=== PATIENT | male | born 1975 | race Hispanic/Latino ===

== ENCOUNTER 2017-08-18 12:41 | Emergency (ER) | payer SELFPAY ==
[2017-08-18] MEDS ORDERED: ACETAMINOPHEN 500 MG TAB ONE (13:47)
[2017-08-18 13:54] LABS: Absolute Lymphocytes (CBC) 0.7 K/uL (0.7-4.9); Absolute Monocytes 0.6 K/uL (0.1-1.3); Basophils % 0.1 % (0-1.3); Eosinophils % 0.3 % (0-4.4); Hematocrit 42.8 % (39.6-49.0); Lymphocytes % 5.6 % (15.3-44.8); MCH 29.2 pg (27.0-35.0); MCV 88.1 fL (80-100); MPV 8.9 fL (7.6-11.3); Monocytes % 4.7 % (3.3-12.3); RBC Red Blood Cell Count 4.86 M/uL (4.33-5.43)
[2017-08-18 14:01] LABS: Protime INR 1.07
[2017-08-18 14:02] LABS: Bicarbonate 26 mEq/L (21-31); Glucose Level 111 mg/dL (65-120); Potassium 3.7 mEq/L (3.6-5.0); Sodium Level 136 mEq/L (135-145)
[2017-08-18 14:08] LABS: ALT/SGPT 22 IU/L (10-60); AST/SGOT 29 IU/L (10-42); Albumin 4.2 g/dL (3.2-5.5); Alkaline Phosphatase 109 IU/L (42-121); BUN Blood Urea Nitrogen 17 mg/dL (6-20); Bilirubin Direct 0.1 mg/dL (0-0.2); Bilirubin Total 0.3 mg/dL (0.3-1.2); Creatine Phosphokinase 129 IU/L (22-269); Magnesium 2.3 mg/dL (1.8-2.5); Protein, Total 7.6 g/dL (6.0-8.3)
[2017-08-18 14:10] LABS: CKMB Creatine Kinase MB 1.3 ng/ml (0.3-4.0)
--- NOTE | 2017-08-18 14:10 | RAD REPORT ---
EXAM DESCRIPTION: RAD - Chest Single View - 08/18/2017 1:55 pm CLINICAL HISTORY: Chest pain. COMPARISON: 12/22/2016 FINDINGS: Portable technique limits examination quality. The lungs are grossly clear. The heart is normal in size. No displaced fractures. IMPRESSION: No acute intrathoracic process suspected.
--- NOTE | 2017-08-18 14:57 | EKG ---
Test Date: 2017-08-18 Test Time: 12:44:47 Steam Service Inspector: PRASHANTH MEASUREMENT RESULTS: Intervals: Rate: 97 VA: 150 QRSD: 102 QT: 360 QTc: 457 [place]: P: 58 VA: 150 QRS: 103 T: 40 INTERPRETIVE STATEMENTS: Normal sinus rhythm Rightward axis Borderline ECG Compared to ECG 02/14/2017 16:05:15 Right-axis deviation now present Intraventricular conduction delay no longer present Electronically Signed On 08-18-17 14:56:31 CDT by Collin Marshall
[2017-08-18 15:03] LABS: Blood Morphology Comment NOT SEEN (NOT SEEN); Platelet Estimate ADEQ; Urine White Blood Cell Casts OK
--- NOTE | 2017-08-18 18:17 | ER ---
Nurse's Notes [facility] Name: Mikhail Reilly Age: 41 yrs Sex: Male : 1975 Arrival Date: 08/18/2017 Time: 12:51 Bed 15 Private MD: Diagnosis: Chest pain, unspecified Presentation: 08/18 12:51 Presenting complaint: EMS states: chest pain and anxiety after getting into an argument ss with another individual approx 45 minutes ago. Transition of care: patient was not received from another setting of care. Onset of symptoms was August 18, 2017. Care prior to arrival: Medication(s) given: Nitroglycerin, 0.4 mg SL x 2, ASA 81 mg x4 IV initiated. 18 GA, in the left antecubital area, Glucose check: 143. 12:51 Method Of Arrival: EMS: [facility] ss 12:51 Acuity: LIANG 3 ss Historical: - Allergies: 12:55 Iodine; rb1 12:55 contrast; rb1 - Home Meds: 12:55 Protonix Oral [Active]; sotalol Oral [Active]; aspirin 81 mg Oral chew [Active]; Plavix rb1 75 mg Oral tab [Active]; - PMHx: 12:55 Atrial Fib; Back pain; Hypertension; Kidney stones; muscle spasms numerous times rb1 requiring Er visits with fluid resusitation; - PSHx: 12:55 None; rb1 - Immunization history:: Adult Immunizations up to date. - Social history:: Smoking status: Patient/guardian denies using tobacco. Screenin:55 Abuse screen: Denies threats or abuse. Nutritional screening: No deficits noted. rb1 Tuberculosis screening: No symptoms or risk factors identified. Fall Risk None identified. Assessment: 12:55 General: Appears uncomfortable, Behavior is calm, cooperative. Pain: Complains of pain rb1 in Center chest and right lower quadrant Pain does not radiate. Pain currently is 7 out of 10 on a pain scale. Pain began 1 hour ago. Neuro: Level of Consciousness is awake, alert, obeys commands, Oriented to person, place, time, situation, Reports headache in entire. Cardiovascular: Capillary refill < 3 seconds is brisk in bilateral fingers Rhythm is regular. Respiratory: Airway is patent Respiratory effort is even, unlabored, Respiratory pattern is regular, symmetrical. GI: Reports nausea. : No signs and/or symptoms were reported regarding the genitourinary system. Derm: Skin is dry, Skin is normal, Skin temperature is warm. Musculoskeletal: Range of motion: intact in all extremities. 13:50 Reassessment: Patient appears in no apparent distress at this time. Patient and/or rb1 family updated on plan of care and expected duration. Pain level reassessed. Patient is alert, oriented x 3, equal unlabored respirations, skin warm/dry/pink. Patient states symptoms have improved. 14:37 Reassessment: Patient appears in no apparent distress at this time. No changes from rb1 previously documented assessment. Family at bedside. 15:30 Reassessment: Patient appears in no apparent distress at this time. Patient and/or rb1 family updated on plan of care and expected duration. Pain level reassessed. Patient is alert, oriented x 3, equal unlabored respirations, skin warm/dry/pink. 16:28 Reassessment: Patient appears in no apparent distress at this time. Pt. resting with rb1 eyes closed, respirations even, unlabored. Family updated on POC. Call light within reach. 17:30 Reassessment: Patient appears in no apparent distress at this time. Patient and/or rb1 family updated on plan of care and expected duration. Pain level reassessed. Patient is alert, oriented x 3, equal unlabored respirations, skin warm/dry/pink. Family at bedside. 18:20 Reassessment: Patient appears in no apparent distress at this time. No changes from rb1 previously documented assessment. Vital Signs: 12:51 BP 111 / 89; Pulse 100; Resp 16; Temp 98.2; Pulse Ox 100% on R/A; Weight 96.62 kg; ss Height 5 ft. 11 in. (180.34 cm); Pain 6/10; 13:50 BP 111 / 89; Pulse 90; Resp 14; Pulse Ox 100% on R/A; rb1 14:40 BP 119 / 86; Pulse 88; Resp 16; Pulse Ox 100% on R/A; rb1 15:30 BP 120 / 65; Pulse 68; Resp 12; Pulse Ox 99% on R/A; Pain 0/10; rb1 16:30 BP 113 / 85; Pulse 70; Resp 13; Pulse Ox 99% on R/A; rb1 17:15 BP 112 / 74; Pulse 67; Resp 12; Pulse Ox 100% on R/A; Pain 0/10; rb1 18:14 BP 125 / 88; Pulse 70; Resp 18; Pulse Ox 96% on R/A; Pain 0/10; rb1 19:31 BP 125 / 90; Pulse 73; Resp 15; Pulse Ox 97% on R/A; rb1 12:51 Body Mass Index 29.71 (96.62 kg, 180.34 cm) ED Course: 12:51 Patient arrived in ED. 12:51 Arm band placed on right wrist. 12:53 Triage completed. ss 12:55 Patient has correct armband on for positive identification. Bed in low position. Call rb1 light in reach. Side rails up X 1. night monitor on. Pulse ox on. NIBP on. 12:55 Maintain EMS IV. Dressing intact. Good blood return noted. Site clean \T\ dry. Gauge \T\ rb 1 site: 20 g Left AC. Patient maintains SpO2 saturation greater than 95% on room air. 13:07 Breana Laureano, DANNIELLE is Primary Nurse. rb1 13:08 Cortez Chandler NP is PHCP. pm1 13:08 Robert Garcia MD is Attending Physician. pm1 13:53 X-ray completed. Portable x-ray completed in exam room. Patient tolerated procedure kp1 well. 13:55 XRAY Chest (1 view) In Process Unspecified. EDMS 19:25 No provider procedures requiring assistance completed. IV discontinued, intact, rb1 bleeding controlled, No redness/swelling at site. Pressure dressing applied. Administered Medications: 13:28 Drug: Tylenol 1000 mg Route: PO; rb1 14:05 Follow up: Response: No adverse reaction; Temperature is decreased rb1 Outcome: 18:17 Discharge ordered by . pm1 19:25 Discharged to home ambulatory, with family. rb1 19:25 Condition: stable 19:25 Discharge instructions given to patient, Instructed on discharge instructions, follow up and referral plans. Demonstrated understanding of instructions, follow-up care, Prescriptions given X none 19:25 Patient left the ED. rb1 Signatures: Dispatcher [employer] EDMS Nikki Win RN RN Breana Laureano, DANNIELLE RN rb1 Cortez Chandler NP [employer] pm1 Etelvina Harris kp1 Corrections: (The following items were deleted from the chart) 18:29 15:30 BP 120 / 65; Pulse 68bpm; Resp 12bpm; Pulse Ox 99% RA; rb1 rb1 19:35 19:34 Patient left the ED. rb1 rb1
--- NOTE | 2017-08-18 18:18 | EDPHYS ---
Physician Documentation [facility] Name: Mikhail Reilly Age: 41 yrs Sex: Male : 1975 Arrival Date: 08/18/2017 Time: 12:51 Bed 15 Private MD: ED Physician Robert Garcia HPI: 08/18 14:00 This 41 yrs old Male presents to ER via EMS with complaints of Chest Pain, pm1 Anxiety. 14:00 The patient or guardian reports chest pain that is located primarily in the substernal pm1 area. Onset: 30 minutes prior to arrival. The pain does not radiate. Associated signs and symptoms: Pertinent positives: palpitations, Headache after given nitro by EMS, Pertinent negatives: abdominal pain, dizziness, nausea, shortness of breath, vomiting. The chest pain is described as sharp. Duration: The patient or guardian reports a single episode, that is still ongoing. Modifying factors: The symptoms are alleviated by NTG, the symptoms are aggravated by emotionally stressful situations, Altercation with contractor paying him. Severity of pain: in the emergency department the pain is a 5 / 10. Patient with onset of chest pain 30 minutes prior to arrival with palpitations. 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 He was trying to avoid paying for the work that was done and it obviously upset him. Historical: - Allergies: 12:55 Iodine; rb1 12:55 contrast; rb1 - Home Meds: 12:55 Protonix Oral [Active]; sotalol Oral [Active]; aspirin 81 mg Oral chew [Active]; Plavix rb1 75 mg Oral tab [Active]; - PMHx: 12:55 Atrial Fib; Back pain; Hypertension; Kidney stones; muscle spasms numerous times rb1 requiring Er visits with fluid resusitation; - PSHx: 12:55 None; rb1 - Immunization history:: Adult Immunizations up to date. - Social history:: Smoking status: Patient/guardian denies using tobacco. ROS: 14:00 Constitutional: Negative for fever, chills, and weight loss, Eyes: Negative for injury, pm1 pain, redness, and discharge, ENT: Negative for injury, pain, and discharge, Neck: Negative for injury, pain, and swelling, Respiratory: Negative for shortness of breath, cough, wheezing, and pleuritic chest pain, Abdomen/GI: Negative for abdominal pain, nausea, vomiting, diarrhea, and constipation. 14:00 Back: Negative for injury and pain, : Negative for injury, bleeding, discharge, and swelling, MS/Extremity: Negative for injury and deformity, Skin: Negative for injury, rash, and discoloration. 14:00 Cardiovascular: Positive for chest pain, palpitations, Negative for edema, orthopnea, paroxysmal nocturnal dyspnea. 14:00 Neuro: Positive for headache, with nitro administration, Negative for dizziness, numbness, tingling, weakness. Exam: 14:00 Constitutional: This is a well developed, well nourished patient who is awake, alert, pm1 and in no acute distress. Head/Face: Normocephalic, atraumatic. Eyes: Pupils equal round and reactive to light, extra-ocular motions intact. Lids and lashes normal. Conjunctiva and sclera are non-icteric and not injected. Cornea within normal limits. Periorbital areas with no swelling, redness, or edema. ENT: Nares patent. No nasal discharge, no septal abnormalities noted. Tympanic membranes are normal and external auditory canals are clear. Oropharynx with no redness, swelling, or masses, exudates, or evidence of obstruction, uvula midline. Mucous membranes moist. Neck: Trachea midline, no thyromegaly or masses palpated, and no cervical lymphadenopathy. Supple, full range of motion without nuchal rigidity, or vertebral point tenderness. No Meningismus. 14:00 Cardiovascular: Regular rate and rhythm with a normal S1 and S2. No gallops, murmurs, or rubs. Normal PMI, no JVD. No pulse deficits. Respiratory: Lungs have equal breath sounds bilaterally, clear to auscultation and percussion. No rales, rhonchi or wheezes noted. No increased work of breathing, no retractions or nasal flaring. Abdomen/GI: Soft, non-tender, with normal bowel sounds. No distension or tympany. No guarding or rebound. No evidence of tenderness throughout. Back: No spinal tenderness. No costovertebral tenderness. Full range of motion. Skin: Warm, dry with normal turgor. Normal color with no rashes, no lesions, and no evidence of cellulitis. MS/ Extremity: Pulses equal, no cyanosis. Neurovascular intact. Full, normal range of motion. 14:00 Chest/axilla: Inspection: normal, Palpation: tenderness, that is mild, of the mid-sternal area, that totally reproduces the patient's complaints. 14:00 Neuro: Orientation: is normal, Motor: is normal, moves all fours, Sensation: is normal, no obvious gross deficits. 14:00 Psych: Behavior/mood is cooperative, anxious, Affect is animated, Patient has no thoughts/intents to harm self or others. Vital Signs: 12:51 BP 111 / 89; Pulse 100; Resp 16; Temp 98.2; Pulse Ox 100% on R/A; Weight 96.62 kg; ss Height 5 ft. 11 in. (180.34 cm); Pain 6/10; 13:50 BP 111 / 89; Pulse 90; Resp 14; Pulse Ox 100% on R/A; rb1 14:40 BP 119 / 86; Pulse 88; Resp 16; Pulse Ox 100% on R/A; rb1 15:30 BP 120 / 65; Pulse 68; Resp 12; Pulse Ox 99% on R/A; Pain 0/10; rb1 16:30 BP 113 / 85; Pulse 70; Resp 13; Pulse Ox 99% on R/A; rb1 17:15 BP 112 / 74; Pulse 67; Resp 12; Pulse Ox 100% on R/A; Pain 0/10; rb1 18:14 BP 125 / 88; Pulse 70; Resp 18; Pulse Ox 96% on R/A; Pain 0/10; rb1 19:31 BP 125 / 90; Pulse 73; Resp 15; Pulse Ox 97% on R/A; rb1 12:51 Body Mass Index 29.71 (96.62 kg, 180.34 cm) ss MDM: 13:08 Patient medically screened. pm1 18:16 Data reviewed: vital signs. Data interpreted: Pulse oximetry: on room air is 100 %. pm1 Interpretation: normal. Counseling: I had a detailed discussion with the patient and/or guardian regarding: the historical points, exam findings, and any diagnostic results supporting the discharge/admit diagnosis, lab results, radiology results, the need for outpatient follow up, to return to the emergency department if symptoms worsen or persist or if there are any questions or concerns that arise at home. 08/18 13:15 Order name: Basic Metabolic Panel; Complete Time: 14:17 pm1 08/18 13:15 Order name: BNP; Complete Time: 14:17 pm1 08/18 13:15 Order name: CBC with Diff; Complete Time: 15:59 pm1 08/18 13:15 Order name: Ckmb; Complete Time: 14:17 pm1 08/18 13:15 Order name: CPK; Complete Time: 14:17 pm1 08/18 13:15 Order name: LFT's; Complete Time: 14:17 pm1 08/18 13:15 Order name: Magnesium; Complete Time: 14:17 pm1 08/18 13:15 Order name: PT-INR; Complete Time: 14:17 pm1 08/18 13:15 Order name: Ptt, Activated; Complete Time: 14:17 pm1 08/18 13:15 Order name: Troponin (emerg Dept Use Only); Complete Time: 14:17 pm1 08/18 13:15 Order name: XRAY Chest (1 view); Complete Time: 14:17 pm1 08/18 15:03 Order name: CBC Smear Scan; Complete Time: 15:59 EDMS 08/18 17:31 Order name: Troponin (emerg Dept Use Only); Complete Time: 18:16 pm1 08/18 13:00 Order name: EKG; Complete Time: 13:00 ss 08/18 13:00 Order name: EKG - Nurse/Tech; Complete Time: 13:00 ss 08/18 13:15 Order name: Cardiac monitoring; Complete Time: 13:23 pm1 08/18 13:15 Order name: IV Saline Lock; Complete Time: 13:23 pm1 08/18 13:15 Order name: Labs collected and sent; Complete Time: 13:40 pm1 08/18 13:15 Order name: O2 Per Protocol; Complete Time: 13:23 pm1 08/18 13:15 Order name: O2 Sat Monitoring; Complete Time: 13:24 pm1 Administered Medications: 13:28 Drug: Tylenol 1000 mg Route: PO; rb1 14:05 Follow up: Response: No adverse reaction; Temperature is decreased rb1 Disposition: 08/19 07:05 Co-signature as Attending Physician, Robert Garcia MD. rn Disposition: 08/18/17 18:17 Discharged to Home. Impression: Chest pain, unspecified. - Condition is Stable. - Discharge Instructions: Nonspecific Chest Pain. - Medication Reconciliation Form, Thank You Letter form. - Follow up: Emergency Department; When: As needed; Reason: Worsening of condition. Follow up: Private Physician; When: 2 - 3 days; Reason: Recheck today's complaints, Continuance of care, Re-evaluation by your physician. - Problem is new. - Symptoms have improved. Signatures: Dispatcher [employer] EDMS Robert Garcia MD MD rn Smirch, Shelby, RN RN ss Breana Laureano RN RN rb1 Cortez Chandler NP MARKETING PRODUCTION SPECIALIST pm1 Corrections: (The following items were deleted from the chart) 08/18 18:24 13:15 Urine Dipstick-Ancillary ordered. pm1 rb1
[2017-08-18 19:41] VITALS: TEMP 98.2
[2017-08-18 19:50] VITALS: BP 125/90; O2SAT 97
== END 2017-08-18 19:34 | disposition home or self-care (01) ==
LOC: ER 12:41
DX: R07.9 Chest pain, unspecified (principal); I10 Essential (primary) hypertension; I48.91 Unspecified atrial fibrillation; Z79.01 Long term (current) use of anticoagulants; Z79.82 Long term (current) use of aspirin
CPT/HCPCS: 36415; 71045; 80048; 80076; 82550; 82553; 83735; 83880; 84484; 85025; 85610; 85730; 93005; 99285

== ENCOUNTER 2018-01-01 07:18 | Emergency (ER) | payer SELFPAY ==
[2018-01-01] MEDS ORDERED: NA CHLORIDE 0.9% 1,000 ML ONE ×2 (07:32→10:19)
[2018-01-01] MEDS ORDERED: FAMOTIDINE 20 MG/2 ML VIAL IV ONE (07:32)
[2018-01-01] MEDS ORDERED: ONDANSETRON 4 MG/2 ML VIAL ONE (07:32)
[2018-01-01 07:47] LABS: Absolute Lymphocytes (CBC) 0.5 K/uL (0.7-4.9); Absolute Monocytes 0.5 K/uL (0.1-1.3); Absolute Neutrophil 12.6 K/uL (1.8-8.0); Basophils % 0.6 % (0-1.3); Eosinophils % 0.4 % (0-4.4); Hematocrit 40.1 % (39.6-49.0); Lymphocytes % 3.7 % (15.3-44.8); MCH 30.2 pg (27.0-35.0); MCV 89.9 fL (80-100); MPV 8.9 fL (7.6-11.3); Monocytes % 3.7 % (3.3-12.3); RBC Red Blood Cell Count 4.46 M/uL (4.33-5.43)
[2018-01-01 08:08] LABS: ALT/SGPT 22 U/L (12-78); AST/SGOT 21 U/L (15-37); Albumin 3.8 g/dL (3.4-5.0); Alkaline Phosphatase 127 U/L (45-117); Amylase Level 155 U/L (25-115); BUN Blood Urea Nitrogen 16 mg/dL (7-18); Bicarbonate 27 mmol/L (21-32); Bilirubin Direct < 0.1 mg/dL (0-0.2); Bilirubin Total 0.3 mg/dL (0.2-1.0); Glucose Level 112 mg/dL (74-106); Lipase 329 U/L (73-393); Magnesium 1.9 mg/dL (1.8-2.4); Potassium 3.5 mmol/L (3.5-5.1); Protein, Total 7.9 g/dL (6.4-8.2); Sodium Level 139 mmol/L (136-145)
[2018-01-01] MEDS ORDERED: ACETAMINOPHEN 500 MG TAB ONE (08:16)
--- NOTE | 2018-01-01 08:55 | RAD REPORT ---
EXAM DESCRIPTION: RAD - Chest Single View - 01/01/2018 7:58 am CLINICAL HISTORY: N/V Chest pain. COMPARISON: Chest Single View dated 08/18/2017; Chest Single View dated 12/22/2016; Chest Single View d ated 12/19/2016; CHEST PA AND LAT 2 VIEW dated 05/27/2015 FINDINGS: Portable technique limits examination quality. The lungs are grossly clear. The heart is normal in size. No displaced fractures. IMPRESSION: No acute intrathoracic process suspected.
[2018-01-01 09:01] LABS: Urine Blood TRACE (NEG); Urine Glucose NEGATIVE (NEG); Urine Protein NEGATIVE (NEG)
[2018-01-01 09:08] LABS: Barbiturates NEGATIVE (NEGATIVE); Benzodiazepines POSITIVE (NEGATIVE); Cocaine NEGATIVE (NEGATIVE); METHAMPHETAM NEGATIVE (NEGATIVE); Methadone NEGATIVE (NEGATIVE); Opiates NEGATIVE (NEGATIVE); Phencyclidine NEGATIVE (NEGATIVE); THC Cannibis POSITIVE (NEGATIVE)
[2018-01-01 09:11] LABS: Urine Bacteria NONE SEEN /HPF (NONE SEEN); Urine Culture Reflex Order NOT NEEDED; Urine RBC <5 /HPF (NONE SEEN)
[2018-01-01 09:42] LABS: Blood Morphology Comment NOT SEEN (NOT SEEN); Platelet Estimate ADEQ; Urine White Blood Cell Casts OK
--- NOTE | 2018-01-01 10:41 | RAD REPORT ---
EXAM DESCRIPTION: CT - Abdomen Pelvis Wo Contrast - 01/01/2018 10:27 am CLINICAL HISTORY: Abdominal pain. NAUSEA / VOMITING COMPARISON: CTSTONE PROTOCOL dated 04/23/2015CTSTONE PROTOCOL dated 04/23/2015 TECHNIQUE: CT imaging of the abdomen and pelvis was performed without contrast. Solid organ, bowel a nd vascular assessment is limited due to lack of IV and oral contrast. All CT scans are performed using dose optimization technique as appropriate and may include automated exposure control or mA/KV adjustment according to patient size. FINDINGS: Mild interstitial opacities are seen in both posterior lung bases. The liver, spleen, pancreas, adrenal glands are within normal limits for a limited non-contrast exami nation.A tiny calculus is seen in the superior calyx left kidney. No right-sided calculus. No hydrone phrosis. No bowel obstruction, free air, free fluid or abscess. The appendix is normal. Moderate lumbar degenerative changes seen. IMPRESSION: Tiny punctate calculus superior calyx left kidney without hydronephrosis. Vague interstitial lung opacities in both posterior lung bases could be infectious. Moderate lower lumbar spondylosis. A limited non-contrast examination was performed as detailed.
--- NOTE | 2018-01-01 10:55 | EDPHYS ---
Physician Documentation [facility] Name: Mikhail Reilly Age: 42 yrs Sex: Male : 1975 Arrival Date: 01/01/2018 Time: 07:19 Bed 15 Private MD: ED Physician Isrrael Perera HPI: 01/01 07:30 This 42 yrs old Male presents to ER via EMS with complaints of Neck Pain, cp >24Hrs Old, Pain All Over, Nausea/Vomiting/Diarrhea. 07:30 The patient or guardian complains of pain, that is acute. cp 07:30 The symptoms are located diffusely. Onset: The symptoms/episode began/occurred this cp morning. Context: The neck injury/problem resulted from from unknown cause. Associated signs and symptoms: Pertinent positives: fever, vomiting, weakness, diffusely, cough, diarrhea, Pertinent negatives: constipation. Severity of symptoms: in the emergency department the symptoms are unchanged, despite home interventions. Historical: - Allergies: 07:49 contrast; cc3 07:49 Iodine; cc3 - Home Meds: 07:15 atenolol 25 mg Oral tab 1 tab once daily [Active]; Plavix 75 mg Oral tab 1 tab once cc3 daily [Active]; diltiazem HCl 30 mg oral tab 1 tab twice a day [Active]; Amy Aspirin 325 mg oral tab 1 tab once daily [Active]; - PMHx: 07:49 Atrial Fib; Back pain; Hypertension; Kidney stones; muscle spasms numerous times cc3 requiring Er visits with fluid resusitation; - Immunization history:: Adult Immunizations unknown. - Social history:: Smoking status: Patient/guardian denies using tobacco, never smoked. - Ebola Screening: : No symptoms or risks identified at this time. ROS: 07:35 Constitutional: Positive for body aches, chills, fever, poor PO intake. cp 07:35 Eyes: Negative for injury, pain, redness, and discharge. cp 07:35 ENT: Negative for drainage from ear(s), ear pain, difficulty swallowing, difficulty handling secretions. 07:35 Neck: Positive for pain with movement, pain at rest. 07:35 Cardiovascular: Negative for chest pain, edema, palpitations. 07:35 Respiratory: Positive for dyspnea on exertion, Negative for shortness of breath, wheezing. 07:35 Abdomen/GI: Positive for abdominal pain, nausea, vomiting, and diarrhea, Negative for constipation, black/tarry stool, rectal bleeding. 07:35 Back: Positive for pain at rest, pain with movement. 07:35 : Negative for urinary symptoms, testicular pain 07:35 Skin: Negative for cellulitis, rash. 07:35 Neuro: Positive for headache, general weakness, Negative for altered mental status, dizziness. 07:35 All other systems are negative. Exam: 07:40 Constitutional: The patient appears in no acute distress, alert, awake, non-toxic, well cp developed, well nourished, uncomfortable. 07:40 Head/Face: Normocephalic, atraumatic. Eyes: Pupils equal round and reactive to light, cp extra-ocular motions intact. Lids and lashes normal. Conjunctiva and sclera are non-icteric and not injected. Cornea within normal limits. Periorbital areas with no swelling, redness, or edema. ENT: Nares patent. No nasal discharge, no septal abnormalities noted. Tympanic membranes are normal and external auditory canals are clear. Oropharynx with no redness, swelling, or masses, exudates, or evidence of obstruction, uvula midline. Mucous membranes moist. Neck: Trachea midline, no thyromegaly or masses palpated, and no cervical lymphadenopathy. Supple, full range of motion without nuchal rigidity, or vertebral point tenderness. No Meningismus. Chest/axilla: Normal chest wall appearance and motion. Nontender with no deformity. No lesions are appreciated. 07:40 Cardiovascular: Rate: tachycardic, Rhythm: regular, Edema: is not appreciated, JVD: is not appreciated. 07:40 Respiratory: the patient does not display signs of respiratory distress, Respirations: normal, no use of accessory muscles, no retractions, no splinting, no tachypnea, labored breathing, is not present, Breath sounds: are clear throughout, no decreased breath sounds, no stridor, no wheezing. 07:40 Abdomen/GI: Inspection: abdomen appears normal, Bowel sounds: active, all quadrants, Palpation: soft, in all quadrants, moderate abdominal tenderness, in the right upper quadrant and left upper quadrant, rebound tenderness, is not appreciated, voluntary guarding, is elicited in the right upper quadrant and left upper quadrant, involuntary guarding, is not appreciated. 07:40 Back: pain, that is moderate, ROM is normal, Straight leg raises: of both lower extremities does not illicit pain. 07:40 Skin: cellulitis, is not appreciated, no rash present. 07:40 Neuro: Orientation: to person, place \T\ time. Mentation: lucid, able to follow commands, Cerebellar function: is grossly normal, Motor: moves all fours, strength is normal, Sensation: is normal. Vital Signs: 07:21 BP 126 / 79; Pulse 124; Resp 18; Temp 101.9; Pulse Ox 96% on R/A; Weight 89.36 kg; cc3 Height 5 ft. 10 in. (177.80 cm); Pain 10/10; 08:28 BP 124 / 85; Pulse 115; Resp 24; Temp 99.7(O); Pulse Ox 96% on R/A; Pain 8/10; cc3 08:30 Temp 99.7(O); cc3 09:55 BP 105 / 59; Pulse 96; Resp 18; Pulse Ox 98% on R/A; hj 11:23 BP 110 / 65; Pulse 95; Resp 18; Pulse Ox 100% on R/A; hj 07:21 Body Mass Index 28.27 (89.36 kg, 177.80 cm) cc3 MDM: 07:23 Patient medically screened. cp 08:00 Differential diagnosis: bacterial meningitis, viral meningitis, gastroenteritis, cp pneumonia, sepsis, urinary tract infection. 10:53 Data reviewed: vital signs, nurses notes, lab test result(s), EKG, radiologic studies, cp CT scan, plain films. 10:53 Test interpretation: by ED physician or midlevel provider: ECG, plain radiologic cp studies. Counseling: I had a detailed discussion with the patient and/or guardian regarding: the historical points, exam findings, and any diagnostic results supporting the discharge/admit diagnosis, lab results, radiology results, to return to the emergency department if symptoms worsen or persist or if there are any questions or concerns that arise at home. Response to treatment: the patient's symptoms have markedly improved after treatment, VSS. Fever resolved and pain improved, and as a result, I will discharge patient. 01/01 07:23 Order name: Amylase, Serum; Complete Time: 08:20 cp 01/01 09:51 Interpretation: Abnormal: FARZANA 155. cp 01/01 07:23 Order name: Basic Metabolic Panel; Complete Time: 08:20 cp 01/01 08:20 Interpretation: Normal except: GLUC 112; GFR 73. cp 01/01 07:23 Order name: CBC with Diff; Complete Time: 09:50 cp 01/01 07:58 Interpretation: Normal except: WBC 13.8; HGB 13.5; TIMOTEO% 91.6; LYM% 3.7; NEUT A 12.6; cp LYMA 0.5. 01/01 07:23 Order name: Creatinine for Radiology; Complete Time: 08:20 cp 01/01 07:23 Order name: Hepatic Function; Complete Time: 08:20 cp 01/01 09:24 Interpretation: Normal except: ALK 127; GLOB 4.1; A/G 0.9. cp 01/01 07:23 Order name: Lipase; Complete Time: 08:20 cp 01/01 07:23 Order name: Urine Microscopic Only; Complete Time: 09:14 cp 01/01 07:23 Order name: Magnesium; Complete Time: 08:20 cp 01/01 07:23 Order name: Troponin I; Complete Time: 08:20 cp 01/01 07:23 Order name: UDS; Complete Time: 09:14 cp 01/01 09:14 Interpretation: Normal except: BZO POSITIVE; THC POSITIVE. cp 01/01 07:50 Order name: CBC Smear Scan; Complete Time: 09:50 EDMS 01/01 09:50 Interpretation: Reviewed. cp 01/01 08:07 Order name: Blood Culture Adult (2) cp 01/01 08:07 Order name: CPK; Complete Time: 09:14 cp 01/01 08:07 Order name: Lactate; Complete Time: 09:14 cp 01/01 07:23 Order name: IV Saline Lock; Complete Time: 07:25 cp 01/01 07:23 Order name: Labs collected and sent; Complete Time: 07:29 cp 01/01 07:23 Order name: Urine Dipstick-Ancillary (obtain specimen); Complete Time: 08:54 cp 01/01 07:23 Order name: EKG; Complete Time: 07:24 cp 01/01 07:23 Order name: EKG - Nurse/Tech; Complete Time: 07:28 cp 01/01 07:23 Order name: XRAY Chest (1 view); Complete Time: 09:14 cp 01/01 08:07 Order name: Procalcitonin; Complete Time: 09:23 cp 01/01 09:23 Interpretation: Reviewed. cp 01/01 08:20 Order name: CT Abd/Pelvis - Without Cont: with oral contrast; Complete Time: 10:45 cp 01/01 08:49 Order name: Urine Dipstick--Ancillary (enter results); Complete Time: 09:14 bd 01/01 09:15 Interpretation: Normal except: UBLD TRACE. cp 01/01 10:52 Order name: PO challenge; Complete Time: 10:53 cp Administered Medications: 07:25 Drug: NS 0.9% 1000 ml Route: IV; Rate: 1 bolus; Site: left antecubital; cc3 08:30 Follow up: IV Status: Completed infusion; IV Intake: 1000ml cc3 07:30 Drug: Pepcid 20 mg Route: IVP; Site: left antecubital; cc3 08:10 Follow up: Response: No adverse reaction cc3 07:35 Drug: Zofran 4 mg Route: IVP; Site: left antecubital; cc3 08:10 Follow up: Response: No adverse reaction cc3 08:10 Drug: Tylenol 1000 mg Route: PO; cc3 08:30 Follow up: Temp 99.7 Oral; Response: No adverse reaction; Temperature is decreased cc3 11:55 Follow up: Response: No adverse reaction; Pain is decreased hj 10:09 Drug: NS 0.9% 1000 ml Route: IV; Rate: 1 bolus; Site: right wrist; hj 11:55 Follow up: IV Status: Completed infusion; IV Intake: 1000ml Point of Care Testing: Blood Glucose: 08:37 Blood Glucose: 93 mg/dL; cc3 Ranges: Critical Glucose Levels:Adult <50 mg/dl or >400 mg/dl <40 mg/dl or >180 mg/dl Disposition: 01/02 02:40 Co-signature as Attending Physician, Isrrael Perera MD I agree with the assessment and tw4 plan of care. Attestation: The patient's history, exam findings, diagnostics, and a summary of any interventions or procedures was reviewed in detail with Luke MORELAND. Disposition: 01/01/18 10:54 Discharged to Home. Impression: Nausea and vomiting, Diarrhea, unspecified. - Condition is Stable. - Discharge Instructions: Food Choices to Help Relieve Diarrhea, Adult, Dehydration, Adult, Diarrhea, Adult, Nausea and Vomiting, Adult. - Prescriptions for Cipro 500 mg Oral Tablet - take 1 tablet by ORAL route every 12 hours for 7 days; 14 tablet. promethazine 25 mg Oral Tablet - take 1 tablet by ORAL route every 6 hours As needed; 20 tablet. Pepcid 20 mg Oral Tablet - take 1 tablet by ORAL route every 12 hours for 10 days; 20 tablet. - Medication Reconciliation Form, Thank You Letter, Antibiotic Education, Prescription Opioid Use form. - Follow up: Private Physician; When: 1 - 2 days; Reason: Recheck today's complaints. - Problem is new. - Symptoms have improved. Signatures: Dispatcher [employer] EDDC Mlyes Bai RN RN hj Luke Marsh PA PA Isrrael Atkins MD MD tw4 Nyasia Gonzalez cc3 Corrections: (The following items were deleted from the chart) 01/01 07:58 07:58 Normal except: WBC 13.8; HGB 13.5; TIMOTEO% 91.6; LYM% 3.7; NEUT A 12.6. cp cp 08:26 08:08 Abdomen Pelvis W Con+CT.RAD.BRZ ordered. [facility] EDDC 12:33 10:54 01/01/2018 10:54 Discharged to Home. Impression: Nausea and vomiting; Diarrhea, cc3 unspecified. Condition is Stable. Forms are Medication Reconciliation Form, Thank You Letter, Antibiotic Education, Prescription Opioid Use. Follow up: Private Physician; When: 1 - 2 days; Reason: Recheck today's complaints. Problem is new. Symptoms have improved. cp
--- NOTE | 2018-01-01 10:55 | ER ---
Nurse's Notes [facility] Name: Mikhail Reilly Age: 42 yrs Sex: Male : 1975 Arrival Date: 01/01/2018 Time: 07:19 Bed 15 Private MD: Diagnosis: Nausea and vomiting;Diarrhea, unspecified Presentation: 01/01 07:39 Presenting complaint: EMS states: Nontraumatic Neck and back pain since 4 days. cc3 Transition of care: patient was not received from another setting of care. Onset of symptoms was January 01, 2018. Risk Assessment: Do you want to hurt yourself or someone else? Patient reports no desire to harm self or others. Initial Sepsis Screen: Does the patient meet any 2 criteria? RR > 20 per min. Temp <36.0*C (96.8*F)) or > 38.3*C (100.4*F). HR > 90 bpm. Yes. Care prior to arrival: EMS have given Zofran 4 mg IV and Phenergan 12.5 mg IV as endorsed. 07:39 Method Of Arrival: EMS: [facility] cc3 07:39 Acuity: LIANG 3 cc3 08:08 Initial Sepsis Screen: Does the patient have a suspected source of infection? No. cc3 Patient's initial sepsis screen is negative. Triage Assessment: 07:15 General: Appears uncomfortable, Behavior is calm, cooperative. Pain: Complains of pain cc3 in neck and back pain Pain currently is 8 out of 10 on a pain scale. Quality of pain is described as aching, Pain began intermittent since 4 days. EENT: Reports pain in neck. Neuro: Level of Consciousness is awake, alert, obeys commands, Oriented to person, place, time, situation, Appropriate for age. Cardiovascular: Denies chest pain, Capillary refill < 3 seconds is brisk Rhythm is atrial fibrillation. Respiratory: Airway is patent Respiratory effort is even, unlabored, Respiratory pattern is regular, symmetrical. GI: Abdomen is flat, round non-distended. : No signs and/or symptoms were reported regarding the genitourinary system. Derm: No signs and/or symptoms reported regarding the dermatologic system. Musculoskeletal: Reports pain in neck and back. Historical: - Allergies: 07:49 contrast; cc3 07:49 Iodine; cc3 - Home Meds: 07:15 atenolol 25 mg Oral tab 1 tab once daily [Active]; Plavix 75 mg Oral tab 1 tab once cc3 daily [Active]; diltiazem HCl 30 mg oral tab 1 tab twice a day [Active]; Amy Aspirin 325 mg oral tab 1 tab once daily [Active]; - PMHx: 07:49 Atrial Fib; Back pain; Hypertension; Kidney stones; muscle spasms numerous times cc3 requiring Er visits with fluid resusitation; - Immunization history:: Adult Immunizations unknown. - Social history:: Smoking status: Patient/guardian denies using tobacco, never smoked. - Ebola Screening: : No symptoms or risks identified at this time. Screenin:15 Abuse screen: Denies threats or abuse. Denies injuries from another. Nutritional cc3 screening: No deficits noted. Tuberculosis screening: No symptoms or risk factors identified. Fall Risk None identified. Assessment: 07:15 Reassessment: see triage for assessment. [facility] 07:15 Neuro: Level of Consciousness is awake, alert, obeys commands, Oriented to person, 3 place, time, situation, Appropriate for age. 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 09:54 Reassessment: Patient and/or family updated on plan of care and expected duration. Pain hj level reassessed. Patient is alert, oriented x 3, equal unlabored respirations, skin warm/dry/pink. awaiting CT abd test;. 10:25 Reassessment: wheeled to CT;. hj 10:55 Reassessment: able to tolerate PO challenge;. hj 11:23 Reassessment: Patient and/or family updated on plan of care and expected duration. Pain hj level reassessed. Patient is alert, oriented x 3, equal unlabored respirations, skin warm/dry/pink. for D/C; to finish IV fluids;. 12:08 Reassessment: awaiting ride from a family member;. cc3 Vital Signs: 07:21 BP 126 / 79; Pulse 124; Resp 18; Temp 101.9; Pulse Ox 96% on R/A; Weight 89.36 kg; 3 Height 5 ft. 10 in. (177.80 cm); Pain 10/10; 08:28 BP 124 / 85; Pulse 115; Resp 24; Temp 99.7(O); Pulse Ox 96% on R/A; Pain 8/10; cc3 08:30 Temp 99.7(O); cc3 09:55 BP 105 / 59; Pulse 96; Resp 18; Pulse Ox 98% on R/A; hj 11:23 BP 110 / 65; Pulse 95; Resp 18; Pulse Ox 100% on R/A; hj 07:21 Body Mass Index 28.27 (89.36 kg, 177.80 cm) cc3 ED Course: 07:15 Maintain EMS IV. Dressing intact. Good blood return noted. Site clean \T\ dry. Gauge \T\ cc 3 site: 20 Left AC. 07:15 Arm band placed on right wrist. cc3 07:15 Patient has correct armband on for positive identification. Placed in gown. Bed in low cc3 position. Call light in reach. Side rails up X2. Adult w/ patient. 07:19 Patient arrived in ED. hj 07:21 Myles Bai, DANNIELLE is Primary Nurse. hj 07:21 Luke Marsh PA is PHCP. cp 07:21 Isrrael Perera MD is Attending Physician. cp 07:36 Troponin I Sent. ag 07:36 Magnesium Sent. ag 07:36 Amylase, Serum Sent. ag 07:36 Basic Metabolic Panel Sent. ag 07:36 CBC with Diff Sent. ag 07:36 Creatinine for Radiology Sent. ag 07:37 Hepatic Function Sent. ag 07:37 Lipase Sent. ag 07:46 Triage completed. cc3 07:57 X-ray completed. Portable x-ray completed in exam room. Patient tolerated procedure jb2 well. 07:59 XRAY Chest (1 view) In Process Unspecified. EDMS 08:48 Blood Culture Adult (2) Sent. cc3 08:48 CPK Sent. cc3 08:48 Lactate Sent. cc3 08:49 Procalcitonin Sent. cc3 08:54 CBC Smear Scan Sent. cc3 08:54 Urine Microscopic Only Sent. cc3 10:26 CT completed. Patient tolerated procedure well. Patient moved to CT via stretcher. sj Patient moved back from CT. 10:26 CT Abd/Pelvis - Without Cont: with oral contrast In Process Unspecified. EDMS 11:54 No provider procedures requiring assistance completed. IV discontinued, intact, hj bleeding controlled, No redness/swelling at site. Pressure dressing applied. Administered Medications: 07:25 Drug: NS 0.9% 1000 ml Route: IV; Rate: 1 bolus; Site: left antecubital; cc3 08:30 Follow up: IV Status: Completed infusion; IV Intake: 1000ml cc3 07:30 Drug: Pepcid 20 mg Route: IVP; Site: left antecubital; cc3 08:10 Follow up: Response: No adverse reaction cc3 07:35 Drug: Zofran 4 mg Route: IVP; Site: left antecubital; cc3 08:10 Follow up: Response: No adverse reaction cc3 08:10 Drug: Tylenol 1000 mg Route: PO; cc3 08:30 Follow up: Temp 99.7 Oral; Response: No adverse reaction; Temperature is decreased cc3 11:55 Follow up: Response: No adverse reaction; Pain is decreased hj 10:09 Drug: NS 0.9% 1000 ml Route: IV; Rate: 1 bolus; Site: right wrist; hj 11:55 Follow up: IV Status: Completed infusion; IV Intake: 1000ml hj Point of Care Testing: Blood Glucose: 08:37 Blood Glucose: 93 mg/dL; cc3 Ranges: Intake: 08:30 IV: 1000ml; Total: 1000ml. cc3 11:55 IV: 1000ml; Total: 2000ml. hj Outcome: 10:54 Discharge ordered by MD. cp 11:55 Discharged to home ambulatory, with family. hj 11:55 Condition: stable 11:55 Discharge instructions given to patient, family, Instructed on discharge instructions, follow up and referral plans. medication usage, Demonstrated understanding of instructions, follow-up care, medications, Prescriptions given X 3. 12:33 Patient left the ED. cc3 Signatures: Dispatcher [employer] EDWI Abe Gentile Susan sj Gallardo, Myles Kebede RN RN Luke Marquez PA PA cp Cordel, Charlene cc3 Corrections: (The following items were deleted from the chart) 07:28 07:21 BP 126 / 79; Pulse 124bpm; Resp 18bpm; Pulse Ox 96% RA; 89.36 kg; Height 5 ft. 10 cc3 in.; BMI: 28.2; Pain 02/20; hj
[2018-01-01 12:40] VITALS: TEMP 99.7
[2018-01-01 12:42] VITALS: BP 110/65; O2SAT 100
--- NOTE | 2018-01-01 12:46 | EKG ---
Test Date: 2018-01-01 Test Time: 07:31:05 [employer] Consultant: JEVON MEASUREMENT RESULTS: Intervals: Rate: 130 IN: 144 QRSD: 94 QT: 306 QTc: 450 [place]: P: 55 IN: 144 QRS: 113 T: 21 INTERPRETIVE STATEMENTS: Sinus tachycardia Left posterior fascicular block Abnormal ECG Compared to ECG 08/18/2017 12:44:47 Left posterior fascicular block now present Sinus rhythm no longer present Right-axis deviation no longer present Electronically Signed On 01-01-18 12:44:16 CDT by Yash Berrios
== END 2018-01-01 12:33 | disposition home or self-care (01) ==
LOC: ER 07:18
DX: R19.7 Diarrhea, unspecified (principal); I10 Essential (primary) hypertension; I48.91 Unspecified atrial fibrillation; Z79.01 Long term (current) use of anticoagulants; Z79.82 Long term (current) use of aspirin; Z91.041 Radiographic dye allergy status; Z91.048 Other nonmedicinal substance allergy status
CPT/HCPCS: 36415; 71045; 74176; 80048; 80076; 80307; 81003; 81015; 82150; 82550; 82962; 83605; 83690; 83735; 84145; 84484; 85025; 87040; 93005; 96361; 96374; 96375; 99285; J2405; J7030

== ENCOUNTER 2018-04-14 17:47 | Observation (INO) | payer SELFPAY ==
[2018-04-14] MEDS ORDERED: NA CHLORIDE 0.9% 1,000 ML ONE ×2 (18:15→23:44)
--- NOTE | 2018-04-14 18:29 | RAD REPORT ---
EXAM DESCRIPTION: RAD - Chest Single View - 04/14/2018 6:22 pm CLINICAL HISTORY: Chest pain COMPARISON: January 01 TECHNIQUE: AP portable chest image was obtained 1803 hours . FINDINGS: Lungs are clear. Heart and vasculature are normal. No measurable pleural effusion and no p neumothorax. No acute bony abnormality seen. No acute aortic findings suspected. IMPRESSION: No acute cardiopulmonary process. No significant interval change.
[2018-04-14 18:35] LABS: Absolute Lymphocytes (CBC) 2.1 K/uL (0.7-4.9); Absolute Monocytes 0.8 K/uL (0.1-1.3); Absolute Neutrophil 6.4 K/uL (1.8-8.0); Basophils % 0.4 % (0-1.3); Eosinophils % 0.3 % (0-4.4); Hematocrit 46.8 % (39.6-49.0); MCH 30.6 pg (27.0-35.0); MCV 88.9 fL (80-100); MPV 9.7 fL (7.6-11.3); Monocytes % 8.3 % (3.3-12.3); RBC Red Blood Cell Count 5.27 M/uL (4.33-5.43)
[2018-04-14 18:46] LABS: Protime INR 1.17
[2018-04-14 18:52] LABS: ALT/SGPT 15 U/L (12-78); AST/SGOT 14 U/L (15-37); Albumin 4.2 g/dL (3.4-5.0); Alkaline Phosphatase 142 U/L (45-117); BUN Blood Urea Nitrogen 25 mg/dL (7-18); Bicarbonate 21 mmol/L (21-32); Bilirubin Direct 0.1 mg/dL (0-0.2); Bilirubin Total 0.5 mg/dL (0.2-1.0); Glucose Level 95 mg/dL (74-106); Magnesium 2.6 mg/dL (1.8-2.4); NT PRO-BNP 26 pg/mL (<125); Potassium 3.3 mmol/L (3.5-5.1); Protein, Total 8.6 g/dL (6.4-8.2); Sodium Level 139 mmol/L (136-145); Troponin (Emerg Dept Use Only) < 0.02 ng/mL (0.0-0.045)
--- NOTE | 2018-04-14 19:57 | ER ---
Nurse's Notes [facility] Name: Mikhail Reilly Age: 42 yrs Sex: Male : 1975 Arrival Date: 04/14/2018 Time: 17:41 Bed 8 Private MD: Diagnosis: Chest pain, unspecified Presentation: 04/14 17:41 Presenting complaint: EMS states: Chest pain x 2-3 days worse today, hx of A-fib, ph reports feeling dehydrated recently, rates pain 8/10, 324 ASA administered, pt reports that pain decreased to 4/10 MANAGER MEDICARE, 12 lead showed sinus tach at 100-110 bpm, possible old infarct noted, 18 G LAC. Transition of care: patient was not received from another setting of care. Onset of symptoms was April 14, 2018. Risk Assessment: Do you want to hurt yourself or someone else? Patient reports no desire to harm self or others. Initial Sepsis Screen: Does the patient meet any 2 criteria? No. Patient's initial sepsis screen is negative. Does the patient have a suspected source of infection? No. Patient's initial sepsis screen is negative. Care prior to arrival: Medication(s) given: ASA, 81 mg, x 4, IV initiated. 18 GA, in the left antecubital area, Glucose check: 101. 17:41 Method Of Arrival: EMS: [facility] ph 17:41 Acuity: LIANG 3 ph Historical: - Allergies: 17:53 contrast; ph 17:53 Iodine; ph - Home Meds: 17:53 atenolol 25 mg Oral tab 1 tab once daily [Active]; Amy Aspirin 325 mg Oral tab 1 tab ph once daily [Active]; Eliquis oral oral [Active]; Lipitor Oral [Active]; - PMHx: 17:53 Atrial Fib; Back pain; Hypertension; Kidney stones; muscle spasms numerous times ph requiring Er visits with fluid resusitation; - Immunization history:: Adult Immunizations unknown. - Social history:: Smoking status: Patient/guardian denies using tobacco. - Ebola Screening: : No symptoms or risks identified at this time. Screenin:54 Abuse screen: Denies threats or abuse. Denies injuries from another. Nutritional ph screening: No deficits noted. Tuberculosis screening: No symptoms or risk factors identified. Fall Risk None identified. Assessment: 17:54 General: Appears in no apparent distress. comfortable, slender, Behavior is calm, ph cooperative, appropriate for age, Reports N/V/D and feeling ill "earlier this week". Pain: Complains of pain in anterior aspect of left upper chest and left breast Pain does not radiate. Pain currently is 4 out of 10 on a pain scale. at worst was 8 out of 10 on a pain scale. Pain began 2-3 days ago. Neuro: Level of Consciousness is awake, alert, obeys commands, Oriented to person, place, time, situation. Cardiovascular: Reports chest pain, diaphoresis, fatigue, lightheadedness, nausea, shortness of breath, Denies palpitations, syncope, Capillary refill < 3 seconds in bilateral fingers Patient's skin is warm and dry. Respiratory: Airway is patent Respiratory effort is even, unlabored, Respiratory pattern is regular, symmetrical. GI: Patient currently denies nausea. Derm: Skin is intact, Skin is pink, warm \\T\\ dry. Musculoskeletal: Circulation, motion, and sensation intact. Range of motion: intact in all extremities. 18:50 Reassessment: Patient appears in no apparent distress at this time. Patient and/or ph family updated on plan of care and expected duration. Pain level reassessed. Patient is alert, oriented x 3, equal unlabored respirations, skin warm/dry/pink. 20:05 Reassessment: Patient appears in no apparent distress at this time. Patient and/or aa1 family updated on plan of care and expected duration. Pain level reassessed. Patient is alert, oriented x 3, equal unlabored respirations, skin warm/dry/pink. Pt requesting medication for mild discomfort in his chest; provider notified. Awaiting bed assignment. 21:00 Reassessment: Patient appears in no apparent distress at this time. Patient and/or aa1 family updated on plan of care and expected duration. Pain level reassessed. Patient is alert, oriented x 3, equal unlabored respirations, skin warm/dry/pink. Pt resting comfortably; awaiting bed assignment. 22:00 Reassessment: Patient appears in no apparent distress at this time. Patient and/or aa1 family updated on plan of care and expected duration. Pain level reassessed. Patient is alert, oriented x 3, equal unlabored respirations, skin warm/dry/pink. Pt resting comfortably; awaiting bed assignment. 23:00 Reassessment: Patient appears in no apparent distress at this time. Patient and/or aa1 family updated on plan of care and expected duration. Pain level reassessed. Patient is alert, oriented x 3, equal unlabored respirations, skin warm/dry/pink. Pt resting comfortably; awaiting bed assignment. 23:59 Reassessment: Patient appears in no apparent distress at this time. Patient and/or aa1 family updated on plan of care and expected duration. Pain level reassessed. Patient is alert, oriented x 3, equal unlabored respirations, skin warm/dry/pink. Report given to DANNIELLE Casiano. Vital Signs: 17:49 BP 146 / 101; Pulse 104; Resp 18; Temp 97.7; Pulse Ox 98% on R/A; Weight 90.72 kg; ph Height 5 ft. 10 in. (177.80 cm); Pain 4/10; 19:13 BP 130 / 99; Pulse 85; Resp 16; Pulse Ox 98% on R/A; mt 19:47 BP 148 / 105; Pulse 92; Resp 16; Pulse Ox 98% on R/A; mt 20:26 BP 130 / 97; Pulse 94; Resp 16; Pulse Ox 98% on R/A; aa1 21:00 BP 127 / 93; Pulse 94; Resp 16; Pulse Ox 97% on R/A; aa1 22:15 BP 131 / 99; Pulse 94; Resp 18; Pulse Ox 96% on R/A; Pain 0/10; aa1 23:40 BP 131 / 81; Pulse 92; Resp 16; Temp 97.9; Pulse Ox 98% on R/A; Pain 0/10; aa1 12/03 00:06 BP 134 / 85; Pulse 64; Resp 16; Pulse Ox 97% on R/A; Pain 0/10; aa1 04/14 17:49 Body Mass Index 28.70 (90.72 kg, 177.80 cm) ph ED Course: 04/14 17:41 Patient arrived in ED. ph 17:47 Eliud Arce PA is PHCP. jmm 17:47 Luke Saleh MD is Attending Physician. jmm 17:49 Triage completed. ph 17:53 EKG done, by ED staff, reviewed by Eliud MORELAND. jb1 17:53 Arm band placed on. ph 17:57 Patient has correct armband on for positive identification. Placed in gown. Bed in low ph position. Call light in reach. Side rails up X 1. electronic device monitor on. Pulse ox on. NIBP on. Warm blanket given. 17:58 Patient maintains SpO2 saturation greater than 95% on room air. ph 18:05 Genesis Pollard, RN is Primary Nurse. ph 18:10 Initial lab(s) drawn, by me, sent to lab. jb 18:32 RAD In Process Unspecified. EDMS 19:56 Ezra Akres MD is Hospitalizing Provider. [facility] [place] 23:43 No provider procedures requiring assistance completed. Patient admitted, IV remains in aa1 place. 04/15 00:10 Repeat lab(s) drawn. by me, sent to lab. aa1 Administered Medications: 04/14 18:19 Drug: NS 0.9% 1000 ml Route: IV; Rate: 1 bolus; Site: left antecubital; ph 19:28 Follow up: Response: No adverse reaction; IV Status: Completed infusion ph 20:15 Drug: morphine 2 mg Route: IVP; Site: left antecubital; aa1 23:33 Follow up: Response: No adverse reaction; Pain is decreased aa1 20:24 Not Given (pt received MANAGER MEDICARE by EMS): Aspirin Chewable Tablet 324 mg PO once; 81 mg aa1 tablets x 4 23:38 Drug: NS 0.9% 1000 ml Route: IV; Rate: 1 bolus; Site: left antecubital; aa1 23:38 Follow up: IV Status: Infusion continued upon admission aa1 Outcome: 19:56 Decision to Hospitalize by Provider. [facility] [place] 04/15 00:14 Admitted to Tele accompanied by nurse, via wheelchair, room 416, with chart, Report aa1 called to [place] Condition: stable Instructed on the need for admit, Demonstrated understanding of instructions. 00:16 Patient left the ED. aa1 Signatures: Dispatcher [employer] EDMS Mike Elizabeth1 Marilu Coyne, RN RN aa1 Eliud Arce PA PA Genesis Rdz, DANNIELLE RN [facility]
--- NOTE | 2018-04-14 19:58 | EDPHYS ---
Physician Documentation [facility] Name: Mikhail Reilly Age: 42 yrs Sex: Male : 1975 Arrival Date: 04/14/2018 Time: 17:41 Bed 8 Private MD: ED Physician Luke Saleh HPI: 04/14 17:48 This 42 yrs old Male presents to ER via EMS with complaints of Chest Pain. [facility] 17:48 The patient or guardian reports chest pain that is located primarily in the substernal [facility] area. Onset: gradually. The pain does not radiate. Associated signs and symptoms: Pertinent positives:. The chest pain is described as a pressure. Duration: The patient or guardian reports a single episode, that is still ongoing, but improving. This is a 42 year old male with a history of atrial fibrillation, htn that presents to the ED with left sided chest pain beginning 2 hours prior to arrival. Patient admits to history of previous RI. Patient states he has not taken eliquis in the past 2 weeks. Pain is described as pressure. . Historical: - Allergies: 17:53 contrast; ph 17:53 Iodine; ph - Home Meds: 17:53 atenolol 25 mg Oral tab 1 tab once daily [Active]; Amy Aspirin 325 mg Oral tab 1 tab ph once daily [Active]; Eliquis oral oral [Active]; Lipitor Oral [Active]; - PMHx: 17:53 Atrial Fib; Back pain; Hypertension; Kidney stones; muscle spasms numerous times ph requiring Er visits with fluid resusitation; - Immunization history:: Adult Immunizations unknown. - Social history:: Smoking status: Patient/guardian denies using tobacco. - Ebola Screening: : No symptoms or risks identified at this time. ROS: 17:48 Constitutional: Negative for fever, chills, and weight loss, Eyes: Negative for injury, jmm pain, redness, and discharge, ENT: Negative for injury, pain, and discharge, Neck: Negative for injury, pain, and swelling. 17:48 Cardiovascular: Positive for chest pain. 17:48 Respiratory: Positive for shortness of breath. 17:48 All other systems are negative. Exam: 17:48 Constitutional: This is a well developed, well nourished patient who is awake, alert, jmm and in no acute distress. Head/Face: atraumatic. Eyes: EOMI, no conjunctival erythema appreciated ENT: Moist Mucus Membranes Neck: Trachea midline, Supple Chest/axilla: Normal chest wall appearance and motion. Cardiovascular: Regular rate and rhythm. No edema appreciated Respiratory: Normal respirations, no respiratory distress appreciated Abdomen/GI: Non distended, soft Skin: General appearance color normal MS/ Extremity: Moves all extremities, no obvious deformities appreciated, no edema noted to the lower extremities Neuro: Awake and alert, normal gait Psych: Behavior is normal, Mood is normal, Patient is cooperative and pleasant Vital Signs: 17:49 BP 146 / 101; Pulse 104; Resp 18; Temp 97.7; Pulse Ox 98% on R/A; Weight 90.72 kg; ph Height 5 ft. 10 in. (177.80 cm); Pain 4/10; 19:13 BP 130 / 99; Pulse 85; Resp 16; Pulse Ox 98% on R/A; mt 19:47 BP 148 / 105; Pulse 92; Resp 16; Pulse Ox 98% on R/A; mt 20:26 BP 130 / 97; Pulse 94; Resp 16; Pulse Ox 98% on R/A; aa1 21:00 BP 127 / 93; Pulse 94; Resp 16; Pulse Ox 97% on R/A; aa1 22:15 BP 131 / 99; Pulse 94; Resp 18; Pulse Ox 96% on R/A; Pain 0/10; aa1 23:40 BP 131 / 81; Pulse 92; Resp 16; Temp 97.9; Pulse Ox 98% on R/A; Pain 0/10; aa1 04/15 00:06 BP 134 / 85; Pulse 64; Resp 16; Pulse Ox 97% on R/A; Pain 0/10; aa1 04/14 17:49 Body Mass Index 28.70 (90.72 kg, 177.80 cm) ph MDM: 04/14 17:48 Patient medically screened. jamie 19:55 The patient was given aspirin in the Emergency Department. Data reviewed: vital signs, [facility] lab test result(s), EKG, radiologic studies, plain films. Counseling: I had a detailed discussion with the patient and/or guardian regarding: the historical points, exam findings, and any diagnostic results supporting the discharge/admit diagnosis, lab results, radiology results, the need for further work-up and treatment in the hospital. Response to treatment: the patient's symptoms have markedly improved after treatment. ED course: I discussed the patient with Dr. Akers whom accepted admission. . 12 17:54 Order name: Basic Metabolic Panel [facility] 04/14 17:54 Order name: CBC with Diff [facility] 04/14 17:54 Order name: LFT's; Complete Time: 19:[address] [facility] 04/14 17:54 Order name: Magnesium; Complete Time: 19:[address] [facility] 04/14 17:54 Order name: NT PRO-BNP; Complete Time: 19:[address] [facility] 04/14 17:54 Order name: PT-INR; Complete Time: 19:[address] [facility] 04/14 17:54 Order name: Troponin (emerg Dept Use Only); Complete Time: 19:[address] [facility] 04/14 17:54 Order name: XRAY Chest (1 view) [facility] 04/14 17:54 Order name: Basic Metabolic Panel; Complete Time: 19:00 [facility] 04/14 17:55 Order name: CBC with Automated Diff; Complete Time: 18:44 [facility] 04/14 18:30 Order name: RAD [facility] 04/14 17:54 Order name: EKG; Complete Time: 17:[address] [facility] 04/14 17:54 Order name: Cardiac monitoring; Complete Time: 17:[address] [facility] 04/14 17:54 Order name: EKG - Nurse/Tech; Complete Time: 17:[address] [facility] 04/14 17:54 Order name: IV Saline Lock; Complete Time: 17:[address] [facility] 04/14 17:54 Order name: Labs collected and sent; Complete Time: 18:[address] [facility] 04/14 17:54 Order name: O2 Per Protocol; Complete Time: 17:[address] [facility] 04/14 17:54 Order name: O2 Sat Monitoring; Complete Time: 17:[address] [facility] Administered Medications: 18:19 Drug: NS 0.9% 1000 ml Route: IV; Rate: 1 bolus; Site: left antecubital; ph 19:28 Follow up: Response: No adverse reaction; IV Status: Completed infusion ph 20:15 Drug: morphine 2 mg Route: IVP; Site: left antecubital; aa1 23:33 Follow up: Response: No adverse reaction; Pain is decreased aa1 20:24 Not Given (pt received PROCESS IMPROVEMENT CONSULTANT by EMS): Aspirin Chewable Tablet 324 mg PO once; 81 mg aa1 tablets x 4 23:38 Drug: NS 0.9% 1000 ml Route: IV; Rate: 1 bolus; Site: left antecubital; aa1 23:38 Follow up: IV Status: Infusion continued upon admission aa1 Disposition: 04/15 07:38 Co-signature as Attending Physician, Luke Saleh MD I agree with the assessment and jamie plan of care. Disposition: 04/14/18 19:56 Hospitalization ordered by Ezra Akers for Observation. Preliminary diagnosis is Chest pain, unspecified. - Bed requested for Telemetry/MedSurg (observation). - Status is Observation. aa1 - Condition is Stable. - Problem is an acute exacerbation. - Symptoms have improved. UTI on Admission? No Signatures: Dispatcher [employer] EDMS Amber Jason RN RN kl Kern, Alissa, RN RN aa Luke Saleh MD MD cha Mickail, Joel, PA PA Genesis Rdz RN RN ph Corrections: (The following items were deleted from the chart) 04/14 23:02 19:56 Hospitalization Ordered by Ezra Akers MD for Observation. Preliminary diagnosis is Chest pain, unspecified. Bed requested for Telemetry/MedSurg (observation). Status is Observation. Condition is Stable. Problem is an acute exacerbation. Symptoms have improved. UTI on Admission? No. rachelm 04/15 00:16 12 23:02 04/14/2018 19:56 Hospitalization Ordered by Ezra Akers MD for aa1 Observation. Preliminary diagnosis is Chest pain, unspecified. Bed requested for Telemetry/MedSurg (observation). Status is Observation. Condition is Stable. Problem is an acute exacerbation. Symptoms have improved. UTI on Admission? No. nabil
[2018-04-14] MEDS ORDERED: MORPHINE 2 MG/ML SYR ONE ×2 (20:18→20:21)
[2018-04-14] MEDS ORDERED: MORPHINE 4 MG/ML SYR IV PRN (22:01)
[2018-04-14] MEDS ORDERED: ACETAMINOPHEN 500 MG TAB PO PRN (22:01)
[2018-04-15 01:27] VITALS: BMI 28.6
[2018-04-15] MEDS: ALPRAZOLAM 0.25 MG TABLET PO PRN ×2 (02:26→16:44)
[2018-04-15] MEDS: HYDROMORPHONE HCL 0.5 MG/0.5 ML INJ IV PRN ×3 (02:27→13:28)
--- NOTE | 2018-04-15 02:28 | P.HP ---
Certification for Inpatient Patient admitted to: Observation With expected LOS: <2 Midnights Patient will require the following post-hospital care: None Practitioner: I am a practitioner with admitting privileges, knowledge of patient current condition, hospital course, and medical plan of care. Services: Services provided to patient in accordance with Admission requirements found in Title 42 Section 412.3 of the Code of Federal Regulations Patient History Date of Service: 04/14/18 Reason for admission: Unstable angina History of Present Illness: Pt is a 42yo who was admitted to the hospital with chest pain. Patient states he has similar pain a year ago although the pain a year ago was much more severe. At that time he was diagnose with an acute myocardial infarction. He has been on cardiac meds and states he has been following up per his appointments. Over the last month he has had increased amount of stress as his father . He has had a hard time accepting & dealing with this. The chest pain started when he had gotten out of the bath. He told his that he in feel well and they checked his blood pressure and his heart rate. His heart rate was elevated as was his blood pressure. He told her that he felt like something was wrong. He states that his heart rate is never elevated white this. During this time while he was talking to his he passed out. EMS was called and he was brought into the hospital for evaluation. In the ER his troponins and EKG have been negative. Will go ahead and admit him to the hospital for observation. Allergies iodine Allergy (Verified 04/15/18 00:54) Unknown contrast Allergy (Uncoded 08/18/17 19:39) Unknown Home Medications: Aspirin [Aspirin EC 81 MG] 81 mg PO DAILY #90 12/21/16 Pantoprazole [Protonix Tab] 40 mg PO [id number] #30 tab 12/21/16 Sotalol HCl [Betapace] 40 mg PO BID #60 tab 12/21/16 - Past Medical/Surgical History Has patient received pneumonia vaccine in the past: No Diabetic: No -: SLEEP APNEA- no longer an issue now -: degenerative disc disease -back pain, muscle spasms -: bronchitis -: pneumonia -: Atrial fibrillation Past Surgical History: Patient denies surgical history - Family History Mother Medical History: Hypertension, Lung disease, Diabetes, Liver disease, Kidney disease Father Medical History: Hypertension, Lung disease, Diabetes - Social History Smoking Status: Former smoker Alcohol use: No CD- Drugs: No Caffeine use: No Place of Residence: Home Review of Systems 10-point ROS is otherwise unremarkable Physical Examination - Vital Signs Temperature: 98 F Blood Pressure: 154/88 Pulse: 65 Respirations: 18 Pulse Ox (%): 98 - Physical Exam General: Alert, In no apparent distress, Oriented x3 HEENT: Atraumatic, PERRLA, Mucous membr. moist/pink, EOMI, Sclerae nonicteric Neck: Supple, 2+ carotid pulse no bruit, No LAD, Without JVD or thyroid abnormality Respiratory: Clear to auscultation bilaterally, Normal air movement Cardiovascular: Regular rate/rhythm, Normal S1 S2, No murmurs Gastrointestinal: Normal bowel sounds, Soft and benign, Non-distended, No tenderness Musculoskeletal: No clubbing, No swelling, No tenderness Integumentary: No rashes Neurological: Normal gait, Normal speech, Normal strength at 5/5 x4 extr, Normal tone, Sensation intact, Cranial nerves 3-12 intact, Normal affect Lymphatics: No axilla or inguinal lymphadenopathy - Studies Laboratory Data (last 24 hrs) 04/14/18 18:00: PT 13.8 H, INR 1.17 04/14/18 18:00: WBC 9.3, Hgb 16.1, Hct 46.8, Plt Count 384 04/14/18 18:00: Sodium 139, Potassium 3.3 L, BUN 25 H, Creatinine 1.10, Glucose 95, Magnesium 2.6 H D, Total Bilirubin 0.5, AST 14 L, ALT 15, Alkaline Phosphatase 142 H Assessment & Plan - Problems (Diagnosis) (1) Chest pain, rule out acute myocardial infarction Current Visit: Yes Status: Acute (2) Depression (emotion) Current Visit: Yes Status: Acute Qualifiers: Depression Type: reactive depression Qualified Code(s): F32.9 - Major depressive disorder, single episode, unspecified (3) Anxiety disorder Current Visit: Yes Status: Acute (4) Acute renal failure Onset Date: 09/28/14 Current Visit: No Status: Acute (5) Dyspnea Onset Date: 12/20/16 Current Visit: No Status: Acute (6) Atrial fibrillation Current Visit: No Status: Chronic Qualifiers: - Plan 1. Serial troponins and EKG 2. Cardiology consultation 3. Echocardiogram and stress test if cardiology is agreeable 4. Anti-platelet therapy, anti coagulation, beta-ally, statin, and O2 as needed 5. IV hydromorphone for pain 6. Nitro p.r.n. Discharge Plan: Home Plan to discharge in: 48 Hours - Advance Directives Does patient have a Living Will: No Does patient have a Durable POA for Healthcare: No - Code Status/Comfort Care Code Status Assessed: Yes Code Status: Full Code Critical Care: No Time Spent Managing PTS Care (In Minutes): 50
[2018-04-15 05:00] LABS: Absolute Lymphocytes (CBC) 2.2 K/uL (0.7-4.9); Absolute Monocytes 0.8 K/uL (0.1-1.3); Absolute Neutrophil 5.8 K/uL (1.8-8.0); Basophils % 0.6 % (0-1.3); Hematocrit 43.2 % (39.6-49.0); Lymphocytes % 24.6 % (15.3-44.8); MCH 30.2 pg (27.0-35.0); MCV 90.4 fL (80-100); MPV 9.9 fL (7.6-11.3); Monocytes % 8.5 % (3.3-12.3); RBC Red Blood Cell Count 4.78 M/uL (4.33-5.43)
[2018-04-15 05:09] LABS: Potassium 3.9 mmol/L (3.5-5.1)
--- NOTE | 2018-04-15 07:40 | EKG ---
Test Date: 2018-04-14 Test Time: 17:48:22 Marine Pipefitter: [place] MEASUREMENT RESULTS: Intervals: Rate: 105 DE: 146 QRSD: 96 QT: 362 QTc: 478 Fanshawe: P: 62 DE: 146 QRS: 111 T: 33 INTERPRETIVE STATEMENTS: Sinus tachycardia Left posterior fascicular block Abnormal ECG Compared to ECG 01/01/2018 07:31:05 No significant changes Electronically Signed On 04-15-18 07:38:40 CLINICAL NUTRITION MANAGER by Collin Marshall
[2018-04-15] MEDS: COLCHICINE 0.6 MG TAB PO ONE ×2 (08:55→13:29)
[2018-04-15] MEDS: ASPIRIN EC 81 MG TAB PO SCH ×2 (08:55→09:00)
[2018-04-15] MEDS: METOPROLOL TAR 50 MG TAB PO SCH ×2 (08:55→09:00)
[2018-04-15] MEDS ORDERED: ENOXAPARIN 40 MG/0.4 ML SQ SCH (09:00)
[2018-04-15] MEDS ORDERED: INFLUENZA VACCINE (for 3y+) 0.5 ML DOSE IMVAC ONE (10:00)
--- NOTE | 2018-04-15 11:22 | ECHO ---
HEIGHT: 5 ft 11 in WEIGHT: 205 lb 8 oz DATE OF STUDY: 04/15/[address]: Ezra Akers MD 2-DIMENSIONAL: YES M.MODE: YES DOPPLER: YES COLOR FLOW: YES TDS: NO PORTABLE: NO DEFINITY: NO BUBBLE STUDY: NO DIAGNOSIS: CHEST PAIN, RULE OUT ACS CARDIAC HISTORY: CATHERIZATION: NO SURGERY: NO PROSTHETIC VALVE: NO PACEMAKER: NO MEASUREMENTS (cm) DIASTOLIC (NORMALS) SYSTOLIC (NORMALS) IVSd 1.1 (0.6-1.2) LA Diam 3.5 (1.9-4.0) LVEF 67% LVIDd 4.7 (3.5-5.7) LVIDs 3.5 (2.0-3.5) %FS 37% LVPWd 1.1 (0.6-1.2) Ao Diam 2.8 (2.0-3.7) 2 DIMENSIONAL ASSESSMENT: RIGHT ATRIUM: NORMAL LEFT ATRIUM: NORMAL RIGHT VENTRICLE: NORMAL LEFT VENTRICLE: NORMAL TRICUSPID VALVE: NORMAL MITRAL VALVE: NORMAL PULMONIC VALVE: NORMAL AORTIC VALVE: NORMAL PERICARDIAL EFFUSION: NONE AORTIC ROOT: NORMAL LEFT VENTRICULAR WALL MOTION: NORMAL DOPPLER/COLOR FLOW: NORMAL COMMENTS: NORMAL 2D ECHOCARDIOGRAM WITH DOPPLER. TECHNOLOGIST: Suman ALBERTO
[2018-04-15 11:43] LABS: Urine Appearance CLEAR; Urine Bilirubin NEGATIVE (NEG); Urine Blood NEGATIVE (NEG); Urine Color YELLOW; Urine Glucose NEGATIVE (NEG); Urine Protein TRACE (NEG); Urine Specific Gravity 1.025 (1.005-1.030); Urine Urobilinogen 0.2 mg/dL (0.2-1.0)
[2018-04-15 11:55] LABS: Urine Microscopic Reflex ORDER UMIC
[2018-04-15 11:56] LABS: Urine Bacteria <20 /HPF (NONE SEEN); Urine Culture Reflex Order NOT NEEDED; Urine Mucus 2+ /HPF (NONE SEEN); Urine RBC NONE SEEN /HPF (NONE SEEN)
[2018-04-15 13:15] VITALS: BP 154/89; TEMP 98
--- NOTE | 2018-04-15 14:07 | CON ---
Attending Physician: Dr. Brower. Chief Complaint: Chest pain. History Of Present Illness: Mr. Reilly has a history of atrial fibrillation. 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 He does not know the doctor's name. He takes atenolol and aspi rin. Apparently, he had a workup for CAD and was told that he did not have anything worse than 50%. He has never had myocardial infarction or stroke. His illness began more than a week ago. He has b een bed ridden with nearly constant nausea, vomiting, poor oral intake, and diarrhea. He got over th at then he started having pain. It is on the left side of his chest. It is worse when he takes a br eath. He has not had a test for pulmonary embolus. The patient does not have diabetes or hypertensi on or dyslipidemia. He uses no tobacco. Rare alcohol. No illegal drugs. His EKG shows rightward a xis and sinus tachycardia; otherwise, it is normal. I think the patient should have a CT angio of th e chest, echocardiogram, and a routine stress test, we should be fairly sure of his condition by then , but I think he has a post- viral episode of pericarditis. There is a slight chance it could be a P E and we can do a routine stress test as well. DOREEN Voice ID: [id number] Report ID: [id number]
--- NOTE | 2018-04-15 14:14 | RAD REPORT ---
EXAM DESCRIPTION: NM - Vent Perfusion VQ Scan - 04/15/2018 2:05 pm CLINICAL HISTORY: rule out PE Shortness of breath, chest pain COMPARISON: Chest Single View dated 04/14/2018 TECHNIQUE: 12.6mCi Xe-133 gas inhaled and 7.5mCi Tc-MAA IV. Planar ventilation scan was performed in posterior projection after Xe-133 gas inhalation (wash-in, e quilibrium, and wash-out phases) followed by perfusion scan with Tc-MAA IV in multiple projections. Examination is correlated with recent chest radiograph. FINDINGS: Normal ventilation with moderate air-trapping. No mismatched segmental perfusion defect. IMPRESSION: Very low probability of acute pulmonary embolism. Moderate air trapping compatible with obstructive physiology.
--- NOTE | 2018-04-15 17:06 | P.SSS ---
Patient History Date of Service: 04/15/18 Reason for admission: Unstable angina History of Present Illness: See HPI Allergies iodine Allergy (Verified 04/15/18 00:54) Unknown contrast Allergy (Uncoded 08/18/17 19:39) Unknown Home Medications: Apixaban [Eliquis *] 5 mg PO BID 04/15/18 Aspirin Chewable [Aspirin Chewable*] 81 mg PO DAILY 04/15/18 Atenolol [Tenormin*] 25 mg PO DAILY 04/15/18 Atorvastatin Calcium [Lipitor*] 10 mg PO BEDTIME 04/15/18 Diltiazem Tab [Cardizem Tab*] 30 mg PO BID 04/15/18 - Past Medical/Surgical History Has patient received pneumonia vaccine in the past: No Diabetic: No -: SLEEP APNEA- no longer an issue now -: degenerative disc disease -back pain, muscle spasms -: bronchitis -: pneumonia -: Atrial fibrillation - Family History Mother -: Hypertension, Lung disease, Diabetes, Liver disease, Kidney disease Father -: Hypertension, Lung disease, Diabetes - Social History Smoking Status: Former smoker Alcohol use: No CD- Drugs: No Caffeine use: No Place of Residence: Home Review of Systems 10-point ROS is otherwise unremarkable Physical Examination - Vital Signs Temperature: 98.0 F Blood Pressure: 154/89 Pulse: 75 Respirations: 16 Pulse Ox (%): 98 - Physical Exam General: Alert, In no apparent distress HEENT: Atraumatic, PERRLA, Mucous membr. moist/pink, EOMI, Sclerae nonicteric Neck: Supple, 2+ carotid pulse no bruit, No LAD, Without JVD or thyroid abnormality Respiratory: Clear to auscultation bilaterally, Normal air movement Cardiovascular: Regular rate/rhythm, Normal S1 S2 Gastrointestinal: Normal bowel sounds, No tenderness Musculoskeletal: No tenderness Integumentary: No rashes Neurological: Normal gait, Normal speech, Normal strength at 5/5 x4 extr, Normal tone, Normal affect Lymphatics: No axilla or inguinal lymphadenopathy - Studies Laboratory Data (last 24 hrs) 04/14/18 18:00: PT 13.8 H, INR 1.17 04/14/18 18:00: WBC 9.3, Hgb 16.1, Hct 46.8, Plt Count 384 04/14/18 18:00: Sodium 139, Potassium 3.3 L, BUN 25 H, Creatinine 1.10, Glucose 95, Magnesium 2.6 H D, Total Bilirubin 0.5, AST 14 L, ALT 15, Alkaline Phosphatase 142 H - Diagnosis (Problem(s)) (1) Chest pain, rule out acute myocardial infarction Current Visit: Yes Status: Acute (2) Depression (emotion) Current Visit: Yes Status: Chronic Qualifiers: Depression Type: reactive depression Qualified Code(s): F32.9 - Major depressive disorder, single episode, unspecified (3) Atrial fibrillation Current Visit: No Status: Chronic Qualifiers: Atrial fibrillation type: chronic (4) GERD (gastroesophageal reflux disease) Current Visit: No Status: Chronic Qualifiers: Esophagitis presence: esophagitis presence not specified Qualified Code(s) : K21.9 - Gastro-esophageal reflux disease without esophagitis Treatment Summary: Overall during the hospital stay patient remained stable Patient was initially admitted to the hospital for chest pain ACS rule out. Troponins 2 was negative while here in the hospital. Cardiology was consulted who recommended the patient get a stress test and echocardiogram done here in the hospital. Stress test and echocardiogram was done which was both within with normal limits. No acute ischemia or no acute cardiac event was noted. Patient then was discharged home under stable condition. Patient was asked to follow up with primary care provider in about 1-2 days post discharge. Patient then was discharged home under stable condition - Disposition Disposition: ROUTINE DISCHARGE Condition: GOOD Patient Discharge Instructions: Please f.u with PCP and Cardiology in 1 to 2 week post discharge. No New medication. Your ECHO and stress test are normal. Diet: Regular Activity: Ad thor
--- NOTE | 2018-04-15 17:14 | TREADMILL ---
70% H.R.: 123 85% H.R.: 150 90% H.R.: 158 100% H.R.: 176 DX: CHEST PAIN Date of Study: 04/15/2018 Ht: 5 11 Wt: 205 lb 8 oz Consulting Physician: DR. PEREZ MEDICATIONS: TYLENOL, XANAX, ASPIRIN, DILAUDID, LOPRESSOR, LOVENOX HISTORY: 42 YEAR OLD MALE WITH COMPLAINTS OF CHEST PAIN. MEDICAL HISTORY OF STOMACH BUG FOR 7 DAYS, SHORTNESS OF BREATH, HYPERTENSION, HIGH CHOLESTORAL. PHYSICIAL EXAMINATION: RESTING B.P.: 143/107 RESTING H.R.: 80 RESTING EKG: NORMAL PROTOCOL: OPAL ROUTINE EXERCISE TIME: 09:31 MAXIMUM HEART RATE: 160 90 % OF PREDICTED B.P. AT PEAK STRESS: 151/11 H.R. AT 1 MINUTE POST EXERCISE: 151 IMPRESSION: ROUTINE STRESS STOPPED, DUE TO TARGET HEART RATE REACHED AND FATIGUE. NO SUPRAVENTRICULAR TACHYCARDIA, NO VENTRICULAR TACHYCARDIA, NO PREMATURE ATRIAL COMPLEXES, NO PREMATURE VENTRICULAR COMPLEXES. PRIOR TO TEST PATIENT REPORTED NO CHEST PAIN, POST STRESS TEST PATIENT REPORTED CHEST PAIN 7/10. NO ST DEPRESSION. NORMAL STRESS TEST.
[2018-04-15 17:42] VITALS: O2SAT 99
== END 2018-04-15 19:45 | disposition home or self-care (01) ==
LOC: ER 17:47 → ERHOLD 19:58 → 4TH 23:59
PROVIDERS: ADMIT Family Medicine; ATTEND Hospitalist
DX: R07.9 Chest pain, unspecified (principal); I48.2 Chronic atrial fibrillation; F41.8 Other specified anxiety disorders; Z87.891 Personal history of nicotine dependence; K21.9 Gastro-esophageal reflux disease without esophagitis
CPT/HCPCS: 36415; 71045; 78582; 80048; 80076; 81003; 81015; 83735; 83880; 84484; 85025; 85610; 93005; 93017; 93306; 96361; 96374; 99285; A9540; A9558; G0378; J1170; J1650; J2270; J7030

== ENCOUNTER 2018-08-14 10:49 | Emergency (ER) | payer SELFPAY ==
[2018-08-14] MEDS ORDERED: ASPIRIN 81 MG CHEWABLE TABLET ONE (11:17)
[2018-08-14 11:21] LABS: Absolute Lymphocytes (CBC) 1.1 K/uL (0.7-4.9); Absolute Monocytes 0.6 K/uL (0.1-1.3); Absolute Neutrophil 10.3 K/uL (1.8-8.0); Basophils % 0.3 % (0-1.3); Eosinophils % 0.3 % (0-4.4); Hematocrit 40.9 % (39.6-49.0); Lymphocytes % 8.8 % (15.3-44.8); MPV 9.1 fL (7.6-11.3); Monocytes % 5.4 % (3.3-12.3); RBC Red Blood Cell Count 4.58 M/uL (4.33-5.43)
[2018-08-14 11:26] LABS: Protime INR 0.99
--- NOTE | 2018-08-14 11:27 | RAD REPORT ---
EXAM DESCRIPTION: RAD - Chest Single View - 08/14/2018 11:19 am CLINICAL HISTORY: CHEST PAIN Chest pain. COMPARISON: Chest Single View dated 04/14/2018; Chest Single View dated 01/01/2018; Chest Single View dated 08/18/2017; Chest Single View dated 12/22/2016 FINDINGS: Portable technique limits examination quality. The lungs are grossly clear. The heart is normal in size. No displaced fractures. IMPRESSION: No acute intrathoracic process suspected.
[2018-08-14 11:42] LABS: ALT/SGPT 19 U/L (12-78); AST/SGOT 19 U/L (15-37); Albumin 4.3 g/dL (3.4-5.0); Alkaline Phosphatase 130 U/L (45-117); BUN Blood Urea Nitrogen 18 mg/dL (7-18); Bicarbonate 25 mmol/L (21-32); Bilirubin Direct < 0.1 mg/dL (0-0.2); Bilirubin Total 0.3 mg/dL (0.2-1.0); Glucose Level 112 mg/dL (74-106); Lipase 140 U/L (73-393); Magnesium 2.4 mg/dL (1.8-2.4); NT PRO-BNP 53 pg/mL (<125); Potassium 3.8 mmol/L (3.5-5.1); Protein, Total 8.2 g/dL (6.4-8.2); Sodium Level 142 mmol/L (136-145); Troponin (Emerg Dept Use Only) < 0.02 ng/mL (0.0-0.045)
[2018-08-14 12:11] LABS: Platelet Estimate ADEQ; Urine White Blood Cell Casts OK
[2018-08-14 12:12] LABS: Blood Morphology Comment NOT SEEN (NOT SEEN)
--- NOTE | 2018-08-14 15:35 | ER ---
Nurse's Notes [facility] Name: Mikhail Reilly Age: 42 yrs Sex: Male : 1975 Arrival Date: 08/14/2018 Time: 10:52 Bed 19 Private MD: Diagnosis: Chest pain, unspecified;Malaise and fatigue;Essential (primary) hypertension Presentation: 08/14 10:53 Presenting complaint: Patient states: mid-sternal chest pain that began about 40 aa5 minutes ago. Pt states "my blood pressure was 157/118". Pt states "I just started feeling the left side of my face numb". Onset of symptoms was August 14, 2018. 10:53 Method Of Arrival: Wheelchair aa5 10:53 Acuity: LIANG 2 aa5 11:00 Transition of care: patient was not received from another setting of care. Risk jl7 Assessment: Do you want to hurt yourself or someone else? Patient reports no desire to harm self or others. Initial Sepsis Screen: Does the patient meet any 2 criteria? No. Patient's initial sepsis screen is negative. Does the patient have a suspected source of infection? No. Patient's initial sepsis screen is negative. Care prior to arrival: None. Historical: - Allergies: 11:46 contrast; jl7 11:46 Iodine; jl7 - Home Meds: 11:46 atenolol 25 mg Oral tab 1 tab once daily [Active]; Amy Aspirin 325 mg Oral tab 1 tab jl7 once daily [Active]; diltiazem HCl 30 mg Oral tab 1 tab twice a day [Active]; Lipitor Oral [Active]; - PMHx: 11:46 Atrial Fib; Back pain; Hypertension; Kidney stones; muscle spasms numerous times jl7 requiring Er visits with fluid resusitation; - Immunization history:: Adult Immunizations unknown. - Social history:: Smoking status: Patient/guardian denies using tobacco. - Ebola Screening: : No symptoms or risks identified at this time. Screenin:46 Abuse screen: Denies threats or abuse. Denies injuries from another. Nutritional jl7 screening: No deficits noted. Tuberculosis screening: No symptoms or risk factors identified. Fall Risk IV access (20 points). Total Carbone Fall Scale indicates No Risk (0-24 pts). Assessment: 11:00 General: Appears in no apparent distress. uncomfortable, Behavior is cooperative, jl7 anxious. Pain: Complains of pain in anterior aspect of left upper chest Pain radiates to left cheek and left jaw Pain currently is 10 out of 10 on a pain scale. Quality of pain is described as pressure, Pain began gradually, Is continuous. Neuro: Level of Consciousness is awake, alert, obeys commands, Oriented to person, place, time, situation. Cardiovascular: Heart tones S1 S2 present Patient's skin is warm and dry. Respiratory: Airway is patent Respiratory effort is even, unlabored, Respiratory pattern is regular, symmetrical. GI: Reports nausea, Patient currently denies diarrhea, vomiting. : No signs and/or symptoms were reported regarding the genitourinary system. EENT: No signs and/or symptoms were reported regarding the EENT system. Derm: Skin is pink, warm \\T\\ dry. 12:00 Reassessment: Patient appears in no apparent distress at this time. Patient and/or jl7 family updated on plan of care and expected duration. Pain level reassessed. Patient is alert, oriented x 3, equal unlabored respirations, skin warm/dry/pink. 12:51 Reassessment: Pt laying in bed with eyes closed, respirations even and unlabored, no jl7 signs of distress noted at this time. 13:44 Reassessment: Patient appears in no apparent distress at this time. Patient and/or jl7 family updated on plan of care and expected duration. Pain level reassessed. Patient is alert, oriented x 3, equal unlabored respirations, skin warm/dry/pink. Patient states feeling better. Patient states symptoms have improved. 13:55 Reassessment: Pt c/o of GOEL, ERP notified, see MAR for orders. jl7 15:00 Reassessment: Patient appears in no apparent distress at this time. Patient and/or jl7 family updated on plan of care and expected duration. Pain level reassessed. Patient is alert, oriented x 3, equal unlabored respirations, skin warm/dry/pink. Patient states feeling better. Vital Signs: 11:08 BP 138 / 101; Pulse 80; Resp 19; Pulse Ox 99% on R/A; Weight 95.25 kg; Height 5 ft. 10 pc1 in. (177.80 cm); Pain 10/; 11:15 Temp 98.9(O); jl7 11:46 BP 143 / 94; Pulse 76; Resp 16 S; Pulse Ox 96% on R/A; jl7 12:50 BP 109 / 83; Pulse 71; Resp 16 S; Pulse Ox 99% on R/A; jl7 13:43 BP 126 / 88; Pulse 78; Resp 16 S; Pulse Ox 100% on R/A; Pain 0/10; jl7 15:59 BP 130 / 89; Pulse 75; Resp 16 S; Pulse Ox 100% on R/A; jl7 11:08 Body Mass Index 30.13 (95.25 kg, 177.80 cm) pc1 ED Course: 10:52 Patient arrived in ED. jl7 10:53 Arm band placed on Patient placed in an exam room, on a stretcher. aa5 10:54 Preeti Duggan FNP-C is PHCP. snw 10:54 Robert Garcia MD is Attending Physician. snw 10:54 Triage completed. aa5 11:05 EKG done, by orthopedic technician. reviewed by Robert Garcia MD. at1 11:07 Kirby Gottlieb, DANNIELLE is Primary Nurse. jl7 11:18 X-ray completed. Portable x-ray completed in exam room. Patient tolerated procedure mh1 well. 11:19 XRAY Chest (1 view) In Process Unspecified. EDMS 11:46 Patient has correct armband on for positive identification. Placed in gown. Bed in low jl7 position. Call light in reach. Side rails up X 1. desk monitor on. Pulse ox on. NIBP on. Warm blanket given. 11:46 Inserted saline lock: 20 gauge in left forearm, using aseptic technique. Blood jl7 collected. Patient maintains SpO2 saturation greater than 95% on room air. 14:20 EKG done, by orthopedic technician. reviewed by Preeti KRAMER. sm3 15:59 No provider procedures requiring assistance completed. IV discontinued, intact, jl7 bleeding controlled, No redness/swelling at site. Pressure dressing applied. Administered Medications: 11:07 Drug: Aspirin Chewable Tablet 324 mg Route: PO; jl7 11:40 Follow up: Response: No adverse reaction jl7 14:00 Drug: Tylenol 1000 mg Route: PO; jl7 15:00 Follow up: Response: No adverse reaction; Pain is decreased jl7 Outcome: 15:34 Discharge ordered by MD. heath 15:59 Discharged to home ambulatory. jl7 15:59 Condition: stable 15:59 Discharge instructions given to patient, Instructed on discharge instructions, follow up and referral plans. Demonstrated understanding of instructions, follow-up care. 16:00 Patient left the ED. jl7 Signatures: Dispatcher [employer] EDMS Preeti Duggan, ELECTRIC MELT OPERATOR-C ELECTRIC MELT OPERATOR-Csnw Lisa Kaufman 1 Regi Bennett, RN RN aa5 Stacie Griggs, brand strategy manager EKG Tat1 Kirby Gottlieb RN RN jl7 Janet Blackwood sm3 Cortez Lopez pc1 Corrections: (The following items were deleted from the chart) 11:12 11:08 BP 138 / 101; Pulse 80bpm; Resp 19bpm; Pulse Ox 99% RA; Pain 10/10; pc1 pc1
--- NOTE | 2018-08-14 15:35 | EDPHYS ---
Physician Documentation [facility] Name: Mikhail Reilly Age: 42 yrs Sex: Male : 1975 Arrival Date: 08/14/2018 Time: 10:52 Bed 19 Private MD: ED Physician Robert Garcia HPI: 08/14 11:00 This 42 yrs old Male presents to ER via Wheelchair with complaints of Chest snw Pain. 11:00 The patient or guardian reports chest pain that is located primarily in the substernal snw area. Onset: suddenly, this morning. The pain does not radiate. Associated signs and symptoms: Pertinent positives: fatigue, drained. The chest pain is described as squeezing. Duration: The patient or guardian reports multiple episodes. Modifying factors: The symptoms are alleviated by nothing. the symptoms are aggravated by pt obsessed with blood pressure readings. Severity of pain: At its worst the pain was moderate in the emergency department the pain is unchanged. The patient has experienced a previous episode. The patient has been recently seen by a physician: the patient's primary care provider, Dr. Segura. just started Doxazosin . Historical: - Allergies: 11:46 contrast; jl7 11:46 Iodine; jl7 - Home Meds: 11:46 atenolol 25 mg Oral tab 1 tab once daily [Active]; Amy Aspirin 325 mg Oral tab 1 tab jl7 once daily [Active]; diltiazem HCl 30 mg Oral tab 1 tab twice a day [Active]; Lipitor Oral [Active]; - PMHx: 11:46 Atrial Fib; Back pain; Hypertension; Kidney stones; muscle spasms numerous times jl7 requiring Er visits with fluid resusitation; - Immunization history:: Adult Immunizations unknown. - Social history:: Smoking status: Patient/guardian denies using tobacco. - Ebola Screening: : No symptoms or risks identified at this time. ROS: 11:03 Eyes: Negative for injury, pain, redness, and discharge, ENT: Negative for injury, snw pain, and discharge, Neck: Negative for injury, pain, and swelling. 11:03 Respiratory: Negative for shortness of breath, cough, wheezing, and pleuritic chest pain, Abdomen/GI: Negative for abdominal pain, nausea, vomiting, diarrhea, and constipation, Back: Negative for injury and pain, : Negative for injury, bleeding, discharge, and swelling, MS/Extremity: Negative for injury and deformity, Skin: Negative for injury, rash, and discoloration, Neuro: Negative for headache, weakness, numbness, tingling, and seizure. 11:03 Constitutional: Positive for body aches, malaise, poor PO intake. 11:03 Cardiovascular: Positive for chest pain. Exam: 11:03 Head/Face: Normocephalic, atraumatic. Eyes: Pupils equal round and reactive to light, snw extra-ocular motions intact. Lids and lashes normal. Conjunctiva and sclera are non-icteric and not injected. Cornea within normal limits. Periorbital areas with no swelling, redness, or edema. ENT: Nares patent. No nasal discharge, no septal abnormalities noted. Tympanic membranes are normal and external auditory canals are clear. Oropharynx with no redness, swelling, or masses, exudates, or evidence of obstruction, uvula midline. Mucous membranes moist. Neck: Trachea midline, no thyromegaly or masses palpated, and no cervical lymphadenopathy. Supple, full range of motion without nuchal rigidity, or vertebral point tenderness. No Meningismus. Chest/axilla: Normal chest wall appearance and motion. Nontender with no deformity. No lesions are appreciated. Cardiovascular: Regular rate and rhythm with a normal S1 and S2. No gallops, murmurs, or rubs. Normal PMI, no JVD. No pulse deficits. Respiratory: Lungs have equal breath sounds bilaterally, clear to auscultation and percussion. No rales, rhonchi or wheezes noted. No increased work of breathing, no retractions or nasal flaring. Abdomen/GI: Soft, non-tender, with normal bowel sounds. No distension or tympany. No guarding or rebound. No evidence of tenderness throughout. Back: No spinal tenderness. No costovertebral tenderness. Full range of motion. Skin: Warm, dry with normal turgor. Normal color with no rashes, no lesions, and no evidence of cellulitis. MS/ Extremity: Pulses equal, no cyanosis. Neurovascular intact. Full, normal range of motion. Neuro: Awake and alert, GCS 15, oriented to person, place, time, and situation. Cranial nerves II-XII grossly intact. Motor strength 5/5 in all extremities. Sensory grossly intact. Cerebellar exam normal. Normal gait. Psych: Awake, alert, with orientation to person, place and time. Behavior, mood, and affect are anxious 11:03 Constitutional: The patient appears alert, anxious, uncomfortable. 11:06 ECG was reviewed by the Attending Physician. snw Vital Signs: 11:08 BP 138 / 101; Pulse 80; Resp 19; Pulse Ox 99% on R/A; Weight 95.25 kg; Height 5 ft. 10 pc1 in. (177.80 cm); Pain 10/10; 11:15 Temp 98.9(O); jl7 11:46 BP 143 / 94; Pulse 76; Resp 16 S; Pulse Ox 96% on R/A; jl7 12:50 BP 109 / 83; Pulse 71; Resp 16 S; Pulse Ox 99% on R/A; jl7 13:43 BP 126 / 88; Pulse 78; Resp 16 S; Pulse Ox 100% on R/A; Pain 0/10; jl7 15:59 BP 130 / 89; Pulse 75; Resp 16 S; Pulse Ox 100% on R/A; jl7 11:08 Body Mass Index 30.13 (95.25 kg, 177.80 cm) pc1 MDM: 10:54 Patient medically screened. snw 11:04 ECG:. The patient was given aspirin in the Emergency Department. Data reviewed: vital snw signs, nurses notes. Data interpreted: Pulse oximetry: on room air is 99 %. Interpretation: normal. Counseling: I had a detailed discussion with the patient and/or guardian regarding: the historical points, exam findings, and any diagnostic results supporting the discharge/admit diagnosis, the presence of at least one elevated blood pressure reading (>120/80) during this emergency department visit, lab results, radiology results. 08/14 10:55 Order name: Basic Metabolic Panel; Complete Time: 11:46 snw 08/14 10:55 Order name: CBC with Diff; Complete Time: 12:24 snw 08/14 10:55 Order name: LFT's; Complete Time: 11:46 snw 08/14 10:55 Order name: Magnesium; Complete Time: 11:46 snw 08/14 10:55 Order name: NT PRO-BNP; Complete Time: 11:46 snw 08/14 10:55 Order name: PT-INR; Complete Time: 11:34 snw 08/14 10:55 Order name: Troponin (emerg Dept Use Only); Complete Time: 11:46 snw 08/14 10:55 Order name: XRAY Chest (1 view); Complete Time: 11:34 snw 08/14 10:55 Order name: EKG; Complete Time: 10:55 snw 08/14 10:55 Order name: Lipase; Complete Time: 11:46 snw 08/14 11:23 Order name: CBC Smear Scan; Complete Time: 12:24 EDMS 08/14 14:02 Order name: Troponin (emerg Dept Use Only); Complete Time: 15:34 snw 08/14 10:55 Order name: Cardiac monitoring; Complete Time: 11:40 snw 08/14 10:55 Order name: EKG - Nurse/Tech; Complete Time: 11:40 snw 08/14 10:55 Order name: IV Saline Lock; Complete Time: 11:39 snw 08/14 10:55 Order name: Labs collected and sent; Complete Time: 11:39 snw 08/14 10:55 Order name: O2 Per Protocol; Complete Time: 11:39 snw 08/14 10:55 Order name: O2 Sat Monitoring; Complete Time: 11:39 snw 08/14 14:02 Order name: EKG; Complete Time: 14:03 snw EC:04 Rate is 82 beats/min. Rhythm is regular. QRS [place] is Normal. IN interval is normal. QRS snw interval is normal. QT interval is normal. Clinical impression: Normal ECG. Interpreted by me. 11:35 Rate is 82 beats/min. Rhythm is regular. QRS [place] is Normal. IN interval is normal. QRS rn interval is normal. QT interval is normal. No Q waves. T waves are Normal. No ST changes noted. Clinical impression: Normal ECG. Interpreted by me. Administered Medications: 11:07 Drug: Aspirin Chewable Tablet 324 mg Route: PO; 7 11:40 Follow up: Response: No adverse reaction jl7 14:00 Drug: Tylenol 1000 mg Route: PO; jl7 15:00 Follow up: Response: No adverse reaction; Pain is decreased jl7 Disposition: 17:19 Co-signature as Attending Physician, Robert Garcia MD. rn Disposition: 08/14/18 15:34 Discharged to Home. Impression: Chest pain, unspecified, Malaise and fatigue, Essential (primary) hypertension. - Condition is Stable. - Discharge Instructions: Nonspecific Chest Pain, Hypertension, Heart Disease Prevention, Fatigue, Aspirin and Your Heart, DASH Eating Plan, Managing Your Hypertension. - Work release form, Medication Reconciliation Form, Thank You Letter, Antibiotic Education, Prescription Opioid Use form. - Follow up: Private Physician; When: 2 - 3 days; Reason: Recheck today's complaints, Continuance of care, Re-evaluation by your physician. Follow up: Emergency Department; When: As needed; Reason: Worsening of condition. Signatures: Dispatcher [employer] EDMS Preeti Duggan, CLOTH BURLER-C CLOTH BURLER-Csnw Robert Garcia MD MD rn Leal, Jahala, RN RN jl7 Corrections: (The following items were deleted from the chart) 16:00 15:34 08/14/2018 15:34 Discharged to Home. Impression: Chest pain, unspecified; Malaise jl7 and fatigue; Essential (primary) hypertension. Condition is Stable. Discharge Instructions: Nonspecific Chest Pain, Hypertension, Heart Disease Prevention, Fatigue, Aspirin and Your Heart, DASH Eating Plan, Managing Your Hypertension. Forms are Medication Reconciliation Form, Thank You Letter, Antibiotic Education, Prescription Opioid Use. Follow up: Private Physician; When: 2 - 3 days; Reason: Recheck today's complaints, Continuance of care, Re-evaluation by your physician. Follow up: Emergency Department; When: As needed; Reason: Worsening of condition. snw
[2018-08-14 16:31] VITALS: TEMP 98.9
[2018-08-14 16:35] VITALS: O2SAT 100
[2018-08-14 16:36] VITALS: BP 130/89
== END 2018-08-14 16:00 | disposition home or self-care (01) ==
LOC: ER 10:49
DX: R07.9 Chest pain, unspecified (principal); R53.83 Other fatigue; I10 Essential (primary) hypertension; I48.91 Unspecified atrial fibrillation; Z79.82 Long term (current) use of aspirin; Z91.041 Radiographic dye allergy status
CPT/HCPCS: 36415; 71045; 80048; 80076; 83690; 83735; 83880; 84484; 85025; 85610; 93005; 99285

== ENCOUNTER 2018-08-16 08:01 | Emergency (ER) | payer SELFPAY ==
[2018-08-16 08:33] LABS: Absolute Lymphocytes (CBC) 2.2 K/uL (0.7-4.9); Absolute Monocytes 0.5 K/uL (0.1-1.3); Absolute Neutrophil 5.8 K/uL (1.8-8.0); Basophils % 0.3 % (0-1.3); Eosinophils % 1.1 % (0-4.4); Hematocrit 41.4 % (39.6-49.0); Lymphocytes % 25.9 % (15.3-44.8); MPV 8.7 fL (7.6-11.3); Monocytes % 5.5 % (3.3-12.3); RBC Red Blood Cell Count 4.58 M/uL (4.33-5.43)
[2018-08-16 08:34] LABS: Protime INR 0.96
[2018-08-16 08:50] LABS: ALT/SGPT 18 U/L (12-78); AST/SGOT 18 U/L (15-37); Albumin 4.1 g/dL (3.4-5.0); Alkaline Phosphatase 138 U/L (45-117); BUN Blood Urea Nitrogen 19 mg/dL (7-18); Bicarbonate 29 mmol/L (21-32); Bilirubin Direct < 0.1 mg/dL (0-0.2); Bilirubin Total 0.3 mg/dL (0.2-1.0); Glucose Level 118 mg/dL (74-106); Magnesium 2.5 mg/dL (1.8-2.4); NT PRO-BNP 52 pg/mL (<125); Potassium 3.4 mmol/L (3.5-5.1); Protein, Total 7.8 g/dL (6.4-8.2); Sodium Level 143 mmol/L (136-145); Troponin (Emerg Dept Use Only) < 0.02 ng/mL (0.0-0.045)
[2018-08-16] MEDS ORDERED: ATENOLOL 50 MG TAB ONE (08:58)
--- NOTE | 2018-08-16 09:05 | RAD REPORT ---
EXAM DESCRIPTION: CT - Head Brain Wo Cont - 08/16/2018 8:19 am CLINICAL HISTORY: aphasia COMPARISON: None. TECHNIQUE: Computed axial tomography of the head was obtained. IV contrast was not requested. All CT scans are performed using dose optimization technique as appropriate and may include automated exposure control or mA/KV adjustment according to patient size. FINDINGS: An intracranial bleed is not seen . The ventricles are normal in caliber. No extra-axial fluid collection is noted. Fluid within the sinuses/ mastoids is not seen. IMPRESSION: No acute intracranial abnormality is seen. If patient's symptoms persist MRI of the bra in would be recommended.
--- NOTE | 2018-08-16 09:19 | RAD REPORT ---
EXAM DESCRIPTION: Rafa Single View08/16/2018 8:28 am CLINICAL HISTORY: Chest pain COMPARISON: August 20, 2018 FINDINGS: The lungs appear clear of acute infiltrate. The heart is normal size IMPRESSION: No acute abnormalities displayed
[2018-08-16] MEDS ORDERED: POTASSIUM CL SA 10 MEQ TAB PO ONE (09:45)
--- NOTE | 2018-08-16 09:56 | EDPHYS ---
Physician Documentation [facility] Name: Mikhail Reilly Age: 42 yrs Sex: Male : 1975 Arrival Date: 08/16/2018 Time: 08:02 Bed 4 Private MD: ED Physician Scar Iqbal HPI: 08/16 08:17 This 42 yrs old Male presents to ER via EMS with complaints of Chest pain with jr8 whole body numbness. 08:17 Patient stated that he was having a dream that someone was squeezing his chest. Stated jr8 that he woke up suddenly with chest tightness and whole body weakness and numbness feeling. Patient upon arrival A\\T\\O x 4 and without acute focal neurologic deficits. Stated that he is feeling better but still feels generally week. Had similar symptoms a few days ago and was evaluated in ED at that time and d/c'd home with no acute findings . Severity of symptoms: At their worst the symptoms were moderate in the emergency department the symptoms have improved mildly. The patient has not experienced similar symptoms in the past. The patient has been recently seen by a physician:. Historical: - Allergies: 08:08 contrast; hj 08:08 Iodine; hj - Home Meds: 08:08 atenolol 25 mg Oral tab 1 tab once daily [Active]; Amy Aspirin 325 mg Oral tab 1 tab hj once daily [Active]; diltiazem HCl 30 mg Oral tab 1 tab twice a day [Active]; Eliquis Oral [Active]; Lipitor Oral [Active]; Plavix 75 mg Oral tab 1 tab once daily [Active]; - PMHx: 08:08 Atrial Fib; Back pain; Hypertension; Kidney stones; muscle spasms numerous times hj requiring Er visits with fluid resusitation; - PSHx: 08:08 Unable to obtain; hj - Immunization history:: Adult Immunizations unknown. - Social history:: Smoking status: Patient/guardian denies using tobacco, Patient/guardian denies using alcohol. - Ebola Screening: : Patient negative for fever greater than or equal to 101.5 degrees Fahrenheit, and additional compatible Ebola Virus Disease symptoms Patient denies exposure to infectious person Patient denies travel to an Ebola-affected area in the 21 days before illness onset. ROS: 08:17 Eyes: Negative for injury, pain, redness, and discharge, ENT: Negative for injury, jr8 pain, and discharge, Neck: Negative for injury, pain, and swelling, Respiratory: Negative for shortness of breath, cough, wheezing, and pleuritic chest pain, Abdomen/GI: Negative for abdominal pain, nausea, vomiting, diarrhea, and constipation, Back: Negative for injury and pain, MS/Extremity: Negative for injury and deformity, Skin: Negative for injury, rash, and discoloration. 08:17 Cardiovascular: Positive for chest pain, Negative for edema, orthopnea, palpitations, paroxysmal nocturnal dyspnea. 08:17 Neuro: Positive for altered mental status, numbness, weakness. Exam: 08:17 Eyes: Pupils equal round and reactive to light, extra-ocular motions intact. Lids and jr8 lashes normal. Conjunctiva and sclera are non-icteric and not injected. Cornea within normal limits. Periorbital areas with no swelling, redness, or edema. ENT: Nares patent. No nasal discharge, no septal abnormalities noted. Tympanic membranes are normal and external auditory canals are clear. Oropharynx with no redness, swelling, or masses, exudates, or evidence of obstruction, uvula midline. Mucous membranes moist. Neck: Trachea midline, no thyromegaly or masses palpated, and no cervical lymphadenopathy. Supple, full range of motion without nuchal rigidity, or vertebral point tenderness. No Meningismus. Cardiovascular: Regular rate and rhythm with a normal S1 and S2. No gallops, murmurs, or rubs. Normal PMI, no JVD. No pulse deficits. Respiratory: Lungs have equal breath sounds bilaterally, clear to auscultation and percussion. No rales, rhonchi or wheezes noted. No increased work of breathing, no retractions or nasal flaring. Abdomen/GI: Soft, non-tender, with normal bowel sounds. No distension or tympany. No guarding or rebound. No evidence of tenderness throughout. Back: No spinal tenderness. No costovertebral tenderness. Full range of motion. Skin: Warm, dry with normal turgor. Normal color with no rashes, no lesions, and no evidence of cellulitis. MS/ Extremity: Pulses equal, no cyanosis. Neurovascular intact. Full, normal range of motion. Neuro: Awake and alert, GCS 15, oriented to person, place, time, and situation. Cranial nerves II-XII grossly intact. Motor strength 4/5 in all extremities. Sensory grossly intact. Cerebellar exam normal. 09:56 ECG was reviewed by the Attending Physician. jr8 Vital Signs: 08:10 BP 141 / 100; Pulse 86; Resp 18; Temp 98.1(TE); Pulse Ox 97% on R/A; Weight 92.99 kg; hj Height 5 ft. 10 in. (177.80 cm); 08:35 BP 145 / 106; Pulse 81; Resp 18; Pulse Ox 99% on R/A; hj 09:26 BP 133 / 90; Pulse 90; Resp 18; Pulse Ox 100% on R/A; hj 08:10 Body Mass Index 29.41 (92.99 kg, 177.80 cm) hj NIH Stroke Scale Scores: 08:10 NIHSS Score: 0 hj MDM: 08:05 Patient medically screened. jr8 09:53 Data reviewed: vital signs, nurses notes, lab test result(s), EKG, radiologic studies, jr8 CT scan, plain films. Data interpreted: physical medicine physician: rate is 92 beats/min, rhythm is normal sinus rhythm, with no ectopy, Interpretation: normal rhythm, Pulse oximetry: on room air is 100 %. Interpretation: normal. Counseling: I had a detailed discussion with the patient and/or guardian regarding: the historical points, exam findings, and any diagnostic results supporting the discharge/admit diagnosis, lab results, radiology results, the need for outpatient follow up, a neurologist, to return to the emergency department if symptoms worsen or persist or if there are any questions or concerns that arise at home. Response to treatment: the patient's symptoms have resolved after treatment. ED course: Patient now feeling better. No chest pain and no weakness. Stated that this is now the third day in a row that he woke up like this. Feels as if he is having to tell his body to wake up. Labs from today and a few days ago compared and without substantial difference. CT negative. Recommended neurology f/u at this point. Patient agrees and will f/u . 08/16 08:06 Order name: Basic Metabolic Panel; Complete Time: 08:51 08/16 08:06 Order name: CBC with Diff; Complete Time: 08:38 8 08/16 08:07 Order name: LFT's; Complete Time: 08:51 08/16 08:07 Order name: Magnesium; Complete Time: 08:51 08/16 08:07 Order name: NT PRO-BNP; Complete Time: 08:51 08/16 08:07 Order name: PT-INR; Complete Time: 08:38 08/16 08:07 Order name: Troponin (emerg Dept Use Only); Complete Time: 08:51 08/16 08:07 Order name: XRAY Chest (1 view); Complete Time: 09:22 08/16 08:07 Order name: EKG; Complete Time: 08:08 08/16 08:07 Order name: Cardiac monitoring; Complete Time: 08:14 08/16 08:07 Order name: CT Head Brain wo Cont; Complete Time: 09:22 08/16 08:07 Order name: Glucose, Ancillary Testing; Complete Time: 08:13 EDMS 08/16 08:07 Order name: EKG - Nurse/Tech; Complete Time: 08:14 08/16 08:07 Order name: IV Saline Lock; Complete Time: 08:14 08/16 08:07 Order name: Labs collected and sent; Complete Time: 08:48 08/16 08:07 Order name: O2 Per Protocol; Complete Time: 08:49 08/16 08:07 Order name: O2 Sat Monitoring; Complete Time: 08:49 EC:56 Rate is 92 beats/min. Rhythm is regular, Normal Sinus Rhythm. QRS [place] is Normal. SD jr8 interval is normal at 184 msec. QRS interval is normal at 104 msec. QT interval is prolonged at 455 msec. No Q waves. T waves are Normal. No ST changes noted. Clinical impression: Normal ECG. Interpreted by me. Reviewed by me. Administered Medications: 08:53 Not Given (Patient Refused; pt states "i took the meds already before they took me to hj the ambulance"): Atenolol 25 mg PO once 09:32 Drug: Potassium Chloride 40 mEq Route: PO; 09:35 Follow up: Response: No adverse reaction Point of Care Testing: Blood Glucose: 08:10 Blood Glucose: 119 mg/dL; Ranges: Critical Glucose Levels:Adult <50 mg/dl or >400 mg/dl <40 mg/dl or >180 mg/dl Disposition: 13:36 Co-signature as Attending Physician, Scar Iqbal MD I agree with the assessment and kdr plan of care. Disposition: 08/16/18 09:55 Discharged to Home. Impression: Chest pain, unspecified, Muscle weakness (generalized). - Condition is Stable. - Discharge Instructions: Nonspecific Chest Pain, Sleep Studies. - Medication Reconciliation Form, Thank You Letter, Antibiotic Education, Prescription Opioid Use form. - Follow up: Jorge Curran MD; When: 2 - 3 days; Reason: Recheck today's complaints, Continuance of care, Re-evaluation by your physician. - Problem is new. - Symptoms have improved. NIH Stroke Scale - NIH Stroke Score Date: 08/16/2018 Time: 08:10 Total Score = 0 1a. Level of Consciousness (LOC) - 0(Alert) 1b. Level of Consciousness (LOC) (Year \\T\\ Age) - 0(Both) 1c. LOC Commands (Open \\T\\ Closes Eyes/Control Room Supervisor) - 0(Both) 2. Best Gaze (Lateral Gaze Paresis) - 0(Normal) 3. Visual Field Loss - 0(No visual loss) 4. Facial Palsy - 0(Normal) 5a. Left Arm: Motor (10-second hold) - 0(No drift) 5b. Right Arm: Motor (10-second hold) - 0(No drift) 6a. Left Leg: Motor (5-second hold - always test supine) - 0(No drift) 6b. Right Leg: Motor (5-second hold - always test supine) - 0(No drift) 7. Limb Ataxia (finger/nose \\T\\ heel/moser - test with eyes open) - 0(Absent) 8. Sensory Loss (pinprick arms/legs/face) - 0(Normal) 9. Best Language: Aphasia (description/naming/reading) - 0(No aphasia) 10. Dysarthria (speech clarity - read or repeat words) - 0(Normal) 11. Extinction and Inattention (visual/tactile/auditory/spatial/personal) - 0(No abnormality) Initials: frida Signatures: Dispatcher [employer] Lillie Camejo RN RN aj1 Scar Iqbal MD MD kdr Roszak, Josh, PA PA jr8 Richardson, Myles, RN RN hj Corrections: (The following items were deleted from the chart) 10:18 09:55 08/16/2018 09:55 Discharged to Home. Impression: Chest pain, unspecified; aj1 Muscle weakness (generalized). Condition is Stable. Forms are Medication Reconciliation Form, Thank You Letter, Antibiotic Education, Prescription Opioid Use. Follow up: Jorge Curran; When: 2 - 3 days; Reason: Recheck today's complaints, Continuance of care, Re-evaluation by your physician. Problem is new. Symptoms have improved. jr8
--- NOTE | 2018-08-16 09:56 | ER ---
Nurse's Notes [facility] Name: Mikhail Reilly Age: 42 yrs Sex: Male : 1975 Arrival Date: 08/16/2018 Time: 08:02 Bed 4 Private MD: Diagnosis: Chest pain, unspecified;Muscle weakness (generalized) Presentation: 08/16 08:03 Presenting complaint: states: per : pt complained of chest pain upon waking up hj this 7 am, wanted her to check his BP- 137/86; wanted to take his BP meds; but did not take it, because he was complaining of numbness on R side and feeling weak, called EMS and they gave him aspirin 81 mg x 4 tabs; EMS states: last seen normal today atr 7 am, complaints of severe weakness on all extremities, chest pain, numbness and tingling, confusion, was awaken with nightmares,eye sensitive to lights; BGL- 138; HR- 103; O2 sat- 95%;. Transition of care: patient was not received from another setting of care. An acute neurological deficit is present. The patients blood glucose was checked prior to arriving to the hospital and was found to be hyperglycemic. The charge nurse has been notified. Onset of symptoms was August 16, 2018 at 07:00. Risk Assessment: Do you want to hurt yourself or someone else? Patient reports no desire to harm self or others. Initial Sepsis Screen: Does the patient meet any 2 criteria? No. Patient's initial sepsis screen is negative. Does the patient have a suspected source of infection? No. Patient's initial sepsis screen is negative. Note per CN, not to call code stroke. Care prior to arrival: None. 08:03 Method Of Arrival: EMS: [facility] 08:03 Acuity: LIANG 2 hj Triage Assessment: 08:09 The onset of the patients symptoms was August 16, 2018 at 07:00. General: Appears in no hj apparent distress. uncomfortable, Behavior is cooperative, appropriate for age, drowsy. Pain: Complains of pain in chest. Neuro: Reports weakness in right arm, left arm, right leg and left leg. Stroke Activation: Physician: Stroke Attending; Name: ; Notified At: ; Arrived At: Physician: Chief Stroke Resident; Name: ; Notified At: ; Arrived At: Physician: Stroke Resident; Name: ; Notified At: ; Arrived At: Physician: ED Attending; Name: ; Notified At: ; Arrived At: Physician: ED Resident; Name: ; Notified At: ; Arrived At: 08:03 8:03 am- provider and CN decided not to call code stroke hj Historical: - Allergies: 08:08 contrast; hj 08:08 Iodine; hj - Home Meds: 08:08 atenolol 25 mg Oral tab 1 tab once daily [Active]; Amy Aspirin 325 mg Oral tab 1 tab hj once daily [Active]; diltiazem HCl 30 mg Oral tab 1 tab twice a day [Active]; Eliquis Oral [Active]; Lipitor Oral [Active]; Plavix 75 mg Oral tab 1 tab once daily [Active]; - PMHx: 08:08 Atrial Fib; Back pain; Hypertension; Kidney stones; muscle spasms numerous times hj requiring Er visits with fluid resusitation; - PSHx: 08:08 Unable to obtain; hj - Immunization history:: Adult Immunizations unknown. - Social history:: Smoking status: Patient/guardian denies using tobacco, Patient/guardian denies using alcohol. - Ebola Screening: : Patient negative for fever greater than or equal to 101.5 degrees Fahrenheit, and additional compatible Ebola Virus Disease symptoms Patient denies exposure to infectious person Patient denies travel to an Ebola-affected area in the 21 days before illness onset. Screenin:10 Abuse screen: Denies threats or abuse. Denies injuries from another. Nutritional hj screening: No deficits noted. Tuberculosis screening: No symptoms or risk factors identified. Fall Risk Secondary diagnosis (15 points) TIA. Assessment: 08:10 VAN Scoring: Visual Disturbance: No visual disturbance noted. Aphasia: No aphasia hj noted. Neglect: No neglect noted. The patient has not been NPO before screening. The patient is alert, and able to follow commands. The patient does not exhibit slurred or garbled speech. The patient is not exhibiting difficulty speaking. The patient is exhibiting difficulty understanding words. The patient is able to swallow own secretions with no drooling or need for suction. 08:10 Patient tolerated one teaspoon of water. No drooling, immediate coughing, gurgling, or hj clearing of the throat was noted. The patient passed the bedside swallow screening. Oral medications may be given as ordered. Contact Physician for further diet orders. Provider notified of bedside swallow screening results: Myles Bai RN. 08:10 The patient tolerated 90mL of water. No drooling, immediate coughing, gurgling, or hj clearing of the throat was noted. 08:10 Reassessment: wheeled to CT;. hj 09:26 T-PA (Activase) Screening: Contraindications:. hj 09:30 Reassessment: provider in room for POC:. hj Vital Signs: 08:10 BP 141 / 100; Pulse 86; Resp 18; Temp 98.1(TE); Pulse Ox 97% on R/A; Weight 92.99 kg; hj Height 5 ft. 10 in. (177.80 cm); 08:35 BP 145 / 106; Pulse 81; Resp 18; Pulse Ox 99% on R/A; hj 09:26 BP 133 / 90; Pulse 90; Resp 18; Pulse Ox 100% on R/A; hj 08:10 Body Mass Index 29.41 (92.99 kg, 177.80 cm) hj NIH Stroke Scale Scores: 08:10 NIHSS Score: 0 hj ED Course: 08:02 Patient arrived in ED. hj 08:05 Roque Mcdaniels PA is PHCP. jr8 08:05 Scar Iqbal MD is Attending Physician. jr8 08:06 Triage completed. hj 08:07 EKG done, by horticultural technical officer. reviewed by Roque MORELAND. at1 08:10 Arm band placed on right wrist. hj 08:10 Patient has correct armband on for positive identification. Placed in gown. Bed in low hj position. Call light in reach. Side rails up X2. 08:12 Myles Bai, RN is Primary Nurse. hj 08:17 CT completed. Patient tolerated procedure well. Patient moved to CT via stretcher. Patient moved back from CT. 08:19 CT Head Brain wo Cont In Process Unspecified. EDMS 08:26 XRAY Chest (1 view) In Process Unspecified. EDMS 09:55 Jorge Curran MD is Referral Physician. jr8 10:16 No provider procedures requiring assistance completed. IV discontinued, intact, aj1 bleeding controlled, No redness/swelling at site. Pressure dressing applied. Administered Medications: 08:53 Not Given (Patient Refused; pt states "i took the meds already before they took me to hj the ambulance"): Atenolol 25 mg PO once 09:32 Drug: Potassium Chloride 40 mEq Route: PO; 09:35 Follow up: Response: No adverse reaction Point of Care Testing: Blood Glucose: 08:10 Blood Glucose: 119 mg/dL; frida Ranges: Outcome: 09:55 Discharge ordered by MD. agee 10:16 Discharged to home ambulatory. aj1 10:16 Condition: good 10:16 Discharge instructions given to patient, Instructed on discharge instructions, follow up and referral plans. Demonstrated understanding of instructions, follow-up care. 10:18 Patient left the ED. aj1 NIH Stroke Scale - NIH Stroke Score Date: 08/16/2018 Time: 08:10 Total Score = 0 1a. Level of Consciousness (LOC) - 0(Alert) 1b. Level of Consciousness (LOC) (Year \\T\\ Age) - 0(Both) 1c. LOC Commands (Open \\T\\ Closes Eyes/Box Office Attendant) - 0(Both) 2. Best Gaze (Lateral Gaze Paresis) - 0(Normal) 3. Visual Field Loss - 0(No visual loss) 4. Facial Palsy - 0(Normal) 5a. Left Arm: Motor (10-second hold) - 0(No drift) 5b. Right Arm: Motor (10-second hold) - 0(No drift) 6a. Left Leg: Motor (5-second hold - always test supine) - 0(No drift) 6b. Right Leg: Motor (5-second hold - always test supine) - 0(No drift) 7. Limb Ataxia (finger/nose \\T\\ heel/moser - test with eyes open) - 0(Absent) 8. Sensory Loss (pinprick arms/legs/face) - 0(Normal) 9. Best Language: Aphasia (description/naming/reading) - 0(No aphasia) 10. Dysarthria (speech clarity - read or repeat words) - 0(Normal) 11. Extinction and Inattention (visual/tactile/auditory/spatial/personal) - 0(No abnormality) Initials: Signatures: Dispatcher [employer] EDMS Lillie Francis RN RN aj1 Odalis Bravo Josh, PA PA jr8 Stacie Griggs, food service steward EKG Tat1 Richardson, Myles, RN RN hj Corrections: (The following items were deleted from the chart) 08:30 08:03 Presenting complaint: EMS states: last seen normal today atr 7 am, frida complaints of severe weakness on all extremities, chest pain, numbness and tingling, confusion, was awaken with nightmares,eye sensitive to lights; BGL- 138; HR- 103; O2 sat- 95%; frida
[2018-08-16 10:22] VITALS: TEMP 98.1
[2018-08-16 10:24] VITALS: BP 133/90; O2SAT 100
--- NOTE | 2018-08-20 11:22 | EKG ---
Test Date: 2018-08-16 Test Time: 08:03:08 Commodity Specialist: JEVON MEASUREMENT RESULTS: Intervals: Rate: 92 MD: 184 QRSD: 104 QT: 368 QTc: 455 [place]: P: 59 MD: 184 QRS: 78 T: 36 INTERPRETIVE STATEMENTS: Normal sinus rhythm Normal ECG Compared to ECG 08/14/2018 14:15:31 No significant changes Electronically Signed On 08-16-18 09:50:17 CDT by Collin Marshall
== END 2018-08-16 10:18 | disposition home or self-care (01) ==
LOC: ER 08:01
DX: R07.89 Other chest pain (principal); R53.1 Weakness; I48.91 Unspecified atrial fibrillation; I10 Essential (primary) hypertension; Z91.041 Radiographic dye allergy status
CPT/HCPCS: 36415; 70450; 71045; 80048; 80076; 82962; 83735; 83880; 84484; 85025; 85610; 93005; 99284

== ENCOUNTER 2018-09-30 09:41 | Emergency (ER) | payer SELFPAY ==
--- NOTE | 2018-09-30 10:43 | ER ---
Nurse's Notes [facility] Name: Mikhail Reilly Age: 43 yrs Sex: Male : 1975 Arrival Date: 09/30/2018 Time: 09:43 Bed 24 Private MD: Diagnosis: Bee allergy status Presentation: 09/30 10:12 Presenting complaint: Patient states: "I was bitten by a yellow jacket to my left ear aa5 and today the left side of my face feels swollen and I can barely hear from my left ear". 10:12 Transition of care: patient was not received from another setting of care. Care prior aa5 to arrival: None. 10:12 Method Of Arrival: Ambulatory aa5 10:12 Acuity: LIANG 4 aa5 11:20 Onset: The symptoms/episode began/occurred acutely. Anaphylaxis evaluation, no signs or aj1 symptoms of anaphylaxis were noted. Onset of symptoms was September 2018. Risk Assessment: Do you want to hurt yourself or someone else? Patient reports no desire to harm self or others. Initial Sepsis Screen: Does the patient meet any 2 criteria? No. Patient's initial sepsis screen is negative. Does the patient have a suspected source of infection? No. Patient's initial sepsis screen is negative. Historical: - Allergies: 10:14 contrast; aa5 10:14 Iodine; aa5 - Home Meds: 10:14 atenolol 25 mg Oral tab 1 tab once daily [Active]; Eliquis Oral [Active]; diltiazem HCl aa5 30 mg Oral tab 1 tab twice a day [Active]; - PMHx: 10:14 Atrial Fib; Back pain; Hypertension; Kidney stones; muscle spasms numerous times aa5 requiring Er visits with fluid resusitation; - Immunization history:: Flu vaccine is not up to date. - Social history:: Smoking status: Patient/guardian denies using tobacco, Patient/guardian denies using alcohol, street drugs, The patient lives with family. - Ebola Screening: : No symptoms or risks identified at this time. - Family history:: not pertinent. Screenin:54 Abuse screen: Denies threats or abuse. Denies injuries from another. Nutritional aj1 screening: No deficits noted. Tuberculosis screening: No symptoms or risk factors identified. 11:20 Fall Risk None identified. aj1 Assessment: 10:54 General: Appears in no apparent distress. uncomfortable, Behavior is calm, cooperative, aj1 appropriate for age. Pain: Complains of pain in left preauricular area. Neuro: Level of Consciousness is awake, alert, obeys commands, Oriented to person, place, time, situation. Cardiovascular: Patient's skin is warm and dry. Respiratory: Airway is patent Respiratory effort is even, unlabored, Respiratory pattern is regular, symmetrical, Breath sounds are clear bilaterally. GI: No signs and/or symptoms were reported involving the gastrointestinal system. : No signs and/or symptoms were reported regarding the genitourinary system. EENT: Reports trouble hearing out of the left ear. Derm: No signs and/or symptoms reported regarding the dermatologic system. Skin is pink, warm \\T\\ dry. normal. Musculoskeletal: Swelling present in left preauricular area. 11:19 Reassessment: Patient appears in no apparent distress at this time. No changes from aj1 previously documented assessment. Patient and/or family updated on plan of care and expected duration. Pain level reassessed. Patient is alert, oriented x 3, equal unlabored respirations, skin warm/dry/pink. Vital Signs: 10:16 BP 130 / 104; Pulse 102; Resp 18 S; Temp 98.2(O); Pulse Ox 98% on R/A; Weight 95.25 kg aa5 (R); Height 5 ft. 10 in. (177.80 cm) (R); Pain 8/10; 11:18 BP 157 / 101; Pulse 89; Resp 17; Pulse Ox 98% on R/A; aj1 10:16 Body Mass Index 30.13 (95.25 kg, 177.80 cm) aa5 11:18 Patient states that he has a history of high blood pressure and will take his regular aj1 blood pressure medication when he gets home ED Course: 09:43 Patient arrived in ED. as 10:13 Arm band placed on. aa5 10:14 Triage completed. aa5 10:18 Ezra Rincon MD is Attending Physician. ma2 10:24 Lillie Francis RN is Primary Nurse. aj1 10:54 Patient has correct armband on for positive identification. Bed in low position. Call aj1 light in reach. 10:54 No provider procedures requiring assistance completed. Patient did not have IV access aj1 during this emergency room visit. Administered Medications: 10:53 Drug: Benadryl 50 mg Route: IM; Site: right gluteus; aj1 11:18 Follow up: Response: No adverse reaction aj1 10:53 Drug: MethylPREDNISolone Acetate 80 mg Route: IM; Site: left gluteus; aj1 11:18 Follow up: Response: No adverse reaction aj1 10:53 Drug: Motrin 800 mg Route: PO; aj1 11:18 Follow up: Response: No adverse reaction aj1 Outcome: 10:42 Discharge ordered by . ma2 11:19 Discharged to home ambulatory, with family. aj1 11:19 Condition: good 11:19 Discharge instructions given to patient, family, Instructed on discharge instructions, follow up and referral plans. no drinking with medication, no driving heavy equipment, medication usage, Demonstrated understanding of instructions, follow-up care, medications, Prescriptions given X 2. 11:20 Patient left the ED. aj1 Signatures: Lillie Francis RN RN aj1 Margareth Duggan Audri, RN RN aa5 Ezra Rincon MD MD ma2 Corrections: (The following items were deleted from the chart) 10:18 10:16 Pulse 102bpm; Resp 18bpm; Spontaneous; Pulse Ox 98% RA; Temp 98.2F Oral; 95.25 kg aa5 Reported; Height 5 ft. 10 in. Reported; BMI: 30.1; Pain 8/10; aa5
--- NOTE | 2018-09-30 10:43 | EDPHYS ---
Physician Documentation [facility] Name: Mikhail Reilly Age: 43 yrs Sex: Male : 1975 Arrival Date: 09/30/2018 Time: 09:43 Bed 24 Private MD: ED Physician Ezra Rincon HPI: 09/30 10:39 This 43 yrs old Male presents to ER via Ambulatory with complaints of Bee ma2 Sting, Facial Swelling, Ear Pain. 10:39 The patient presents with swelling, tenderness. Onset: The symptoms/episode ma2 began/occurred gradually, 1 day(s) ago. Associated signs and symptoms: Pertinent negatives: fever, rhinorrhea, sore throat, vertigo. Severity of symptoms: At their worst the symptoms were mild in the emergency department the symptoms are unchanged. The patient has not experienced similar symptoms in the past. Historical: - Allergies: 10:14 contrast; aa5 10:14 Iodine; aa5 - Home Meds: 10:14 atenolol 25 mg Oral tab 1 tab once daily [Active]; Eliquis Oral [Active]; diltiazem HCl aa5 30 mg Oral tab 1 tab twice a day [Active]; - PMHx: 10:14 Atrial Fib; Back pain; Hypertension; Kidney stones; muscle spasms numerous times aa5 requiring Er visits with fluid resusitation; - Immunization history:: Flu vaccine is not up to date. - Social history:: Smoking status: Patient/guardian denies using tobacco, Patient/guardian denies using alcohol, street drugs, The patient lives with family. - Ebola Screening: : No symptoms or risks identified at this time. - Family history:: not pertinent. ROS: 10:39 Constitutional: Negative for fever, chills, and weight loss, Neck: Negative for injury, ma2 pain, and swelling, Cardiovascular: Negative for chest pain, palpitations, and edema, Respiratory: Negative for shortness of breath, cough, wheezing, and pleuritic chest pain, Abdomen/GI: Negative for abdominal pain, nausea, diarrhea, and constipation. 10:39 Skin: Positive for swelling, Negative for burn, discoloration, erythema, pallor. 10:39 All other systems are negative. Exam: 10:39 Constitutional: This is a well developed, well nourished patient who is awake, alert, ma2 and in no acute distress. 10:39 Head/Face: Normocephalic, atraumatic. Eyes: Pupils equal round and reactive to light, extra-ocular motions intact. Lids and lashes normal. Conjunctiva and sclera are non-icteric and not injected. Cornea within normal limits. Periorbital areas with no swelling, redness, or edema. Chest/axilla: Normal chest wall appearance and motion. Nontender with no deformity. No lesions are appreciated. Cardiovascular: Regular rate and rhythm with a normal S1 and S2. No gallops, murmurs, or rubs. Normal PMI, no JVD. No pulse deficits. Respiratory: Lungs have equal breath sounds bilaterally, clear to auscultation and percussion. No rales, rhonchi or wheezes noted. No increased work of breathing, no retractions or nasal flaring. Abdomen/GI: Soft, non-tender, with normal bowel sounds. No distension or tympany. No guarding or rebound. No evidence of tenderness throughout. 10:39 ENT: External ear(s): swelling, that is minimal, of the left preauricular area. Vital Signs: 10:16 BP 130 / 104; Pulse 102; Resp 18 S; Temp 98.2(O); Pulse Ox 98% on R/A; Weight 95.25 kg aa5 (R); Height 5 ft. 10 in. (177.80 cm) (R); Pain 8/10; 11:18 BP 157 / 101; Pulse 89; Resp 17; Pulse Ox 98% on R/A; aj1 10:16 Body Mass Index 30.13 (95.25 kg, 177.80 cm) aa5 11:18 Patient states that he has a history of high blood pressure and will take his regular aj1 blood pressure medication when he gets home MDM: 10:18 Patient medically screened. ma2 10:39 Differential diagnosis: bee sting, allergic reaction unlikely cellululitis. ma2 Differential diagnosis: Differential diagnosis:. Data reviewed: vital signs, nurses notes. Counseling: I had a detailed discussion with the patient and/or guardian regarding: the historical points, exam findings, and any diagnostic results supporting the discharge/admit diagnosis, the presence of at least one elevated blood pressure reading (>120/80) during this emergency department visit. Response to treatment: the patient's symptoms have mildly improved after treatment. Administered Medications: 10:53 Drug: Benadryl 50 mg Route: IM; Site: right gluteus; aj1 11:18 Follow up: Response: No adverse reaction aj1 10:53 Drug: MethylPREDNISolone Acetate 80 mg Route: IM; Site: left gluteus; aj1 11:18 Follow up: Response: No adverse reaction aj1 10:53 Drug: Motrin 800 mg Route: PO; aj1 11:18 Follow up: Response: No adverse reaction aj1 Disposition: 09/30/18 10:42 Discharged to Home. Impression: Bee allergy status. - Condition is Stable. - Discharge Instructions: Bee, Wasp, or Hornet Sting, Adult. - Prescriptions for Tylenol- Codeine #3 300-30 mg Oral Tablet - take 2 tablet by ORAL route every 6 hours As needed; 6 tablet. Medrol (Dany) 4 mg Oral Tablets, Dose Pack - take 1 tablet by ORAL route as directed - follow package instructions; 1 packet. - Medication Reconciliation Form, Thank You Letter, Antibiotic Education, Prescription Opioid Use form. - Follow up: Private Physician; When: Tomorrow; Reason: Continuance of care. Signatures: Lillie Francis RN RN aj1 Regi Bennett RN RN aa5 Ezra Rincon MD MD ma2 Corrections: (The following items were deleted from the chart) 11:20 10:42 09/30/2018 10:42 Discharged to Home. Impression: Bee allergy status. Condition is aj1 Stable. Forms are Medication Reconciliation Form, Thank You Letter, Antibiotic Education, Prescription Opioid Use. Follow up: Private Physician; When: Tomorrow; Reason: Continuance of care. ma2
[2018-09-30] MEDS ORDERED: IBUPROFEN 400 MG TAB ONE (10:59)
[2018-09-30] MEDS ORDERED: METHYLPREDNISOLONE 40 MG INJ ONE (10:59)
[2018-09-30] MEDS ORDERED: DIPHENHYDRAMINE 50 MG/ML VIAL ONE (10:59)
[2018-09-30 11:25] VITALS: TEMP 98.2; O2SAT 98
[2018-09-30 11:26] VITALS: BP 157/101
== END 2018-09-30 11:20 | disposition home or self-care (01) ==
LOC: ER 09:41
DX: T63.441A Toxic effect of venom of bees, accidental (unintentional), initial encounter (principal); Z91.030 Bee allergy status
CPT/HCPCS: 96372; 99283; J2920

== ENCOUNTER 2018-10-19 19:19 | Emergency (ER) | payer SELFPAY ==
[2018-10-19 19:56] LABS: Absolute Lymphocytes (CBC) 1.6 K/uL (0.7-4.9); Absolute Monocytes 0.6 K/uL (0.1-1.3); Absolute Neutrophil 6.2 K/uL (1.8-8.0); Basophils % 0.3 % (0-1.3); Eosinophils % 0.2 % (0-4.4); Lymphocytes % 19.2 % (15.3-44.8); MPV 9.3 fL (7.6-11.3); RBC Red Blood Cell Count 5.25 M/uL (4.33-5.43)
[2018-10-19 20:07] LABS: Protime INR 1.15
[2018-10-19 20:18] LABS: ALT/SGPT 18 U/L (12-78); AST/SGOT 18 U/L (15-37); Albumin 4.4 g/dL (3.4-5.0); Alkaline Phosphatase 118 U/L (45-117); BUN Blood Urea Nitrogen 20 mg/dL (7-18); Bicarbonate 23 mmol/L (21-32); Bilirubin Total 0.8 mg/dL (0.2-1.0); Glucose Level 93 mg/dL (74-106); Magnesium 2.3 mg/dL (1.8-2.4); NT PRO-BNP 21 pg/mL (<125); Potassium 3.4 mmol/L (3.5-5.1); Sodium Level 138 mmol/L (136-145); Troponin (Emerg Dept Use Only) < 0.02 ng/mL (0.0-0.045)
--- NOTE | 2018-10-19 20:39 | RAD REPORT ---
EXAM DESCRIPTION: Rafa Single View10/19/2018 8:25 pm CLINICAL HISTORY: Chest pain COMPARISON: August 2018 FINDINGS: The lungs appear clear of acute infiltrate. The heart is normal size IMPRESSION: No acute abnormalities displayed
--- NOTE | 2018-10-20 00:01 | ER ---
Nurse's Notes [facility] Name: Mikhail Reilly Age: 43 yrs Sex: Male : 1975 Arrival Date: 10/19/2018 Time: 19:21 Bed 5 Private MD: Diagnosis: palpitations Presentation: 10/19 19:27 Presenting complaint: Patient states: "I feel like my heart is fluttering and it wont tl2 stop" Reports symptoms for about 10 minutes. Denies pain. Pt has history of A fib. Transition of care: patient was not received from another setting of care. Onset of symptoms was October 19, 2018 at 19:15. Risk Assessment: Do you want to hurt yourself or someone else? Patient reports no desire to harm self or others. Initial Sepsis Screen: Does the patient meet any 2 criteria? No. Patient's initial sepsis screen is negative. Does the patient have a suspected source of infection? No. Patient's initial sepsis screen is negative. Care prior to arrival: None. 19:27 Method Of Arrival: Wheelchair tl2 19:27 Acuity: LIANG 3 tl2 Triage Assessment: 19:29 General: Appears distressed, uncomfortable, Behavior is cooperative, appropriate for tl2 age, anxious. Pain: Denies pain. Cardiovascular: Reports palpitations, Denies chest pain. Historical: - Allergies: 19:29 contrast; tl2 19:29 Iodine; tl2 - Home Meds: 19:29 atenolol 25 mg Oral tab 1 tab once daily [Active]; Amy Aspirin 325 mg Oral tab 1 tab tl2 once daily [Active]; diltiazem HCl 30 mg Oral tab 1 tab twice a day [Active]; Eliquis Oral [Active]; Lipitor Oral [Active]; Plavix 75 mg Oral tab 1 tab once daily [Active]; - PMHx: 19:29 Atrial Fib; Back pain; Hypertension; Kidney stones; muscle spasms numerous times tl2 requiring Er visits with fluid resusitation; - Immunization history:: Adult Immunizations up to date. - Social history:: Smoking status: Patient/guardian denies using tobacco. - Ebola Screening: : No symptoms or risks identified at this time. Screenin:29 Abuse screen: Denies threats or abuse. Nutritional screening: No deficits noted. tl2 Tuberculosis screening: No symptoms or risk factors identified. Fall Risk None identified. Assessment: 19:30 General: Appears in no apparent distress. comfortable, Behavior is calm, cooperative, aa1 appropriate for age. Pain: Denies pain. Neuro: Level of Consciousness is awake, alert, obeys commands, Oriented to person, place, time, situation, Moves all extremities. Full function Speech is normal. Cardiovascular: Reports episode of heart fluttering that lasted approx 7 mins and has since resolved Denies chest pain, diaphoresis, nausea, shortness of breath, Heart tones S1 S2 present Capillary refill < 3 seconds Patient's skin is warm and dry. Rhythm is regular. Respiratory: Airway is patent Respiratory effort is even, unlabored, Respiratory pattern is regular, symmetrical. GI: No signs and/or symptoms were reported involving the gastrointestinal system. : No signs and/or symptoms were reported regarding the genitourinary system. EENT: No signs and/or symptoms were reported regarding the EENT system. Derm: Skin is intact, is healthy with good turgor, Skin is pink, warm \\T\\ dry. Musculoskeletal: Circulation, motion, and sensation intact. Capillary refill < 3 seconds. 19:30 Pain: Pain does not radiate. Pain began suddenly. rv 20:30 Reassessment: Patient appears in no apparent distress at this time. Patient and/or aa1 family updated on plan of care and expected duration. Pain level reassessed. Patient is alert, oriented x 3, equal unlabored respirations, skin warm/dry/pink. Awaiting provider reassessment Patient denies pain at this time. Patient states feeling better. 21:31 Reassessment: Patient appears in no apparent distress at this time. Patient and/or aa1 family updated on plan of care and expected duration. Pain level reassessed. Patient is alert, oriented x 3, equal unlabored respirations, skin warm/dry/pink. Per MD, repeat troponin to be drawn at 2200. 22:18 Reassessment: SENT REPEAT TROPONIN. rv 23:38 Reassessment: Patient appears in no apparent distress at this time. Patient and/or aa1 family updated on plan of care and expected duration. Pain level reassessed. Patient is alert, oriented x 3, equal unlabored respirations, skin warm/dry/pink. Pt awaiting repeat troponin results. Vital Signs: 19:29 BP 120 / 99; Pulse 71; Resp 20; Temp 98(TE); Pulse Ox 99% on R/A; Weight 95.25 kg; tl2 Height 5 ft. 10 in. (177.80 cm); Pain 0/10; 20:30 BP 115 / 80 LA Sitting; Pulse 69; Resp 12; Pulse Ox 96% on R/A; rv 21:30 BP 115 / 84; Pulse 69; Resp 18; Pulse Ox 96% on R/A; Pain 0/10; aa1 22:00 BP 127 / 83; Pulse 62; Resp 16; Pulse Ox 97% ; rv 23:38 BP 116 / 65; Pulse 72; Resp 18; Pulse Ox 98% on R/A; Pain 0/10; aa1 10/20 00:06 BP 117 / 70; Pulse 71; Resp 16; Temp 98; Pulse Ox 99% ; rv 10/19 19:29 Body Mass Index 30.13 (95.25 kg, 177.80 cm) tl2 ED Course: 10/19 19:20 Inserted saline lock: 20 gauge in right antecubital area, using aseptic technique. rv Blood collected. 19:21 Patient arrived in ED. rg4 19:26 John Giron MD is Attending Physician. ps1 19:28 Triage completed. tl2 19:29 Arm band placed on right wrist. tl2 19:29 Patient has correct armband on for positive identification. Placed in gown. Bed in low tl2 position. Call light in reach. Side rails up X2. shelter monitor on. Pulse ox on. NIBP on. 19:30 EKG done, by ED staff, reviewed by John Giron MD. Patient maintains SpO2 saturation aa1 greater than 95% on room air. 19:33 Marilu Polo, DANNIELLE is Primary Nurse. aa1 20:26 XRAY Chest (1 view) In Process Unspecified. EDMS 10/20 00:07 No provider procedures requiring assistance completed. IV discontinued, intact, rv bleeding controlled, No redness/swelling at site. Pressure dressing applied. Administered Medications: No medications were administered Outcome: 10/19 23:59 Discharge ordered by . ps1 10/20 00:07 Discharged to home ambulatory. rv Condition: good Discharge instructions given to patient, Instructed on discharge instructions, follow up and referral plans. Demonstrated understanding of instructions, follow-up care. 00:08 Patient left the ED. rv Signatures: Dispatcher [employer] EDMarilu Lala RN RN aa1 Lilly Cody RN RN tl2 Padma Alford 4 John Giron MD MD ps1 Vicente, Ronaldo, RN RN rv
--- NOTE | 2018-10-20 00:02 | EDPHYS ---
Physician Documentation [facility] Name: Mikhail Reilly Age: 43 yrs Sex: Male : 1975 Arrival Date: 10/19/2018 Time: 19:21 Bed 5 Private MD: ED Physician John Giron HPI: 10/19 20:24 This 43 yrs old Male presents to ER via Wheelchair with complaints of ps1 palpitations. 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 Patient did not take his atenolol ps1 until later in the day. Pt took atenolol 5 min prior to getting palpitations. He has a history of pAF and sees Dr. Harris in [place]. Pt is currently asymptomatic and in NSR. . Historical: - Allergies: 19:29 contrast; tl2 19:29 Iodine; tl2 - Home Meds: 19:29 atenolol 25 mg Oral tab 1 tab once daily [Active]; Amy Aspirin 325 mg Oral tab 1 tab tl2 once daily [Active]; diltiazem HCl 30 mg Oral tab 1 tab twice a day [Active]; Eliquis Oral [Active]; Lipitor Oral [Active]; Plavix 75 mg Oral tab 1 tab once daily [Active]; - PMHx: 19:29 Atrial Fib; Back pain; Hypertension; Kidney stones; muscle spasms numerous times tl2 requiring Er visits with fluid resusitation; - Immunization history:: Adult Immunizations up to date. - Social history:: Smoking status: Patient/guardian denies using tobacco. - Ebola Screening: : No symptoms or risks identified at this time. ROS: 20:24 Constitutional: Negative for fever, chills, and weight loss, Eyes: Negative for injury, ps1 pain, redness, and discharge, ENT: Negative for injury, pain, and discharge, Respiratory: Negative for shortness of breath, cough, wheezing, and pleuritic chest pain, Abdomen/GI: Negative for abdominal pain, nausea, vomiting, diarrhea, and constipation, MS/Extremity: Negative for injury and deformity, Skin: Negative for injury, rash, and discoloration, Neuro: Negative for headache, weakness, numbness, tingling, and seizure. 20:24 Cardiovascular: Positive for palpitations. 20:24 Psych: Positive for anxiety. Exam: 20:24 Constitutional: This is a well developed, well nourished patient who is awake, alert, ps1 and in no acute distress. Head/Face: Normocephalic, atraumatic. Eyes: Pupils equal round and reactive to light, extra-ocular motions intact. Lids and lashes normal. Conjunctiva and sclera are non-icteric and not injected. ENT: Nares patent. No nasal discharge, no septal abnormalities noted. Tympanic membranes are normal and external auditory canals are clear. Oropharynx with no redness, swelling, or masses, exudates, or evidence of obstruction, uvula midline. Mucous membranes moist. Chest/axilla: Normal chest wall appearance and motion. Nontender with no deformity. No lesions are appreciated. Cardiovascular: Regular rate and rhythm. No gallops, murmurs, or rubs. Normal PMI, no JVD. No pulse deficits. Respiratory: Lungs have equal breath sounds bilaterally, clear to auscultation and percussion. No rales, rhonchi or wheezes noted. No increased work of breathing, no retractions or nasal flaring. Abdomen/GI: Soft, non-tender, with normal bowel sounds. No distension or tympany. No guarding or rebound. No evidence of tenderness throughout. Skin: Warm, dry with normal turgor. Normal color with no rashes, no lesions, and no evidence of cellulitis. MS/ Extremity: Pulses equal, no cyanosis. Neurovascular intact. Full, normal range of motion. Neuro: Awake and alert, GCS 15, oriented to person, place, time, and situation. Cranial nerves II-XII grossly intact. Sensory grossly intact. Psych: Awake, alert, with orientation to person, place and time. Behavior, mood, and affect are within normal limits. Vital Signs: 19:29 BP 120 / 99; Pulse 71; Resp 20; Temp 98(TE); Pulse Ox 99% on R/A; Weight 95.25 kg; tl2 Height 5 ft. 10 in. (177.80 cm); Pain 0/10; 20:30 BP 115 / 80 LA Sitting; Pulse 69; Resp 12; Pulse Ox 96% on R/A; rv 21:30 BP 115 / 84; Pulse 69; Resp 18; Pulse Ox 96% on R/A; Pain 0/10; aa1 22:00 BP 127 / 83; Pulse 62; Resp 16; Pulse Ox 97% ; rv 23:38 BP 116 / 65; Pulse 72; Resp 18; Pulse Ox 98% on R/A; Pain 0/10; aa1 10/20 00:06 BP 117 / 70; Pulse 71; Resp 16; Temp 98; Pulse Ox 99% ; rv 08 19:29 Body Mass Index 30.13 (95.25 kg, 177.80 cm) tl2 MDM: 10/19 19:32 Patient medically screened. ps1 10/19 19:26 Order name: CBC with Diff; Complete Time: 20:17 ps1 10/19 19:26 Order name: Magnesium; Complete Time: 20:42 ps1 10/19 19:26 Order name: NT PRO-BNP; Complete Time: 20:42 ps1 10/19 19:26 Order name: PT-INR; Complete Time: 20:17 ps1 10/19 19:26 Order name: Troponin (emerg Dept Use Only); Complete Time: 20:42 ps1 10/19 19:26 Order name: CMP; Complete Time: 20:42 ps1 10/19 19:26 Order name: XRAY Chest (1 view); Complete Time: 20:42 ps1 10/19 19:26 Order name: EKG; Complete Time: 19:29 ps1 10/19 19:26 Order name: Cardiac monitoring; Complete Time: 19:33 ps1 10/19 19:26 Order name: EKG - Nurse/Tech; Complete Time: 19:33 ps1 10/19 19:26 Order name: IV Saline Lock; Complete Time: 19:33 ps1 10/19 19:26 Order name: Labs collected and sent; Complete Time: 19:33 ps1 10/19 19:26 Order name: O2 Per Protocol; Complete Time: 19:33 ps1 10/19 21:31 Order name: Troponin (emerg Dept Use Only); Complete Time: 23:58 aa1 10/19 19:26 Order name: O2 Sat Monitoring; Complete Time: 19:33 ps1 EC:31 Rate is 67 beats/min. Rhythm is regular. QRS [place] is Normal. MT interval is normal. QRS ps1 interval is normal. QT interval is normal. No Q waves. T waves are Normal. Clinical impression: Normal ECG. Interpreted by me. Administered Medications: No medications were administered Disposition: 10/19/18 23:59 Discharged to Home. Impression: palpitations. - Condition is Stable. - Discharge Instructions: Palpitations, [id number]. - Medication Reconciliation Form, Thank You Letter, Antibiotic Education, Prescription Opioid Use form. - Follow up: Private Physician; When: As needed; Reason: Recheck today's complaints, Continuance of care, Re-evaluation by your physician. Follow up: Emergency Department; When: As needed; Reason: Fever > 102 F, Trouble breathing, Worsening of condition. - Problem is an acute exacerbation. - Symptoms are resolved. Signatures: Dispatcher [employer] EDPR Lilly Cody RN RN tl2 John Giron MD MD ps1 Salas Rush RN RN rv Corrections: (The following items were deleted from the chart) 20:33 20:24 This 43 yrs old Male presents to ER via Wheelchair with complaints of ps1 Chest Pain. ps1 10/20 00:08 10/19 23:59 10/19/2018 23:59 Discharged to Home. Impression: palpitations. Condition is rv Stable. Forms are Medication Reconciliation Form, Thank You Letter, Antibiotic Education, Prescription Opioid Use. Follow up: Private Physician; When: As needed; Reason: Recheck today's complaints, Continuance of care, Re-evaluation by your physician. Follow up: Emergency Department; When: As needed; Reason: Fever > 102 F, Trouble breathing, Worsening of condition. Problem is an acute exacerbation. Symptoms are resolved. ps1
[2018-10-20 01:45] VITALS: TEMP 98
[2018-10-20 01:57] VITALS: BP 117/70; O2SAT 99
--- NOTE | 2018-10-20 07:54 | EKG ---
Test Date: 2018-10-19 Test Time: 19:31:22 Electrolysist: RASHMI MEASUREMENT RESULTS: Intervals: Rate: 67 [place]: 136 QRSD: 110 QT: 404 QTc: 426 [place]: P: 31 [place]: 136 QRS: 86 T: 26 INTERPRETIVE STATEMENTS: Normal sinus rhythm Normal ECG Compared to ECG 08/16/2018 08:03:08 No significant changes Electronically Signed On 10-20-18 07:52:50 CDT by Yash Berrios
== END 2018-10-20 00:08 | disposition home or self-care (01) ==
LOC: ER 19:19
DX: R00.2 Palpitations (principal); I10 Essential (primary) hypertension; I48.91 Unspecified atrial fibrillation; Z79.01 Long term (current) use of anticoagulants; Z79.82 Long term (current) use of aspirin; Z91.041 Radiographic dye allergy status; Z91.048 Other nonmedicinal substance allergy status
CPT/HCPCS: 36415; 71045; 80053; 83735; 83880; 84484; 85025; 85610; 93005; 99285

== ENCOUNTER 2018-10-31 15:35 | Emergency (ER) | payer SELFPAY ==
[2018-10-31] MEDS ORDERED: ONDANSETRON 4 MG (ODT) TAB ONE (16:17)
[2018-10-31] MEDS ORDERED: MORPHINE 4 MG/ML SYR ONE (16:17)
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
[2018-10-31] MEDS ORDERED: FENTANYL CITR 100 MCG/2 ML ONE (16:59)
[2018-10-31] MEDS ORDERED: HYDROCODONE/APAP 10/325 TAB ONE (17:20)
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
[2018-10-31 20:38] VITALS: TEMP 98
[2018-10-31 20:40] VITALS: BP 123/75; O2SAT 98
== END 2018-10-31 17:16 | disposition home or self-care (01) ==
LOC: ER 15:35
DX: S16.1XXA Strain of muscle, fascia and tendon at neck level, initial encounter (principal); V49.49XA Driver injured in collision with other motor vehicles in traffic accident, initial encounter; I10 Essential (primary) hypertension; I48.91 Unspecified atrial fibrillation; F17.210 Nicotine dependence, cigarettes, uncomplicated; Z79.01 Long term (current) use of anticoagulants; Z91.041 Radiographic dye allergy status; Z91.048 Other nonmedicinal substance allergy status
CPT/HCPCS: 72125; 96372; 99283; J3010

== ENCOUNTER 2019-06-12 08:35 | Emergency (ER) | payer SELFPAY ==
--- OUTSIDE RECORDS SUMMARY | 2019-06-12 08:38 | XMS REPORT | Summary of Care ---
:1975 Author Organization [facility] Address [address] [place] [address] Care Team Providers Name Role Phone Lacey Segura MD Primary Care Provider Reason for Visit Reason Comments Assessment traige call Encounter Details Date Type Department Care Team Description 12/16/2018 Telephone [facility] Pediatric Lacey Segura Assessment (trachaparro and Adult Primary A, call) Care- [place] [address] [address] [place] [address] [place], [place] [phone] [address] [phone] Allergies Active Allergy Reactions Severity Noted Date Comments Iodine And Iodide Containing Products Hives 07/06/2017 Sotalol Swelling 11/29/2017 documented as of this encounter (statuses as of 12/16/2018) Medications Medication Sig Dispensed Refills Start Date End Date Status aspirin 81 mg chewable Take 1 tablet 30 tablet 11 07/07/2017 Active tablet by mouth daily. albuterol 90 Inhale 2 Puffs 8.5 g 11 05/02/2018 Active mcg/actuation inhaler every 6 (six) hours as needed for Wheezing or Shortness of Breath. sucralfate 1 gram Take 1 tablet 120 tablet 3 07/31/2018 Active tabletIndications: by mouth before Dyspepsia meals and at bedtime. atorvastatin 10 mg Take 1 tablet 90 tablet 3 07/31/2018 Active tabletIndications: by mouth at Hypertriglyceridemia bedtime. doxazosin 1 mg Take 1 tablet 30 tablet 3 07/31/2018 Active tabletIndications: Benign by mouth daily. prostatic hyperplasia (BPH) with straining on urination gabapentin 300 mg Take 1 capsule 90 capsule 3 07/31/2018 Active capsuleIndications: by mouth 3 Chronic neck pain (three) times daily. pregabalin 75 mg Take 1 capsule 90 capsule 3 08/08/2018 Active capsuleIndications: by mouth 3 Chronic neck pain (three) times daily. apixaban (ELIQUIS) 5 mg Take 1 tablet 180 tablet 3 08/09/2018 Active tabletIndications: by mouth 2 Paroxysmal atrial (two) times fibrillation daily. methocarbamol (ROBAXIN) Take 1 tablet 15 tablet 0 08/13/2018 Active 500 mg tabletIndications: by mouth 3 Hypertension, unspecified (three) times type, Chest pain, daily as needed unspecified type, for Pain (scale Bilateral low back pain 4-6). with left-sided sciatica, unspecified chronicity methylPREDNISolone 4 mg Take by mouth 21 Each 0 08/13/2018 Active tabletsIndications: SEE-INSTRUCTION Hypertension, unspecified S. follow type, Chest pain, package unspecified type, directions Bilateral low back pain with left-sided sciatica, unspecified chronicity atenolol 25 mg Take 1 tablet 180 tablet 1 08/20/2018 Active tabletIndications: by mouth 2 Essential hypertension (two) times daily. DILTIAZEM 30 mg TAKE 1 TABLET 60 tablet 0 09/30/2018 Active tabletIndications: Other BY MOUTH TWICE cardiac arrhythmia DAILY documented as of this encounter (statuses as of 12/16/2018) Active Problems Problem Noted Date Lung infiltrate on CT 10/28/2016 Overview: Added automatically from request for surgery [id number] Obesity (BMI 30-39.9) 10/26/2016 Hematemesis 09/06/2016 Essential hypertension 06/10/2016 Atrial fibrillation 06/09/2016 documented as of this encounter (statuses as of 12/16/2018) Resolved Problems Problem Noted Date Resolved Date Sepsis 10/26/2016 09/01/2017 documented as of this encounter (statuses as of 12/16/2018) Immunizations Name Administration Dates Next Due Influenza Virus Vaccine 04/17/2017 Tetanus/Diptheria 06/02/2017 documented as of this encounter Social History Tobacco Use Types Packs/Day Years Used Date Former Smoker Cigarettes 1 10 Smokeless Tobacco: Never Used Comments: 10/26/16 - quite 10 years ago Alcohol Use Drinks/Week oz/Week Comments No Sex Assigned at Date Recorded Not on file Job Start Date Occupation Industry Not on file Not on file Not on file Travel History Travel Start Travel End No recent travel history available. documented as of this encounter Last Filed Vital Signs Not on filedocumented in this encounter Plan of Treatment Date Type Specialty Care Team Description 12/17/2018 Office Visit Internal Medicine Lacey Segura MD [address] [place] [address] Dr Hickman [address] [place] [address] [phone] Health Maintenance Due Date Last Done Comments INFLUENZA VACCINE 01/12/2019 04/27/2017, 04/17/2017 DTaP,Tdap,and Td Vaccines (1 04/24/2019 Postponed from 1992 - Tdap) (Alternative Guidelines) PNEUMOCOCCAL 0-64 YEARS Aged Out No longer eligible based COMBINED SERIES on patient's age to complete this topic documented as of this encounter Results Not on filedocumented in this encounter Visit Diagnoses Diagnosis Does not have health insurance - Primary Other specified housing or economic circumstances documented in this encounter
--- OUTSIDE RECORDS SUMMARY | 2019-06-12 08:38 | XMS REPORT | Summary of Care ---
:1975 Author Organization [facility] - [facility] Address [address] [place] [address] Care Team Providers Name Role Phone Lacey Segura MD Primary Care Provider Reason for Visit Reason Comments Refill Request Encounter Details Date Type Department Care Team Description 01/23/2019 Refill [facility] Pediatric and Lacey Segura, Refill Request Adult Primary Care- MD [place] [address] [place] [address] [address] [facility] [place] [address] [place] [phone] Allergies Active Allergy Reactions Severity Noted Date Comments Iodine And Iodide Containing Products Hives 07/06/2017 Sotalol Swelling 11/29/2017 documented as of this encounter (statuses as of 01/29/2019) Medications Medication Sig Dispensed Refills Start End Status Date Date aspirin 81 mg chewable Take 1 tablet 30 tablet 11 07/07/19 Active tablet by mouth 18 daily. albuterol 90 Inhale 2 Puffs 8.5 g 11 05/02/20 Active mcg/actuation inhaler every 6 (six) 18 hours as needed for Wheezing or Shortness of Breath. sucralfate 1 gram Take 1 tablet 120 tablet 3 08/01/19 Active tabletIndications: by mouth 19 Dyspepsia before meals and at bedtime. atorvastatin 10 mg Take 1 tablet 90 tablet 3 08/01/19 Active tabletIndications: by mouth at 19 Hypertriglyceridemia bedtime. gabapentin 300 mg Take 1 capsule 90 capsule 3 08/01/19 Active capsuleIndications: by mouth 3 19 Chronic neck pain (three) times daily. pregabalin 75 mg Take 1 capsule 90 capsule 3 08/09/19 Active capsuleIndications: by mouth 3 19 Chronic neck pain (three) times daily. apixaban (ELIQUIS) 5 mg Take 1 tablet 180 tablet 3 08/10/19 Active tabletIndications: by mouth 2 19 Paroxysmal atrial (two) times fibrillation daily. methocarbamol (ROBAXIN) Take 1 tablet 15 tablet 0 08/14/19 Active 500 mg by mouth 3 19 tabletIndications: (three) times Hypertension, daily as unspecified type, Chest needed for pain, unspecified type, Pain (scale Bilateral low back pain 4-6). with left-sided sciatica, unspecified chronicity methylPREDNISolone 4 mg Take by mouth 21 Each 0 08/14/19 Active tabletsIndications: SEE-INSTRUCTIO 19 Hypertension, NS. follow unspecified type, Chest package pain, unspecified type, directions Bilateral low back pain with left-sided sciatica, unspecified chronicity atenolol 25 mg Take 1 tablet 180 tablet 1 08/21/19 Active tabletIndications: by mouth 2 19 Essential hypertension (two) times daily. DILTIAZEM 30 mg TAKE 1 TABLET 60 tablet 0 10/01/19 Active tabletIndications: Other BY MOUTH TWICE 19 cardiac arrhythmia DAILY DOXAZOSIN 1 mg TAKE 1 TABLET 90 tablet 1 01/30/20 Active tabletIndications: BY MOUTH ONCE 19 Benign prostatic DAILY hyperplasia (BPH) with straining on urination doxazosin 1 mg Take 1 tablet 30 tablet 3 08/01/19 Discontinued tabletIndications: by mouth 19 019 Benign prostatic daily. hyperplasia (BPH) with straining on urination documented as of this encounter (statuses as of 01/29/2019) Active Problems Problem Noted Date Lung infiltrate on CT 10/28/2016 Overview: Added automatically from request for surgery [id number] Obesity (BMI 30-39.9) 10/26/2016 Hematemesis 09/06/2016 Essential hypertension 06/10/2016 Atrial fibrillation 06/09/2016 documented as of this encounter (statuses as of 01/29/2019) Resolved Problems Problem Noted Date Resolved Date Sepsis 10/26/2016 09/01/2017 documented as of this encounter (statuses as of 01/29/2019) Immunizations Name Administration Dates Next Due Influenza [...] filedocumented in this encounter Plan of Treatment Health Maintenance Due Date Last Done Comments INFLUENZA VACCINE (#1) 2019 04/27/2017, 04/17/2017 DTaP,Tdap,and Td Vaccines (1 04/24/2019 Postponed from 1992 - Tdap) (Alternative Guidelines) PNEUMOCOCCAL 0-64 YEARS Aged Out No longer eligible based COMBINED SERIES on patient's age to complete this topic documented as of this encounter Results Not on filedocumented in this encounter Visit Diagnoses Diagnosis Benign prostatic hyperplasia (BPH) with straining on urination documented in this encounter
--- OUTSIDE RECORDS SUMMARY | 2019-06-12 08:38 | XMS REPORT | Summary of Care ---
:1975 Author Organization [facility] - [facility] Address [address] [place] [address] Care Team Providers Name Role Phone Lacey Segura MD Primary Care Provider Reason for Visit Reason Comments Rx Concern/Question has questions Encounter Details Date Type Department Care Team Description 12/16/2018 Telephone [facility] Pediatric Lacey Segura Rx Concern/ Question and Adult Primary MD [place] (has questions) Care- [address] [facility] [address] [place] [id number] [place], [place] [phone] [address] [phone] Allergies Active Allergy Reactions Severity Noted Date Comments Iodine And Iodide Containing Products Hives 07/06/2017 Sotalol Swelling 11/29/2017 documented as of this encounter (statuses as of 12/17/2018) Medications Medication Sig Dispensed Refills Start Date [...] as of this encounter (statuses as of 12/17/2018) Active Problems Problem Noted Date Lung infiltrate on CT 10/28/2016 Overview: Added automatically from request for surgery [id number] Obesity (BMI 30-39.9) 10/26/2016 Hematemesis 09/06/2016 Essential hypertension 06/10/2016 Atrial fibrillation 06/09/2016 documented as of this encounter (statuses as of 12/17/2018) Resolved Problems Problem Noted Date Resolved Date Sepsis 10/26/2016 09/01/2017 documented as of this encounter (statuses as of 12/17/2018) Immunizations Name Administration Dates Next Due Influenza [...]
--- OUTSIDE RECORDS SUMMARY | 2019-06-12 08:38 | XMS REPORT | Summary of Care ---
:1975 Author Organization [facility] - [facility] Address [address] [place] [address] Care Team Providers Name Role Phone Lacey Segura MD Primary Care Provider Reason for Visit Reason Comments Social Work indigent care application Encounter Details Date Type Department Care Team Description 12/20/2018 Patient Outreach [facility] Family Breana Dennison, Social Work Medicine - [facility] (indigent care [address] [place] [address] application) [place] [address] [place], [place] [phone] Allergies Active Allergy Reactions Severity Noted Date Comments Iodine And Iodide Containing Products Hives 07/06/2017 Sotalol Swelling 11/29/2017 documented as of this encounter (statuses as of 12/20/2018) Medications Medication Sig Dispensed Refills Start Date [...] as of this encounter (statuses as of 12/20/2018) Active Problems Problem Noted Date Lung infiltrate on CT 10/28/2016 Overview: Added automatically from request for surgery [id number] Obesity (BMI 30-39.9) 10/26/2016 Hematemesis 09/06/2016 Essential hypertension 06/10/2016 Atrial fibrillation 06/09/2016 documented as of this encounter (statuses as of 12/20/2018) Resolved Problems Problem Noted Date Resolved Date Sepsis 10/26/2016 09/01/2017 documented as of this encounter (statuses as of 12/20/2018) Immunizations Name Administration Dates Next Due Influenza [...] Signs Not on filedocumented in this encounter Progress Notes Breana Dennison LCSW - 12/20/2018 1:46 PM CDTSocial Work Note SW consulted by provider to assess patient's eligibility for various health insurance programs. Pt reports he was previously on [facility], but their office closed; he paid for a catastrophic plan in the past that he was unhappy with and he does not wish to discuss ANNITA plans at this time. SW emailed contact information for [facility] to [email or web address]. Follow-up prn. Breana Dennison LCSW, ACM-SW Perpetual Inventory Clerk Office documented in this encounter Plan of Treatment Health [...]
--- OUTSIDE RECORDS SUMMARY | 2019-06-12 08:38 | XMS REPORT | Summary of Care ---
:1975 Author Organization [facility] Address [address] [place] [address] Care Team Providers Name Role Phone Lacey Segura MD Primary Care Provider Reason for Visit Reason Comments Assessment traige call Encounter Details Date Type Department Care Team Description 12/16/2018 Telephone [facility] Pediatric Lacey Segura Assessment (trachaparro and Adult Primary A, call) Care- [place] [address] [place] [id number] [place], [place] [phone] [address] [phone] Allergies Active Allergy Reactions Severity Noted Date [...] Overview: Added automatically from request for surgery [id number] Obesity (BMI 30-39.9) 10/26/2016 Hematemesis 09/06/2016 Essential [...]
[2019-06-12] MEDS ORDERED: NA CHLORIDE 0.9% 1,000 ML ONE (10:25)
[2019-06-12 11:06] LABS: Urine Blood 1+ (NEG); Urine Glucose NEGATIVE (NEG); Urine Protein 3+ (NEG); Urine Specific Gravity >1.030 (1.005-1.030); Urine pH 5.5 (5.0-7.0)
[2019-06-12 11:15] LABS: Absolute Lymphocytes (CBC) 1.2 K/uL (0.7-4.9); Basophils % 0.3 % (0-1.3); Hematocrit 45.4 % (39.6-49.0); Lymphocytes % 15.5 % (15.3-44.8); MPV 8.6 fL (7.6-11.3); RBC Red Blood Cell Count 4.97 M/uL (4.33-5.43)
[2019-06-12 11:29] LABS: Albumin 3.8 g/dL (3.4-5.0); Bilirubin Direct 0.1 mg/dL (0-0.2); Bilirubin Total 0.6 mg/dL (0.2-1.0)
--- NOTE | 2019-06-12 12:00 | RAD REPORT ---
EXAM DESCRIPTION: CT - Stone Protocol - 06/12/2019 11:31 am CLINICAL HISTORY: ABD PAIN COMPARISON: Abdomen Pelvis Wo Contrast dated 01/01/2018 TECHNIQUE: Axial 5 mm thick images were obtained without oral or IV contrast. The [id number] span s the entirety of the system partially obscuring uppermost abdomen and lung bases. All CT scans are performed using dose optimization technique as appropriate and may include automated exposure control or mA/KV adjustment according to patient size. FINDINGS: No hydronephrosis is present and no obstructing ureteral calculi. Patient has punctate 1 m m sized calyx calculi. No suspicious renal masses. Isodense masses and pyelonephritis are not exclude d on a stone protocol CT scan. No urinary bladder suspicious finding. No significant adrenal finding. Imaged portions of the liver, spleen and pancreas show no suspicious findings on non-contrast imaging . No gallbladder or biliary tree abnormality identified. No suspicious bowel findings. Appendix is normal. No mass or bulky lymphadenopathy. Small fat only right inguinal hernia is present. No free air, free fluid or inflammatory stranding. No acute bone finding. Degenerative gas is present in the L1-2, L2-3 and L5-S1 disc levels. IMPRESSION: Punctate bilateral 1 millimeter sized calyx calculi. No hydronephrosis or obstructing ca lculus identifiable. Isodense masses and pyelonephritis are not excluded on stone protocol technique. No acute GI finding. There is minimal diverticulosis on the left side. Prominent for age degenerative disc disease at multiple levels of the lumbar spine.
[2019-06-12] MEDS ORDERED: DICYCLOMINE HCL 10 MG CAP ONE (12:18)
--- NOTE | 2019-06-12 12:19 | ER ---
Nurse's Notes [facility] Name: Mikhail Reilly Age: 43 yrs Sex: Male : 1975 Arrival Date: 06/12/2019 Time: 08:39 Bed 24 Private MD: Diagnosis: Volume depletion;Nausea and vomiting Presentation: 06/12 08:51 Presenting complaint: Patient states: N/V and sweating x 5 days. Pt states, "The glands ss in my throat were swollen, but they've gone down now. It's starting to hurt.". Transition of care: patient was not received from another setting of care. Onset of symptoms was June 07, 2019. Risk Assessment: Do you want to hurt yourself or someone else? Patient reports no desire to harm self or others. Initial Sepsis Screen: Does the patient meet any 2 criteria? HR > 90 bpm. No. Patient's initial sepsis screen is negative. Does the patient have a suspected source of infection? No. Patient's initial sepsis screen is negative. Care prior to arrival: None. 08:51 Method Of Arrival: Ambulatory 08:51 Acuity: LIANG 3 ss Historical: - Allergies: 08:53 Iodinated Contrast Media - IV Dye; ss - PMHx: 08:53 Atrial Fib; Back pain; Hypertension; Kidney stones; ss - PSHx: 08:53 None; ss - Immunization history:: Adult Immunizations unknown. - Coronavirus screen:: The patient has NOT traveled to [place], [place], or [place] in the past 14 days. Proceed with normal triage process as indicated. - Social history:: Smoking status: Patient denies any tobacco usage or history of. Patient uses street drugs, marijuana. - Ebola Screening: : Patient denies exposure to infectious person Patient denies travel to an Ebola-affected area in the 21 days before illness onset. Screenin:02 Abuse screen: Denies threats or abuse. Denies injuries from another. Nutritional ca1 screening: No deficits noted. Tuberculosis screening: No symptoms or risk factors identified. Fall Risk None identified. Assessment: 10:02 General: Appears in no apparent distress. uncomfortable, Behavior is calm, cooperative, ca1 appropriate for age. Pain: Complains of pain in right upper quadrant and left upper quadrant Pain radiates to back Pain currently is 7 out of 10 on a pain scale. Quality of pain is described as crampy, Pain began 2-3 days ago. Is intermittent. Neuro: Level of Consciousness is awake, alert, obeys commands, Oriented to person, place, time, situation, Appropriate for age. Cardiovascular: Heart tones S1 S2 present Capillary refill < 3 seconds Patient's skin is warm and dry. Rhythm is sinus rhythm. Respiratory: Airway is patent Respiratory effort is even, unlabored, Respiratory pattern is regular, symmetrical, Breath sounds are clear bilaterally. GI: Abdomen is flat, non-distended, Bowel sounds present X 4 quads. Abd is soft X 4 quads Abdomen is tender to palpation in left upper quadrant and left lower quadrant Reports nausea, vomiting. : Reports burning with urination, cramping, urgency, urinary frequency. EENT: No deficits noted. No signs and/or symptoms were reported regarding the EENT system. Derm: Skin is intact, is healthy with good turgor, Skin is pink, warm \\T\\ dry. Musculoskeletal: Circulation, motion, and sensation intact. Capillary refill < 3 seconds. 12:15 Reassessment: Patient and/or family updated on plan of care and expected duration. Pain vc level reassessed. Patient is alert, oriented x 3, equal unlabored respirations, skin warm/dry/pink. Neuro: Level of Consciousness is awake, alert, obeys commands, Oriented to person, place, time. Vital Signs: 08:53 BP 129 / 97; Pulse 95; Resp 18; Temp 98.0(O); Pulse Ox 97% on R/A; Weight 99.79 kg; Height 5 ft. 10 in. (177.80 cm); Pain 6/10; 10:02 BP 145 / 88; Pulse 93; Resp 20 S; Pulse Ox 100% on R/A; ca1 12:15 BP 119 / 86; Pulse 83; Resp 11; Pulse Ox 98% on R/A; vc 08:53 Body Mass Index 31.57 (99.79 kg, 177.80 cm) ED Course: 08:39 Patient arrived in ED. ag5 08:52 Triage completed. ss 08:53 Arm band placed on right wrist. ss 09:46 Lisa Decker, DANNIELLE is Primary Nurse. ca1 10:01 Jo Talamantes FNP-C is PHCP. kb 10:01 Robert Garcia MD is Attending Physician. kb 10:02 Patient has correct armband on for positive identification. Placed in gown. Bed in low ca1 position. Call light in reach. Side rails up X 1. Pulse ox on. NIBP on. epoxy specialist on. Warm blanket given. 10:02 No provider procedures requiring assistance completed. Initial lab(s) drawn, by me, ca1 held in ED. Inserted saline lock: 20 gauge in left antecubital area, using aseptic technique. Blood collected. 10:31 Initial lab(s) drawn, by me, sent to lab. Inserted saline lock: 20 gauge in right ca1 antecubital area, using aseptic technique. 11:32 CT Stone Protocol In Process Unspecified. EDMS 12:35 IV discontinued, intact, bleeding controlled, No redness/swelling at site. Pressure vc dressing applied. 12:37 Primary Nurse role handed off by Lisa Decker RN vc 12:37 Nini Mckinney RN is Primary Nurse. vc Administered Medications: 10:31 Drug: NS 0.9% 1000 ml Route: IV; Rate: 1000 ml; Site: right antecubital; ca1 12:15 Drug: Bentyl 20 mg Route: PO; vc 12:38 Follow up: Response: No adverse reaction; Marked relief of symptoms vc Outcome: 12:20 Discharge ordered by . kb 12:35 Discharged to home ambulatory, with significant other. vc 12:35 Condition: improved 12:35 Discharge instructions given to patient, significant other, Instructed on discharge instructions, follow up and referral plans. medication usage, Demonstrated understanding of instructions, follow-up care, medications, Prescriptions given X 2. 12:37 Patient left the ED. vc Signatures: Dispatcher [employer] EDMS Jo Talamantes, RELAY TELEGRAPHER-C MANJEET-Nikki Yang RN RN ss Lisa Decker RN RN ca1 Osei, Radha ag5 Nini Mckinney RN RN vc
--- NOTE | 2019-06-12 12:19 | EDPHYS ---
Physician Documentation [facility] Name: Mikhail Reilly Age: 43 yrs Sex: Male : 1975 Arrival Date: 06/12/2019 Time: 08:39 Bed 24 Private MD: ED Physician Robert Garcia HPI: 06/12 10:33 This 43 yrs old Male presents to ER via Ambulatory with complaints of kb Vomiting, General Weakness. 10:33 The patient presents to the emergency department with nausea, vomiting. Onset: The kb symptoms/episode began/occurred 5 day(s) ago. Possible causes: unknown. The symptoms are aggravated by nothing. The symptoms are alleviated by nothing. Associated signs and symptoms: Pertinent positives: abdominal pain, fever, nausea, vomiting. Severity of symptoms: At their worst the symptoms were mild moderate in the emergency department the symptoms are unchanged. The patient has not experienced similar symptoms in the past. The patient has not recently seen a physician. Pt reports chills, fever, sore throat, swollen glands, n/v, abd pain, difficulty urinating, body aches/cramps for 5 days. Historical: - Allergies: 08:53 Iodinated Contrast Media - IV Dye; ss - PMHx: 08:53 Atrial Fib; Back pain; Hypertension; Kidney stones; ss - PSHx: 08:53 None; ss - Immunization history:: Adult Immunizations unknown. - Coronavirus screen:: The patient has NOT traveled to [place], [place], or [place] in the past 14 days. Proceed with normal triage process as indicated. - Social history:: Smoking status: Patient denies any tobacco usage or history of. Patient uses street drugs, marijuana. - Ebola Screening: : Patient denies exposure to infectious person Patient denies travel to an Ebola-affected area in the 21 days before illness onset. ROS: 10:29 Neck: Negative for injury, pain, and swelling, Cardiovascular: Negative for chest pain, kb palpitations, and edema, Back: Negative for injury and pain, MS/Extremity: Negative for injury and deformity, Skin: Negative for injury, rash, and discoloration, Neuro: Negative for headache, weakness, numbness, tingling, and seizure. 10:29 Constitutional: Positive for body aches, chills, fatigue, fever, malaise. 10:29 ENT: Positive for sore throat. 10:29 Respiratory: Positive for cough, Negative for dyspnea on exertion, hemoptysis, orthopnea, pleurisy, shortness of breath, wheezing. 10:29 Abdomen/GI: Positive for abdominal pain, nausea and vomiting. Exam: 10:30 Constitutional: This is a well developed, well nourished patient who is awake, alert, kb and in no acute distress. Head/Face: Normocephalic, atraumatic. ENT: Nares patent. No nasal discharge, no septal abnormalities noted. Tympanic membranes are normal and external auditory canals are clear. Oropharynx with no redness, swelling, or masses, exudates, or evidence of obstruction, uvula midline. Mucous membranes moist. Neck: Trachea midline, no thyromegaly or masses palpated, and no cervical lymphadenopathy. Supple, full range of motion without nuchal rigidity, or vertebral point tenderness. No Meningismus. Chest/axilla: Normal chest wall appearance and motion. Nontender with no deformity. No lesions are appreciated. Cardiovascular: Regular rate and rhythm with a normal S1 and S2. No gallops, murmurs, or rubs. Normal PMI, no JVD. No pulse deficits. Respiratory: Lungs have equal breath sounds bilaterally, clear to auscultation and percussion. No rales, rhonchi or wheezes noted. No increased work of breathing, no retractions or nasal flaring. Back: No spinal tenderness. No costovertebral tenderness. Full range of motion. Skin: Warm, dry with normal turgor. Normal color with no rashes, no lesions, and no evidence of cellulitis. MS/ Extremity: Pulses equal, no cyanosis. Neurovascular intact. Full, normal range of motion. Neuro: Awake and alert, GCS 15, oriented to person, place, time, and situation. Cranial nerves II-XII grossly intact. Motor strength 5/5 in all extremities. Sensory grossly intact. Cerebellar exam normal. Normal gait. 10:30 Abdomen/GI: Inspection: abdomen appears normal, Bowel sounds: normal, in all quadrants, Palpation: soft, in all quadrants, mild abdominal tenderness, in the left upper quadrant and left lower quadrant. Vital Signs: 08:53 BP 129 / 97; Pulse 95; Resp 18; Temp 98.0(O); Pulse Ox 97% on R/A; Weight 99.79 kg; ss Height 5 ft. 10 in. (177.80 cm); Pain 6/10; 10:02 BP 145 / 88; Pulse 93; Resp 20 S; Pulse Ox 100% on R/A; ca1 12:15 BP 119 / 86; Pulse 83; Resp 11; Pulse Ox 98% on R/A; vc 08:53 Body Mass Index 31.57 (99.79 kg, 177.80 cm) ss MDM: 10:01 Patient medically screened. kb 10:30 Data reviewed: vital signs, nurses notes. Data interpreted: Pulse oximetry: on room air kb is 100 %. Interpretation: normal. 12:19 Counseling: I had a detailed discussion with the patient and/or guardian regarding: the kb historical points, exam findings, and any diagnostic results supporting the discharge/admit diagnosis, lab results, radiology results, the need for outpatient follow up, a family practitioner, to return to the emergency department if symptoms worsen or persist or if there are any questions or concerns that arise at home. 06/12 08:55 Order name: Flu; Complete Time: 10:37 snw 06/12 08:55 Order name: Strep; Complete Time: 10:37 snw 06/12 10:09 Order name: Basic Metabolic Panel; Complete Time: 11:31 kb 06/12 10:09 Order name: CBC with Diff; Complete Time: 11:18 kb 06/12 10:09 Order name: Hepatic Function; Complete Time: 11:31 kb 06/12 10:09 Order name: Lipase; Complete Time: 11:31 kb 06/12 10:09 Order name: IV Saline Lock; Complete Time: 10: kb 06/12 10:09 Order name: Labs collected and sent; Complete Time: 10:21 kb 06/12 10:37 Order name: Throat Culture EDCT 06/12 10:45 Order name: Urine Dipstick--Ancillary (enter results); Complete Time: 11:07 em1 06/12 11:19 Order name: CT Stone Protocol; Complete Time: 12:08 kb 06/12 10:09 Order name: Urine Dipstick-Ancillary (obtain specimen); Complete Time: 10:44 kb 06/12 10:47 Order name: Labs - recollect needed; Complete Time: 11:06 em1 Administered Medications: 10:31 Drug: NS 0.9% 1000 ml Route: IV; Rate: 1000 ml; Site: right antecubital; ca1 12:15 Drug: Bentyl 20 mg Route: PO; vc 12:38 Follow up: Response: No adverse reaction; Marked relief of symptoms vc Disposition: 15:52 Co-signature as Attending Physician, Robert Garcia MD. rn Disposition: 06/12/19 12:20 Discharged to Home. Impression: Volume depletion, Nausea and vomiting. - Condition is Stable. - Discharge Instructions: Nausea and Vomiting, Adult, Hodw-df-[id number], Dehydration, Adult, Yvjn-pl-Ngec. - Prescriptions for Bentyl 20 mg Oral Tablet - take 1 tablet by ORAL route every 6 hours As needed; 20 tablet. Zofran 4 mg Oral Tablet - take 1 tablet by ORAL route every 6 hours As needed; 20 tablet. - Medication Reconciliation Form, Thank You Letter, Antibiotic Education, Prescription Opioid Use form. - Follow up: Emergency Department; When: As needed; Reason: Worsening of condition. Follow up: Private Physician; When: 2 - 3 days; Reason: Recheck today's complaints, Continuance of care, Re-evaluation by your physician. Signatures: Dispatcher [employer] [facility] Jo Talamantes, CIRCUS RIDER-C CIRCUS RIDER-Ckb Robert Garcia MD MD rn Martinez, Rajan em1 Nikki Win RN RN ss Lisa Decker RN RN ca1 Nini Mckinney RN RN vc Corrections: (The following items were deleted from the chart) 11:24 11:19 Abdomen Pelvis W Con+CT.RAD.BRZ ordered. [facility] 12:37 12:20 06/12/2019 12:20 Discharged to Home. Impression: Volume depletion; Nausea and vc vomiting. Condition is Stable. Forms are Medication Reconciliation Form, Thank You Letter, Antibiotic Education, Prescription Opioid Use. Follow up: Emergency Department; When: As needed; Reason: Worsening of condition. Follow up: Private Physician; When: 2 - 3 days; Reason: Recheck today's complaints, Continuance of care, Re-evaluation by your physician. kb
[2019-06-12 16:28] VITALS: TEMP 98
[2019-06-12 16:30] VITALS: BP 145/88; O2SAT 100
== END 2019-06-12 12:37 | disposition home or self-care (01) ==
LOC: ER 08:35
DX: R11.2 Nausea with vomiting, unspecified (principal); E86.9 Volume depletion, unspecified; Z91.09 Other allergy status, other than to drugs and biological substances
CPT/HCPCS: 36415; 74176; 76377; 80048; 80076; 81003; 83690; 85025; 87070; 87081; 87804; 99284; J7030

== ENCOUNTER 2019-08-11 11:43 | Inpatient (IN) | payer SELFPAY ==
--- OUTSIDE RECORDS SUMMARY | 2019-08-11 11:47 | XMS REPORT ---
:1975 Author [facility] Address [address] [place] [address] Dr. [place]unsford [address] [place] [address] Care Team Providers Name Role Phone Unavailable Unavailable Unavailable Problems This patient has no known problems. Allergies, Adverse Reactions, Alerts This patient has no known allergies or adverse reactions. Medications This patient has no known medications.
--- OUTSIDE RECORDS SUMMARY | 2019-08-11 11:48 | XMS REPORT | Summary of Care ---
:1975 Author Organization [facility] Address [address] [place] [address] Care Team Providers Name Role Phone Lacey Segura MD Primary Care Provider Reason for Visit Reason Comments Refill Request Encounter Details Date Type Department Care Team Description 07/18/2019 Refill [facility] Pediatric and Levar Harris MD Refill Request Adult Primary Care- [place] [address] [place] [address] [place] [address] Allergies Active Allergy Reactions Severity Noted Date Comments Iodine And Iodide Containing Products Hives 07/06/2017 Sotalol Swelling 11/29/2017 documented as of this encounter (statuses as of 07/21/2019) Medications Medication Sig Dispensed Refills Start End Status Date Date aspirin 81 mg chewable Take 1 tablet 30 tablet 11 07/07/19 Active tablet by mouth daily. 18 albuterol 90 Inhale 2 Puffs 8.5 g 11 05/02/20 Active mcg/actuation inhaler every 6 (six) 18 hours as needed for Wheezing or Shortness of Breath. sucralfate 1 gram Take 1 tablet 120 tablet 3 08/01/19 Active tabletIndications: by mouth before 19 Dyspepsia meals and at bedtime. atorvastatin 10 [...] 19 Chronic neck pain (three) times daily. methocarbamol (ROBAXIN) Take 1 tablet 15 tablet 0 08/14/19 Active 500 mg by mouth 3 19 tabletIndications: (three) times Hypertension, daily as needed unspecified type, Chest for Pain (scale pain, unspecified type, 4-6). Bilateral low back pain with left-sided sciatica, unspecified chronicity DILTIAZEM 30 mg TAKE 1 TABLET 60 tablet 0 10/01/19 Active tabletIndications: BY MOUTH TWICE 19 Other cardiac DAILY arrhythmia DOXAZOSIN 1 mg TAKE 1 TABLET 90 tablet 1 01/30/20 Active tabletIndications: BY MOUTH ONCE 19 Benign prostatic DAILY hyperplasia (BPH) with straining on urination apixaban (ELIQUIS) 5 mg Take 1 tablet 180 tablet 3 07/18/19 Active tabletIndications: by mouth 2 20 020 atrial fibrillation (two) times daily for 30 days. Indications: atrial fibrillation ATENOLOL 25 mg Take 1 tablet 60 tablet 0 07/21/19 Active tabletIndications: by mouth twice 20 Essential hypertension daily atenolol 25 mg Take 1 tablet 180 tablet 1 08/21/19 Discontinued tabletIndications: by mouth 2 19 020 Essential hypertension (two) times daily. documented as of this encounter (statuses as of 07/21/2019) Active Problems Problem Noted Date Atypical chest pain 07/17/2019 Flank pain 07/17/[address] 10/28/2016 Overview: Added automatically from request for surgery [id number] Obesity (BMI 30-39.9) 10/26/2016 Hematemesis 09/06/2016 Essential hypertension 06/10/2016 PAF (paroxysmal atrial fibrillation) 06/09/2016 documented as of this encounter (statuses as of 07/21/2019) Resolved Problems Problem Noted Date Resolved Date Sepsis 10/26/2016 09/01/2017 documented as of this encounter (statuses as of 07/21/2019) Immunizations Name Administration Dates Next Due Influenza Virus Vaccine 04/17/2017 Influenza Virus Vaccine Quad .5 mL IM 6+ MO 07/18/2019 Tetanus/Diptheria 06/02/2017 documented as of this encounter Social History Tobacco Use Types Packs/Day Years Used Date Former Smoker Cigarettes 1 10 Smokeless Tobacco: Never Used Comments: 10/26/16 - quite 10 years ago Alcohol Use Drinks/Week oz/Week Comments No Financial Resource Strain Answer Date Recorded How hard is it for you to pay for the very basics like food, Hard 07/17/2019 housing, medical care, and heating? Food Insecurity Answer Date Recorded Within the past 12 months, you worried that your food would Often true 2019 run out before you got money to buy more. Within the past 12 months, the food you bought just didn't Often true 2019 last and you didn't have money to get more. Transportation Needs Answer Date Recorded In the past 12 months, has lack of transportation kept you from No 07/17/2019 medical appointments or from getting medications? In the past 12 months, has lack of transportation kept you from No 07/17/2019 meetings, work, or getting things needed for daily living? Sex Assigned at Date Recorded Not on file Job Start Date Occupation Industry Not on file Not on file Not on file Travel History Travel Start Travel End No recent travel history available. documented as of this encounter Last Filed Vital Signs Not on filedocumented in this encounter Plan of Treatment Date Type Specialty Care Team Description 07/31/2019 Office Visit Internal Medicine Lacey Segura MD [address] [place] [address] Dr Hickman [address] [place] [address] [phone] Health Maintenance Due Date Last Done Comments DTaP,Tdap,and Td Vaccines (1 1984 - Tdap) INFLUENZA VACCINE Completed 07/18/2019, 04/27/2017, 04/17/2017 PNEUMOCOCCAL 0-64 YEARS Aged Out No longer eligible based COMBINED SERIES on patient's age to complete this topic documented as of this encounter Results Not on filedocumented in this encounter Visit Diagnoses Diagnosis Essential hypertension Unspecified essential hypertension documented in this encounter
--- OUTSIDE RECORDS SUMMARY | 2019-08-11 11:48 | XMS REPORT | Summary of Care ---
:1975 Author Organization [facility] Address [address] [place] [id number] Care Team Providers Name Role Phone Lacey Coker MD Primary Care Provider Reason for Referral (Routine) Status Reason Specialty Diagnoses / Referred By Referred To Procedures Contact Contact New Request Diagnoses Chest pain, unspecified type Jeanne Toribio, Procedures Discharge Follow-up: PCP LACEY COKER; 1 Week AMNJEET Monte MD [address] [facility] [facility] [address] [facility] [address] [place], [place] [address] [address] [place] [address] Phone: MRI/CAT Scan (JOURDAN) Status Reason Specialty Diagnoses / Referred By Referred To Procedures Contact Contact New Request Diagnostic Diagnoses Flank pain Rangel Acosta, Radiology Procedures CT ABDOMEN PELVIS WO CONTRAST [address] [place] [address] [address] [place] [address] Radiology Services (STAT) Status Reason Specialty Diagnoses / Referred By Referred To Procedures Contact Contact New Request Diagnostic Diagnoses Chest pain, unspecified type Scar Brush, Radiology Procedures Chest 2 Views DIGITAL ADVISOR [address] [place] [phone] Reason for Visit Reason Comments Chest Pain Auth/Cert Status Reason Specialty Diagnoses / Referred By Referred To Procedures Contact Contact Emergency Medicine [facility] Emergency Dept [address] [place] [address] [place] [address] Encounter Details Date Type Department Care Team Description 07/17/2019 - Emergency ADC Medicine Surgery Scar Brush, DIGITAL ADVISOR [address] [place] [address]. [place] [phone] Atypical chest pain 07/18/2019 Unit Rangel Acosta MD [address] [place] [address]. [address] [place] [address] [place] [address] Dr Ellis, JORGE [id number] Allergies Active Allergy Reactions Severity Noted Date Comments Iodine And Iodide Containing Products Hives 07/06/2017 Sotalol Swelling 11/29/2017 documented as of this encounter (statuses as of 07/18/2019) Medications Medication Sig Dispensed Refills Start End [...] 3 08/01/19 Active capsuleIndications: by mouth 3 Chronic neck pain (three) times daily. pregabalin 75 mg Take 1 capsule 90 capsule 3 08/09/19 Active capsuleIndications: by mouth 3 19 Chronic neck pain (three) times daily. methocarbamol (ROBAXIN) Take 1 tablet 15 tablet 0 08/14/19 Active 500 mg by mouth 3 tabletIndications: (three) times Hypertension, daily as needed unspecified type, Chest for Pain (scale pain, unspecified type, 4-6). Bilateral low back pain with left-sided sciatica, unspecified chronicity atenolol 25 mg Take 1 tablet 180 tablet 1 08/21/19 Active tabletIndications: by mouth 2 Essential hypertension [...] mg Take 1 tablet 180 tablet 3 07/18/1908/16/ Active tabletIndications: by mouth 07 03 2019 atrial fibrillation (two) times daily for 30 days. Indications: atrial fibrillation apixaban (ELIQUIS) 5 mg Take 1 tablet 180 tablet 3 08/10/1907/17/ Discontinued tabletIndications: by mouth 07 02 2019 (Reorder) Paroxysmal atrial (two) times fibrillation daily. naproxen sodium Take 1 tablet 30 tablet 0 04/02/2007/17/ Discontinued (ANAPROX DS) 550 mg by mouth 07 02 2019 tabletIndications: (two) times Influenza-like illness daily with meals. methylPREDNISolone Take by mouth 21 Each 0 04/02/2007/17/ Discontinued (MEDROL, PARTHA,) 4 mg SEE-INSTRUCTION 2019 tabletsIndications: S. follow Influenza-like illness package directions documented as of this encounter (statuses as of 07/18/2019) Active Problems Problem Noted Date Atypical chest pain 07/17/2019 Flank pain 07/17/[address] 10/28/2016 Overview: Added automatically from request for surgery [id number] Obesity (BMI 30-39.9) 10/26/2016 Hematemesis 09/06/2016 Essential hypertension 06/10/2016 PAF (paroxysmal atrial fibrillation) 06/09/2016 documented as of this encounter (statuses as of 07/18/2019) Resolved Problems Problem Noted Date Resolved Date Sepsis 10/26/2016 09/01/2017 documented as of this encounter (statuses as of 07/18/2019) Immunizations Name Administration Dates Next Due Influenza Virus Vaccine 04/17/2017 Influenza Virus Vaccine Quad .5 mL IM 6+ MO 07/18/2019 Tetanus/Diptheria 06/02/2017 documented as of this encounter Social History Tobacco Use Types Packs/Day Years Used Date Former Smoker Cigarettes 1 10 Smokeless Tobacco: Never Used Tobacco Cessation: Counseling Given: No Comments: 10/26/16 - quite 10 years ago [...] of this encounter Last Filed Vital Signs Vital Sign Reading Time Taken Comments Blood Pressure 116/71 07/18/2019 11:01 AM MINE ENGINEERING SUPERVISOR Pulse 70 07/18/2019 11:01 AM MINE ENGINEERING SUPERVISOR Temperature 36.6 C (97.8 F) 07/18/2019 11:01 AM MINE ENGINEERING SUPERVISOR Respiratory Rate 18 07/18/2019 11:01 AM MINE ENGINEERING SUPERVISOR Oxygen Saturation 92% 07/18/2019 11:01 AM MINE ENGINEERING SUPERVISOR Inhaled Oxygen Concentration - - Weight 103.5 kg (228 lb 1.6 oz) 07/17/2019 7:34 PM MINE ENGINEERING SUPERVISOR Height 180.3 cm (5' 11") 07/17/2019 7:34 PM MINE ENGINEERING SUPERVISOR Body Mass Index 31.81 07/17/2019 7:34 PM MINE ENGINEERING SUPERVISOR documented in this encounter Discharge Instructions AttachmentsThe following attachments cannot be sent through Care Everywhere.Chest Pain, Uncertain Cause (Maldivian)Apixaban oral tablets (Maldivian) documented in this encounter Plan of Treatment Date Type Specialty Care Team Description 07/31/2019 Office Visit Internal Medicine Lacey Coker MD [address] [place] [address] Dr [place] [address] [place] [address] [phone] Name Type Priority Associated Diagnoses Date/Time URINE CULTURE LAB STAT 07/18/2019 11:08 AM MINE ENGINEERING SUPERVISOR Name Type Priority Associated Diagnoses Order Schedule URINE CULTURE LAB STAT STAT for 1 Occurrences starting 07/17/2019 until 07/17/2019 Troponin I LAB Routine EVERY 4 HOURS (START TIME ADJUSTABLE) for 1 Days starting 07/17/2019 until 07/18/2019, 4 completed EKG-12 LEAD ROUTINE HEART STATION JOURDAN ONCE for 1 Occurrences starting 07/17/2019 until 07/17/2019 Health Maintenance Due Date Last Done Comments DTaP,Tdap,and Td Vaccines (1 1984 - Tdap) INFLUENZA VACCINE (#1) 2019 04/27/2017, 04/17/2017 PNEUMOCOCCAL 0-64 YEARS Aged Out No longer eligible based COMBINED SERIES on patient's age to complete this topic documented as of this encounter Procedures Procedure Name Priority Date/Time Associated Comments Diagnosis URINALYSIS STAT 07/18/2019 11:07 Results for this AM MINE ENGINEERING SUPERVISOR procedure are in the results section. TROPONIN I Routine 07/18/2019 9:05 Results for this AM MINE ENGINEERING SUPERVISOR procedure are in the results section. CBC WITH Routine 07/18/2019 4:26 Results for this DIFFERENTIAL AM MINE ENGINEERING SUPERVISOR procedure are in the results section. GLYCOSYLATED Add-on 07/18/2019 4:26 Results for this HEMOGLOBIN (A1C) AM MINE ENGINEERING SUPERVISOR procedure are in the results section. CBC WITH Routine 07/18/2019 4:26 Results for this DIFFERENTIAL AM MINE ENGINEERING SUPERVISOR procedure are in the results section. LIPID PANEL Add-on 07/18/2019 4:26 Results for this (20644)(TOTAL AM MINE ENGINEERING SUPERVISOR procedure are in CHOLESTEROL, the results TRIGLYCERIDES, HDL) section. BASIC METABOLIC Routine 07/18/2019 4:26 Results for this PANEL (NA, K, CL, AM MINE ENGINEERING SUPERVISOR procedure are in CO2, GLUCOSE, BUN, the results CREATININE, CA) section. TROPONIN I Routine 07/18/2019 4:26 Results for this AM MINE ENGINEERING SUPERVISOR procedure are in the results section. TROPONIN I Routine 07/18/2019 1:12 Results for this AM MINE ENGINEERING SUPERVISOR procedure are in the results section. TROPONIN I Routine 07/17/2019 10:10 Results for this PM MINE ENGINEERING SUPERVISOR procedure are in the results section. EKG-12 LEAD Routine 07/17/2019 9:[address] [address] ABDOMEN PELVIS WO JOURDAN 07/17/2019 9:44 Flank pain Results for this CONTRAST PM MINE ENGINEERING SUPERVISOR procedure are in the results section. XR CHEST 2 VW STAT 07/17/2019 4:35 Chest pain, Results for this PM MINE ENGINEERING SUPERVISOR unspecified type procedure are in the results section. URINALYSIS STAT 07/17/2019 4:24 Chest pain, Results for this PM MINE ENGINEERING SUPERVISOR unspecified type procedure are in the results section. CBC WITH STAT 07/17/2019 4:14 Chest pain, Results for this DIFFERENTIAL PM MINE ENGINEERING SUPERVISOR unspecified type procedure are in the results section. CBC WITH Routine 07/17/2019 4:14 Chest pain, Results for this DIFFERENTIAL PM MINE ENGINEERING SUPERVISOR unspecified type procedure are in the results section. BASIC METABOLIC STAT 07/17/2019 4:14 Chest pain, Results for this PANEL (NA, K, CL, PM MINE ENGINEERING SUPERVISOR unspecified type procedure are in CO2, GLUCOSE, BUN, the results CREATININE, CA) section. HEPATIC FUNCTION STAT 07/17/2019 4:14 Chest pain, Results for this PANEL (36670) PM MINE ENGINEERING SUPERVISOR unspecified type procedure are in (ALB,T.PRO,BILI the results T,BU/BC,ALT,AST,ALK section. PHOS) TROPONIN I STAT 07/17/2019 4:14 Chest pain, Results for this PM MINE ENGINEERING SUPERVISOR unspecified type procedure are in the results section. MAGNESIUM Add-on 07/17/2019 4:14 Results for this PM MINE ENGINEERING SUPERVISOR procedure are in the results section. LIPASE STAT 07/17/2019 4:14 Chest pain, Results for this PM MINE ENGINEERING SUPERVISOR unspecified type procedure are in the results section. URIC ACID JOURDAN Add-On 07/17/2019 4:14 Results for this PM MINE ENGINEERING SUPERVISOR procedure are in the results section. EKG-12 LEAD STAT 07/17/2019 4:06 PM MINE ENGINEERING SUPERVISOR EKG-12 LEAD Routine 07/17/2019 3:45 PM MINE ENGINEERING SUPERVISOR NOTICE OF PRIVACY Routine 07/17/2019 3:43 PRACTICES PM MINE ENGINEERING SUPERVISOR CONSENT/REFUSAL FOR Routine 07/17/2019 3:32 DIAGNOSIS AND PM MINE ENGINEERING SUPERVISOR TREATMENT documented in this encounter Results URINALYSIS (07/18/2019 11:07 AM MINE ENGINEERING SUPERVISOR) APPEARANCE Clear Clear [facility] COLOR Yellow Yellow [facility] PH 5.0 4.8 - 8.0 [facility] SP GRAVITY 1.027 1.003 - 1.030 [facility] GLU U QUAL Normal Normal [facility] BLOOD 2+ (A) Negative [facility] KETONES Negative Negative [facility] PROTEIN Negative Negative [facility] UROBILIN Normal Normal [facility] BILIRUBIN Negative Negative [facility] NITRITE Negative Negative [facility] LEUK VANDANA Negative Negative [facility] RBC/HPF 3 0 - 3 HPF [facility] WBC/HPF 2 0 - 5 HPF [facility] BACTERIA Negative Negative [facility] MUCOUS Moderate (A) Negative LPF [facility] SQ EPITH <1 HPF [facility] HYAL CAST 1 <=2 LPF [facility] Specimen Urine - URINE, CLEAN CATCH Performing Organization Address [facility] Phone Number [facility] CLIA: [id number], [address] [place] [address] Troponin I (07/18/2019 9:05 AM MINE ENGINEERING SUPERVISOR) TROPONIN I 0.011 <=0.034 ng/mL [facility] Specimen Blood - ARM, LEFT Narrative Performed At Equal or Less than 0.034 ng/ml---Normal [facility] Note: Cardiac troponin begins to rise 3-4 hours after the onset of ischemia. Repeat in 4-6 hours if the sample was drawn within 3-4 hours of the onset of the symptom and found normal. Between 0.035 and 0.120 ng/mL--- Borderline. Questionable myocardial injury or necrosis Note: Serial measurement may be necessary to confirm or exclude the diagnosis of myocardial injury or necrosis; Clinical correlation (symptoms, EKGs, imaging studies, and others) required; Repeat in 4-6 hours if clinically indicated. Equal or Higher than 0.121 ng/mL---Abnormal. Myocardial Injury or Necrosis Likely Biotin has been reported to cause a negative bias, interpret results relative to patient's use of biotin. Performing Organization Address [facility] Phone Number [facility] CLIA: [id number], [address] [place] [address] GLYCOSYLATED HEMOGLOBIN (A1C) (07/18/2019 4:26 AM MINE ENGINEERING SUPERVISOR) HGB A1C 6.2 (H) 4.0 - 6.0 % NGSP [facility] Specimen Blood - ARM, LEFT Narrative Performed At %A1C (NGSP) Interpretation (ADA) [facility] 4.8-5.6 Normal or (Non-Diabetic Range) 5.7-6.4 Increased Risk (Pre-Diabetic) >6.5 Diabetes Indicated Performing Organization Address City/State/Zipcode Phone Number [facility] CLIA: [id number], [address] [place] [address] [phone] LIPID PANEL (68036)(TOTAL CHOLESTEROL, TRIGLYCERIDES, HDL) (07/18/2019 4:26 AM MINE ENGINEERING SUPERVISOR) CHOL 218 (H) 120 - 200 mg/dL [facility] HDL 28 (L) >40 mg/dL [facility] HDLC RATIO 7.8 (H) <=5.0 [facility] TRIG 142 30 - 170 mg/dL [facility] LDL CHOL 162 (H) <=160 mg/dL [facility] VLDL 28 5 - 60 mg/dL [facility] Specimen Blood - ARM, LEFT Performing Organization Address City/State/Zipcode Phone Number [facility] CLIA: [id number], [address] [place] [address] CBC WITH DIFFERENTIAL (07/18/2019 4:26 AM MINE ENGINEERING SUPERVISOR) WBC 8.16 4.20 - 10.70 [facility] 10*3/L HOSPITAL [facility] RBC 4.68 4.26 - 5.52 [facility] 10*6/L [facility] HGB 14.1 12.2 - 16.4 g/dL [facility] HCT 41.2 38.4 - 49.3 % [facility] MCV 88.0 81.7 - 95.6 fL [facility] MCH 30.1 26.1 - 32.7 pg [facility] MCHC 34.2 31.2 - 35.0 g/dL [facility] RDW-SD 43.1 38.5 - 51.6 fL [facility] RDW-CV 13.2 12.1 - 15.4 % [facility] PLT 293 150 - 328 [facility] 10*3/L HOSPITAL [facility] MPV 10.4 9.8 - 13.0 fL [facility] NRBC/100 WBC 0.0 0.0 - 10.0 /100 [facility] WBCs [facility] NRBC x10^3 <0.01 10*3/L [facility] GRAN MAT (NEUT) % 60.5 % [facility] IMM GRAN % 0.20 % [facility] LYMPH % 28.4 % [facility] MONO % 9.4 % [facility] EOS % 1.3 % [facility] BASO % 0.2 % [facility] GRAN MAT x10^3(ANC) 4.92 1.99 - 6.95 [facility] 10*3/uL [facility] IMM GRAN x10^3 <0.03 0.00 - 0.06 [facility] 10*3/uL HOSPITAL [facility] LYMPH x10^3 2.32 1.09 - 3.23 [facility] 10*3/uL HOSPITAL [facility] MONO x10^3 0.77 0.36 - 1.02 [facility] 10*3/uL HOSPITAL [facility] EOS x10^3 0.11 0.06 - 0.53 [facility] 10*3/uL HOSPITAL [facility] BASO x10^3 <0.03 0.01 - 0.09 [facility] 10*3/uL HOSPITAL [facility] Specimen Blood - ARM, LEFT Performing Organization Address City/State/Zipcode Phone Number [facility] CLIA: [id number], [address] [place] [address] Troponin I (07/18/2019 4:26 AM MINE ENGINEERING SUPERVISOR) TROPONIN I 0.005 <=0.034 ng/mL [facility] Specimen Blood - ARM, LEFT Narrative Performed At Equal or Less than 0.034 ng/ml---Normal [facility] Note: Cardiac troponin begins to rise 3-4 hours after the onset of ischemia. Repeat in 4-6 hours if the sample was drawn within 3-4 hours of the onset of the symptom and found normal. Between 0.035 and 0.120 ng/mL--- Borderline. Questionable myocardial injury or necrosis Note: Serial measurement may be necessary to confirm or exclude the diagnosis of myocardial injury or necrosis; Clinical correlation (symptoms, EKGs, imaging studies, and others) required; Repeat in 4-6 hours if clinically indicated. Equal or Higher than 0.121 ng/mL---Abnormal. Myocardial Injury or Necrosis Likely Biotin has been reported to cause a negative bias, interpret results relative to patient's use of biotin. Performing Organization Address City/State/Zipcode Phone Number [facility] CLIA: [id number], [address] [place] [address] [phone] Basic Metabolic Panel (NA, K, CL, CO2, GLUCOSE, BUN, CREATININE, CA) (2019 4:26 AM MINE ENGINEERING SUPERVISOR) NA 137 135 - 145 [facility] mmol/L [facility] K 3.8 3.5 - 5.0 [facility] mmol/L [facility] CL 103 98 - 108 mmol/L [facility] CO2 TOTAL 23 23 - 31 mmol/L [facility] AGAP 11 2 - 16 [facility] BUN 26 (H) 7 - 23 mg/dL [facility] GLUCOSE 108 70 - 110 mg/dL [facility] CREATININE 1.20 0.60 - 1.25 [facility] mg/dL [facility] CALCIUM 9.1 8.6 - 10.6 [facility] mg/dL [facility] eGFR Calculation 65.5 mL/min/1.73m2 [facility] (Non-) [facility] eGFR Calculation 79.4 mL/min/1.73m2 [facility] () [facility] Specimen Blood - ARM, LEFT Narrative Performed At Association of Glomerular Filtration Rate (GFR) [facility] and Staging of Kidney Disease* + + +- + | GFR (mL/min/1.73 m2) | With Kidney Damage | Without Kidney Damage + + +- + | >90 | Stage one | Normal + + +- + | 60-89 | Stage two | Decreased GFR + + +- + | 30-59 | Stage three | Stage three + + +- + | 15-29 | Stage four | Stage four + + +- + | <15 (or dialysis) | Stage five | Stage five + + +- + *Each stage assumes the associated GFR level has been in effect for at least three months. Stages 1 to 5, with or without kidney disease, indicate chronic kidney disease. Notes: Determination of stages one and two (with eGFR >59mL/min/1.73 m2) requires estimation of kidney damage for at least three months as defined by structural or functional abnormalities of the kidney, manifested by either: Pathological abnormalities or Markers of kidney damage (including abnormalities in the composition of the blood or urine or abnormalities in imaging tests). Performing Organization Address [facility] Phone Number [facility] CLIA: [id number], [address] [place] [address] [phone] Troponin I (07/18/2019 1:12 AM MINE ENGINEERING SUPERVISOR) TROPONIN I 0.016 <=0.034 ng/mL [facility] Specimen Blood - ARM, LEFT Narrative Performed At Equal or Less than 0.034 ng/ml---Normal [facility] Note: Cardiac troponin begins to rise 3-4 hours after the onset of ischemia. Repeat in 4-6 hours if the sample was drawn within 3-4 hours of the onset of the symptom and found normal. Between 0.035 and 0.120 ng/mL--- Borderline. Questionable myocardial injury or necrosis Note: Serial measurement may be necessary to confirm or exclude the diagnosis of myocardial injury or necrosis; Clinical correlation (symptoms, EKGs, imaging studies, and others) required; Repeat in 4-6 hours if clinically indicated. Equal or Higher than 0.121 ng/mL---Abnormal. Myocardial Injury or Necrosis Likely Biotin has been reported to cause a negative bias, interpret results relative to patient's use of biotin. Performing Organization Address [facility] Phone Number [facility] CLIA: [id number], [address] [place] [address] Troponin I (07/17/2019 10:10 PM MINE ENGINEERING SUPERVISOR) TROPONIN I 0.005 <=0.034 ng/mL [facility] Specimen Blood - HAND, RIGHT Narrative Performed At Equal or Less than 0.034 ng/ml---Normal [facility] Note: Cardiac troponin begins to rise 3-4 hours after the onset of ischemia. Repeat in 4-6 hours if the sample was drawn within 3-4 hours of the onset of the symptom and found normal. Between 0.035 and 0.120 ng/mL--- Borderline. Questionable myocardial injury or necrosis Note: Serial measurement may be necessary to confirm or exclude the diagnosis of myocardial injury or necrosis; Clinical correlation (symptoms, EKGs, imaging studies, and others) required; Repeat in 4-6 hours if clinically indicated. Equal or Higher than 0.121 ng/mL---Abnormal. Myocardial Injury or Necrosis Likely Biotin has been reported to cause a negative bias, interpret results relative to patient's use of biotin. Performing Organization Address City/State/Zipcode Phone Number [facility] CLIA: [id number], [address] [place], [place] [id number] [phone] [facility] [address] ABDOMEN PELVIS WO CONTRAST (07/17/2019 9:44 PM MINE ENGINEERING SUPERVISOR) Specimen Impressions Performed At PACS/VR/DOSE Bilateral calyceal ill-defined mineralization, possibly punctate stones but are not well formed, similar to prior imaging. Questionable left mid ureter mineralization, possibly passing from the renal calyces. No obstructive hydrocephalus or hydroureter. Preliminary Report Dictated by Resident: Mac Miller I, Yomi Mccauley MD., have reviewed this study and agree with the above report. Narrative Performed At EXAM: CT ABDOMEN AND PELVIS WITHOUT CONTRAST PACS/VR/DOSE HISTORY: Urinary tract stone, known, symptomatic, complications or risk factors COMPARISON: CT dated 04/02/2019 TECHNIQUE AND FINDINGS: Contiguous axial imaging from the level of the lung bases through the pubic symphysis was performed without the intravenous administration of contrast. Coronal and sagittal reconstructions were obtained. FINDINGS: LOWER THORAX: The lungs bases are clear. No cardiomegaly. LIVER: No focal hepatic lesions. No biliary ductal dilation. GALLBLADDER AND BILIARY TREE: No biliary ductal dilation. No gallbladder wall thickening. SPLEEN: No splenomegaly. PANCREAS: No ductal dilation or masses. ADRENAL GLANDS: No adrenal nodules. KIDNEYS: Ill-defined mineralization in the renal calyces is noted bilaterally. No hydronephrosis or masses. Questionable mineralization in the left mid ureter is also noted (2:106). PERITONEUM AND RETROPERITONEUM: No free air or fluid. LYMPH NODES: No lymphadenopathy. GI TRACT: No dilation or wall thickening. The appendix is normal. PELVIS/BLADDER: The bladder is not distended. No bladder stones. Diverticulosis without diverticulitis. VESSELS: Unremarkable. BONES AND SOFT TISSUES: There is slight reversal of the normal lumbar lordosis. No suspicious lytic or sclerotic bony lesions. Procedure Note [facility], Radiant Results Inft User - 07/17/2019 11:36 PM MINE ENGINEERING SUPERVISOR EXAM: CT ABDOMEN AND PELVIS WITHOUT CONTRAST HISTORY: Urinary tract stone, known, symptomatic, complications or risk factors COMPARISON: CT dated 04/02/2019 TECHNIQUE AND FINDINGS: Contiguous axial imaging from the level of the lung bases through the pubic symphysis was performed without the intravenous administration of contrast. Coronal and sagittal reconstructions were obtained. FINDINGS: LOWER THORAX: The lungs bases are clear. No cardiomegaly. LIVER: No focal hepatic lesions. No biliary ductal dilation. GALLBLADDER AND BILIARY TREE: No biliary ductal dilation. No gallbladder wall thickening. SPLEEN: No splenomegaly. PANCREAS: No ductal dilation or masses. ADRENAL GLANDS: No adrenal nodules. KIDNEYS: Ill-defined mineralization in the renal calyces is noted bilaterally. No hydronephrosis or masses. Questionable mineralization in the left mid ureter is also noted (2:106). PERITONEUM AND RETROPERITONEUM: No free air or fluid. LYMPH NODES: No lymphadenopathy. GI TRACT: No dilation or wall thickening. The appendix is normal. PELVIS/BLADDER: The bladder is not distended. No bladder stones. Diverticulosis without diverticulitis. VESSELS: Unremarkable. BONES AND SOFT TISSUES: There is slight reversal of the normal lumbar lordosis. No suspicious lytic or sclerotic bony lesions. IMPRESSION Bilateral calyceal ill-defined mineralization, possibly punctate stones but are not well formed, similar to prior imaging. Questionable left mid ureter mineralization, possibly passing from the renal calyces. No obstructive hydrocephalus or hydroureter. Preliminary Report Dictated by Resident: Mac Miller I, Yomi Mccauley MD., have reviewed this study and agree with the above report. Performing Organization Address City/State/Zipcode Phone Number PACS/VR/DOSE Chest 2 Views (07/17/2019 4:35 PM MINE ENGINEERING SUPERVISOR) Specimen Impressions Performed At PACS/VR/DOSE No acute cardiopulmonary abnormality Preliminary Report Dictated by Resident: Chavo Watson I, Caden Cardona MD., have reviewed this study and agree with the above report. Narrative Performed At XR CHEST 2 VW PACS/VR/DOSE HISTORY: 43 years-old; Male; chest pain COMPARISON: 04/02/2019 TECHNIQUE: PA and lateral views of chest are obtained. FINDINGS: The lungs are well-expanded and clear with no focal consolidation. There is no pleural effusion or pneumothorax. The cardiac silhouette is within normal limits. There is no acute osseous abnormality. Procedure Note [facility], Radiant Results Inft User - 07/17/2019 4:42 PM MINE ENGINEERING SUPERVISOR XR CHEST 2 VW HISTORY: 43 years-old; Male; chest pain COMPARISON: 04/02/2019 TECHNIQUE: PA and lateral views of chest are obtained. FINDINGS: The lungs are well-expanded and clear with no focal consolidation. There is no pleural effusion or pneumothorax. The cardiac silhouette is within normal limits. There is no acute osseous abnormality. IMPRESSION No acute cardiopulmonary abnormality Preliminary Report Dictated by Resident: Chavo Watson I, Caden Cardona MD., have reviewed this study and agree with the above report. Performing Organization Address [facility] Phone Number PACS/VR/DOSE Urinalysis (07/17/2019 4:24 PM MINE ENGINEERING SUPERVISOR) APPEARANCE Hazy (A) Clear [facility] COLOR Lisa (A) Yellow [facility] PH 5.0 4.8 - 8.0 [facility] SP GRAVITY 1.026 1.003 - 1.030 [facility] GLU U QUAL Normal Normal [facility] BLOOD 1+ (A) Negative [facility] KETONES Negative Negative [facility] PROTEIN 30 mg/dL (A) Negative [facility] UROBILIN Normal Normal [facility] BILIRUBIN Negative Negative [facility] NITRITE Negative Negative [facility] LEUK VANDANA Negative Negative [facility] RBC/HPF 9 (H) 0 - 3 HPF [facility] WBC/HPF 2 0 - 5 HPF [facility] BACTERIA Negative Negative [facility] MUCOUS Marked (A) Negative LPF [facility] SQ EPITH <1 HPF [facility] Specimen Urine - URINE, CLEAN CATCH Performing Organization Address [facility] Phone Number [facility] CLIA: [id number], [address] [place] [address] [phone] URIC ACID (07/17/2019 4:14 PM MINE ENGINEERING SUPERVISOR) URIC ACID 8.7 (H) 3.6 - 8.0 mg/dL [facility] Specimen Blood - VENOUS Performing Organization Address [facility] Phone Number [facility] CLIA: [id number], [address], [place] [phone] [address] Magnesium Serum (07/17/2019 4:14 PM MINE ENGINEERING SUPERVISOR) MAGNESIUM 2.7 (H) 1.7 - 2.4 mg/dL [facility] Specimen Blood - VENOUS Performing Organization Address City/[facility] Phone Number [facility] CLIA: [id number], [address] [place] [address] CBC WITH DIFFERENTIAL (07/17/2019 4:14 PM MINE ENGINEERING SUPERVISOR) WBC 9.53 4.20 - 10.70 [facility] 10*3/L [facility] RBC 5.31 4.26 - 5.52 [facility] 10*6/L [facility] HGB 15.8 12.2 - 16.4 [facility] g/dL [facility] HCT 47.3 38.4 - 49.3 % [facility] MCV 89.1 81.7 - 95.6 fL [facility] MCH 29.8 26.1 - 32.7 pg [facility] MCHC 33.4 31.2 - 35.0 [facility] g/dL [facility] RDW-SD 43.4 38.5 - 51.6 fL [facility] RDW-CV 13.3 12.1 - 15.4 % [facility] PLT 358 (H) 150 - 328 [facility] 10*3/L [facility] MPV 10.9 9.8 - 13.0 fL [facility] NRBC/100 WBC 0.0 0.0 - 10.0 /100 [facility] WBCs [facility] NRBC x10^3 <0.01 10*3/L [facility] GRAN MAT (NEUT) % 74.1 % [facility] IMM GRAN % 0.40 % [facility] LYMPH % 17.4 % [facility] MONO % 7.5 % [facility] EOS % 0.3 % [facility] BASO % 0.3 % [facility] GRAN MAT x10^3(ANC) 7.06 (H) 1.99 - 6.95 [facility] 10*3/uL [facility] IMM GRAN x10^3 0.04 0.00 - 0.06 [facility] 10*3/uL [facility] LYMPH x10^3 1.66 1.09 - 3.23 [facility] 10*3/uL [facility] MONO x10^3 0.71 0.36 - 1.02 [facility] 10*3/uL [facility] EOS x10^3 0.03 (L) 0.06 - 0.53 [facility] 10*3/uL [facility] BASO x10^3 0.03 0.01 - 0.[address]uL [facility] Specimen Blood - VENOUS Performing Organization Address City/State/Zipcode Phone Number [facility] CLIA: [id number], [address] [place] [address] [phone] Troponin I (07/17/2019 4:14 PM MINE ENGINEERING SUPERVISOR) TROPONIN I 0.003 <=0.034 ng/mL [facility] Specimen Blood - VENOUS Narrative Performed At Equal or Less than 0.034 ng/ml---Normal [facility] Note: Cardiac troponin begins to rise 3-4 hours after the onset of ischemia. Repeat in 4-6 hours if the sample was drawn within 3-4 hours of the onset of the symptom and found normal. Between 0.035 and 0.120 ng/mL--- Borderline. Questionable myocardial injury or necrosis Note: Serial measurement may be necessary to confirm or exclude the diagnosis of myocardial injury or necrosis; Clinical correlation (symptoms, EKGs, imaging studies, and others) required; Repeat in 4-6 hours if clinically indicated. Equal or Higher than 0.121 ng/mL---Abnormal. Myocardial Injury or Necrosis Likely Biotin has been reported to cause a negative bias, interpret results relative to patient's use of biotin. Performing Organization Address City/[facility] Phone Number [facility] CLIA: [id number], [address] [place] [address] Lipase Serum (07/17/2019 4:14 PM MINE ENGINEERING SUPERVISOR) LIPASE 118 0 - 220 U/L [facility] Specimen Blood - VENOUS Performing Organization Address [facility] Phone Number [facility] CLIA: [id number], [address], [place] [id number] [address] Hepatic Function Panel (ALB, T.PRO, BILI T, BU/BC, ALT, AST, ALK PHOS) (2019 4:14 PM MINE ENGINEERING SUPERVISOR) TOTAL BILI 0.8 0.1 - 1.1 mg/dL [facility] BILI UNCON 0.9 0.1 - 1.1 mg/dL [facility] BILI CONJ 0.0 0.0 - 0.3 mg/dL [facility] T PROTEIN 9.4 (H) 6.3 - 8.2 g/dL [facility] ALBUMIN 5.3 (H) 3.5 - 5.0 g/dL [facility] ALK PHOS 105 34 - 122 U/L [facility] ALTv 54 (H) 5 - 50 U/L [facility] AST(SGOT) 58 (H) 13 - 40 U/L [facility] Specimen Blood - VENOUS Performing Organization Address [facility] Phone Number [facility] CLIA: [id number], [address], [place] [id number] [phone] Basic Metabolic Panel (NA, K, CL, CO2, GLUCOSE, BUN, CREATININE, CA) (2019 4:14 PM MINE ENGINEERING SUPERVISOR) NA 139 135 - 145 [facility] mmol/L [facility] K 3.9 3.5 - 5.0 [facility] mmol/L HOSPITAL LAB[facility]ATORY CL 102 98 - 108 mmol/L [facility] CO2 TOTAL 24 23 - 31 mmol/L [facility] AGAP 13 2 - 16 [facility] BUN 23 7 - 23 mg/dL [facility] GLUCOSE 148 (H) 70 - 110 mg/dL [facility] CREATININE 1.14 0.60 - 1.25 [facility] mg/dL [facility] CALCIUM 9.7 8.6 - 10.6 [facility] mg/dL HOSPITAL LAB[facility]ORY eGFR Calculation 69.5 mL/min/1.73m2 [facility] ([facility] LABORATORY [place]) eGFR Calculation 84.2 mL/min/1.73m2 [facility] () [facility] Specimen Blood - VENOUS Narrative Performed At Association of Glomerular Filtration Rate (GFR) [facility] and Staging of Kidney Disease* + + +- + | GFR (mL/min/1.73 m2) | With Kidney Damage | Without Kidney Damage + + +- + | >90 | Stage one | Normal + + +- + | 60-89 | Stage two | Decreased GFR + + +- + | 30-59 | Stage three | Stage three + + +- + | 15-29 | Stage four | Stage four + + +- + | <15 (or dialysis) | Stage five | Stage five + + +- + *Each stage assumes the associated GFR level has been in effect for at least three months. Stages 1 to 5, with or without kidney disease, indicate chronic kidney disease. Notes: Determination of stages one and two (with eGFR >59mL/min/1.73 m2) requires estimation of kidney damage for at least three months as defined by structural or functional abnormalities of the kidney, manifested by either: Pathological abnormalities or Markers of kidney damage (including abnormalities in the composition of the blood or urine or abnormalities in imaging tests). Performing Organization Address City/State/Zipcode Phone Number [facility] CLIA: [id number], [address], [place] [phone] documented in this encounter Visit Diagnoses Diagnosis Chest pain, unspecified type - Primary Flank pain Abdominal pain, unspecified site Paroxysmal atrial fibrillation Atrial fibrillation Atypical chest pain Other chest pain PAF (paroxysmal atrial fibrillation) Atrial fibrillation Essential hypertension Unspecified essential hypertension documented in this encounter Administered Medications Medication Order MAR Action Action Date Dose Rate Site acetaminophen (TYLENOL) tablet Given 07/18/2019 12:46 PM MINE ENGINEERING SUPERVISOR 650 mg 650 mg 650 mg, Oral, Q6HPRN, Starting [facility] 07/17/19 at 1828, Until Discontinued, Routine, Pain (scale 1-3) apixaban (ELIQUIS) tablet 5 mg Given 07/18/2019 8:58 AM MINE ENGINEERING SUPERVISOR 5 mg 5 mg, Oral, BID, First dose on Sun07/17/19 at 2000, Until Discontinued, Routine Given 07/17/2019 8:35 PM MINE ENGINEERING SUPERVISOR 5 mg aspirin chewable tablet 81 mg Given 07/18/2019 8:58 AM MINE ENGINEERING SUPERVISOR 81 mg 81 mg, Oral, DAILY, First dose on Sun07/18/19 at 0900, Until Discontinued, Routine atenoloL (TENORMIN) tablet 25 mg Given 07/17/2019 8:34 PM MINE ENGINEERING SUPERVISOR 25 mg 25 mg, Oral, BID, First dose on Sun07/17/19 at 2000, Until Discontinued, Routine atorvastatin (LIPITOR) tablet 10 mg Given 07/17/2019 8:34 PM MINE ENGINEERING SUPERVISOR 10 mg 10 mg, Oral, QHS, First dose on Sun07/17/19 at 2100, Until Discontinued, Routine morpHINE injection 2 mg Given 07/18/2019 8:58 AM MINE ENGINEERING SUPERVISOR 2 mg 2 mg, Slow IV Push, Q4HPRN, Starting Sun07/17/19 at 2126, Until Discontinued, Routine, Pain (scale 7-10), Chest pain Given 07/18/2019 4:45 AM MINE ENGINEERING SUPERVISOR 2 mg Given 07/17/2019 10:40 PM MINE ENGINEERING SUPERVISOR 2 mg nitroglycerin (NITROSTAT) sublingual tablet Given 07/17/2019 10:19 PM MINE ENGINEERING SUPERVISOR 0.4 mg 0.4 mg 0.4 mg, Sublingual, Q5MIN PRN, Starting Sun07/17/19 at 2127, Until Discontinued, Routine, Chest pain Given 07/17/2019 10:04 PM MINE ENGINEERING SUPERVISOR 0.4 mg Medication Order MAR Action Action Date Dose Rate Site aspirin tablet 325 mg Given 07/17/2019 4:24 PM MINE ENGINEERING SUPERVISOR 325 mg 325 mg, Oral, ONCE, 1 dose, Sun07/17/19 at 1730, STAT flu vaccine 6 months and up Given 07/18/2019 3:22 PM MINE ENGINEERING SUPERVISOR 0.5 mL Left Deltoid-IM (FLUZONE QUAD (PF)) syringe 0.5 mL 0.5 mL, Intramuscular, ONCE, 1 dose, Sun07/18/19 at 1545, Routine morpHINE injection 4 mg Given 07/17/2019 4:25 PM MINE ENGINEERING SUPERVISOR 4 mg 4 mg, Slow IV Push, ONCE, 1 dose, Doris 07/17/19 at 1730, STAT ondansetron (ZOFRAN (PF)) injection 4 mg Given 07/17/2019 4:24 PM MINE ENGINEERING SUPERVISOR 4 mg 4 mg, Slow IV Push, ONCE, 1 dose, Doris 07/17/19 at 1730, JOURDAN documented in this encounter
--- OUTSIDE RECORDS SUMMARY | 2019-08-11 11:49 | XMS REPORT | Summary of Care ---
:1975 Author Organization [facility] Address [address] [place] [id number] Care Team Providers Name Role Phone Lacey Segura MD Primary Care Provider Reason for Visit Reason Comments Refill Request Encounter Details Date Type Department Care Team Description 07/25/2019 Refill [facility] Pediatric and Levar Harris MD Refill Request Adult Primary Care- [place] [address] [place] [address] [place] [address] Allergies Active Allergy Reactions Severity Noted Date Comments Iodine And Iodide Containing Products Hives 07/06/2017 Sotalol Swelling 11/29/2017 documented as of this encounter (statuses as of 07/26/2019) Medications Medication Sig Dispensed Refills Start End [...] mg Take 1 tablet 60 tablet 0 07/26/19 Active tabletIndications: by mouth twice 20 Essential hypertension daily ATENOLOL 25 mg Take 1 tablet 60 tablet 0 07/21/19 Discontinued tabletIndications: by mouth twice 20 020 Essential hypertension daily documented as of this encounter (statuses as of 07/26/2019) Active Problems Problem Noted Date Atypical chest pain 07/17/2019 Flank pain 07/17/[address] 10/28/2016 Overview: Added automatically from request for surgery [id number] Obesity (BMI 30-39.9) 10/26/2016 Hematemesis 09/06/2016 Essential hypertension 06/10/2016 PAF (paroxysmal atrial fibrillation) 06/09/2016 documented as of this encounter (statuses as of 07/26/2019) Resolved Problems Problem Noted Date Resolved Date Sepsis 10/26/2016 09/01/2017 documented as of this encounter (statuses as of 07/26/2019) Immunizations Name Administration Dates Next Due Influenza [...] Office Visit Internal Medicine Lacey Segura MD [address] [place] [address] Dr Hickman [address] [place] [phone] Health Maintenance Due Date Last Done Comments [...]
[2019-08-11 12:27] LABS: Absolute Lymphocytes (CBC) 1.5 K/uL (0.7-4.9); Basophils % 0.3 % (0-1.3); Hematocrit 45.4 % (39.6-49.0); Lymphocytes % 22.1 % (15.3-44.8); MPV 9.7 fL (7.6-11.3); RBC Red Blood Cell Count 5.09 M/uL (4.33-5.43)
[2019-08-11 12:34] LABS: Protime INR 1.13
--- NOTE | 2019-08-11 12:42 | RAD REPORT ---
EXAM DESCRIPTION: RAD - Chest Single View - 08/11/2019 12:36 pm CLINICAL HISTORY: chest pain Chest pain. COMPARISON: Chest Single View dated 10/19/2018; Chest Single View dated 08/16/2018; Chest Single View da erick 08/14/2018; Chest Single View dated 04/14/2018 FINDINGS: Portable technique limits examination quality. The lungs are grossly clear. The heart is normal in size. No displaced fractures. IMPRESSION: No acute intrathoracic process suspected.
[2019-08-11 12:51] LABS: ALT/SGPT 31 U/L (12-78); AST/SGOT 24 U/L (15-37); Albumin 3.9 g/dL (3.4-5.0); Alkaline Phosphatase 123 U/L (45-117); BUN Blood Urea Nitrogen 14 mg/dL (7-18); Bicarbonate 25 mmol/L (21-32); Bilirubin Direct < 0.1 mg/dL (0-0.2); Bilirubin Total 0.2 mg/dL (0.2-1.0); Glucose Level 110 mg/dL (74-106); Magnesium 2.2 mg/dL (1.8-2.4); NT PRO-BNP 50 pg/mL (<125); Potassium 3.9 mmol/L (3.5-5.1); Protein, Total 8.1 g/dL (6.4-8.2); Sodium Level 140 mmol/L (136-145); Troponin (Emerg Dept Use Only) < 0.02 ng/mL (0.0-0.045)
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
--- NOTE | 2019-08-11 13:58 | EDPHYS ---
Physician Documentation [facility] Name: Mikhail Reilly Age: 43 yrs Sex: Male : 1975 Arrival Date: 08/11/2019 Time: 11:48 Bed 5 Private MD: ED Physician Ezra Rincon HPI: 08/10 13:22 This 43 yrs old Male presents to ER via Ambulatory with complaints of Chest ma2 Pain > 30 y/o. 13:22 The patient or guardian reports chest pain that is located primarily in the substernal ma2 area. Onset: suddenly, 1 day(s) ago. Associated signs and symptoms: Pertinent negatives: abdominal pain, cough. The chest pain is described as crushing. Severity of pain: At its worst the pain was moderate in the emergency department the pain is unchanged. The patient has not experienced similar symptoms in the past. Historical: - Allergies: 11:54 contrast; jl7 11:54 Iodinated Contrast Media - IV Dye; jl7 11:54 Iodine; jl7 - Home Meds: 11:54 atenolol 25 mg Oral tab 1 tab once daily [Active]; Eliquis Oral [Active]; jl7 - PMHx: 11:54 Atrial Fib; Back pain; Hypertension; Kidney stones; muscle spasms numerous times jl7 requiring Er visits with fluid resusitation; - PSHx: 11:54 None; jl7 - Immunization history:: Adult Immunizations unknown. - Social history:: Smoking status: Patient denies any tobacco usage or history of. - Family history:: not pertinent. ROS: 13:22 Constitutional: Negative for fever, chills, and weight loss. ma2 13:22 All other systems are negative. Exam: 13:22 Constitutional: This is a well developed, well nourished patient who is awake, alert, ma2 and in no acute distress. Head/Face: Normocephalic, atraumatic. Eyes: Pupils equal round and reactive to light, extra-ocular motions intact. Lids and lashes normal. Conjunctiva and sclera are non-icteric and not injected. Cornea within normal limits. Periorbital areas with no swelling, redness, or edema. ENT: Nares patent. No nasal discharge, no septal abnormalities noted. Tympanic membranes are normal and external auditory canals are clear. Oropharynx with no redness, swelling, or masses, exudates, or evidence of obstruction, uvula midline. Mucous membranes moist. Neck: Trachea midline, no thyromegaly or masses palpated, and no cervical lymphadenopathy. Supple, full range of motion without nuchal rigidity, or vertebral point tenderness. No Meningismus. Chest/axilla: Normal chest wall appearance and motion. Nontender with no deformity. No lesions are appreciated. Cardiovascular: Regular rate and rhythm with a normal S1 and S2. No gallops, murmurs, or rubs. Normal PMI, no JVD. No pulse deficits. Respiratory: Lungs have equal breath sounds bilaterally, clear to auscultation and percussion. No rales, rhonchi or wheezes noted. No increased work of breathing, no retractions or nasal flaring. Abdomen/GI: Soft, non-tender, with normal bowel sounds. No distension or tympany. No guarding or rebound. No evidence of tenderness throughout. MS/ Extremity: Pulses equal, no cyanosis. Neurovascular intact. Full, normal range of motion. Neuro: Awake and alert, GCS 15, oriented to person, place, time, and situation. Cranial nerves II-XII grossly intact. Motor strength 5/5 in all extremities. Sensory grossly intact. Cerebellar exam normal. Normal gait. Vital Signs: 11:48 BP 121 / 87; Pulse 72; Resp 19; Temp 97.6; Pulse Ox 98% ; Weight 95.25 kg; Height 5 ft. jl7 10 in. (177.80 cm); Pain 5/10; 12:30 BP 139 / 97; Pulse 70; Resp 15; Pulse Ox 96% ; sv 13:30 BP 133 / 95; Pulse 63; Resp 15 S; Pulse Ox 95% on R/A; ca1 14:32 BP 146 / 98; Pulse 69; Resp 16; Pulse Ox 99% on R/A; ca1 15:23 BP 134 / 97; Pulse 76; Resp 18 S; Pulse Ox 97% on R/A; ca1 11:48 Body Mass Index 30.13 (95.25 kg, 177.80 cm) jl7 MDM: 11:57 Patient medically screened. ma2 13:55 Differential diagnosis: abnormal EKG, gastroesophageal reflux disease (GERD), stable ma2 angina, unstable angina. HEART Score: History: Slightly Suspicious (0), ECG: Normal (0), Troponin: < or = 1 x Normal Limit (0). The patient was given aspirin in the Emergency Department. Data reviewed: vital signs, nurses notes. Counseling: I had a detailed discussion with the patient and/or guardian regarding: the historical points, exam findings, and any diagnostic results supporting the discharge/admit diagnosis, the presence of at least one elevated blood pressure reading (>120/80) during this emergency department visit, the need for further work-up and treatment in the hospital. 08/10 12:35 Order name: Protime (+INR); Complete Time: 13:20 EDMS 08/10 12:51 Order name: Basic Metabolic Panel; Complete Time: 13:20 EDMS 08/10 12:51 Order name: Liver (Hepatic) Function; Complete Time: 13:20 EDMS 08/10 12:51 Order name: Troponin (Emerg Dept Use Only); Complete Time: 13:20 EDMS 08/10 12:51 Order name: NT PRO-BNP; Complete Time: 13:20 EDMS 08/10 12:51 Order name: Magnesium; Complete Time: 13:20 EDMS 08/10 14:51 Order name: Basic Metabolic Panel EDRI 08/10 14:51 Order name: Basic Metabolic Panel EDRI 08/10 14:51 Order name: CBC with Automated Diff RI 08/10 14:51 Order name: CBC with Automated Diff RI 08/10 14:51 Order name: CKMB Creatine Kinase MB RI 08/10 14:51 Order name: CKMB Creatine Kinase MB EDRI 08/10 14:51 Order name: CKMB Creatine Kinase MB EDRI 08/10 14:51 Order name: Creatine Phosphokinase EDRI 08/10 14:51 Order name: Creatine Phosphokinase EDRI 08/10 14:51 Order name: Creatine Phosphokinase EDRI 08/10 14:51 Order name: Lipid Profile EDRI 08/10 14:52 Order name: Lipid Profile EDRI 08/10 14:52 Order name: Magnesium EDRI 08/10 14:52 Order name: Magnesium EDRI 08/10 14:52 Order name: Troponin I EDRI 08/10 14:52 Order name: Troponin I EDRI 08/10 14:52 Order name: Troponin I EDRI 08/10 11:51 Order name: XRAY Chest (1 view) ma2 08/10 11:51 Order name: EKG; Complete Time: 12:34 ga2 08/10 11:51 Order name: Cardiac monitoring; Complete Time: 12:05 [facility] 08/10 11:51 Order name: EKG - Nurse/Tech; Complete Time: 12:05 [facility] 08/10 11:51 Order name: IV Saline Lock; Complete Time: 12:05 [facility] 08/10 11:51 Order name: Labs collected and sent; Complete Time: 12:05 [facility] 08/10 11:51 Order name: O2 Per Protocol; Complete Time: 12:05 [facility] 08/10 11:51 Order name: O2 Sat Monitoring; Complete Time: 12:05 [facility] 08/10 12:42 Order name: Chest Single View; Complete Time: 13:20 EDRI 08/10 14:51 Order name: Heart Healthy EDMS Administered Medications: 14:26 Drug: Aspirin Chewable Tablet 324 mg Route: PO; ca1 14:32 Follow up: Response: No adverse reaction ca1 Disposition: 08/11/19 13:57 Hospitalization ordered by Rohan Arevalo for Observation. Preliminary diagnosis is Chest pain, unspecified. - Bed requested for Telemetry/MedSurg (observation). - Status is Observation. ca1 - Condition is Stable. - Problem is new. - Symptoms are unchanged. Signatures: Dispatcher [employer] EDSabine Hernandez, RN RN dw Kirby Gottlieb RN RN jl7 Ezra Rincon MD MD ma2 Lisa Decker RN RN ca1 Corrections: (The following items were deleted from the chart) 12:51 12:34 BASIC METABOLIC PANEL+C.LAB.BRZ ordered. EDMS EDMS 12:51 12:34 HEPATIC FUNCTION+C.LAB.BRZ ordered. EDMS EDMS 12:51 12:34 MAGNESIUM+C.LAB.BRZ ordered. EDMS EDMS 12:51 12:34 PROBNP+C.LAB.BRZ ordered. EDMS EDMS 12:51 12:34 TROPONIN (EMERG DEPT USE ONLY)+C.LAB.BRZ ordered. EDMS EDMS 12:52 12:34 CBC+H.LAB.BRZ ordered. EDMS EDMS 12:52 12:34 PROTIME (+INR)+COAG.LAB.BRZ ordered. EDMS EDMS 15:29 13:57 Hospitalization Ordered by Rohan Arevalo DO for Observation. Preliminary dw diagnosis is Chest pain, unspecified. Bed requested for Telemetry/MedSurg (observation). Status is Observation. Condition is Stable. Problem is new. Symptoms are unchanged. ma2 15:55 15:29 08/11/2019 13:57 Hospitalization Ordered by Rohan Arevalo DO for Observation. ca1 Preliminary diagnosis is Chest pain, unspecified. Bed requested for Telemetry/MedSurg (observation). Status is Observation. Condition is Stable. Problem is new. Symptoms are unchanged. dw
[2019-08-11] MEDS ORDERED: ASPIRIN 81 MG CHEWABLE TABLET ONE (14:32)
[2019-08-11] MEDS ORDERED: ACETAMINOPHEN 500 MG TAB PO PRN (14:38)
[2019-08-11] MEDS ORDERED: ONDANSETRON 4 MG/2 ML VIAL IV PRN (14:38)
--- NOTE | 2019-08-11 15:02 | P.HP ---
Certification for Inpatient Patient admitted to: Observation With expected LOS: <2 Midnights Patient will require the following post-hospital care: None Practitioner: I am a practitioner with admitting privileges, knowledge of patient current condition, hospital course, and medical plan of care. Services: Services provided to patient in accordance with Admission requirements found in Title 42 Section 412.3 of the Code of Federal Regulations Patient History Date of Service: 08/11/19 Primary Care Provider: Dr. Segura; Cardiology- Dr. Chawla Reason for admission: Chest pain History of Present Illness: This is a 43 year old male with history of Atrial fibrillation and hypertension who presents to the emergency department with a three day history of sharp pain in the right anterior chest wall. Patient reports that the pain is exacerbated with movements such as sitting up in addition to palpation on a pinpoint area of the anterior chest wall. After evaluation by the Emergency department physician patient was found to have normal cardiac enzymes and no acute changes in his ECG but given the patients medical history the ED physician requested admission for cardiac rule out. When I saw the patient in the ED he appeared comfortable, appropriate. Patient Reports a sharp pain to the right anterior chest was that is reproducible with palpation. Patient states that he had an episode like this in the past and was diagnosed with pleurisy. Patient also reports that 2-3 weeks ago he was admitted at [facility] for chest pain and had blood work, a chest xray, and an echo that were all reported to him to be normal. Patient also had a stress test about one year ago that he was also informed was normal. Patient is taking eliquis for his Atrial fibrillation and atenolol for his blood pressure but states that some days he does not take his atenolol at all in the morning if his blood pressure is not high. I will admit the patient to observation for chest pain, control his pain, and obtain serial cardiac enzymes to rule out acute coronary syndrome. Allergies iodine Allergy (Verified 04/15/18 00:54) Unknown contrast Allergy (Uncoded 08/18/17 19:39) Unknown Home medications list reviewed: Yes Home Medications: Apixaban [Eliquis *] 5 mg PO BID 04/15/18 Aspirin Chewable [Aspirin Chewable*] 81 mg PO DAILY 04/15/18 Atorvastatin Calcium [Lipitor*] 10 mg PO BEDTIME 04/15/18 Diltiazem Tab [Cardizem Tab*] 30 mg PO BID 04/15/18 atenoloL [Tenormin*] 25 mg PO DAILY 04/15/18 - Past Medical/Surgical History Diabetic: No -: Atrial fibrillation -: Hypertension Past Surgical History: Patient denies surgical history Psychosocial/ Personal History: - Family History Mother -: Hypertension, Lung disease, Diabetes, Liver disease, Kidney disease Father -: Hypertension, Lung disease, Diabetes - Social History Smoking Status: Never smoker Alcohol use: Yes CD- Drugs: No Caffeine use: Yes Place of Residence: Home Review of Systems General: Unremarkable Eyes: Unremarkable ENT: Unremarkable Respiratory: Unremarkable Cardiovascular: As per HPI Gastrointestinal: Unremarkable Genitourinary: Unremarkable Musculoskeletal: As per HPI Integumentary: Unremarkable Neurological: Unremarkable Lymphatics: Unremarkable Physical Examination - Physical Exam General: Alert, In no apparent distress, Oriented x3, Cooperative HEENT: Atraumatic, Normocephalic Neck: Supple Respiratory: Clear to auscultation bilaterally, Normal air movement Cardiovascular: No edema, Normal S1 S2 Capillary refill: <2 Seconds Gastrointestinal: Normal bowel sounds, Soft and benign Musculoskeletal: No clubbing, No swelling, No contractures Integumentary: No breakdown Neurological: Normal gait, Normal speech, Normal strength at 5/5 x4 extr Lymphatics: No axilla or inguinal lymphadenopathy - Studies Laboratory Data (last 24 hrs) 08/11/19 12:06: PT 13.3 H, INR 1.13 08/11/19 12:06: WBC 6.9, Hgb 14.9, Hct 45.4, Plt Count 295 08/11/19 12:06: Sodium 140, Potassium 3.9, BUN 14, Creatinine 1.10, Glucose 110 H, Magnesium 2.2, Total Bilirubin 0.2, AST 24, ALT 31, Alkaline Phosphatase 123 H 08/11/19 11:51: PT Cancelled, INR Cancelled 08/11/19 11:51: WBC Cancelled, Hgb Cancelled, Hct Cancelled, Plt Count Cancelled 08/11/19 11:51: Sodium Cancelled, Potassium Cancelled, BUN Cancelled, Creatinine Cancelled, Glucose Cancelled, Magnesium Cancelled, Total Bilirubin Cancelled, AST Cancelled, ALT Cancelled, Alkaline Phosphatase Cancelled Assessment and Plan - Plan Impression: Chest pain Atrial Fibrillation Hypertension Plan: Chest pain: Patient will be admitted for chest pain rule out, will obtain serial cardiac enzymes. Will monitor on telemetry. Will recheck labs in the morning including lipid panel. Patient had a recent cardiac workup with echocardiogram which was normal, had a normal stress test about one year ago. Anticipate no abnormal findings in which case patient will need to follow up outpatient with his PCP and cardiology. If cardiac enzymes are abnormal or there are any acute changes during his hospital stay cardiology will be consulted. Will restart his home medications for his hypertension and a fib including atenolol and eliquis. Atrial Fibrillation: Patient will be monitored on telemetry, will continue eliquis dose. Hypertension: Patient reports that he does not take his atenolol every morning, sometimes skipping a dose if his blood pressure is within normal range, will continue the atenolol during his stay. Discussed need to take his medications on a more regular basis. Discharge Plan: Home Plan to discharge in: 24 Hours - Advance Directives Does patient have a Living Will: No Does patient have a Durable POA for Healthcare: No - Code Status/Comfort Care Code Status Assessed: Yes (Pt is full code) Time Spent Managing Pts Care (In Minutes): 55
[2019-08-11] MEDS: TRAMADOL HCL 50 MG TAB PO PRN (16:10)
[2019-08-11 17:07] VITALS: BMI 32.3
[2019-08-11] MEDS ORDERED: HYDROCODONE/APAP 7.5/325 MG TAB PO PRN (18:23)
[2019-08-11 19:35] LABS: CKMB Creatine Kinase MB < 1.0 ng/mL (0.3-3.6); Creatine Phosphokinase 110 U/L (39-308); Troponin I < 0.02 ng/mL (0.0-0.045)
[2019-08-11] MEDS: APIXABAN 5 MG TABLET PO SCH (20:51)
[2019-08-11] MEDS: FAMOTIDINE 20 MG TAB PO SCH (20:51)
[2019-08-12 03:48] LABS: Absolute Lymphocytes (CBC) 2.2 K/uL (0.7-4.9); Basophils % 0.4 % (0-1.3); Hematocrit 43.8 % (39.6-49.0); MPV 9.7 fL (7.6-11.3); RBC Red Blood Cell Count 4.89 M/uL (4.33-5.43)
[2019-08-12 03:58] LABS: CKMB Creatine Kinase MB < 1.0 ng/mL (0.3-3.6); Creatine Phosphokinase 115 U/L (39-308); Troponin I < 0.02 ng/mL (0.0-0.045)
[2019-08-12 04:08] LABS: Magnesium 2.4 mg/dL (1.8-2.4)
[2019-08-12] MEDS: TRAMADOL HCL 50 MG TAB PO PRN (05:12)
--- NOTE | 2019-08-12 05:25 | EKG ---
Test Date: 2019-08-11 Test Time: 12:07:24 Associate Professor Of Biostatistics: JEVON MEASUREMENT RESULTS: Intervals: Rate: 62 IL: 162 QRSD: 112 QT: 410 QTc: 416 [place]: P: 51 IL: 162 QRS: 96 T: 26 INTERPRETIVE STATEMENTS: Normal sinus rhythm Rightward axis Borderline ECG Compared to ECG 10/19/2018 19:31:22 Right-axis deviation now present Electronically Signed On 08-12-19 05:24:05 CDT by Yash Berrios
[2019-08-12] MEDS ORDERED: atenoloL 25 MG TAB PO SCH (06:00)
--- NOTE | 2019-08-12 08:14 | P.DS ---
Admission Date: 08/11/19 Discharge Date: 08/12/19 Primary Care Provider: Dr. Segura; Cardiology- Dr. Chawla Disposition: ROUTINE DISCHARGE Discharge Condition: GOOD Reason for Admission: Chest pain Consultations: none Procedures: CXR: COMPARISON: Chest Single View dated 10/19/2018; Chest Single View dated 08/16/2018 ; Chest Single View dated 08/14/2018; Chest Single View dated 04/14/2018 FINDINGS: Portable technique limits examination quality. The lungs are grossly clear. The heart is normal in size. No displaced fractures. IMPRESSION: No acute intrathoracic process suspected. Medical Problem List: Chest pain, atypical likely musculoskeletal Atrial Fibrillation Hypertension GERD BPH Hyperlipidemia Brief History of Present Illness: This is a 43 year old male with history of Atrial fibrillation and hypertension who presents to the emergency department with a three day history of sharp pain in the right anterior chest wall. Patient reports that the pain is exacerbated with movements such as sitting up in addition to palpation on a pinpoint area of the anterior chest wall. After evaluation by the Emergency department physician patient was found to have normal cardiac enzymes and no acute changes in his ECG but given the patients medical history the ED physician requested admission for cardiac rule out. When I saw the patient in the ED he appeared comfortable, appropriate. Patient Reports a sharp pain to the right anterior chest was that is reproducible with palpation. Patient states that he had an episode like this in the past and was diagnosed with pleurisy. Patient also reports that 2-3 weeks ago he was admitted at [facility] for chest pain and had blood work, a chest xray, and an echo that were all reported to him to be normal. Patient also had a stress test about one year ago that he was also informed was normal. Patient is taking eliquis for his Atrial fibrillation and atenolol for his blood pressure but states that some days he does not take his atenolol at all in the morning if his blood pressure is not high. I will admit the patient to observation for chest pain, control his pain, and obtain serial cardiac enzymes to rule out acute coronary syndrome. Hospital Course: Patient presented with chest pain. This was reproducible with palpation. Patient was evaluated closely. Cardiac enzymes unremarkable. No significant changes on telemetry. Lipid panel within normal range. Patient had recent echocardiogram at [facility] which was unremarkable. Patient also reports normal cardiac stress test 1 year ago. No further intervention required at this time. Chest pain is atypical likely musculoskeletal. Patient may continue with Tylenol as needed for pain. Will provide Zanaflex 2 mg twice daily as needed for muscle spasm. A limited supply will be provided. Recommend follow up with his disabilities services officer and PCP in 1-2 weeks to follow up this hospitalization. Patient with atrial fibrillation and hypertension. Compliance with atenolol address in detail. At discharge patient will continue with atenolol 25 mg daily and Eliquis 5 mg 1 pill twice daily. Patient with GERD. At discharge patient may continue with his Prilosec once daily. Patient may benefit with GI evaluation as an outpatient if reflux persists. Patient with BPH. At discharge he will continue with Doxasozin 1 mg daily. Patient with hyperlipidemia. Lipid panel stable at this time. Patient will continue with Lipitor 10 mg daily. Vital Signs/Physical Exam: Temp Pulse Resp BP Pulse Ox 97.4 F 63 16 125/84 97 08/12/19 04:00 08/12/19 05:12 08/12/19 06:12 08/12/19 05:12 08/12/19 04:00 General: Alert, In no apparent distress, Oriented x3, Cooperative HEENT: Atraumatic Neck: Supple Respiratory: Clear to auscultation bilaterally, Normal air movement Cardiovascular: Normal pulses, Regular rate/rhythm Integumentary: No erythema, No warmth, No cyanosis Neurological: Normal speech, Normal strength at 5/5 x4 extr, Normal tone, Abnormal affect (Mild anxiety) Laboratory Data at Discharge: WBC 7.6 K/uL (4.3-10.9) 08/12/19 03:00 Hgb 14.5 g/dL (13.6-17.9) 08/12/19 03:00 Hct 43.8 % (39.6-49.0) 08/12/19 03:00 Plt Count 274 K/uL (152-406) 08/12/19 03:00 PT 13.3 SECONDS (9.5-12.5) H 08/11/19 12:06 INR 1.13 08/11/19 12:06 Sodium 140 mmol/L (136-145) 08/12/19 03:00 Potassium 4.0 mmol/L (3.5-5.1) 08/12/19 03:00 BUN 18 mg/dL (7-18) 08/12/19 03:00 Creatinine 1.03 mg/dL (0.55-1.3) 08/12/19 03:00 Glucose 96 mg/dL (74-106) 08/12/19 03:00 Magnesium 2.4 mg/dL (1.8-2.4) 08/12/19 03:00 Total Bilirubin 0.2 mg/dL (0.2-1.0) 08/11/19 12:06 AST 24 U/L (15-37) 08/11/19 12:06 ALT 31 U/L (12-78) 08/11/19 12:06 Alkaline Phosphatase 123 U/L (45-117) H 08/11/19 12:06 Troponin I < 0.02 ng/mL (0.0-0.045) 08/12/19 03:00 Triglycerides 154 mg/dL (<150) H 08/12/19 03:00 Cholesterol 146 mg/dL (<200) 08/12/19 03:00 HDL Cholesterol 40 mg/dL (40-60) 08/12/19 03:00 Cholesterol/HDL Ratio 3.65 08/12/19 03:00 Home Medications: Apixaban [Eliquis] 5 mg PO BID 08/11/19 Atenolol [Tenormin] 25 mg PO DAILY 08/11/19 Atorvastatin Calcium 10 mg PO BEDTIME 08/11/19 Doxazosin [Cardura*] 1 mg PO [id number] 08/11/19 Tizanidine HCl [Zanaflex] 2 mg PO BID PRN #5 capsule 08/12/19 New Medications: Tizanidine HCl [Zanaflex] 2 mg PO BID PRN #5 capsule PRN Reason: Muscle Spasms Patient Discharge Instructions: 1. Recommend follow up with PCP and Cardiology within 1-2 weeks to follow up this hospitalization. 2. Patient presented with chest pain. This was reproducible with palpation. Patient was evaluated closely. Cardiac enzymes unremarkable. No significant changes on telemetry. Lipid panel within normal range. Patient had recent echocardiogram at [facility] which was unremarkable. Patient also reports normal cardiac stress test 1 year ago. No further intervention required at this time. Chest pain is atypical likely musculoskeletal. Patient may continue with Tylenol as needed for pain. Will provide Zanaflex 2 mg twice daily as needed for muscle spasm. A limited supply will be provided. Recommend follow up with his disabilities services officer and PCP in 1-2 weeks to follow up this hospitalization. 3. Patient with atrial fibrillation and hypertension. Compliance with atenolol address in detail. At discharge patient will continue with atenolol 25 mg daily and Eliquis 5 mg 1 pill twice daily. 4. Patient with GERD. At discharge patient may continue with his Prilosec once daily. Patient may benefit with GI evaluation as an outpatient if reflux persists. 5. Patient with BPH. At discharge he will continue with Doxasozin 1 mg daily. 6. Patient with hyperlipidemia. Lipid panel stable at this time. Patient will continue with Lipitor 10 mg daily. Diet: AHA Activity: Ad thor Time spent managing pt's care (in minutes): 55
[2019-08-12 08:28] VITALS: BP 132/80; TEMP 98.3
[2019-08-12] MEDS: APIXABAN 5 MG TABLET PO SCH (08:59)
[2019-08-12] MEDS: FAMOTIDINE 20 MG TAB PO SCH (08:59)
[2019-08-12 09:35] VITALS: O2SAT 96
== END 2019-08-12 09:30 | disposition home or self-care (01) | DRG 313 ==
LOC: ER 11:43 → ERHOLD 14:28 → INTOOBSV 14:29 → OBSVTOIN 14:29 → 2ND 15:41
PROVIDERS: ADMIT Family Medicine; ATTEND Family Medicine
DX: R07.89 Other chest pain (principal); I48.91 Unspecified atrial fibrillation; I10 Essential (primary) hypertension; K21.9 Gastro-esophageal reflux disease without esophagitis; N40.0 Benign prostatic hyperplasia without lower urinary tract symptoms; E78.5 Hyperlipidemia, unspecified; Z79.01 Long term (current) use of anticoagulants; Z79.899 Other long term (current) drug therapy; Z91.041 Radiographic dye allergy status; Z91.048 Other nonmedicinal substance allergy status
CPT/HCPCS: 36415; 71045; 80048; 80061; 80076; 82550; 82553; 83735; 83880; 84484; 85025; 85610; 93005; 99285; G0378

== ENCOUNTER 2020-01-03 15:57 | Emergency (ER) | payer SELFPAY ==
--- OUTSIDE RECORDS SUMMARY | 2020-01-03 15:59 | XMS REPORT | Clinical Summary ---
:1975 Author Organization [facility] Address [address] [place] [address] Care Team Providers Name Role Phone Asked, No Pcp Primary Care Provider Unavailable Allergies Active Allergy Reactions Severity Noted Date Comments Iodine 04/16/2018 Medications Not on file Active Problems Not on file Social History Tobacco Use Types Packs/Day Years Used Date Never Smoker Smokeless Tobacco: Never Used Alcohol Use Drinks/Week oz/Week Comments No Alcohol Habits Answer Date Recorded How often do you have a drink containing alcohol? Never 04/16/2018 How many drinks containing alcohol do you have on a typical Not asked day when you are drinking? How often do you have six or more drinks on one occasion? No t asked Sex Assigned at Date Recorded Not on file Job Start Date Occupation Industry Not on file Not on file Not on file Travel History Travel Start Travel End No recent travel history available. Last Filed Vital Signs Not on file Plan of Treatment Health Maintenance Due Date Last Done Comments INFLUENZA VACCINE 02/12/2020 04/17/2017 Results Not on fileafter 01/02/2019 Advance Directives For more information, please contact: [phone] Type Date Recorded Patient Groutman Explanati on Advance Directives, Living Will and Medical Power of Public Defender
--- OUTSIDE RECORDS SUMMARY | 2020-01-03 15:59 | XMS REPORT | Summary of Care ---
:1975 Author Organization [facility] Address [address] [place] [address] Care Team Providers Name Role Phone Lacey Segura MD Primary Care Provider [phone] Reason for Visit Reason Comments Rx Concern/Question Encounter Details Date Type Department Care Team Description 10/07/2019 Telephone [facility] Pediatric Kendra Segura Rx Concern/Question and Adult Primary Care- MD [address] [address] [address] [place] [address] [place] [address] [phone] Allergies Active Allergy Reactions Severity Noted Date Comments Iodine And Iodide Containing Products Hives Sotalol Swelling 11/29/2017 documented as of this encounter (statuses as of 10/08/2019) Medications Medication Sig Dispensed Refills Start End Date Status Date albuterol 90 Inhale 2 Puffs 8.5 g 11 Ac tive mcg/actuation every 6 (six) 0 inhalerIndications: SOB hours as needed (shortness of breath) for Wheezing or Shortness of Breath. albuterol 0.63 mg/3 mL Inhale 3 mL every 102 Vial 11 Active nebulizer 6 (six) hours as 0 solutionIndications: SOB needed for (shortness of breath) Wheezing. omeprazole 40 mg Take 1 capsule by 90 capsule 3 Active capsuleIndications: mouth daily. 0 Gastroesophageal reflux disease, esophagitis presence not specified atorvastatin 10 mg Take 1 tablet by 90 tablet 3 Active tabletIndications: mouth at bedtime. 0 Hypertriglyceridemia doxazosin 1 mg Take 1 tablet by 90 tablet 3 Active tabletIndications: Benign mouth daily. 0 prostatic hyperplasia (BPH) with straining on urination apixaban (ELIQUIS) 5 mg Take 1 tablet by 180 tablet 3 08/19/19 2 Active tabletIndications: atrial mouth 2 (two) 0 fibrillation times daily. Indications: atrial fibrillation atenoloL 25 mg Take 1 tablet by 180 tablet 3 Active tabletIndications: mouth 2 (two) 0 Essential hypertension times daily. acetaminophen-codeine Take 1 tablet by 90 tablet 0 Active (TYLENOL-CODEINE #4) mouth 3 (three) 0 300-60 mg times daily as tabletIndications: Acute needed (severe midline low back pain back pain from with left-sided sciatica disc injury at L1 and recent fall.). documented as of this encounter (statuses as of 10/08/2019) Active Problems Problem Noted Date Atypical chest pain 07/17/2019 Flank pain 07/17/[address] 10/28/2016 Overview: Added automatically from request for wing goyal [id number] Obesity (BMI 30-39.9) 10/26/2016 Hematemesis 09/06/2016 Essential hypertension 06/10/2016 PAF (paroxysmal atrial fibrillation) 06/09/2016 documented as of this encounter (statuses as of 10/08/2019) Resolved Problems Problem Noted Date Resolved Date Sepsis 10/26/2016 09/01/2017 documented as of this encounter (statuses as of 10/08/2019) Immunizations Name Administration Dates Next Due Influenza [...] worried that your food would Often true 07/17/2019 run out before you got money to buy more. Within the past 12 months, the food you bought just didn't O ften true 07/17/2019 last and you didn't have money to get more. Transportation Needs Answer Date Recorded In the past 12 months, has lack of transportation kept you f rom No 07/17/2019 medical appointments or from getting medications? In the past 12 months, has lack of transportation kept you f rom No 07/17/2019 meetings, work, or getting things [...] 04/17/2017 PNEUMOCOCCAL 0-64 YEARS Aged Out No longe r eligible based COMBINED SERIES on patient's age to complete this to pic documented as of this encounter Results Not on filedocumented in this encounter
--- OUTSIDE RECORDS SUMMARY | 2020-01-03 15:59 | XMS REPORT | Summary of Care ---
:1975 Author Organization [facility] Address [address] [place] [address] Care Team Providers Name Role Phone Lacey Segura MD Primary Care Provider [phone] Reason for Visit Reason Comments Assessment Pain Medication Encounter Details Date Type Department Care Team Description 10/17/2019 Telephone [facility] Pediatric Kendra Segura Assessment (Pain and Adult Primary A, Medication ) Care- [address], [address] [phone] [address] [phone] Allergies Active Allergy Reactions Severity Noted Date Comments Iodine And Iodide Containing Products Hives Sotalol Swelling 11/29/2017 documented as of this encounter (statuses as of 10/20/2019) Medications Medication Sig Dispensed Refills Start End Status Date Date albuterol 90 Inhale 2 Puffs 8.5 g 11 08/19/19 Ac tive mcg/actuation every 6 (six) 20 inhalerIndications: SOB hours as needed (shortness of breath) for Wheezing or Shortness of Breath. albuterol 0.63 mg/3 mL Inhale 3 mL 102 Vial 11 08/19/19 Active nebulizer every 6 (six) 20 solutionIndications: hours as needed SOB (shortness of for Wheezing. breath) omeprazole 40 mg Take 1 capsule 90 capsule 3 08/19/19 Active capsuleIndications: by mouth daily. 20 Gastroesophageal reflux disease, esophagitis presence not specified apixaban (ELIQUIS) 5 mg Take 1 tablet 180 tablet 3 08/19/19 Active tabletIndications: by mouth 2 20 atrial fibrillation (two) times daily. Indications: atrial fibrillation atenoloL 25 mg Take 1 tablet 180 tablet 3 08/19/19 Active tabletIndications: by mouth 2 20 Essential hypertension (two) times daily. acetaminophen-codeine Take 1 tablet 90 tablet 0 08/28/19 Active (TYLENOL-CODEINE #4) by mouth 3 20 300-60 mg (three) times tabletIndications: daily as needed Acute midline low back (severe back pain with left-sided pain from disc sciatica injury at L1 and recent fall.). atorvastatin 10 mg Take 1 tablet 90 tablet 3 08/19/1910/18/ Discontinued tabletIndications: by mouth at 2019 (Reorder) Hypertriglyceridemia bedtime. doxazosin 1 mg Take 1 tablet 90 tablet 3 08/19/1910/18/ D iscontinued tabletIndications: by mouth daily. 2019 (Reorder) Benign prostatic hyperplasia (BPH) with straining on urination documented as of this encounter (statuses as of 10/20/2019) Active Problems Problem Noted Date Atypical chest pain 07/17/2019 Flank pain 07/17/[address] 10/28/2016 Overview: Added automatically from request for wing goyal [id number] Obesity (BMI 30-39.9) 10/26/2016 Hematemesis 09/06/2016 Essential hypertension 06/10/2016 PAF (paroxysmal atrial fibrillation) 06/09/2016 documented as of this encounter (statuses as of 10/20/2019) Resolved Problems Problem Noted Date Resolved Date Sepsis 10/26/2016 09/01/2017 documented as of this encounter (statuses as of 10/20/2019) Immunizations Name Administration Dates Next Due Influenza [...] DTaP,Tdap,and Td Vaccines (1 1984 - Tdap) Depression Screening 1985 INFLUENZA VACCINE Completed 07/18/2019, 04/27/2017, 04/17/2017 PNEUMOCOCCAL 0-64 YEARS Aged Out No longe r eligible based COMBINED SERIES on patient's age to complete this to pic documented as of this encounter Results Not on filedocumented in this encounter
--- OUTSIDE RECORDS SUMMARY | 2020-01-03 16:00 | XMS REPORT | Summary of Care ---
:1975 Author Organization [facility] - [facility] Address [address] [place] [address] Care Team Providers Name Role Phone Lacey Segura MD Primary Care Provider Reason for Visit Reason Comments Refill Request Encounter Details Date Type Department Care Team Description 10/15/2019 Refill [facility] Pediatric and Lyndsay Segura, Refill Request Adult Primary Care- MD Ellis [address] [place] [address] [address] [address] [address] [place] [address] [place] [address] [phone] Allergies Active Allergy Reactions Severity Noted Date Comments Iodine And Iodide Containing Products Hives Sotalol Swelling 11/29/2017 documented as of this encounter (statuses as of 10/23/2019) Medications Medication Sig Dispensed Refills Start End [...] 10 mg Take 1 tablet 90 tablet 0 10/19/19 Active tabletIndications: by mouth at 20 Hypertriglyceridemia bedtime. doxazosin 1 mg Take 1 tablet 90 tablet 0 10/19/19 A ctive tabletIndications: by mouth daily. 20 Benign prostatic hyperplasia (BPH) with straining on urination atorvastatin 10 mg Take 1 tablet 90 tablet 3 08/19/1910/18/ Discontinued tabletIndications: by mouth at 2019 (Reorder) Hypertriglyceridemia bedtime. doxazosin 1 mg Take 1 tablet 90 tablet 3 08/19/19// D iscontinued tabletIndications: by mouth daily. 2019 (Reorder) Benign prostatic hyperplasia (BPH) with straining on urination documented as of this encounter (statuses as of 10/23/2019) Active Problems Problem Noted Date Atypical chest pain 07/17/2019 Flank pain 07/17/[address] 10/28/2016 Overview: Added automatically from request for wing jay jay [id number] Obesity (BMI 30-39.9) 10/26/2016 Hematemesis 09/06/2016 Essential hypertension 06/10/2016 PAF (paroxysmal atrial fibrillation) 06/09/2016 documented as of this encounter (statuses as of 10/23/2019) Resolved Problems Problem Noted Date Resolved Date Sepsis 10/26/2016 09/01/2017 documented as of this encounter (statuses as of 10/23/2019) Immunizations Name Administration Dates Next Due Influenza [...] Travel End No recent travel history available. COVID-19 Exposure Response Date Recorded In the last month, have you been in contact with No / Unsure 10/23/2019 1:47 AM CDT someone who was confirmed or suspected to have Coronavirus / COVID-19? documented as of this encounter Last Filed Vital Signs Not on filedocumented in this encounter Plan of Treatment Health Maintenance Due Date Last Done Comments DTaP,Tdap,and Td Vaccines (1 1984 - Tdap) Depression Screening 1985 INFLUENZA VACCINE Completed 07/18/2019, 04/27/2017, 04/17/2017 PNEUMOCOCCAL 0-64 YEARS Aged Out No longe r eligible based COMBINED SERIES on patient's age to complete this to [facility] documented as of this encounter Results Not on filedocumented in this encounter Visit Diagnoses Diagnosis Acute midline low back pain with left-si ded sciatica Hypertriglyceridemia Pure hyperglyceridemia Benign prostatic hyperplasia (BPH) with straining on urination documented in this encounter
--- OUTSIDE RECORDS SUMMARY | 2020-01-03 16:00 | XMS REPORT | Summary of Care ---
:1975 Author Organization [facility] - [facility] Address [address] [place] [address] Care Team Providers Name Role Phone Lacey Segura MD Primary Care Provider [phone] Reason for Visit Reason Comments Assessment Encounter Details Date Type Department Care Team Description 10/31/2019 Telephone [facility] Pediatric and Lyndsay Segura, Assessment Adult Primary Care- [address] [address] [address] [place] [address] [place] [address] [phone] Allergies Active Allergy Reactions Severity Noted Date Comments Iodine And Iodide Containing Products Hives Sotalol Swelling 11/29/2017 documented as of this encounter (statuses as of 11/07/2019) Medications Medication Sig Dispensed Refills Start End [...] disc injury at L1 and recent fall.). atorvastatin 10 mg Take 1 tablet by 90 tablet 0 Active tabletIndications: mouth at bedtime. 0 Hypertriglyceridemia doxazosin 1 mg Take 1 tablet by 90 tablet 0 Active tabletIndications: Benign mouth daily. 0 prostatic hyperplasia (BPH) with straining on urination traMADol (ULTRAM) 50 mg Take 1 tablet by 20 tablet 0 Active tabletIndications: Chest mouth every 6 0 wall pain (six) hours as needed for Pain (scale 7-10). documented as of this encounter (statuses as of 11/07/2019) Active Problems Problem Noted Date Atypical chest pain 07/17/2019 Flank pain 07/17/[address] 10/28/2016 Overview: Added automatically from request for wing goyal [id number] Obesity (BMI 30-39.9) 10/26/2016 Hematemesis 09/06/2016 Essential hypertension 06/10/2016 PAF (paroxysmal atrial fibrillation) 06/09/2016 documented as of this encounter (statuses as of 11/07/2019) Resolved Problems Problem Noted Date Resolved Date Sepsis 10/26/2016 09/01/2017 documented as of this encounter (statuses as of 11/07/2019) Immunizations Name Administration Dates Next Due Influenza [...] Treatment Date Type Specialty Care Team Description 11/25/2019 Office Visit Internal Medicine Mira Segura MD [address] [address] [phone] Health Maintenance Due Date Last Done Comments DTaP,Tdap,and Td Vaccines (1 1984 - Tdap) Depression Screening 1985 INFLUENZA VACCINE Completed 07/18/2019, 04/27/2017, 04/17/2017 PNEUMOCOCCAL 0-64 YEARS Aged Out No longe r eligible based COMBINED SERIES on patient's age to complete this to [facility] documented as of this encounter Results Not on filedocumented in this encounter
--- OUTSIDE RECORDS SUMMARY | 2020-01-03 16:00 | XMS REPORT | Summary of Care ---
:1975 Author Organization [facility] Address [address] [place] [address] Care Team Providers Name Role Phone Lacey Segura MD Primary Care Provider [phone] Reason for Referral Radiology Services (STAT) Status Reason Specialty Diagnoses / Referred By Referred To Procedures Contact Contact New Request Diagnostic Diagnoses Chest congestion Tracey Rodrigues Radiology Procedures XR CHEST 1 MOOSE Flores MD [address] [place] [address] [id number] [place] [id number] Reason for Visit Reason Comments UPPER RESPIRATORY INFECTION Auth/Cert Status Reason Specialty Diagnoses / Referred By Referred To Procedures Contact Contact Emergency Medicine Adc Em ergency Dept [address] [place] [address] Fax: Encounter Details Date Type Department Care Team Description 10/22/2019 - Emergency ADC-Emergency Tracey Rodrigues, Chest wal l pain (Primary Dx); 10/23/2019 Department Chest congestion; [address] [place] [address] Essential hypertension; Drive [id number] Screening for viral disease [address] [phone] [address] [phone] Allergies Active Allergy Reactions Severity Noted Date [...] automatically from request for wing jay jay [id number] Obesity (BMI 30-39.9) 10/26/2016 Hematemesis 09/06/2016 Essential [...] Sign Reading Time Taken Comments Blood Pressure 125/90 10/23/2019 1:49 AM CDT Pulse 87 10/23/2019 1:49 AM CDT Temperature 37 C (98.6 F) 10/22/2019 11:20 PM CDT Respiratory Rate 20 10/23/2019 1:49 AM CDT Oxygen Saturation 96% 10/23/2019 1:49 AM CDT Inhaled Oxygen Concentration - - Weight 95.3 kg (210 lb) 10/22/2019 11:20 PM CDT Height - - Body Mass Index 29.29 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 PROCEDURES IN THE ER TODAY: Orders Placed This Encounter Procedures XR CHEST 1 VW COVID-19 (ID NOW RAPID TESTING) TROPONIN I COMP. METABOLIC PANEL (61529) LIPASE, SERUM CBC WITH DIFF CBC WITH DIFFERENTIAL O2 Per Protocol MEDICATIONS ADMINISTERED IN THE ER TODAY AND DISCHARGE MEDICATIONS: Orders Placed This Encounter Medications traMADol (ULTRAM) 50 mg tablet FOLLOW-UP RECOMMENDATIONS: RECOMMEND FOLLOW-UP WITH A PRIMARY CARE PROVIDER NEEDED MONITOR YOUR BLOOD PRESSURE AND KEEP A LOG OF SAME FOR YOUR NEXT DOCTOR'S VISIT RETURN TO ER FOR WORSENING OF SYMPTOMS documented in this encounter Plan of Treatment Name Type Priority Associated Diagnoses Date/Ti me XR CHEST 1 VW IMAGING STAT Chest congestion 10/23/2019 12:15 AM CDT Health Maintenance Due Date Last Done Comments DTaP,Tdap,and Td Vaccines (1 1984 - Tdap) Depression Screening 1985 INFLUENZA VACCINE Completed 07/18/2019, 04/27/2017, 04/17/2017 PNEUMOCOCCAL 0-64 YEARS Aged Out No longe r eligible based COMBINED SERIES on patient's age to complete this to [facility] documented as of this encounter Procedures Procedure Name Priority Date/Time Associated Diagnosis Comme nts XR CHEST 1 VW STAT 10/23/2019 12:15 AM CDT Chest congestion Procedure Note - [facility], Radia nt Results Inft User - 10/23/2019 1:08 AM CDT EXAM: XR CHEST 1 VW CLINICAL INDICATION: cough COMPARISON: 07/17/2019 TECHNIQUE: A frontal view of the chest was obtained FINDINGS: No focal consolidation, pleu ral effusion, or pneumothorax. The cardiac silhouette is no rmal in size. No acute osseous abnormality . IMPRESSION No acute cardiopulmonary pro cess. Preliminary Report Dictated by Resident: Maldonado Lucero CBC WITH DIFFERENTIAL STAT 10/23/2019 12:03 AM Chest conges tion Results for this CDT procedure are i n the results section. CBC WITH DIFFERENTIAL Routine 10/23/2019 12:03 AM Chest conges tion Results for this CDT procedure are i n the results section. COMP. METABOLIC PANEL STAT 10/23/2019 12:03 AM Chest conges tion Results for this (80006) CDT procedure are i n the results section. TROPONIN I STAT 10/23/2019 12:03 AM Chest congestion Resu lts for this CDT procedure are i n the results section. LIPASE STAT 10/23/2019 12:03 AM Chest congestion Resu lts for this CDT procedure are i n the results section. EKG-12 LEAD STAT 10/22/2019 11:59 PM CDT COVID-19 (ID NOW RAPID STAT 10/22/2019 11:25 PM Chest conge stion Results for this TESTING) CDT procedure are i n the results section. ASSIGNMENT OF BENEFITS Routine 10/22/2019 10:58 PM CDT CONSENT/REFUSAL FOR Routine 10/22/2019 10:58 PM DIAGNOSIS AND CDT TREATMENT documented in this encounter Results CBC WITH DIFFERENTIAL (10/23/2019 12:03 AM CDT) Pathologist Sig nature WBC 8.10 4.20 - 10.70 [facility] 10*3/L [facility] RBC 4.79 4.26 - 5.52 [facility] 10*6/L [facility] HGB 14.1 12.2 - 16.4 [facility] g/dL [facility] HCT 42.2 38.4 - 49.3 % [facility] MCV 88.1 81.7 - 95.6 fL [facility] MCH 29.4 26.1 - 32.7 pg [facility] MCHC 33.4 31.2 - 35.0 [facility] g/dL [facility] RDW-SD 43.8 38.5 - 51.6 fL [facility] RDW-CV 13.4 12.1 - 15.4 % [facility] PLT 287 150 - 328 [facility] 10*3/L [facility] MPV 11.0 9.8 - 13.0 fL [facility] NRBC/100 WBC 0.0 0.0 - 10.0 /100 [facility] NRBC x10^3 <0.01 10*3/L [facility] GRAN MAT (NEUT) % 67.8 % [facility] IMM GRAN % 0.20 % [facility] LYMPH % 24.0 % [facility] MONO % 7.0 % [facility] EOS % 0.6 % [facility] BASO % 0.4 % [facility] GRAN MAT x10^3(ANC) 5.49 1.99 - 6.95 [facility] 10*3/uL HOSPITAL LAB[facility]ORY IMM GRAN x10^3 <0.03 0.00 - 0.06 [facility] 10*3/uL [facility]ITAL [facility] LYMPH x10^3 1.94 1.09 - 3.23 [facility] 10*3/uL [facility] MONO x10^3 0.57 0.36 - 1.02 [facility] 10*3/uL HOSPITAL LAB[facility] EOS x10^3 0.05 (L) 0.06 - 0.53 [facility] 10*3/uL H[facility]ITAL [facility] BASO x10^3 0.03 0.01 - 0.09 [facility] 10*3/uL HOSPITAL LAB[facility]ORY Specimen Blood - VENOUS Performing Organization Address City/[facility]/Zipcode Phone Number [facility] CLIA: [id number], [address] [place] [address] LIPASE, SERUM (10/23/2019 12:03 AM CDT) Pathologist Sig nature LIPASE 124 0 - 220 U/L [facility] Specimen Blood - VENOUS Performing Organization Address City/[facility]/Zipcode Phone Number [facility] CLIA: [id number], [address] [place] [address] COMP. METABOLIC PANEL (71622) (10/23/2019 12:03 AM CDT) Pathologist Sig nature NA 139 135 - 145 [facility] mmol/L [facility] K 3.6 3.5 - 5.0 [facility] mmol/L [facility] CL 105 98 - 108 mmol/L [facility] CO2 TOTAL 25 23 - 31 mmol/L [facility] AGAP 9 2 - 16 [facility] BUN 23 7 - 23 mg/dL [facility] GLUCOSE 113 (H) 70 - 110 mg/dL [facility] CREATININE 1.03 0.60 - 1.25 [facility] mg/dL [facility] TOTAL BILI 0.3 0.1 - 1.1 mg/dL [facility] CALCIUM 9.5 8.6 - 10.6 [facility] mg/dL [facility] T PROTEIN 7.8 6.3 - 8.2 g/dL [facility] ALBUMIN 4.5 3.5 - 5.0 g/dL [facility] ALK PHOS 106 34 - 122 U/L [facility] ALTv 16 5 - 50 U/L [facility] AST(SGOT) 26 13 - 40 U/L [facility] eGFR Calculation 77.7 mL/min/1.73m2 [facility] ([facility] [place]) eGFR Calculation 94.2 mL/min/1.73m2 [facility] () [facility] Specimen Blood - VENOUS Narrative Performed At Association of Glomerular Filtration Rate (GFR) [facility] and Staging of Kidney Disease* [...] tests). Performing Organization Address City/State/Zipcode Phone Number [facility] CLIA: [id number], [address] [place], [place] [address] [facility] [address] TROPONIN I (10/23/2019 12:03 AM CDT) Pathologist Sig nature TROPONIN I <0.012 <=0.034 ng/mL [facility] Specimen Blood - VENOUS Narrative Performed At Equal or Less than 0.034 ng/ml---Normal [facility] Note: Cardiac troponin begins to rise 3-4 hours after the onset of ischemia. Repeat in 4-6 hours if the sample was drawn within 3-4 hours of the onset of the symptom and found normal. Between 0.035 and 0.120 ng/mL--- Borderline. Questionable myocardial injury or necros is Note: Serial measurement may be necessary to [...] biotin. Performing Organization Address City/State/Zipcode Phone Number [facility] CLIA: [id number], [address] [place], [place] [address] COVID-19 (ID NOW RAPID TESTING) (10/22/2019 11:25 PM CDT) SARS-CoV-2 Rapid ID Not Detected Not Detected [facility] Specimen Swab - NASOPHARYNGEAL SWAB Narrative Performed At ID NOW COVID-19 Assay is an isothermal nucleic [facility] acid amplification test intended for the qualitative detection of nucleic acid from SARS-CoV-2 viral RNA in nasopharyngeal (JIG OPERATOR) specimens. It is used under Emergency Use Authorization (EUA) by FDA. The limit of detection (LOD) of the assay is 125 Genome Equivalents/mL. A positive result is indicative of the presence of SARS-CoV-2 RNA. Clinical correlation with patient history and other diagnostic information is necessary to determine patient infection status. A negative (Not Detected) result does not preclude SARS-CoV-2 infection. In patients with clinical symptoms and other tests that are consistent with SARS-CoV-2 infection, negative results should be treated as presumptive negative and a new specimen should be tested with alternative PCR molecular test. Invalid: Please collect a new specimen for repeat patient testing if clinically indicated. Performing Organization Address City/State/Zipcode Phone Number [facility] CLIA: [id number], [address] [place], [place] [address] documented in this encounter Visit Diagnoses Diagnosis Chest wall pain - Primary Painful respiration Chest congestion Other symptoms involving respiratory sys tem and chest Essential hypertension Unspecified essential hypertension Screening for viral disease Special screening examination for unspec ified viral disease documented in this encounter"
--- OUTSIDE RECORDS SUMMARY | 2020-01-03 16:01 | XMS REPORT | Summary of Care ---
:1975 Author Organization [facility] Address [address] [place] [address] Care Team Providers Name Role Phone Lacey Segura MD Primary Care Provider [phone] Reason for Visit Reason Comments Social Work Encounter Details Date Type Department Care Team Description 11/27/2019 Patient Outreach [facility] Pediatric Catarino Bowden Social Work and Adult Primary Care- [address] [place] [address], [address] [place] [address] Allergies Active Allergy Reactions Severity Noted Date Comments Iodine And Iodide Containing Products Hives Sotalol Swelling 11/29/2017 documented as of this encounter (statuses as of 11/27/2019) Medications Medication Sig Dispensed Refills Start End Date Status Date albuterol 0.63 mg/3 mL Inhale 3 mL every 102 Vial 11 Active nebulizer 6 (six) hours as 0 solutionIndications: SOB needed for (shortness of breath) Wheezing. apixaban (ELIQUIS) 5 mg Take 1 tablet by 180 tablet 3 08/19/19 2 Active tabletIndications: atrial mouth 2 (two) 0 fibrillation times daily. Indications: atrial fibrillation atenoloL 25 mg Take 1 tablet by 180 tablet 3 Active tabletIndications: mouth 2 (two) 0 Essential hypertension times daily. atorvastatin 10 mg Take 1 tablet by 90 tablet 0 Active tabletIndications: mouth at bedtime. 0 Hypertriglyceridemia doxazosin 1 mg Take 1 tablet by 90 tablet 0 Active tabletIndications: Benign mouth daily. 0 prostatic hyperplasia (BPH) with straining on urination ipratropium 0.02 % Inhale 2.5 mL 120 Vial 11 Active nebulizer every 6 (six) 0 solutionIndications: hours as needed Sputum production for Wheezing or Shortness of Breath. acetaminophen-codeine Take 1 tablet by 90 tablet 0 Active (TYLENOL-CODEINE #4) mouth 3 (three) 0 300-60 mg times daily as tabletIndications: needed (severe chronic pain back pain from disc injury at L1 and recent fall.). Indications: chronic pain documented as of this encounter (statuses as of 11/27/2019) Active Problems Problem Noted Date Atypical chest pain 07/17/2019 Flank pain 07/17/[address] 10/28/2016 Overview: Added automatically from request for wing goyal [id number] Obesity (BMI 30-39.9) 10/26/2016 Hematemesis 09/06/2016 Essential hypertension 06/10/2016 PAF (paroxysmal atrial fibrillation) 06/09/2016 documented as of this encounter (statuses as of 11/27/2019) Resolved Problems Problem Noted Date Resolved Date Sepsis 10/26/2016 09/01/2017 documented as of this encounter (statuses as of 11/27/2019) Immunizations Name Administration Dates Next Due Influenza [...] last month, have you been in contact Unable to assess 11/25/2019 8:44 AM CDT with someone who was confirmed or suspected to have Coronavirus / COVID-19? documented as of this encounter Last Filed Vital Signs Not on filedocumented in this encounter Progress Notes Taryn Bowden - 11/27/2019 3:01 PM CDTSocial work Note TRANSPORTATION SERVICES REPRESENTATIVE received a referral to assist patient with Indigent program application. TRANSPORTATION SERVICES REPRESENTATIVE called patient and he reported that he faxed an application few months ago and he hasn't received any response. TRANSPORTATION SERVICES REPRESENTATIVE encouraged patient to fax the application again and to call [place] Office to follow up that they received it. [facility] sent an email to patient with the indigent program application and the following information: [facility] indigent Program Attention: Maile Upton [place] [phone] Please email Billing Inquiries to [email or web address] Other medical resources in your area: [facility] prescription Assistance -[phone] [facility] Lino Bustamante [address] [place] [address] Director: Marlena Aparicio /[phone] for apps Email: [email or web address] Hours: Sunday, 8:00 a.m. 5:00 p.m. & Fridays, 8:00 a.m. 12:00 p.m TRANSPORTATION SERVICES REPRESENTATIVE also emailed Mrs. Maile Felix to follow up on his application. Patient was CC in that email. Please consult TRANSPORTATION SERVICES REPRESENTATIVE if other needs arise. Taryn Bowden LMSW Food Service Utility Worker Demond Ellis and [facility] Department of Care Management Ambulatory Social Work Bethany Bellamy @ [address] [place] [address], [address] [place] [address] Office: called TRANSPORTATION SERVICES REPRESENTATIVE and reported she hasn't received patient application. She requested that patient mail the application to the [place] location. TRANSPORTATION SERVICES REPRESENTATIVE called patient but he didn't answer the phone. TRANSPORTATION SERVICES REPRESENTATIVE left a detail message with instructions. documented in this encounter Plan of Treatment Date Type Specialty Care Team Description 12/04/2019 Telemedicine Visit Internal Medicine Alesia Segura MD [address] [place] [address] [place], [place] [address] [phone] Health Maintenance Due Date Last Done Comments DTaP,Tdap,and Td Vaccines (1 1984 - Tdap) Depression Screening 1985 INFLUENZA VACCINE (#1) 2020 07/18/2019, 04/27/2017, 04/17/2017 PNEUMOCOCCAL 0-64 YEARS Aged Out No longe r eligible based COMBINED SERIES on patient's age to complete this to pic documented as of this encounter Results Not on filedocumented in this encounter
--- OUTSIDE RECORDS SUMMARY | 2020-01-03 16:01 | XMS REPORT | Summary of Care ---
:[address] [facility] Address [address] [place] [address] Care Team Providers Name Role Phone Lacey Segura MD Primary Care Provider [phone] Reason for Visit Reason Comments Social Work Encounter Details Date Type Department Care Team Description 11/27/2019 Patient Outreach [facility] Pediatric Catarino Bowden Social Work and Adult Primary Care- [address] [place] [address], [address] [place] [address] Allergies Active Allergy Reactions Severity Noted [...] Added automatically from request for wing goyal [id number] Obesity (BMI 30-39.9) 10/26/2016 Hematemesis 09/06/2016 Essential [...] - 11/27/2019 3:01 PM CDTSocial work Note ESCROW ASSISTANT received a referral to assist patient with Indigent program application. ESCROW ASSISTANT called patient and he reported that he faxed an application few months ago and he hasn't received any response. ESCROW ASSISTANT encouraged patient to fax the application again and to call [place] Office to follow up that they received it. [facility] sent an email to patient with the indigent program application and the following information: [facility] indigent Program Attention: Maile Upton [place] [phone] Please email Billing Inquiries to [email or web address] Other medical resources in your area: [facility] prescription Assistance -[phone] [facility] Lino Bustamante [address] [place] [address] Director: Marlena Aparicio /[phone] for apps Email: [email or web address] Hours: Sunday, 8:00 a.m. 5:00 p.m. & Fridays, 8:00 a.m. 12:00 p.m ESCROW ASSISTANT also emailed Mrs. Maile Felix to follow up on his application. Patient was CC in that email. Please consult ESCROW ASSISTANT if other needs arise. Taryn Bowden LMSW Podiatric Surgeon Demond Ellis and [facility] Department of Care Management Ambulatory Social Work documented in this encounter Plan of Treatment Date Type Specialty Care Team Description 12/04/2019 Telemedicine Visit Internal Medicine Alesia Segura MD [address] [facility] [address] [place], [place] [address] [phone] Health Maintenance Due Date Last Done Comments DTaP,Tdap,and Td Vaccines (1 1984 - Tdap) Depression Screening 1985 INFLUENZA VACCINE (#1) 2020 07/18/2019, 04/27/2017, 04/17/2017 PNEUMOCOCCAL 0-64 YEARS Aged Out No longe r eligible based COMBINED SERIES on patient's age to complete this to pic documented as of this encounter Results Not on filedocumented in this encounter
--- OUTSIDE RECORDS SUMMARY | 2020-01-03 16:01 | XMS REPORT | Summary of Care ---
:[address] [facility] Address [address] [place] [id number] Care Team Providers Name Role Phone Lacey Segura MD Primary Care Provider [phone] Reason for Visit Reason Comments Follow-up Encounter Details Date Type Department Care Team Description 11/25/2019 Telemedicine Visit [facility] [place], Dwight pr oduction (Primary Dx); Pediatric and Adult Lacey Troy MD Cough; Primary Care- [address] [place] [address] Does not have health insurance; [facility] 103 Acute midline low back pain with left-si ded sciatica; [address] [place] [address] Difficulty urinating; Drive, [phone] JESSE (obstructive sleep apnea); [place], [place] [phone] Difficulty sleeping [phone] Allergies Active Allergy Reactions Severity Noted Date Comments Iodine And Iodide Containing Products Hives Sotalol Swelling 11/29/2017 documented as of this encounter (statuses as of 12/04/2019) Medications Medication Sig Dispensed Refills Start End Status Date Date albuterol 0.63 mg/3 mL Inhale 3 mL 102 Vial 11 08/19/19 Active nebulizer every 6 (six) 20 solutionIndications: hours as needed SOB (shortness of for Wheezing. breath) apixaban (ELIQUIS) 5 mg Take 1 tablet 180 tablet 3 08/19/19 Active tabletIndications: by mouth 2 20 atrial fibrillation (two) times daily. Indications: atrial fibrillation atenoloL 25 mg Take 1 tablet 180 tablet 3 08/19/19 Active tabletIndications: by mouth 2 20 Essential hypertension (two) times daily. atorvastatin 10 mg Take 1 tablet 90 tablet 0 10/19/19 Active tabletIndications: by mouth at 20 Hypertriglyceridemia bedtime. doxazosin 1 mg Take 1 tablet 90 tablet 0 10/19/19 A ctive tabletIndications: by mouth daily. 20 Benign prostatic hyperplasia (BPH) with straining on urination ipratropium 0.02 % Inhale 2.5 mL 120 Vial 11 11/25/19 Active nebulizer every 6 (six) 20 solutionIndications: hours as needed Sputum production for Wheezing or Shortness of Breath. acetaminophen-codeine Take 1 tablet 90 tablet 0 11/25/19 Active (TYLENOL-CODEINE #4) by mouth 3 300-60 mg (three) times tabletIndications: daily as needed chronic pain (severe back pain from disc injury at L1 and recent fall.). Indications: chronic pain albuterol 90 Inhale 2 Puffs 8.5 g 11 08/19/1911/24/ Di scontinued mcg/actuation every 6 (six) 2019 (T herapy inhalerIndications: SOB hours as needed completed) (shortness of breath) for Wheezing or Shortness of Breath. omeprazole 40 mg Take 1 capsule 90 capsule 3 08/19/1911/24/ Discontinued capsuleIndications: by mouth daily. 2019 (Therapy Gastroesophageal reflux completed) disease, esophagitis presence not specified acetaminophen-codeine Take 1 tablet 90 tablet 0 08/28/1911/11 4/ Discontinued (TYLENOL-CODEINE #4) by mouth 3 2019 (Therapy 300-60 mg (three) times comple erick) tabletIndications: daily as needed Acute midline low back (severe back pain with left-sided pain from disc sciatica injury at L1 and recent fall.). traMADol (ULTRAM) 50 mg Take 1 tablet 20 tablet 0 10/23/19/ Discontinued tabletIndications: by mouth every 2019 (Therapy Chest wall pain 6 (six) hours completed) as needed for Pain (scale 7-10). documented as of this encounter (statuses as of 12/04/2019) Active Problems Problem Noted Date Atypical chest pain 07/17/2019 Flank pain 07/17/[address] 10/28/2016 Overview: Added automatically from request for wing goyal [id number] Obesity (BMI 30-39.9) 10/26/2016 Hematemesis 09/06/2016 Essential hypertension 06/10/2016 PAF (paroxysmal atrial fibrillation) 06/09/2016 documented as of this encounter (statuses as of 12/04/2019) Resolved Problems Problem Noted Date Resolved Date Sepsis 10/26/2016 09/01/2017 documented as of this encounter (statuses as of 12/04/2019) Immunizations Name Administration Dates Next Due Influenza [...] you been in contact Unable to assess 12/04/2019 8:39 AM CDT with someone who was confirmed or suspected to have Coronavirus / COVID-19? documented as of this encounter Last Filed Vital Signs Not on filedocumented in this encounter Progress Notes Lacey Segura MD - 11/25/2019 4:20 PM CDT DOS: 11/25/2019 CC: Follow up of chronic conditions Verbal consent obtained from Patient: Mikhail Reilly for telehealth services provided below. Communication with patient was conducted via Telephone due to patient unable to obtain video call option. Location of Patient: Home Location of Provider: Clinic Date of Service: 11/25/2019 HPI: Mikhail Reilly is a 44 year old male with history including has a past medical history of A-fib,Former smoker, stopped smoking many years ago, GERD (gastroesophageal reflux disease), History of bronchoscopy, History of marijuana use, Hypertension, and Rhabdomyolysis (2012). who is being seen today for follow up of chronic conditions. Patient states he was sick last month. He went to the ED and tested negative for COVID. Patient states he's been coughing up black stuff again. He feels like something is stuck in his chest. In the past he's coughed up black stuff and was treated with antifungals. He states the nebulizertreatments are no longer working like they used to. He states the inhalers are too expensive and would like to know if there's a cheaper one he can use. Patient feels like he did something to his back. He states he hasn't been the same since he fell. Hereports pain when he stands up. He's been taking Aleve which helps some but doesn't do much for pain. He would like to have his back checked. He states the Tylenol 4 is the only thing that seemed to help with pain. He states after he fell he noticed some numbness throughout his left leg, sounds like he's having sciatica. Patient states he gets immune to stuff very fast. He states for example he can take a pain pill but his body builds up a tolerance so he requires more. He states he was told it could be related to his metabolism. Patient states he's been having issues sleeping. He states he's on CPAP but he doesn't know what pressures to put it on. Patient states his BPs have been low and his heart rate has been high. He states he hasn't been taking the atenolol 25mg until the last two weeks. He states the other day his BP was 140/90 so he took the atenolol. He states he lost a lot of weight. Patient states he's been hurting for 8 or 9 years now. He states he would like to get disability buthe's been denied in the past. He states he gets embarrassed at work due to his health issues. Patient states he's having trouble peeing again. He states he sometimes has to sit down to pee whichis embarrassing to him. Health Maintenance Discuss at future visit. Medications reviewed in EPIC, past medical history and social history and allergies reviewed. Review of Systems Constitutional: Positive for weight loss. Respiratory: Positive for cough. Genitourinary: Positive for difficulty urinating. Musculoskeletal: Positive for back pain. Neurological: Positive for numbness. Psychiatric/Behavioral: Positive for sleep disturbance. Endocrine: Positive for weight loss. PE: This is a televisit unable to get vitals. Physical Exam Constitutional: Alert and oriented Pulmonary/Chest: Breath sounds normal. No respiratory distress. He has no wheezes. Breathing comfortably Neurological: Answers questions appropriately Psychiatric: He has a normal mood and affect. Thought content normal. Results: No new labs A total of 28 minutes was spent on the Telephone due to patient unable to obtain video call option with the patient. A/P: Mikhail Reilly is a 44 year old male with history including has a past medical history of A-fib, Former smoker, stopped smoking many years ago, GERD (gastroesophageal reflux disease), History of bronchoscopy, History of marijuana use, Hypertension, and Rhabdomyolysis (2013). who is being seen today for chronic medical conditions. Sputum production (primary encounter diagnosis) Cough Comment: patient reports he's coughing up black stuff again. Last time he reports Dr. Howell rinsed out his lungs (sounds like bronchoscopy) and that finally took away the black stuff. Plan: START ipratropium 0.02 % nebulizer solution. Patient will follow with pulmonary after he gets insurance. Does not have health insurance Comment: referral sent. Plan: CONSULT/REFERRAL SOCIAL WORK-AMBULATORY Acute midline low back pain with left-sided sciatica Comment: pain not controlled. Sounds like he's having sciatic pain down the left side as he reports left leg numbness that he noticed after he fell. Likely need imaging but patient doesn't have insurance. Plan: acetaminophen-codeine (TYLENOL-CODEINE #4) 300-60 mg tablet Difficulty urinating Comment: likely related to BPH Plan: Discussed with patient to try samara hastings. JESSE (obstructive sleep apnea) Comment: he has a CPAP but doesn't know what pressures to keep it at. Plan: will get with sleep clinic. Difficulty sleeping Comment: Based on multiple discussions did not get time to fully address this or discuss possible treatment for insomnia. Unsure if he really has insomnia or if it's related to sputum production at night. Could also be related to sleep apnea. Plan: will address further at next visit. Return for telehealth visit next december 03 for follow-up. Plan of care, desired health behaviors, goals,& medication discussed with patient and educational resources and self management tools provided as appropriate. Patient/family/guardian voices understanding. Patient verbalized understanding & agrees to plan of care. Barriers to care: none Ability to manage care: good Scribe's Attestation IAnel , am scribing for, and in the presence of, Lacey Segura MD who performed the services described here-in. Anel Andrade, November 25, 2019, 5:09 PM Physician's Attestation I, Lacey Segura MD, personally performed the services described in this documentation , asscribed by, Anel Andrade in my presence and it is both accurate and complete. Lacey Segura MD December 04, 2019, 3:08 PM documented in this encounter Plan of Treatment Date Type Specialty Care Team Description 12/04/2019 Telemedicine Visit Internal Medicine Alesia Segura Arrived MD [address] [address] [phone] Health Maintenance Due Date Last Done Comments DTaP,Tdap,and Td Vaccines (1 1984 - Tdap) Depression Screening 1985 INFLUENZA VACCINE (#1) 2020 07/18/2019, 04/27/2017, 04/17/2017 PNEUMOCOCCAL 0-64 YEARS Aged Out No longe r eligible based COMBINED SERIES on patient's age to complete this to pic documented as of this encounter Results Not on filedocumented in this encounter Visit Diagnoses Diagnosis Sputum production - Primary Cough Cough Does not have health insurance Other specified housing or economic circ umstances Acute midline low back pain with left-si ded sciatica Difficulty urinating Other symptoms involving urinary system JESSE (obstructive sleep apnea) Obstructive sleep apnea (adult) (pediatr ic) Difficulty sleeping Sleep disturbance, unspecified documented in this encounter
--- OUTSIDE RECORDS SUMMARY | 2020-01-03 16:01 | XMS REPORT | Summary of Care ---
:1975 Author Organization [facility] Address [address] [place] [id number] Care Team Providers Name Role Phone Lacey Segura MD Primary Care Provider [phone] Reason for Visit Reason Comments Follow-up Encounter Details Date Type Department Care Team Description 12/04/2019 Telemedicine Visit [facility] [place], Dwight pr oduction (Primary Dx); Pediatric and Lacey Troy MD Cough; Adult Primary [address] [facility] D r Tachycardia; [facility] 103 Acute midline low back pain with left-si ded sciatica; [address] [place], [place] [address] [address] [place], [place] [phone] Allergies Active Allergy Reactions Severity Noted Date Comments Iodine And Iodide Containing Products Hives Sotalol Swelling 11/29/2017 documented as of this encounter (statuses as of 12/11/2019) Medications Medication Sig Dispensed Refills Start End [...] Shortness of Breath. acetaminophen-codeine Take 1 tablet 120 tablet 0 12/04/19 Active (TYLENOL-CODEINE #4) by mouth every 20 300-60 mg 6 (six) hours tabletIndications: as needed chronic pain (severe back pain from disc injury at L1 and recent fall.). Indications: chronic pain acetaminophen-codeine Take 1 tablet 90 tablet 0 11/25/1911/12 3/ Discontinued (TYLENOL-CODEINE #4) by mouth 08 01 2019 (Reorder) 300-60 mg (three) times tabletIndications: daily as needed chronic pain (severe back pain from disc injury at L1 and recent fall.). Indications: chronic pain documented as of this encounter (statuses as of 12/11/2019) Active Problems Problem Noted Date Atypical chest pain 07/17/2019 Flank pain 07/17/[address] 10/28/2016 Overview: Added automatically from request for wing goyal [id number] Obesity (BMI 30-39.9) 10/26/2016 Hematemesis 09/06/2016 Essential hypertension 06/10/2016 PAF (paroxysmal atrial fibrillation) 06/09/2016 documented as of this encounter (statuses as of 12/11/2019) Resolved Problems Problem Noted Date Resolved Date Sepsis 10/26/2016 09/01/2017 documented as of this encounter (statuses as of 12/11/2019) Immunizations Name Administration Dates Next Due Influenza [...] encounter Progress Notes Lacey Segura MD - 12/04/2019 3:20 PM CDT DOS: 12/04/2019 CC: Follow up of chronic conditions Verbal consent obtained from Patient: Mikhail Reilly for telehealth services provided below. Communication with patient was conducted via Telephone due to patient unable to obtain video call option. Location of Patient: Home Location of Provider: Office Date of Service: 12/04/2019 HPI: Mikhail Reilly is a 44 year old male with history including has a past medical history of A-fib,Former smoker, stopped smoking many years ago, GERD (gastroesophageal reflux disease), History of bronchoscopy, History of marijuana use, Hypertension, and Rhabdomyolysis (2012). who is being seen today for follow up of chronic conditions. Since last visit the high school social studies tutor tried to track down his paperwork for the indigent program and itlooks like they never received it so they requested for him to mail it to the [place] location. Patient did not answer when the high school social studies tutor called him so she left a detailed message. Patient states he never got the message. Nebulizer helps, he feels like the breathing treatments open his chest up. He states he's coughing and spitting up a lot of black stuff. He still sometimes feel like something is stuck in his chest. Patient states he's still having issues with BP and heart rate. He states his heart rate has been hanging around the 90s and hasn't gone above 150. He states he's had to take the atenolol like 7 times,unsure the time frame on this as it was difficult to under stand him on the phone. He was using a lot of albuterol. Patient states he's constipated. Patient states his back pain is a little worse than it was last night, he would like to have an MRI done. He's having to take the Tylenol 4 at least 4 times a day but it is working. Health Maintenance Discuss at future visit. Medications reviewed in EPIC, past medical history and social history and allergies reviewed. Review of Systems Respiratory: Positive for cough. Gastrointestinal: Positive for constipation. Musculoskeletal: Positive for back pain. PE: This is a televisit unable to get vitals. Physical Exam Constitutional: Alert and oriented Pulmonary/Chest: Breath sounds normal. No respiratory distress. He has no wheezes. Breathing comfortably Neurological: Answers questions appropriately Psychiatric: He has a normal mood and affect. Thought content normal. Results: No new labs A total of 16 minutes was spent on the Telephone due [...] (2012). who is being seen today for chronic medical conditions. Sputum production (primary encounter diagnosis) Cough Comment: patient reports he's coughing up a lot of black stuff. Nebulizer treatment helps. He still needs to see pulmonary but he has no insurance. The testing is expensive and he is not able to cover it. Plan: he still doesn't have insurance, will work on getting his application for the indigent programmoving along so he can follow with pulmonary. Tachycardia Comment: still having issues. Plan: discussed with patient to stay away from using this albuterol as this can raise heart rate. Acute midline low back pain with left-sided sciatica Comment: pain not controlled. Patient would like imaging done but he still doesn't have insurance, will work on getting his application for the indigent program moving along. Tylenol 4 helps. Plan: acetaminophen-codeine (TYLENOL-CODEINE #4) 300-60 mg tablet Other constipation Comment: patient c/o constipation. Plan: Can try one teaspoon of mineral oil and mix in with coffee. Return for ALT visit in a couple wks for follow-up, in clinic visit or telehealth in 4 wks if possible if not then soonest available. Plan of care, desired health behaviors, goals,& medication discussed with patient and educational resources and self management tools provided as appropriate. Patient/family/guardian voices understanding. Patient verbalized understanding & agrees to plan of care. Barriers to care: none Ability to manage care: good Scribe's Attestation Anel Burt , am scribing for, and in the presence of, Lacey Segura MD who performed the services described here-in. Anel Andrade, December 04, 2019, 3:09 PM Physician's Attestation Lacey Burt MD, personally performed the services described in this documentation , asscribed by, Anel Andrade in my presence and it is both accurate and complete. Lacey Segura MD December 11, 2019, 9:04 PM documented in this encounter Plan of Treatment Date Type Specialty Care Team Description 01/15/2020 Telemedicine Visit Internal Medicine Alesia Segura MD [address] [place] [address] [phone] Health Maintenance Due Date Last Done Comments [...] Diagnosis Sputum production - Primary Cough Cough Tachycardia Tachycardia, unspecified Acute midline low back pain with left-si ded sciatica Other constipation documented in this encounter
[2020-01-03 16:33] LABS: Absolute Lymphocytes (CBC) 0.7 K/uL (0.7-4.9); Basophils % 0.2 % (0-1.3); Hematocrit 39.9 % (39.6-49.0); Lymphocytes % 11.3 % (15.3-44.8); MPV 8.8 fL (7.6-11.3); RBC Red Blood Cell Count 4.44 M/uL (4.33-5.43)
[2020-01-03 16:36] LABS: Protime INR 1.27
[2020-01-03] MEDS ORDERED: NA CHLORIDE 0.9% 1,000 ML ONE (16:37)
--- NOTE | 2020-01-03 16:44 | RAD REPORT ---
EXAM DESCRIPTION: Rafa Single View01/03/2020 4:32 pm CLINICAL HISTORY: Chest pain COMPARISON: July 2019 FINDINGS: The lungs appear clear of acute infiltrate. The heart is normal size IMPRESSION: No acute abnormalities displayed
[2020-01-03 16:51] LABS: ALT/SGPT 16 U/L (12-78); AST/SGOT 19 U/L (15-37); Albumin 3.7 g/dL (3.4-5.0); Alkaline Phosphatase 103 U/L (45-117); BUN Blood Urea Nitrogen 17 mg/dL (7-18); Bicarbonate 27 mmol/L (21-32); Bilirubin Direct < 0.1 mg/dL (0-0.2); Bilirubin Total 0.4 mg/dL (0.2-1.0); Glucose Level 90 mg/dL (74-106); Magnesium 2.3 mg/dL (1.8-2.4); NT PRO-BNP 75 pg/mL (<125); Potassium 3.9 mmol/L (3.5-5.1); Protein, Total 7.5 g/dL (6.4-8.2); Sodium Level 142 mmol/L (136-145); Troponin (Emerg Dept Use Only) < 0.02 ng/mL (0.0-0.045)
--- NOTE | 2020-01-03 17:46 | EDPHYS ---
Physician Documentation [facility] Name: Mikhail Reilly Age: 44 yrs Sex: Male : 1975 Arrival Date: 01/03/2020 Time: 16:00 Bed 18 Private MD: ED Physician Luke Saleh HPI: 01/02 16:20 This 44 yrs old Male presents to ER via EMS with complaints of Chest Pain > 30 jmm y/o. 16:20 The patient or guardian reports chest pain that is located primarily in the substernal jmm area. Onset: acutely, .5 hour(s) ago. The pain does not radiate. Associated signs and symptoms: Pertinent positives: dizziness, palpitations. This is a 44 year old male with a history of htn, atrial fibrillation that presents to the ED with complaints of acute onset weakness, dizziness, when attempting to stand up. Patient states he developed palpitations. Chest pain has descreased since the initial episode. Patient states he hadnt taken his atenolol for 3 days due to normal blood pressures at home. Historical: - Allergies: 16:04 contrast; ca1 16:04 Iodine; ca1 16:04 Iodinated Contrast Media - IV Dye; ca1 - Home Meds: 16:34 atenolol 25 mg Oral tab 1 tab once daily [Active]; Eliquis Oral [Active]; Xanax Oral as ca1 needed [Active]; - PMHx: 16:04 Atrial Fib; Back pain; Hypertension; Kidney stones; muscle spasms numerous times ca1 requiring Er visits with fluid resusitation; - PSHx: 16:04 None; ca1 - Immunization history:: Adult Immunizations up to date. - Social history:: Smoking status: Patient denies any tobacco usage or history of. ROS: 16:20 Constitutional: Negative for fever, chills, and weight loss. jmm 16:20 Cardiovascular: Positive for chest pain, palpitations. 16:20 Neuro: Positive for dizziness. 16:20 All other systems are negative. Exam: 16:20 Constitutional: This is a well developed, well nourished patient who is awake, alert, jmm and in no acute distress. Head/Face: atraumatic. Eyes: EOMI, no conjunctival erythema appreciated ENT: Moist Mucus Membranes Neck: Trachea midline, Supple Chest/axilla: Normal chest wall appearance and motion. 16:20 Abdomen/GI: Non distended, soft Back: Normal ROM Skin: General appearance color normal MS/ Extremity: Moves all extremities, no obvious deformities appreciated, no edema noted to the lower extremities Neuro: Awake and alert, normal gait Psych: Behavior is normal, Mood is normal, Patient is cooperative and pleasant 16:20 Cardiovascular: Rate: normal, Rhythm: regular. 16:20 Respiratory: the patient does not display signs of respiratory distress, Respirations: normal, Breath sounds: are clear throughout. 16:26 ECG was reviewed by the Attending Physician. [facility] Vital Signs: 16:21 BP 101 / 63; Pulse 64; Resp 15 S; Temp 98.5(O); Pulse Ox 98% on R/A; Weight 81.65 kg ca1 (R); Height 5 ft. 10 in. (177.80 cm) (R); Pain 0/10; 17:17 BP 115 / 74; Pulse 59; Resp 17 S; Pulse Ox 100% on R/A; ca1 18:01 BP 114 / 77; Pulse 61; Resp 15 S; Pulse Ox 100% on R/A; ca1 16:21 Body Mass Index 25.83 (81.65 kg, 177.80 cm) ca1 MDM: 16:10 Patient medically screened. [facility] 17:43 Data reviewed: vital signs, nurses notes. Refusal of service: The patient/guardian [facility] displays adequate decision making capability and despite a detailed discussion of alternatives, benefits, risks, and consequences refuses: Admission to the hospital for further work-up and treatment. ED course: Labs unremarkable. 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 Patient states he feels much better. Patient most likely had an episode of rebound tachycardia due to d/c of atenolol. Patient was offered admission due to transient chest pain. Patient declined. . 01/02 16:11 Order name: Basic Metabolic Panel; Complete Time: 17:00 [facility] 01/02 16:11 Order name: CBC with Diff; Complete Time: 16:44 [facility] 01/02 16:11 Order name: LFT's; Complete Time: 17:00 [facility] 01/02 16:11 Order name: Magnesium; Complete Time: 17:00 [facility] 01/02 16:11 Order name: NT PRO-BNP; Complete Time: 17:00 [facility] 01/02 16:11 Order name: PT-INR; Complete Time: 16:44 [facility] 01/02 16:11 Order name: Troponin (emerg Dept Use Only); Complete Time: 17:00 [facility] 01/02 16:11 Order name: XRAY Chest (1 view); Complete Time: 16:45 [facility] 01/02 16:11 Order name: EKG; Complete Time: 16:12 [facility] 01/02 16:11 Order name: Cardiac monitoring; Complete Time: 16:21 [facility] 01/02 16:11 Order name: EKG - Nurse/Tech; Complete Time: 16:21 [facility] 01/02 16:11 Order name: IV Saline Lock; Complete Time: 16:21 [facility] 01/02 16:11 Order name: Labs collected and sent; Complete Time: 16: [facility] 01/02 16:11 Order name: O2 Per Protocol; Complete Time: 16:21 [facility] 01/02 16:11 Order name: O2 Sat Monitoring; Complete Time: 16:21 jmm EC:26 Rate is 62 beats/min. Rhythm is regular. Right axis deviation noted. SD interval is jmm normal. QRS interval is normal. QT interval is normal. No Q waves. T waves are Normal. No ST changes noted. Reviewed by me. Administered Medications: 16:29 Drug: NS 0.9% 1000 ml Route: IV; Rate: 1 bolus; Site: left antecubital; ca1 17:30 Follow up: Response: No adverse reaction; IV Status: Completed infusion; IV Intake: ca1 1000ml Disposition: 01/03 08:58 Co-signature as Attending Physician, Luke Saleh MD I agree with the assessment and [facility] plan of care. Disposition: 01/03/20 17:46 Discharged to Home. Impression: Palpitations. - Condition is Stable. - Discharge Instructions: Palpitations. - Medication Reconciliation Form, Thank You Letter, Antibiotic Education, Prescription Opioid Use form. - Follow up: Private Physician; When: 2 - 3 days; Reason: Recheck today's complaints, Continuance of care, Re-evaluation by your physician. Signatures: Dispatcher [employer] Luke Steinberg MD MD cha Mickail, Joel, PA PA jmm Acob, Cheryl, RN RN ca1 Corrections: (The following items were deleted from the chart) 01/02 18:10 17:46 01/03/2020 17:46 Discharged to Home. Impression: Palpitations. Condition is ca1 Stable. Forms are Medication Reconciliation Form, Thank You Letter, Antibiotic Education, Prescription Opioid Use. Follow up: Private Physician; When: 2 - 3 days; Reason: Recheck today's complaints, Continuance of care, Re-evaluation by your physician. sara
--- NOTE | 2020-01-03 17:46 | ER ---
Nurse's Notes [facility] Name: Mikhail Reilly Age: 44 yrs Sex: Male : 1975 Arrival Date: 01/03/2020 Time: 16:00 Bed 18 Private MD: Diagnosis: Palpitations Presentation: 01/02 16:00 Chief complaint: EMS states: Chest pain at 1500. Was using the bathroom at 1500, ca1 sitting on the toilet, stood up, got dizzy and ease himself to the ground. BGL 123, EKG NSR. Denies history of cardiac problems. VS WNL. Coronavirus screen: Client denies travel out of the [place] in the last 14 days. At this time, the client does not indicate any symptoms associated with coronavirus-19. Ebola Screen: Patient negative for fever greater than or equal to 101.5 degrees Fahrenheit, and additional compatible Ebola Virus Disease symptoms Patient denies exposure to infectious person. Patient denies travel to an Ebola-affected area in the 21 days before illness onset. No symptoms or risks identified at this time. Initial Sepsis Screen: Does the patient meet any 2 criteria? No. Patient's initial sepsis screen is negative. Does the patient have a suspected source of infection? No. Patient's initial sepsis screen is negative. Risk Assessment: Do you want to hurt yourself or someone else? Patient reports no desire to harm self or others. Onset of symptoms was January 03, 2020. 16:00 Method Of Arrival: EMS: [facility] ca1 16:00 Acuity: LIANG 3 ca1 16:04 Care prior to arrival: IV initiated. 20 GA, in the left antecubital area, Glucose ca1 check: 123. Triage Assessment: 16:21 General: Appears in no apparent distress. comfortable, Behavior is calm, cooperative, ca1 appropriate for age. Pain: Complains of pain in left breast Pain does not radiate. Pain currently is 0 out of 10 on a pain scale. Pain began 2 hours ago. Is episodic. EENT: No deficits noted. Neuro: Level of Consciousness is awake, alert, obeys commands, Oriented to person, place, time, situation, Reports dizziness. Cardiovascular: Heart tones S1 S2 present Capillary refill < 3 seconds Patient's skin is warm and dry. Rhythm is sinus rhythm. Cardiovascular: Reports palpitations. Respiratory: Airway is patent Respiratory effort is even, unlabored, Respiratory pattern is regular, symmetrical, Breath sounds are clear bilaterally. GI: Abdomen is flat, non-distended, Bowel sounds present X 4 quads. Abd is soft and non tender X 4 quads. : No signs and/or symptoms were reported regarding the genitourinary system. Derm: Skin is intact, is healthy with good turgor, Skin is pink, warm \T\ dry. Musculoskeletal: Circulation, motion, and sensation intact. Capillary refill < 3 seconds. Historical: - Allergies: 16:04 contrast; ca1 16:04 Iodine; ca1 16:04 Iodinated Contrast Media - IV Dye; ca1 - Home Meds: 16:34 atenolol 25 mg Oral tab 1 tab once daily [Active]; Eliquis Oral [Active]; Xanax Oral as ca1 needed [Active]; - PMHx: 16:04 Atrial Fib; Back pain; Hypertension; Kidney stones; muscle spasms numerous times ca1 requiring Er visits with fluid resusitation; - PSHx: 16:04 None; ca1 - Immunization history:: Adult Immunizations up to date. - Social history:: Smoking status: Patient denies any tobacco usage or history of. Screenin:04 Abuse screen: Denies threats or abuse. Denies injuries from another. Nutritional ca1 screening: No deficits noted. Tuberculosis screening: No symptoms or risk factors identified. Fall Risk IV access (20 points). Assessment: 16:24 Reassessment: see triage assessment. Pain: Denies pain. Pain does not radiate. Pain ca1 began 2 hours ago. Cardiovascular: Heart tones S1 S2 present Capillary refill < 3 seconds Patient's skin is warm and dry. Rhythm is sinus rhythm. 17:17 Reassessment: Patient appears in no apparent distress at this time. Patient and/or ca1 family updated on plan of care and expected duration. Pain level reassessed. Patient is alert, oriented x 3, equal unlabored respirations, skin warm/dry/pink. 18:01 Reassessment: Patient appears in no apparent distress at this time. Patient and/or ca1 family updated on plan of care and expected duration. Pain level reassessed. Patient is alert, oriented x 3, equal unlabored respirations, skin warm/dry/pink. Patient states feeling better. Vital Signs: 16:21 BP 101 / 63; Pulse 64; Resp 15 S; Temp 98.5(O); Pulse Ox 98% on R/A; Weight 81.65 kg ca1 (R); Height 5 ft. 10 in. (177.80 cm) (R); Pain 0/10; 17:17 BP 115 / 74; Pulse 59; Resp 17 S; Pulse Ox 100% on R/A; ca1 18:01 BP 114 / 77; Pulse 61; Resp 15 S; Pulse Ox 100% on R/A; ca1 16:21 Body Mass Index 25.83 (81.65 kg, 177.80 cm) ca1 ED Course: 16:00 Patient arrived in ED. ca1 16:03 Triage completed. ca1 16:04 Arm band placed on right wrist. ca1 16:04 Patient has correct armband on for positive identification. Placed in gown. Bed in low ca1 position. Call light in reach. Side rails up X2. library monitor on. Pulse ox on. NIBP on. Warm blanket given. 16:10 Eliud Arce PA is PHCP. [facility] 16:10 Luke Saleh MD is Attending Physician. [facility] 16:21 Lsia Decker RN is Primary Nurse. ca1 16:21 No provider procedures requiring assistance completed. Maintain EMS IV. Dressing ca1 intact. Good blood return noted. Site clean \T\ dry. Gauge \T\ site: G18 LAC. Patient maintains SpO2 saturation greater than 95% on room air. 16:33 XRAY Chest (1 view) In Process Unspecified. EDMS 18:02 IV discontinued, intact, bleeding controlled, No redness/swelling at site. Pressure ca1 dressing applied. Administered Medications: 16:29 Drug: NS 0.9% 1000 ml Route: IV; Rate: 1 bolus; Site: left antecubital; ca1 17:30 Follow up: Response: No adverse reaction; IV Status: Completed infusion; IV Intake: ca1 1000ml Intake: 17:30 IV: 1000ml; Total: 1000ml. ca1 Outcome: 17:46 Discharge ordered by . sara 18:09 Discharged to home ambulatory. ca1 18:09 Condition: stable 18:09 Discharge instructions given to patient, Instructed on discharge instructions, follow up and referral plans. Demonstrated understanding of instructions, follow-up care. 18:10 Patient left the ED. ca1 Signatures: Dispatcher [employer] EDMS Krzysztofil, Eliud, PA PA jmm Lisa Decker, RN RN ca1
== END 2020-01-03 18:10 | disposition home or self-care (01) ==
LOC: ER 15:57
DX: R00.2 Palpitations (principal); I10 Essential (primary) hypertension; I48.91 Unspecified atrial fibrillation; Z91.09 Other allergy status, other than to drugs and biological substances
CPT/HCPCS: 36415; 71045; 80048; 80076; 83735; 83880; 84484; 85025; 85610; 93005; 96360; 99285; J7030

== ENCOUNTER 2020-03-26 14:25 | Emergency (ER) | payer SELFPAY ==
--- OUTSIDE RECORDS SUMMARY | 2020-03-26 14:27 | XMS REPORT | Summary of Care ---
:1975 Author Organization [facility] - [facility] Address [address] [place] [address] Care Team Providers Name Role Phone Lacey Segura MD Primary Care Provider [phone] Reason for Visit Reason Comments Assessment Encounter Details Date Type Department Care Team Description 01/14/2020 Telephone [facility] Pediatric and Lyndsay Segura, Assessment Adult Primary Care- MD Ellis [address] [place] [address] [address] [facility] [address] [place] [address] [place] [address] [phone] Allergies Active Allergy Reactions Severity Noted Date Comments Iodine And Iodide Containing Products Hives Sotalol Swelling 11/29/2017 documented as of this encounter (statuses as of 01/14/2020) Medications Medication Sig Dispensed Refills Start End [...] Take 1 tablet by 90 tablet 0 06/07/202 Active tabletIndications: mouth at bedtime. 0 Hypertriglyceridemia doxazosin 1 mg Take 1 tablet by 90 tablet 0 Active tabletIndications: Benign mouth daily. 0 prostatic hyperplasia (BPH) with straining on urination ipratropium 0.02 % Inhale 2.5 mL 120 Vial 11 Active nebulizer every 6 (six) 0 solutionIndications: hours as needed Sputum production for Wheezing or Shortness of Breath. acetaminophen-codeine Take 1 tablet by 120 tablet 0 Active (TYLENOL-CODEINE #4) mouth every 6 0 300-60 mg (six) hours as tabletIndications: needed (severe chronic pain back pain from disc injury at L1 and recent fall.). Indications: chronic pain documented as of this encounter (statuses as of 01/14/2020) Active Problems Problem Noted Date Atypical chest pain 07/17/2019 Flank pain 07/17/[address] 10/28/2016 Overview: Added automatically from request for wing goyal [id number] Obesity (BMI 30-39.9) 10/26/2016 Hematemesis 09/06/2016 Essential hypertension 06/10/2016 PAF (paroxysmal atrial fibrillation) 06/09/2016 documented as of this encounter (statuses as of 01/14/2020) Resolved Problems Problem Noted Date Resolved Date Sepsis 10/26/2016 09/01/2017 documented as of this encounter (statuses as of 01/14/2020) Immunizations Name Administration Dates Next Due Influenza [...] Assigned at Date Recorded Not on file documented as of this encounter Last Filed Vital Signs Not on filedocumented in this encounter Miscellaneous Notes Telephone Encounter - Esperanza Brito RN - 01/14/2020 3:06 PM CDTSpoke with patient who states he need to see in clinic due to a possible broke or fractured foot. Patient offered an appointment with urgent care but refused stating he would like to see his MD because she is familiar with him. Patient had a telehealth appointment scheduled for tomorrow but declined because he would like to see in person for her to evaluate his foot. Recommen ded that patient go ahead and be seen in due to the severe pain patient is complaining about but patient continue to decline stating he will go if it gets too bad. Patient scheduled for a sick visiton 01/16/20 @1020 with . Patient agrees with POC elephone Encounter - Janet Manuel - 01/14/2020 12:50 PM CDTPatient is calling and is requesting to be seen by in the office jazmin due to a possiblebroiken foot, patient was offered urgent care and was told he has a telehealth tommorow, patient refused both and is wanting to be seen in the clinic, patient stated his foot is swollen,bruised and cannot walk on it, please call patient back in regards to this encounter. documented in this encounter Plan of Treatment Date Type Specialty Care Team Description 01/16/2020 Office Visit Internal Medicine Mira Segura MD [address] [place] [address] [phone] Health Maintenance Due Date Last Done Comments Depression Screening 1987 DTaP,Tdap,and Td Vaccines (1 1992 - Tdap) INFLUENZA VACCINE (#1) 2020 07/18/2019, 04/27/2017, 04/17/2017 Colorectal Cancer Screening 09/12/2023 PNEUMOCOCCAL 0-64 YEARS Aged Out No longe r eligible based COMBINED SERIES on patient's age to complete this to pic documented as of this encounter Results Not on filedocumented in this encounter
--- OUTSIDE RECORDS SUMMARY | 2020-03-26 14:27 | XMS REPORT | Summary of Care ---
:1975 Author Organization [facility] - [facility] Address [address] [place] [id number] Care Team Providers Name Role Phone Lacey Segura MD Primary Care Provider Reason for Visit Reason Comments Refill Request Encounter Details Date Type Department Care Team Description 02/14/2020 Refill [facility] Pediatric and Lyndsay Segura, Refill Request Adult Primary Care- MD Ellis [address] [facility] [address] [facility] [address] [place] [address] [place] [address] [phone] Allergies Active Allergy Reactions Severity Noted Date Comments Iodine And Iodide Containing Products Hives Sotalol Swelling 11/29/2017 documented as of this encounter (statuses as of 02/19/2020) Medications Medication Sig Dispensed Refills Start End [...] as of this encounter (statuses as of 02/19/2020) Active Problems Problem Noted Date Atypical chest pain 07/17/2019 Flank pain 07/17/[address] 10/28/2016 Overview: Added automatically from request for wing jay jay [id number] Obesity (BMI 30-39.9) 10/26/2016 Hematemesis 09/06/2016 Essential hypertension 06/10/2016 PAF (paroxysmal atrial fibrillation) 06/09/2016 documented as of this encounter (statuses as of 02/19/2020) Resolved Problems Problem Noted Date Resolved Date Sepsis 10/26/2016 09/01/2017 documented as of this encounter (statuses as of 02/19/2020) Immunizations Name Administration Dates Next Due Influenza [...] on patient's age to complete this to the medical center documented as of this encounter Results Not on filedocumented in this encounter Visit Diagnoses Diagnosis Acute midline low back pain with left-si ded sciatica documented in this encounter
--- OUTSIDE RECORDS SUMMARY | 2020-03-26 14:27 | XMS REPORT | Summary of Care ---
:1975 Author Organization [facility] - [facility] Address [address] [place] [address] Care Team Providers Name Role Phone Lacey Segura MD Primary Care Provider [phone] Reason for Visit Reason Comments Refill Request Encounter Details Date Type Department Care Team Description 02/24/2020 Refill [facility] Pediatric and Lyndsay Segura, Refill Request Adult Primary Care- MD Ellis [address] [facility] [address] [facility] [address] [place] [address] [place] [address] [phone] Allergies Active Allergy Reactions Severity Noted Date Comments Iodine And Iodide Containing Products Hives Sotalol Swelling 11/29/2017 documented as of this encounter (statuses as of 02/28/2020) Medications Medication Sig Dispensed Refills Start Date End Date Status albuterol 0.63 mg/3 Inhale 3 mL every 6 102 Vial 11 08/19/2019 Active mL nebulizer (six) hours as solutionIndications: needed for SOB (shortness of Wheezing. breath) apixaban (ELIQUIS) 5 Take 1 tablet by 180 tablet 3 08/19/2019 Active mg mouth 2 (two) times tabletIndications: daily. Indications: atrial fibrillation atrial fibrillation atenoloL 25 mg Take 1 tablet by 180 tablet 3 08/19/2019 Active tabletIndications: mouth 2 (two) times Essential daily. hypertension ipratropium 0.02 % Inhale 2.5 mL every 120 Vial 11 11/25/2019 Active nebulizer 6 (six) hours as solutionIndications: needed for Wheezing Sputum production or Shortness of Breath. documented as of this encounter (statuses as of 02/28/2020) Active Problems Problem Noted Date Bilateral renal stones 02/26/2020 Benign prostatic hyperplasia (BPH) with straining on u rination 02/26/2020 Hypertriglyceridemia 02/26/2020 Sprain of right foot, initial encounter 02/26/2020 Acute midline low back pain with left-sided sciatica 1 Fall, initial encounter 02/26/2020 Atypical chest pain 07/17/2019 Flank pain 07/17/[address] 10/28/2016 Overview: Added automatically from request for wing goyal [id number] Obesity (BMI 30-39.9) 10/26/2016 Hematemesis 09/06/2016 Essential hypertension 06/10/2016 PAF (paroxysmal atrial fibrillation) 06/09/2016 documented as of this encounter (statuses as of 02/28/2020) Resolved Problems Problem Noted Date Resolved Date Sepsis 10/26/2016 09/01/2017 documented as of this encounter (statuses as of 02/28/2020) Immunizations Name Administration Dates Next Due Influenza [...] Treatment Date Type Specialty Care Team Description 03/12/2020 Office Visit Pain Medicine Tristian Mcneil MD [address] [address] Health Maintenance Due Date Last Done Comments Depression Screening 1987 DTaP,Tdap,and Td Vaccines (1 1992 - Tdap) INFLUENZA VACCINE (#1) 2020 07/18/2019, 04/27/2017, 04/17/2017 Colorectal Cancer Screening 09/12/2023 PNEUMOCOCCAL 0-64 YEARS Aged Out No longe r eligible based COMBINED SERIES on patient's age to complete [facility] to [facility] documented as of this encounter Results Not on filedocumented in this encounter Visit Diagnoses Diagnosis Acute midline low back pain with left-si ded sciatica documented in this encounter
--- OUTSIDE RECORDS SUMMARY | 2020-03-26 14:27 | XMS REPORT | Summary of Care ---
:1975 Author Organization [facility] Address [address] [place] [address] Care Team Providers Name Role Phone Lacey Segura MD Primary Care Provider [phone] Reason for Visit Reason Comments No Show (DNKA) Encounter Details Date Type Department Care Team Description 02/25/2020 Telemedicine Visit [facility] Yasmani Muniz, ELIAS S HOW (Primary Pediatric and Adult MD Dx) Primary Care- [address] [place] [address] [address] [facility] [address], [address] [place] [phone] Allergies Active Allergy Reactions Severity Noted Date Comments Iodine And Iodide Containing Products Hives Sotalol Swelling 11/29/2017 documented as of this encounter (statuses as of 02/25/2020) Medications Medication Sig Dispensed Refills Start End [...] as of this encounter (statuses as of 02/25/2020) Active Problems Problem Noted Date Atypical chest pain 07/17/2019 Flank pain 07/17/[address] 10/28/2016 Overview: Added automatically from request for wing jay jay [id number] Obesity (BMI 30-39.9) 10/26/2016 Hematemesis 09/06/2016 Essential hypertension 06/10/2016 PAF (paroxysmal atrial fibrillation) 06/09/2016 documented as of this encounter (statuses as of 02/25/2020) Resolved Problems Problem Noted Date Resolved Date Sepsis 10/26/2016 09/01/2017 documented as of this encounter (statuses as of 02/25/2020) Immunizations Name Administration Dates Next Due Influenza [...] on filedocumented in this encounter Progress Notes Yasmani Muniz MD - 02/25/2020 8:40 AM CDTCalled x 3, no answer, left VM. Okay to reschedule. Thank you! documented in this encounter Plan of Treatment [...] filedocumented in this encounter Visit Diagnoses Diagnosis NO SHOW - Primary documented in this encounter
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
--- OUTSIDE RECORDS SUMMARY | 2020-03-26 14:28 | XMS REPORT | Summary of Care ---
:1975 Author Organization [facility] Address [address] [place] [id number] Care Team Providers Name Role Phone Lacey Segura MD Primary Care Provider Reason for Visit Reason Comments Appointment Encounter Details Date Type Department Care Team Description 03/24/2020 Telephone [facility] and Lyndsay Segura, Appointment Adult Primary Care- MD Ellis [address] [place] [address] [address] [facility] [address] [place] [address] [place] [address] [phone] Allergies Active Allergy Reactions Severity Noted Date Comments Iodine And Iodide Containing Products Hives Sotalol Swelling 11/29/2017 documented as of this encounter (statuses as of 03/24/2020) Medications Medication Sig Dispensed Refills Start End [...] 2 (two) 0 Essential hypertension times daily. ipratropium 0.02 % Inhale 2.5 mL 120 Vial 11 Active nebulizer every 6 (six) 0 solutionIndications: hours as needed Sputum production for Wheezing or Shortness of Breath. doxazosin 1 mg Take 1 tablet by 90 tablet 0 Active tabletIndications: Benign mouth daily. 0 prostatic hyperplasia (BPH) with straining on urination atorvastatin 10 mg Take 1 tablet by 90 tablet 0 Active tabletIndications: mouth at bedtime. 0 Hypertriglyceridemia docusate (COLACE) 100 mg Take 1 capsule by 90 capsule 1 Active capsuleIndications: Acute mouth daily. 0 midline low back pain with left-sided sciatica tiZANidine 2 mg Take 1 tablet by 30 tablet 1 Active tabletIndications: Acute mouth every 8 0 midline low back pain (eight) hours as with left-sided sciatica needed (muscle spasms). acetaminophen-codeine Take 1 tablet by 120 tablet 0 Active (TYLENOL-CODEINE #4) mouth every 6 0 300-60 mg (six) hours as tabletIndications: needed (severe chronic pain back pain from disc injury at L1 and recent fall.). Indications: chronic pain documented as of this encounter (statuses as of 03/24/2020) Active Problems Problem Noted Date Bilateral renal stones 02/26/2020 Benign prostatic hyperplasia (BPH) with straining on u rination 02/26/2020 Hypertriglyceridemia 02/26/2020 Sprain of right foot, initial encounter 02/26/2020 Acute midline low back pain with left-sided sciatica 1 Fall, initial encounter 02/26/2020 Atypical chest pain 07/17/2019 Flank pain 07/17/[address] 10/28/2016 Overview: Added automatically from request for wing jay jay [id number] Obesity (BMI 30-39.9) 10/26/2016 Hematemesis 09/06/2016 Essential hypertension 06/10/2016 PAF (paroxysmal atrial fibrillation) 06/09/2016 documented as of this encounter (statuses as of 03/24/2020) Resolved Problems Problem Noted Date Resolved Date Sepsis 10/26/2016 09/01/2017 documented as of this encounter (statuses as of 03/24/2020) Immunizations Name Administration Dates Next Due Influenza [...] this encounter Miscellaneous Notes Telephone Encounter - Daphne Garcia - 03/24/2020 4:34 PM CSTSpoke to patient, Patient state he is feeling much better, after taking his daughters medication. Patient reports he still has a cough, congestion. No fever. He also reports having blisters and sore in mouth. He states he was visiting his grandchildren when they were sick, and he got sick too. Patient does not want to go to Urgent care or ED due to no insurance and is requesting for us to follow up with the [facility] indigent program. Adviced patient to contact the office for information on his application. Information was given. [facility] [place] For assistance: [phone] Maile [phone] [place]. Due to symptoms adviced patient to follow up at urgent care. Daphne Garcia 03/24/2020 4:44 PM elephone Encounter - Cindy Betancourt - 03/24/2020 4:10 PM CSTPt returning call back. documented in this encounter Plan of Treatment [...]
--- OUTSIDE RECORDS SUMMARY | 2020-03-26 14:28 | XMS REPORT | Summary of Care ---
:1975 Author Organization [facility] Address [address] [place] [address] Care Team Providers Name Role Phone Lacey Segura MD Primary Care Provider [phone] Reason for Visit Reason Comments Appointment Encounter Details Date Type Department Care Team Description 03/19/2020 Telephone [facility] and Lyndsay Segura, Appointment Adult Primary Care- MD Ellis [address] [place] [address] [address] [facility] [address] [place] [address] [place] [address] [phone] Allergies Active Allergy Reactions Severity Noted Date [...] automatically from request for wing jay jay [id number] Obesity (BMI 30-39.9) 10/26/2016 Hematemesis 09/06/2016 Essential [...] Telephone Encounter - Daphne Garcia - 03/24/2020 3:49 PM CSTAttempted to call patient, n/a, left message to call clinic back. Daphne Garcia 03/24/2020 3:49 PM elephone Encounter - Cindy Betancourt - 03/24/2020 3:36 PM CSTPlease address greater than 48 hours. elephone Encounter - Dina Henderson MA - 03/19/2020 1:39 PM CST03/19/20 1:39 PM Routing to provider to inform that patient was offered to be seen at due to symptoms, but patientrefused. There are no open appointments to see soon enough. Dina Henderson MA 03/19/2020 1:40 PM elephone Encounter - Cindy Betancourt - 03/19/2020 11:37 AM CSTPt calling to schedule an appointment no available appts, patient stated he has knot on his back, sore in mouth, runny nose and cough, patient was offered UC but stated he would like to see his PCP, I informed patient with his symptoms he would have to be scheduled at the UC. documented in this encounter Plan of Treatment [...]
--- NOTE | 2020-03-26 14:55 | RAD REPORT ---
EXAM DESCRIPTION: CT - Ct Stroke Brain Wo Cont - 03/26/2020 2:48 pm CLINICAL HISTORY: NUMBNESS Headache, drowsiness, CVA symptomology COMPARISON: Head Brain Wo Cont dated 08/16/2018 TECHNIQUE: All CT scans are performed using dose optimization technique as appropriate and may inclu de automated exposure control or mA/KV adjustment according to patient size. FINDINGS: No intracranial hemorrhage, hydrocephalus or extra-axial fluid collection.No areas of brai n edema or evidence of midline shift. The paranasal sinuses and mastoids are clear. The calvarium is intact. IMPRESSION: No acute intracranial abnormality. The findings were discussed with Dr. Saleh in the ER on 03/26/2020 at 1428 hours by telephone.
[2020-03-26 15:00] LABS: Protime INR 0.99
[2020-03-26 15:04] LABS: Absolute Lymphocytes (CBC) 1.3 K/uL (0.7-4.9); Basophils % 0.2 % (0-1.3); Hematocrit 37.5 % (39.6-49.0); Lymphocytes % 16.9 % (15.3-44.8); MPV 8.9 fL (7.6-11.3); RBC Red Blood Cell Count 4.13 M/uL (4.33-5.43)
[2020-03-26] MEDS ORDERED: FOLIC ACID 5 MG/ML VIAL ONE (15:04)
[2020-03-26] MEDS ORDERED: NA CHLORIDE 0.9% 1,000 ML ONE (15:04)
--- NOTE | 2020-03-26 15:31 | RAD REPORT ---
EXAM DESCRIPTION: RAD - Chest Single View - 03/26/2020 3:25 pm CLINICAL HISTORY: CHEST PAIN Chest pain. COMPARISON: Chest Single View dated 01/03/2020; Chest Single View dated 08/11/2019; Chest Single View dated 10/19/2018; Chest Single View dated 08/16/2018 FINDINGS: Portable technique limits examination quality. The lungs are grossly clear. The heart is normal in size. No displaced fractures. IMPRESSION: No acute intrathoracic process suspected.
[2020-03-26 15:32] LABS: ALT/SGPT 13 U/L (12-78); AST/SGOT 14 U/L (15-37); Albumin 3.4 g/dL (3.4-5.0); Alkaline Phosphatase 126 U/L (45-117); BUN Blood Urea Nitrogen 21 mg/dL (7-18); Bicarbonate 28 mmol/L (21-32); Bilirubin Direct < 0.1 mg/dL (0-0.2); Bilirubin Total 0.2 mg/dL (0.2-1.0); Glucose Level 115 mg/dL (74-106); Magnesium 2.4 mg/dL (1.8-2.4); NT PRO-BNP 24 pg/mL (<125); Potassium 3.4 mmol/L (3.5-5.1); Protein, Total 7.2 g/dL (6.4-8.2); Sodium Level 143 mmol/L (136-145); Troponin (Emerg Dept Use Only) < 0.02 ng/mL (0.0-0.045)
[2020-03-26] MEDS ORDERED: POTASSIUM 25 MEQ EFFERV TAB ONE (17:04)
--- NOTE | 2020-03-26 17:53 | RAD REPORT ---
EXAM DESCRIPTION: MRI - Brain Wo Cont - 03/26/2020 5:36 pm CLINICAL HISTORY: NUMBNESS COMPARISON: Ct Stroke Brain Wo Cont dated 03/26/2020 TECHNIQUE: Multi-sequence, multiplanar MR imaging of the brain was performed without contrast. FINDINGS: No intracranial hemorrhage, hydrocephalus or extra-axial fluid collections. No edema or sh ift of midline structures. No findings to suspect brain mass. DWI is negative for acute CVA. Midline structures are normally formed. Mastoid air cells and paranasal sinuses are clear. IMPRESSION: Negative for acute CVA or other acute intracranial abnormality.
--- NOTE | 2020-03-26 17:58 | EDPHYS ---
Physician Documentation [facility] Name: Mikhail Reilly Age: 44 yrs Sex: Male : 1975 Arrival Date: 03/26/2020 Time: 14:27 Bed 17 Private MD: ED Physician Luke Saleh HPI: 03/26 14:40 This 44 yrs old Male presents to ER via EMS with complaints of Numbness Left cp Side of Face. 14:40 The patient's problem is reported as paresthesias, in left upper extremity, in left cp lower extremity, in left side of face. Onset: The symptoms/episode began/occurred 1 hour(s) ago. Duration: The episode is continuous. 14:40 Associated signs and symptoms: Pertinent positives: chest pain. cp 14:40 Severity of symptoms: in the emergency department the symptoms are unchanged despite cp home interventions. Historical: - Allergies: 14:33 contrast; jd3 14:33 Iodinated Contrast Media - IV Dye; jd3 14:33 Iodine; jd3 - Home Meds: 14:33 Eliquis Oral [Active]; atenolol 25 mg Oral tab 1 tab once daily [Active]; jd3 - PMHx: 14:33 Atrial Fib; Back pain; Hypertension; Kidney stones; muscle spasms numerous times jd3 requiring Er visits with fluid resusitation; TIA; - PSHx: 14:33 None; jd3 - Immunization history:: Adult Immunizations up to date. - Social history:: Smoking status: Patient denies any tobacco usage or history of. ROS: 14:44 Constitutional: Negative for body aches, chills, fever, poor PO intake. cp 14:44 Eyes: Negative for injury, pain, redness, and discharge. cp 14:44 Cardiovascular: Positive for chest pain, Negative for edema, palpitations. 14:44 Respiratory: Negative for cough, shortness of breath, wheezing. 14:44 Abdomen/GI: Negative for abdominal pain, nausea, vomiting, and diarrhea. 14:44 MS/extremity: Negative for injury or acute deformity. 14:44 Neuro: Positive for numbness, of the left side of face and left arm and left leg, Negative for altered mental status, dizziness, headache, syncope. 14:44 All other systems are negative. Exam: 14:45 Radiologist reports: no acute changes cp 14:45 Constitutional: The patient appears in no acute distress, alert, awake, cp non-diaphoretic, non-toxic, well developed, well nourished. 14:45 Head/Face: Normocephalic, atraumatic. cp 14:45 Eyes: Pupils equal round and reactive to light, extra-ocular motions intact. Lids and cp lashes normal. Conjunctiva and sclera are non-icteric and not injected. Cornea within normal limits. Periorbital areas with no swelling, redness, or edema. ENT: Nares patent. No nasal discharge, no septal abnormalities noted. Tympanic membranes are normal and external auditory canals are clear. Oropharynx with no redness, swelling, or masses, exudates, or evidence of obstruction, uvula midline. Mucous membranes moist. Chest/axilla: Normal chest wall appearance and motion. Nontender with no deformity. No lesions are appreciated. 14:45 Cardiovascular: Rate: normal, Rhythm: regular, Edema: is not appreciated, JVD: is not cp appreciated. 14:45 Respiratory: the patient does not display signs of respiratory distress, Respirations: normal, no use of accessory muscles, no retractions, labored breathing, is not present, Breath sounds: are clear throughout, no decreased breath sounds, no stridor, no wheezing. 14:45 Abdomen/GI: Inspection: abdomen appears normal, Bowel sounds: active, all quadrants, Palpation: abdomen is soft and non-tender, in all quadrants. 14:45 Back: pain, is absent, ROM is normal. 14:45 Neuro: Orientation: to person, place \T\ time. Mentation: is normal, Cerebellar function: Romberg testing is negative, normal finger to nose testing, heel to moser testing is normal, Motor: moves all fours, strength is normal, Sensation: light touch is decreased in the left side of face and left arm and left leg. 14:48 ECG was reviewed by the Attending Physician. cp Vital Signs: 14:33 BP 103 / 60; Pulse 68; Resp 17 S; Temp 98.7(TE); Pulse Ox 98% on R/A; Weight 86.18 kg jd3 (R); Height 5 ft. 10 in. (177.80 cm) (R); Pain 7/10; 15:30 BP 109 / 76; Pulse 55; Resp 17; Pulse Ox 100% ; jl7 16:30 BP 106 / 81; Pulse 65; Resp 17; Pulse Ox 100% ; jl7 18:04 BP 148 / 79; Pulse 65; Resp 17; Pulse Ox 100% on R/A; jl7 14:33 Body Mass Index 27.26 (86.18 kg, 177.80 cm) jd3 NIH Stroke Scale Scores: 14:45 NIHSS Score: 0 jl7 14:45 NIHSS Score: 1 cp MDM: 14:41 ED course: Patient is not a candidate for tpa. Takes Eliquis with last dose today cp approximately 1 hour ago. 14:45 Patient medically screened. cp 16:50 ED course: Patient reports numbness resolved. cp 16:54 Physician consultation: Rohan Arevalo DO was called at 16:55, was contacted at 16:55, regarding patient's condition, would like further tests performed, MRI. 16:56 ED course: MRI ordered. Consult with DR Arevalo, if negative, patient can be discharged cp to home. 17:57 Data reviewed: vital signs, nurses notes, lab test result(s), EKG, radiologic studies, cp CT scan, MRI, plain films, I have discussed the patient's presentation/case with the attending Emergency Department Physician; and as a result, I will discharge patient. 17:57 Test interpretation: by ED physician or midlevel provider: ECG. Counseling: I had a cp detailed discussion with the patient and/or guardian regarding: the historical points, exam findings, and any diagnostic results supporting the discharge/admit diagnosis, lab results, radiology results, the need for outpatient follow up, a neurologist, to return to the emergency department if symptoms worsen or persist or if there are any questions or concerns that arise at home. Response to treatment: the patient's symptoms have markedly improved after treatment, VSS. Patient reports symptoms resolved. Will discharge to home for continued monitoring. 03/26 14:42 Order name: Glucose, Ancillary Testing; Complete Time: 16:26 EDAZ 03/26 14:43 Order name: Basic Metabolic Panel cp 03/26 14:43 Order name: CBC with Diff; Complete Time: 16:26 cp 03/26 16:26 Interpretation: Normal except: RBC 4.13; HGB 12.5; HCT 37.5; TIMOTEO% 74.9. 03/26 14:43 Order name: LFT's 03/26 14:43 Order name: Magnesium 03/26 14:43 Order name: NT PRO-BNP 03/26 14:43 Order name: PT-INR; Complete Time: 16:26 03/26 14:43 Order name: Troponin (emerg Dept Use Only); Complete Time: 16:26 03/26 14:43 Order name: XRAY Chest (1 view); Complete Time: 16:26 03/26 14:44 Order name: Basic Metabolic Panel; Complete Time: 16:26 EDMS 03/26 16:27 Interpretation: Normal except: K 3.4; CL 109; GLUC 115; BUN 21; GFR 69. 03/26 14:44 Order name: Liver (Hepatic) Function; Complete Time: 16:26 EDMS 03/26 14:44 Order name: Magnesium; Complete Time: 16:26 EDMS 03/26 14:44 Order name: NT PRO-BNP; Complete Time: 16:26 EDMS 03/26 14:43 Order name: EKG; Complete Time: 14:44 03/26 14:43 Order name: Cardiac monitoring; Complete Time: 14:46 03/26 14:43 Order name: EKG - Nurse/Tech; Complete Time: 14:46 03/26 14:43 Order name: IV Saline Lock; Complete Time: 14:46 03/26 14:43 Order name: Labs collected and sent; Complete Time: 14:44 03/26 14:43 Order name: O2 Per Protocol; Complete Time: 14:44 03/26 14:43 Order name: O2 Sat Monitoring; Complete Time: 14:44 03/26 14:47 Order name: Ct Stroke Brain Wo Cont; Complete Time: 16:26 EDMS 03/26 17:24 Order name: Brain Wo Cont; Complete Time: 17:55 EDMS 03/26 17:55 Interpretation: Report reviewed. EC:48 Rate is 63 beats/min. Rhythm is regular. [place] interval is normal. QRS interval is cp prolonged at 106 msec. QT interval is normal. T waves are Inverted in lead aVR. Interpreted by me. Reviewed by me. Administered Medications: 14:53 Drug: foLIC Acid 1 mg Route: IVPB; Site: right antecubital; jl7 14:54 Follow up: Response: No adverse reaction; IV Status: Completed infusion jl7 14:53 Drug: NS 0.9% 1000 ml Route: IV; Rate: 1 bolus; Site: right antecubital; jl7 16:00 Follow up: Response: No adverse reaction; IV Status: Completed infusion; IV Intake: jl7 1000ml 16:59 Drug: Potassium Effervescent Tablet 25 mEq Route: PO; ca1 18:02 Follow up: Response: No adverse reaction jl7 18:02 Drug: Tylenol 1000 mg Route: PO; jl7 18:02 Follow up: Response: Medication administered at discharge. jl7 Point of Care Testing: Blood Glucose: 14:43 Blood Glucose: 116 mg/dL; jl7 Ranges: Critical Glucose Levels:Adult <50 mg/dl or >400 mg/dl <40 mg/dl or >180 mg/dl Disposition: 03/27 08:19 Co-signature as Attending Physician, Luke Saleh MD I agree with the assessment and jamie plan of care. Disposition: 03/26/20 17:58 Discharged to Home. Impression: Paresthesia of skin - Left side of face and Left Arm and Left Leg. - Condition is Stable. - Discharge Instructions: Paresthesia. - Medication Reconciliation Form, Thank You Letter, Antibiotic Education, Prescription Opioid Use form. - Follow up: Jorge Curran MD; When: 2 - 3 days; Reason: Recheck today's complaints. - Problem is new. - Symptoms have improved. NIH Stroke Scale - NIH Stroke Score Date: 03/26/2020 Time: 14:45 Total Score = 0 1a. Level of Consciousness (LOC) - 0(Alert) 1b. Level of Consciousness (LOC) (Year \T\ Age) - 0(Both) 1c. LOC Commands (Open \T\ Closes Eyes/Rug Touch Up Painter) - 0(Both) 2. Best Gaze (Lateral Gaze Paresis) - 0(Normal) 3. Visual Field Loss - 0(No visual loss) 4. Facial Palsy - 0(Normal) 5a. Left Arm: Motor (10-second hold) - 0(No drift) 5b. Right Arm: Motor (10-second hold) - 0(No drift) 6a. Left Leg: Motor (5-second hold - always test supine) - 0(No drift) 6b. Right Leg: Motor (5-second hold - always test supine) - 0(No drift) 7. Limb Ataxia (finger/nose \T\ heel/moser - test with eyes open) - 0(Absent) 8. Sensory Loss (pinprick arms/legs/face) - 0(Normal) 9. Best Language: Aphasia (description/naming/reading) - 0(No aphasia) 10. Dysarthria (speech clarity - read or repeat words) - 0(Normal) 11. Extinction and Inattention (visual/tactile/auditory/spatial/personal) - 0(No abnormality) Initials: jl7 NIH Stroke Scale - NIH Stroke Score Date: 03/26/2020 Time: 14:45 Total Score = 1 1a. Level of Consciousness (LOC) - 0(Alert) 1b. Level of Consciousness (LOC) (Year \T\ Age) - 0(Both) 1c. LOC Commands (Open \T\ Closes Eyes/Rug Touch Up Painter) - 0(Both) 2. Best Gaze (Lateral Gaze Paresis) - 0(Normal) 3. Visual Field Loss - 0(No visual loss) 4. Facial Palsy - 0(Normal) 5a. Left Arm: Motor (10-second hold) - 0(No drift) 5b. Right Arm: Motor (10-second hold) - 0(No drift) 6a. Left Leg: Motor (5-second hold - always test supine) - 0(No drift) 6b. Right Leg: Motor (5-second hold - always test supine) - 0(No drift) 7. Limb Ataxia (finger/nose \T\ heel/moser - test with eyes open) - 0(Absent) 8. Sensory Loss (pinprick arms/legs/face) - 1(Mild to moderate loss) 9. Best Language: Aphasia (description/naming/reading) - 0(No aphasia) 10. Dysarthria (speech clarity - read or repeat words) - 0(Normal) 11. Extinction and Inattention (visual/tactile/auditory/spatial/personal) - 0(No abnormality) Initials: cp Signatures: Dispatcher [employer] EDMS Luke Saleh MD MD cha Page, Corey, PA PA cp Leal, Jahala, RN RN jl7 Rudi Tam RN RN jd3 Lisa Decker RN RN ca1 Corrections: (The following items were deleted from the chart) 03/26 14:47 14:45 Head Brain Wo Cont+CT.RAD.BRZ ordered. EDMS EDMS 17:24 16:56 MR STROKE PROTOCOL+MRI.RAD.BRZ ordered. EDMS EDMS 18:25 17:58 03/26/2020 17:58 Discharged to Home. Impression: Paresthesia of skin - jl7 Left side of face and Left Arm and Left Leg. Condition is Stable. Forms are Medication Reconciliation Form, Thank You Letter, Antibiotic Education, Prescription Opioid Use. Follow up: Jorge Curran; When: 2 - 3 days; Reason: Recheck today's complaints. Problem is new. Symptoms have improved. cp
--- NOTE | 2020-03-26 17:58 | ER ---
Nurse's Notes [facility] Name: Mikhail Reilly Age: 44 yrs Sex: Male : 1975 Arrival Date: 03/26/2020 Time: 14:27 Bed 17 Private MD: Diagnosis: Paresthesia of skin-Left side of face and Left Arm and Left Leg Presentation: 03/26 14:30 Chief complaint: EMS states: "he was reporting left side numbness and weakness with jd3 facial numbness since 1300.". Coronavirus screen: At this time, the client does not indicate any symptoms associated with coronavirus-19. Ebola Screen: Patient negative for fever greater than or equal to 101.5 degrees Fahrenheit, and additional compatible Ebola Virus Disease symptoms. Initial Sepsis Screen: Does the patient meet any 2 criteria? No. Patient's initial sepsis screen is negative. Does the patient have a suspected source of infection? No. Patient's initial sepsis screen is negative. Risk Assessment: Do you want to hurt yourself or someone else? Patient reports no desire to harm self or others. Onset of symptoms was March 26, 2020. 14:30 Method Of Arrival: EMS: [facility] jd3 14:30 Acuity: LIANG 2 jd3 14:30 An acute neurological deficit is present. The charge nurse has been notified. The jl7 patient has been moved to a treatment area. Pre-hospital glucose is not applicable to this patient. Care prior to arrival: None. Triage Assessment: 14:30 The onset of the patients symptoms was March 26, 2020 at 13:00. General: Appears in jl7 no apparent distress. uncomfortable, Behavior is cooperative, anxious. Stroke Activation: Symptom onset < 3 hours Physician: Stroke Attending; Name: ; Notified At: ; Arrived At: Physician: Chief Stroke Resident; Name: ; Notified At: ; Arrived At: Physician: Stroke Resident; Name: ; Notified At: ; Arrived At: Physician: ED Attending; Name: Delfino; Notified At: ; Arrived At: Physician: ED Resident; Name: ; Notified At: ; Arrived At: Historical: - Allergies: 14:33 contrast; jd3 14:33 Iodinated Contrast Media - IV Dye; jd3 14:33 Iodine; jd3 - Home Meds: 14:33 Eliquis Oral [Active]; atenolol 25 mg Oral tab 1 tab once daily [Active]; jd3 - PMHx: 14:33 Atrial Fib; Back pain; Hypertension; Kidney stones; muscle spasms numerous times jd3 requiring Er visits with fluid resusitation; TIA; - PSHx: 14:33 None; jd3 - Immunization history:: Adult Immunizations up to date. - Social history:: Smoking status: Patient denies any tobacco usage or history of. Screenin:37 Abuse screen: Denies threats or abuse. Denies injuries from another. Nutritional jl7 screening: No deficits noted. Tuberculosis screening: No symptoms or risk factors identified. Fall Risk IV access (20 points). Total Carbone Fall Scale indicates No Risk (0-24 pts). Assessment: 14:30 General: Appears in no apparent distress. uncomfortable, Behavior is cooperative, jl7 anxious. Pain: Denies pain. Neuro: Level of Consciousness is awake, alert, obeys commands, Oriented to person, place, time, situation, Moves all extremities. Full function Speech is normal, Facial symmetry appears normal. Cardiovascular: Patient's skin is warm and dry. Respiratory: Airway is patent Respiratory effort is even, unlabored, Respiratory pattern is regular, symmetrical. Derm: Skin is pink, warm \\T\\ dry. 14:36 Reassessment: ERP at bedside. jl7 14:45 VAN Scoring: Arm Drift: Patients demonstrates NO arm weakness. Patient is VAN Negative. jl7 The patient has not been NPO before screening. The patient is currently on the following diet: Regular The patient is alert, and able to follow commands. The patient does not exhibit slurred or garbled speech. The patient is not exhibiting difficulty speaking. The patient does not exhibit difficulty understanding words. The patient is able to swallow own secretions with no drooling or need for suction. Patient tolerated one teaspoon of water. No drooling, immediate coughing, gurgling, or clearing of the throat was noted. The patient tolerated 90mL of water. No drooling, immediate coughing, gurgling, or clearing of the throat was noted. The patient passed the bedside swallow screening. Oral medications may be given as ordered. Contact Physician for further diet orders. Provider notified of bedside swallow screening results: Luke MORELAND. T-PA (Activase) Screening: Contraindications: Rapidly improving condition or minor deficit: Yes. 16:00 Reassessment: Patient appears in no apparent distress at this time. No changes from jl7 previously documented assessment. Patient and/or family updated on plan of care and expected duration. Pain level reassessed. Patient is alert, oriented x 3, equal unlabored respirations, skin warm/dry/pink. 17:00 Reassessment: Patient appears in no apparent distress at this time. No changes from jl7 previously documented assessment. Patient and/or family updated on plan of care and expected duration. Pain level reassessed. Patient is alert, oriented x 3, equal unlabored respirations, skin warm/dry/pink. 18:00 Reassessment: ERP at bedside discussing results and POC. jl7 Vital Signs: 14:33 BP 103 / 60; Pulse 68; Resp 17 S; Temp 98.7(TE); Pulse Ox 98% on R/A; Weight 86.18 kg jd3 (R); Height 5 ft. 10 in. (177.80 cm) (R); Pain 7/10; 15:30 BP 109 / 76; Pulse 55; Resp 17; Pulse Ox 100% ; jl7 16:30 BP 106 / 81; Pulse 65; Resp 17; Pulse Ox 100% ; jl7 18:04 BP 148 / 79; Pulse 65; Resp 17; Pulse Ox 100% on R/A; jl7 14:33 Body Mass Index 27.26 (86.18 kg, 177.80 cm) jd3 NIH Stroke Scale Scores: 14:45 NIHSS Score: 0 jl7 14:45 NIHSS Score: 1 cp ED Course: 14:27 Patient arrived in ED. ca1 14:30 Arm band placed on Patient notified Roque MORELAND of negative CT result. jd3 14:32 Triage completed. jd3 14:32 Luke Marsh PA is PHCP. cp 14:32 Luke Saleh MD is Attending Physician. cp 14:36 Kirby Gottlieb RN is Primary Nurse. jl7 14:36 Initial lab(s) drawn, by me, sent to lab. EKG done, by ED staff, reviewed by Luke MORELAND. Maintain EMS IV. Dressing intact. Good blood return noted. Site clean \\T\\ dry. Gauge \\T\\ site: 18 right ac. 14:37 Patient has correct armband on for positive identification. Placed in gown. Bed in low jl7 position. Call light in reach. Side rails up X2. convenience store clerk on. Pulse ox on. NIBP on. Warm blanket given. 14:48 Ct Stroke Brain Wo Cont In Process Unspecified. EDMS 15:25 XRAY Chest (1 view) In Process Unspecified. EDMS 17:26 Brain Wo Cont In Process Unspecified. EDMS 17:56 Jorge Curran MD is Referral Physician. cp 18:24 No provider procedures requiring assistance completed. IV discontinued, intact, jl7 bleeding controlled, No redness/swelling at site. Pressure dressing applied. Administered Medications: 14:53 Drug: foLIC Acid 1 mg Route: IVPB; Site: right antecubital; jl7 14:54 Follow up: Response: No adverse reaction; IV Status: Completed infusion jl7 14:53 Drug: NS 0.9% 1000 ml Route: IV; Rate: 1 bolus; Site: right antecubital; jl7 16:00 Follow up: Response: No adverse reaction; IV Status: Completed infusion; IV Intake: jl7 1000ml 16:59 Drug: Potassium Effervescent Tablet 25 mEq Route: PO; ca1 18:02 Follow up: Response: No adverse reaction jl7 18:02 Drug: Tylenol 1000 mg Route: PO; jl7 18:02 Follow up: Response: Medication administered at discharge. jl7 Point of Care Testing: Blood Glucose: 14:43 Blood Glucose: 116 mg/dL; jl7 Ranges: Intake: 16:00 IV: 1000ml; Total: 1000ml. jl7 Outcome: 17:58 Discharge ordered by MD. cp 18:24 Discharged to home ambulatory. jl7 18:24 Condition: stable 18:24 Discharge instructions given to patient, family, Instructed on discharge instructions, follow up and referral plans. Demonstrated understanding of instructions, follow-up care. 18:25 Patient left the ED. jl7 NIH Stroke Scale - NIH Stroke Score Date: 03/26/2020 Time: 14:45 Total Score = 0 1a. Level of Consciousness (LOC) - 0(Alert) 1b. Level of Consciousness (LOC) (Year \\T\\ Age) - 0(Both) 1c. LOC Commands (Open \\T\\ Closes Eyes/Ingot Stripper) - 0(Both) 2. Best Gaze (Lateral Gaze Paresis) - 0(Normal) 3. Visual Field Loss - 0(No visual loss) 4. Facial Palsy - 0(Normal) 5a. Left Arm: Motor (10-second hold) - 0(No drift) 5b. Right Arm: Motor (10-second hold) - 0(No drift) 6a. Left Leg: Motor (5-second hold - always test supine) - 0(No drift) 6b. Right Leg: Motor (5-second hold - always test supine) - 0(No drift) 7. Limb Ataxia (finger/nose \\T\\ heel/moser - test with eyes open) - 0(Absent) 8. Sensory Loss (pinprick arms/legs/face) - 0(Normal) 9. Best Language: Aphasia (description/naming/reading) - 0(No aphasia) 10. Dysarthria (speech clarity - read or repeat words) - 0(Normal) 11. Extinction and Inattention (visual/tactile/auditory/spatial/personal) - 0(No abnormality) Initials: jl7 NIH Stroke Scale - NIH Stroke Score Date: 03/26/2020 Time: 14:45 Total Score = 1 1a. Level of Consciousness (LOC) - 0(Alert) 1b. Level of Consciousness (LOC) (Year \\T\\ Age) - 0(Both) 1c. LOC Commands (Open \\T\\ Closes Eyes/Ingot Stripper) - 0(Both) 2. Best Gaze (Lateral Gaze Paresis) - 0(Normal) 3. Visual Field Loss - 0(No visual loss) 4. Facial Palsy - 0(Normal) 5a. Left Arm: Motor (10-second hold) - 0(No drift) 5b. Right Arm: Motor (10-second hold) - 0(No drift) 6a. Left Leg: Motor (5-second hold - always test supine) - 0(No drift) 6b. Right Leg: Motor (5-second hold - always test supine) - 0(No drift) 7. Limb Ataxia (finger/nose \\T\\ heel/moser - test with eyes open) - 0(Absent) 8. Sensory Loss (pinprick arms/legs/face) - 1(Mild to moderate loss) 9. Best Language: Aphasia (description/naming/reading) - 0(No aphasia) 10. Dysarthria (speech clarity - read or repeat words) - 0(Normal) 11. Extinction and Inattention (visual/tactile/auditory/spatial/personal) - 0(No abnormality) Initials: cp Signatures: Dispatcher [employer] Luke Umana PA PA cp Leal, Jahala, RN RN jl7 Rudi Tam RN RN jd3 Lisa Decker, RN RN ca1
[2020-03-26] MEDS ORDERED: ACETAMINOPHEN 500 MG TAB ONE (18:12)
[2020-03-26 21:17] VITALS: TEMP 98.7
[2020-03-26 21:19] VITALS: O2SAT 100
[2020-03-26 21:22] VITALS: BP 148/79
--- NOTE | 2020-03-28 07:45 | EKG ---
Test Date: 2020-03-26 Test Time: 14:32:01 Human Performance Consultant: GUILLERMO MEASUREMENT RESULTS: Intervals: Rate: 63 NE: 160 QRSD: 106 QT: 414 QTc: 423 [place]: P: 75 NE: 160 QRS: 92 T: 58 INTERPRETIVE STATEMENTS: Normal sinus rhythm Rightward axis Borderline ECG Compared to ECG 01/03/2020 16:11:24 No significant changes Electronically Signed On 03-28-20 07:41:07 TICKET PRINTER by Yash Berrios
== END 2020-03-26 18:25 | disposition home or self-care (01) ==
LOC: ER 14:25
DX: R20.2 Paresthesia of skin (principal); R29.701 NIHSS score 1; I10 Essential (primary) hypertension; I48.91 Unspecified atrial fibrillation; Z91.09 Other allergy status, other than to drugs and biological substances
CPT/HCPCS: 36415; 70450; 70551; 71045; 80048; 80076; 82947; 83735; 83880; 84484; 85025; 85610; 93005; 96361; 96374; 99285; J7030

== ENCOUNTER 2020-07-29 21:10 | Emergency (ER) | payer SELFPAY ==
[2020-07-29 21:43] LABS: Absolute Lymphocytes (CBC) 1.7 K/uL (0.7-4.9); Basophils % 0.4 % (0-1.3); Hematocrit 41.7 % (39.6-49.0); Lymphocytes % 27.2 % (15.3-44.8); MPV 9.2 fL (7.6-11.3); RBC Red Blood Cell Count 4.61 M/uL (4.33-5.43)
[2020-07-29 21:54] LABS: Alkaline Phosphatase ND U/L (45-117)
[2020-07-29 21:58] LABS: Protime INR 1.15
[2020-07-29 22:04] LABS: ALT/SGPT 18 U/L (12-78); AST/SGOT 24 U/L (15-37); Albumin 3.8 g/dL (3.4-5.0); BUN Blood Urea Nitrogen 25 mg/dL (7-18); Bicarbonate 25 mmol/L (21-32); Bilirubin Direct < 0.1 mg/dL (0-0.2); Bilirubin Total 0.2 mg/dL (0.2-1.0); Glucose Level 145 mg/dL (74-106); NT PRO-BNP 22 pg/mL (<125); Potassium 3.3 mmol/L (3.5-5.1); Protein, Total 7.8 g/dL (6.4-8.2); Sodium Level 141 mmol/L (136-145); Troponin (Emerg Dept Use Only) < 0.02 ng/mL (0.0-0.045)
[2020-07-29 22:34] LABS: Magnesium 2.4 mg/dL (1.8-2.4)
--- NOTE | 2020-07-29 22:52 | ER ---
Nurse's Notes [facility] Name: Mikhail Reilly Age: 44 yrs Sex: Male : 1975 Arrival Date: 07/29/2020 Time: 21:11 Bed 19 Private MD: Diagnosis: Paresthesias Presentation: 07/29 21:12 Acuity: LIANG 2 ca1 21:12 Chief complaint: Patient states: numbness on L side of face 15 mins PAINTER MIRROR. Weakness on L ca1 side of the body. HX of TIA x 3. A\T\Ox4. No slurring. No facial droop. VAN Negative. Coronavirus screen: Client denies travel out of the [place] in the last 14 days. At this time, the client does not indicate any symptoms associated with coronavirus-19. Ebola Screen: Patient negative for fever greater than or equal to 101.5 degrees Fahrenheit, and additional compatible Ebola Virus Disease symptoms Patient denies exposure to infectious person. Patient denies travel to an Ebola-affected area in the 21 days before illness onset. No symptoms or risks identified at this time. Risk Assessment: Do you want to hurt yourself or someone else? Patient reports no desire to harm self or others. Onset of symptoms was July 29, 2020 at 21:00. 21:12 Method Of Arrival: Wheelchair ca1 21:45 Initial Sepsis Screen: Does the patient meet any 2 criteria? No. Patient's initial em sepsis screen is negative. Does the patient have a suspected source of infection? No. Patient's initial sepsis screen is negative. Historical: - Allergies: 21:19 contrast; ca1 21:19 Iodinated Contrast Media - IV Dye; ca1 21:19 Iodine; ca1 - PMHx: 21:19 Atrial Fib; Hypertension; Kidney stones; Back pain; muscle spasms numerous times ca1 requiring Er visits with fluid resusitation; TIA; - PSHx: 21:19 None; ca1 Screenin:45 Abuse screen: Denies threats or abuse. Nutritional screening: No deficits noted. em Tuberculosis screening: No symptoms or risk factors identified. Fall Risk None identified. 21:50 Patient has been NPO before screening. The patient is alert, able to follow commands. em The patient does not exhibit slurred or garbled speech The patient is not exhibiting difficulty speaking. The patient does not exhibit difficulty understanding words. The patient is able to swallow own secretions with no drooling or need for suction. Patient tolerated one teaspoon of water. No drooling, immediate coughing, gurgling, or clearing of the throat was noted. The patient tolerated 90mL of water. No drooling, immediate coughing, gurgling, or clearing of the throat was noted. The patient passed the bedside swallow screening. Oral medications may be given as ordered. Contact Physician for further diet orders. Provider notified of bedside swallow screening results: Jhonatan Ferris MD. Assessment: 12:14 Reassessment: Pt to CT. ca1 21:45 General: Appears in no apparent distress. uncomfortable, well groomed, well developed, em Behavior is calm, cooperative, appropriate for age. Pain: Denies pain. Neuro: Level of Consciousness is awake, alert, obeys commands, Oriented to person, place, time, situation, Comparator Operator are equal bilaterally Moves all extremities. Speech is normal, Facial symmetry appears normal, Pupils are PERRLA, Numbness in face. Cardiovascular: Capillary refill < 3 seconds Patient's skin is warm and dry. Rhythm is sinus rhythm. Respiratory: Airway is patent Respiratory effort is even, unlabored, Respiratory pattern is regular, symmetrical. GI: Patient currently denies nausea, vomiting. Derm: Skin is intact, is healthy with good turgor, Skin is pink, warm \T\ dry. Musculoskeletal: Capillary refill < 3 seconds, Range of motion: intact in all extremities. 22:25 Reassessment: Patient appears in no apparent distress at this time. Patient and/or em family updated on plan of care and expected duration. Pain level reassessed. Patient is alert, oriented x 3, equal unlabored respirations, skin warm/dry/pink. Vital Signs: 21:21 BP 126 / 92; Pulse 75; Resp 18; Temp 98.8(O); Pulse Ox 99% on R/A; Pain 0/10; em 22:25 BP 116 / 74; Pulse 75; Resp 18; Pulse Ox 96% on R/A; em NIH Stroke Scale Scores: 21:45 NIHSS Score: 0 em 21:52 NIHSS Score: 0 7 ED Course: 21:11 Patient arrived in ED. cl3 21:12 Arm band placed on right wrist. ca1 21:14 Dylan Valerio RN is Primary Nurse. em 21:15 Jhonatan Ferris MD is Attending Physician. mh7 21:19 Triage completed. ca1 21:25 CT Stroke Brain w/o Contrast In Process Unspecified. EDMS 21:41 XRAY Chest (1 view) In Process Unspecified. EDMS 21:45 Patient has correct armband on for positive identification. Bed in low position. Call em light in reach. Side rails up X2. Pulse ox on. NIBP on. 22:49 Jorge Curran MD is Referral Physician. mh7 22:50 Jorge Curran MD is Referral Physician. 7 23:04 No provider procedures requiring assistance completed. IV discontinued, intact, em bleeding controlled, No redness/swelling at site. Pressure dressing applied. Administered Medications: 23:03 Drug: Potassium Chloride 40 mEq Route: PO; em Outcome: 22:[address] . [facility] 23:04 AMA AMA form signed em 23:04 Condition: stable 23:04 Instructed on discharge instructions, follow up and referral plans. Demonstrated understanding of instructions. 23:04 Patient left the ED. em NIH Stroke Scale - NIH Stroke Score Date: 07/29/2020 Time: 21:45 Total Score = 0 1a. Level of Consciousness (LOC) - 0(Alert) 1b. Level of Consciousness (LOC) (Year \T\ Age) - 0(Both) 1c. LOC Commands (Open \T\ Closes Eyes/Supervisor Framing Mill) - 0(Both) 2. Best Gaze (Lateral Gaze Paresis) - 0(Normal) 3. Visual Field Loss - 0(No visual loss) 4. Facial Palsy - 0(Normal) 5a. Left Arm: Motor (10-second hold) - 0(No drift) 5b. Right Arm: Motor (10-second hold) - 0(No drift) 6a. Left Leg: Motor (5-second hold - always test supine) - 0(No drift) 6b. Right Leg: Motor (5-second hold - always test supine) - 0(No drift) 7. Limb Ataxia (finger/nose \T\ heel/moser - test with eyes open) - 0(Absent) 8. Sensory Loss (pinprick arms/legs/face) - 0(Normal) 9. Best Language: Aphasia (description/naming/reading) - 0(No aphasia) 10. Dysarthria (speech clarity - read or repeat words) - 0(Normal) 11. Extinction and Inattention (visual/tactile/auditory/spatial/personal) - 0(No abnormality) Initials: cindy NIH Stroke Scale - NIH Stroke Score Date: 07/29/2020 Time: 21:52 Total Score = 0 1a. Level of Consciousness (LOC) - 0(Alert) 1b. Level of Consciousness (LOC) (Year \T\ Age) - 0(Both) 1c. LOC Commands (Open \T\ Closes Eyes/Supervisor Fr[employer] Mill) - 0(Both) 2. Best Gaze (Lateral Gaze Paresis) - 0(Normal) 3. Visual Field Loss - 0(No visual loss) 4. Facial Palsy - 0(Normal) 5a. Left Arm: Motor (10-second hold) - 0(No drift) 5b. Right Arm: Motor (10-second hold) - 0(No drift) 6a. Left Leg: Motor (5-second hold - always test supine) - 0(No drift) 6b. Right Leg: Motor (5-second hold - always test supine) - 0(No drift) 7. Limb Ataxia (finger/nose \T\ heel/moser - test with eyes open) - 0(Absent) 8. Sensory Loss (pinprick arms/legs/face) - 0(Normal) 9. Best Language: Aphasia (description/naming/reading) - 0(No aphasia) 10. Dysarthria (speech clarity - read or repeat words) - 0(Normal) 11. Extinction and Inattention (visual/tactile/auditory/spatial/personal) - 0(No abnormality) Initials: [facility] Signatures: Dispatcher [employer] Dylan Irvin RN RN Lisa Decker RN RN Allan Lainez cl3 Jhonatan Ferris MD MD [facility]
--- NOTE | 2020-07-29 22:52 | EDPHYS ---
Physician Documentation [facility] Name: Mikhail Reilly Age: 44 yrs Sex: Male : 1975 Arrival Date: 07/29/2020 Time: 21:11 Bed 19 Private MD: ED Physician Jhonatan Ferris HPI: 07/29 21:52 This 44 yrs old Male presents to ER via Wheelchair with complaints of Numbness mh7 Of Face. 21:52 The patient's problem is reported as paresthesias, in right side of face, in left side mh7 of face. Onset: The symptoms/episode began/occurred just prior to arrival, today. Duration: The episode is continuous. Context: the episode(s) was witnessed, by no one, symptoms became apparent occurred at home, occurred while the patient was sitting, Arguing with his boss. Possible contributing factors include: stress due to work. The symptoms are alleviated by nothing. The symptoms are aggravated by nothing. Associated signs and symptoms: Pertinent positives: numbness, tingling, weakness, generalized, Pertinent negatives: abdominal pain, agitation, ataxia, blurred vision, chest pain, combativeness, confusion, diaphoresis, diarrhea, dizziness, headache, lightheadedness, nausea, palpitations, seizure, shortness of breath, vertigo, vomiting. Severity of symptoms: At their worst the symptoms were moderate just prior to arrival, today, in the emergency department the symptoms are unchanged. Historical: - Allergies: 21:19 contrast; ca1 21:19 Iodinated Contrast Media - IV Dye; ca1 21:19 Iodine; ca1 - PMHx: 21:19 Atrial Fib; Hypertension; Kidney stones; Back pain; muscle spasms numerous times ca1 requiring Er visits with fluid resusitation; TIA; - PSHx: 21:19 None; ca1 ROS: 21:52 Constitutional: Negative for fever, chills, and weight loss, Eyes: Negative for injury, mh7 pain, redness, and discharge, ENT: Negative for injury, pain, and discharge, Neck: Negative for injury, pain, and swelling, Cardiovascular: Negative for chest pain, palpitations, and edema, Respiratory: Negative for shortness of breath, cough, wheezing, and pleuritic chest pain, Abdomen/GI: Negative for abdominal pain, nausea, vomiting, diarrhea, and constipation, Back: Negative for injury and pain, : Negative for injury, bleeding, discharge, and swelling, MS/Extremity: Negative for injury and deformity, Skin: Negative for injury, rash, and discoloration, Psych: Negative for depression, anxiety, suicide ideation, homicidal ideation, and hallucinations, Allergy/Immunology: Negative for hives, rash, and allergies, Endocrine: Negative for neck swelling, polydipsia, polyuria, polyphagia, and marked weight changes, Hematologic/Lymphatic: Negative for swollen nodes, abnormal bleeding, and unusual bruising. Exam: 21:52 Radiologist reports: No acute findings [facility] 21:52 Head/Face: Normocephalic, atraumatic. Eyes: Pupils equal round and reactive to light, extra-ocular motions intact. Lids and lashes normal. Conjunctiva and sclera are non-icteric and not injected. Cornea within normal limits. Periorbital areas with no swelling, redness, or edema. ENT: Nares patent. No nasal discharge, no septal abnormalities noted. Tympanic membranes are normal and external auditory canals are clear. Oropharynx with no redness, swelling, or masses, exudates, or evidence of obstruction, uvula midline. Mucous membranes moist. Neck: Trachea midline, no thyromegaly or masses palpated, and no cervical lymphadenopathy. Supple, full range of motion without nuchal rigidity, or vertebral point tenderness. No Meningismus. Chest/axilla: Normal chest wall appearance and motion. Nontender with no deformity. No lesions are appreciated. Cardiovascular: Regular rate and rhythm with a normal S1 and S2. No gallops, murmurs, or rubs. Normal PMI, no JVD. No pulse deficits. Respiratory: Lungs have equal breath sounds bilaterally, clear to auscultation and percussion. No rales, rhonchi or wheezes noted. No increased work of breathing, no retractions or nasal flaring. Abdomen/GI: Soft, non-tender, with normal bowel sounds. No distension or tympany. No guarding or rebound. No evidence of tenderness throughout. Back: No spinal tenderness. No costovertebral tenderness. Full range of motion. Skin: Warm, dry with normal turgor. Normal color with no rashes, no lesions, and no evidence of cellulitis. MS/ Extremity: Pulses equal, no cyanosis. Neurovascular intact. Full, normal range of motion. Neuro: Awake and alert, GCS 15, oriented to person, place, time, and situation. Cranial nerves II-XII grossly intact. Motor strength 5/5 in all extremities. Sensory grossly intact. Cerebellar exam normal. Normal gait. 21:52 Constitutional: The patient appears in no acute distress, alert, awake, anxious. 21:52 Psych: Behavior/mood is cooperative, anxious, Affect is animated, Oriented to person, place, time, Patient has no thoughts/intents to harm self or others. Judgement / Insight is normal. Memory is normal. Delusions/hallucinations are not present. Vital Signs: 21:21 BP 126 / 92; Pulse 75; Resp 18; Temp 98.8(O); Pulse Ox 99% on R/A; Pain 0/10; em 22:25 BP 116 / 74; Pulse 75; Resp 18; Pulse Ox 96% on R/A; em NIH Stroke Scale Scores: 21:45 NIHSS Score: 0 em 21:52 NIHSS Score: 0 [facility] MDM: 22:47 Differential diagnosis: CVA, TIA, paralysis, drug effects, Anxiety. Data reviewed: [facility] vital signs, nurses notes, old medical records, lab test result(s), cardiac enzymes, CBC, electrolytes, EKG, radiologic studies, CT scan, plain films. Data interpreted: Pulse oximetry: on room air is 96 %. Interpretation: normal. Counseling: I had a detailed discussion with the patient and/or guardian regarding: the historical points, exam findings, and any diagnostic results supporting the discharge/admit diagnosis, lab results, radiology results, the need for further work-up and treatment in the hospital. Response to treatment: the patient's symptoms have resolved after treatment, the patient's blood pressure is in an acceptable range, mental status has returned to baseline, the patient no longer shows bradycardia, the patient is not short of breath, the patient is not tachycardic, the patient's pain is gone, the patient's temperature has normalized. Physician consultation: Jorge Curran MD was contacted at 22:25, regarding patient's condition, and will see patient in inpatient room. Refusal of service: The patient/guardian displays adequate decision making capability and despite a detailed discussion of alternatives, benefits, risks, and consequences refuses: Admission to the hospital for further work-up and treatment. 22:49 Patient medically screened. [facility] 07/29 21:31 Order name: Basic Metabolic Panel [facility] 07/29 21:31 Order name: CBC with Diff [facility] 07/29 21:31 Order name: LFT's [facility] 07/29 21:31 Order name: Magnesium; Complete Time: 22:36 [facility] 07/29 21:31 Order name: NT PRO-BNP; Complete Time: 22:36 [facility] 07/29 21:31 Order name: PT-INR; Complete Time: 22:07 [facility] 07/29 21:17 Order name: CT Stroke Brain w/o Contrast ca1 07/29 21:31 Order name: Troponin (emerg Dept Use Only); Complete Time: 22:36 [facility] 07/29 21:31 Order name: ETOH Level; Complete Time: 22:14 [facility] 07/29 21:32 Order name: Basic Metabolic Panel; Complete Time: 22:36 EDMS 07/29 21:32 Order name: CBC with Automated Diff; Complete Time: 22:07 EDMS 07/29 21:32 Order name: Liver (Hepatic) Function; Complete Time: 22:36 [facility] 07/29 21:41 Order name: Glucose, Ancillary Testing; Complete Time: 22:07 [facility] 07/29 21:31 Order name: XRAY Chest (1 view) [facility] 07/29 21:31 Order name: Cardiac monitoring; Complete Time: 21:32 [facility] 07/29 21:31 Order name: EKG - Nurse/Tech; Complete Time: 21:32 [facility] 07/29 21:31 Order name: IV Saline Lock; Complete Time: 21:32 [facility] 07/29 21:31 Order name: Labs collected and sent; Complete Time: 21:32 [facility] 07/29 21:31 Order name: O2 Per Protocol; Complete Time: 21:32 [facility] 07/29 21:31 Order name: O2 Sat Monitoring; Complete Time: 21:32 [facility] Administered Medications: 23:03 Drug: Potassium Chloride 40 mEq Route: PO; em Disposition: 07/29/20 22:51 Patient has left against medical advice. Impression: Paresthesias. - Patients states they are going to Home. - Condition is Stable. - Discharge Instructions: Paresthesia, [id number]. Follow up: Private Physician; When: 1 - 2 days; Reason: Worsening of condition, Recheck today's complaints, Continuance of care, Re-evaluation by your physician. Follow up: Jorge Curran MD; When: 1 - 2 days; Reason: Worsening of condition, Recheck today's complaints. - Problem is new. - Symptoms are resolved. NIH Stroke Scale - NIH Stroke Score Date: 07/29/2020 Time: 21:45 Total Score = 0 1a. Level of Consciousness (LOC) - 0(Alert) 1b. Level of Consciousness (LOC) (Year \T\ Age) - 0(Both) 1c. LOC Commands (Open \T\ Closes Eyes/Biosolids Management Technician) - 0(Both) 2. Best Gaze (Lateral Gaze Paresis) - 0(Normal) 3. Visual Field Loss - 0(No visual loss) 4. Facial Palsy - 0(Normal) 5a. Left Arm: Motor (10-second hold) - 0(No drift) 5b. Right Arm: Motor (10-second hold) - 0(No drift) 6a. Left Leg: Motor (5-second hold - always test supine) - 0(No drift) 6b. Right Leg: Motor (5-second hold - always test supine) - 0(No drift) 7. Limb Ataxia (finger/nose \T\ heel/moser - test with eyes open) - 0(Absent) 8. Sensory Loss (pinprick arms/legs/face) - 0(Normal) 9. Best Language: Aphasia (description/naming/reading) - 0(No aphasia) 10. Dysarthria (speech clarity - read or repeat words) - 0(Normal) 11. Extinction and Inattention (visual/tactile/auditory/spatial/personal) - 0(No abnormality) Initials: NIH Stroke Scale - NIH Stroke Score Date: 07/29/2020 Time: 21:52 Total Score = 0 1a. Level of Consciousness (LOC) - 0(Alert) 1b. Level of Consciousness (LOC) (Year \T\ Age) - 0(Both) 1c. LOC Commands (Open \T\ Closes Eyes/Biosolids Management Technician) - 0(Both) 2. Best Gaze (Lateral Gaze Paresis) - 0(Normal) 3. Visual Field Loss - 0(No visual loss) 4. Facial Palsy - 0(Normal) 5a. Left Arm: Motor (10-second hold) - 0(No drift) 5b. Right Arm: Motor (10-second hold) - 0(No drift) 6a. Left Leg: Motor (5-second hold - always test supine) - 0(No drift) 6b. Right Leg: Motor (5-second hold - always test supine) - 0(No drift) 7. Limb Ataxia (finger/nose \T\ heel/moser - test with eyes open) - 0(Absent) 8. Sensory Loss (pinprick arms/legs/face) - 0(Normal) 9. Best Language: Aphasia (description/naming/reading) - 0(No aphasia) 10. Dysarthria (speech clarity - read or repeat words) - 0(Normal) 11. Extinction and Inattention (visual/tactile/auditory/spatial/personal) - 0(No abnormality) Initials: [facility] Signatures: Dispatcher [employer] Dylan Irvin RN RN em Lester Rios, SAND MILL OPERATOR CORE SAND-C SAND MILL OPERATOR CORE SAND-Cla1 Lisa Decker RN RN ca1 Holmes, Maurice, MD MD 7 Corrections: (The following items were deleted from the chart) 22:50 22:49 07/29/2020 22:49 Discharged to Home. Impression: Paresthesias. Condition 7 is Stable. Forms are Medication Reconciliation Form, Thank You Letter, Antibiotic Education, Prescription Opioid Use. Follow up: Private Physician; When: 1 - 2 days; Reason: Worsening of condition, Recheck today's complaints, Continuance of care, Re-evaluation by your physician. Follow up: Jorge Curran; When: 1 - 2 days; Reason: Worsening of condition, Recheck today's complaints. Problem is new. Symptoms are resolved. [facility] 23:04 22:51 07/29/2020 22:51 Patients has left against medical advice. Impression: em Paresthesias. Patient states they are going to Home. Condition is Stable. Follow up: Private Physician; When: 1 - 2 days; Reason: Worsening of condition, Recheck today's complaints, Continuance of care, Re-evaluation by your physician. Follow up: Jorge Curran; When: 1 - 2 days; Reason: Worsening of condition, Recheck today's complaints. Problem is new. Symptoms are resolved. [facility]
[2020-07-29] MEDS ORDERED: POTASSIUM CL SA 10 MEQ TAB PO ONE (23:05)
[2020-07-29 23:12] VITALS: TEMP 98.8
[2020-07-29 23:14] VITALS: BP 116/74; O2SAT 96
--- NOTE | 2020-07-30 06:38 | RAD REPORT ---
EXAM DESCRIPTION: Rafa Single View07/29/2020 9:40 pm CLINICAL HISTORY: Hypertension/numbness COMPARISON: 2019 FINDINGS: The lungs appear clear of acute infiltrate. The heart is normal size IMPRESSION: No acute abnormalities displayed
--- NOTE | 2020-07-30 10:19 | RAD REPORT ---
EXAM DESCRIPTION: CT - Ct Stroke Brain Wo Cont - 07/30/2020 6:51 am ADDENDUM #1 ADDENDUM: THIS REPORT CONTAINS FINDINGS THAT MAY BE CRITICAL TO PATIENT'S CARE: The findings were verbally discussed via telephone conference with Jhonatan Ferris by Dr. Perez on 07/29/2020 9:48 PM CDT. The results were acknowledged and understood. Electronically signed by: Sarwat Perez DO 07/29/2020 9:48 PM CDT End of Addendum EXAM DESCRIPTION: Ct Stroke Brain Wo Cont CLINICAL HISTORY: 44 years Male Numbness;Weakness COMPARISON: CT and MRI brain without contrast dated March 26, 2020 TECHNIQUE: Contiguous axial images of the brain were obtained without the administration of intraven ous contrast.This exam was performed according to our departmental dose-optimization program which in cludes use of Automated Exposure Control, adjustment of the mA and/or kV according to patient size an d/or use of iterative reconstruction technique. DLP: 857 mGy*cm FINDINGS: Brain: No acute intracranial hemorrhage. No extra-axial collection. No mass effect or diann iation. Ventricles: Within normal limits in size. Globes and orbits: No acute abnormality. Bones: No acute osseous finding Paranasal sinuses: Paranasal sinuses are clear. Mastoid air cells: Well pneumatized. Soft tissues: Within normal limits IMPRESSION: No acute intracranial hemorrhage, hydrocephalus or herniation. Consider MRI brain for fu rther evaluation. Electronically signed by: Sarwat Perez DO 07/29/2020 9:33 PM CDT Due to temporary technical issues with the PACS/Fluency reporting system, reports are being signed by the in house radiologists without review as a courtesy to insure prompt reporting. The interpreting radiologist is fully responsible for the content of the report.
== END 2020-07-29 23:04 | disposition left against medical advice (07) ==
LOC: ER 21:10
DX: R20.2 Paresthesia of skin (principal); I10 Essential (primary) hypertension; Z86.73 Personal history of transient ischemic attack (TIA), and cerebral infarction without residual deficits; Z91.041 Radiographic dye allergy status; Z91.048 Other nonmedicinal substance allergy status
CPT/HCPCS: 36415; 70450; 71045; 80048; 80076; 80320; 82947; 83735; 83880; 84484; 85025; 85610; 93005; 99284

== ENCOUNTER 2020-11-30 11:14 | Emergency (ER) | payer SELFPAY ==
--- OUTSIDE RECORDS SUMMARY | 2020-11-30 11:17 | XMS REPORT | Continuity of Care Document ---
:1975 Author Organization Formerly [facility] t Address [address] [place] [address] Care Team Providers Name Role Phone Asked, Pcp Primary Care Physician Unavailable Woodrow Segura MD Attending Clinician Dante NIEVES Attending Clinician Problems This patient has no known problems. Allergies, Adverse Reactions, Alerts Allergy Allergy Status Severity Reaction(s) Onset Inactive Treating Comm ents Source Name Type Date Date Clinician Iodine Propensi Active 2017-05 [place] ty to 06-17 Methodi adverse 00:00: st reaction 00 s to drug Social History Social Habit Start Date Stop Date Quantity Comments Source History [facility] Meth odist Alcohol Std Drinks History [facility] Meth odist Alcohol Binge History [facility] 2018-04-17 2018-04-17 1 [place] Meth odist Alcohol Frequency 00:00:00 00:00:00 Tobacco use and 2018-04-16 2018-04-16 Never used [facility] ethodist exposure 00:00:00 00:00:00 Alcohol intake 2018-04-16 2018-04-16 Current [facility] thodist 00:00:00 00:00:00 non-drinker of alcohol (finding) Sex Ass[birth year] At [birth year] [facility] ethodist 00:00:00 00:00:00 Smoking Status Start Date Stop Date Source Never smoker [place] Methodis t Medications This patient has no known medications. Procedures This patient has no known procedures. Plan of Care Planned Activity Planned Date Details Comments Source Future Scheduled 2020-12-12 INFLUENZA VACCINE Lesly alexis [employer] Test 00:00:00 [code = INFLUENZA VACCINE] Future Scheduled 1991-09-12 Hepatitis C [facility] hodist Test 00:00:00 screening (procedure) [code = 107377619] Future Scheduled 1985 COVID-19 VACCINE (1) Sohan gonzalez [employer] Test 00:00:00 [code = COVID-19 VACCINE (1)] Encounters Start End Encounter Admission Attending Care Care Encounter Source Date/Time Date/Time Type Type Clinicians Facility Department ID 2020-11-24 2020-11-24 Refill [facility] [id number] 00:00:00 00:00:00 Lacey Ellis [id number] [place] [id number] Professio [phone] [facility] 231 [facility] 2020-10-04 2020-10-04 [facility] [id number] 00:00:00 00:00:00 Eben Ellis [id number] [place] [id number] Professio [phone] [place] 085 [facility] 2020-10-04 2020-10-04 Refill [facility] [id number] 00:00:00 00:00:00 Lacey Ellis [id number] [place] [id number] Professio [phone] [place] 044 [facility] 2020-09-07 2020-09-07 Office [facility] [id number] 13:00:30 14:47:30 Visit Lacey Ellis [id number] [place] [id number] Professio [phone] [address] Results This patient has no known results.
[2020-11-30 11:38] LABS: Absolute Lymphocytes (CBC) 1.2 K/uL (0.7-4.9); Basophils % 0.3 % (0-1.3); Hematocrit 37.5 % (39.6-49.0); Lymphocytes % 11.9 % (15.3-44.8); MPV 8.4 fL (7.6-11.3); RBC Red Blood Cell Count 4.16 M/uL (4.33-5.43)
[2020-11-30 11:56] LABS: Protime INR 1.18
--- NOTE | 2020-11-30 12:07 | RAD REPORT ---
EXAM DESCRIPTION: RAD - Chest Single View - 11/30/2020 11:55 am CLINICAL HISTORY: CHEST PAIN Chest pain. COMPARISON: Chest Single View dated 07/29/2020; Chest Single View dated 03/26/2020; Chest Single View dated 01/03/2020; Chest Single View dated 08/11/2019 FINDINGS: Portable technique limits examination quality. The lungs are grossly clear. The heart is normal in size. No displaced fractures. IMPRESSION: No acute intrathoracic process suspected.
[2020-11-30 12:15] LABS: ALT/SGPT 35 U/L (12-78); AST/SGOT 25 U/L (15-37); Albumin 3.9 g/dL (3.4-5.0); Alkaline Phosphatase 112 U/L (45-117); BUN Blood Urea Nitrogen 20 mg/dL (7-18); Bicarbonate 25 mmol/L (21-32); Bilirubin Direct < 0.1 mg/dL (0-0.2); Bilirubin Total 0.2 mg/dL (0.2-1.0); Glucose Level 112 mg/dL (74-106); Magnesium 2.3 mg/dL (1.8-2.4); NT PRO-BNP 75 pg/mL (<125); Potassium 3.8 mmol/L (3.5-5.1); Protein, Total 7.7 g/dL (6.4-8.2); Sodium Level 139 mmol/L (136-145); Troponin (Emerg Dept Use Only) < 0.02 ng/mL (0.0-0.045)
--- NOTE | 2020-11-30 12:51 | ER ---
Nurse's Notes [facility] Name: Mikhail Reilly Age: 45 yrs Sex: Male : 1975 Arrival Date: 11/30/2020 Time: 11:15 Bed 2 Private MD: Diagnosis: Chest pain, unspecified Presentation: 11/30 11:15 Chief complaint: EMS states: Intermittent chest pain that radiates to upper back and hb mild SOB x 2-3 days. Pain became severe this morning. Reports mild improvement after Nitro x 2. Coronavirus screen: At this time, the client does not indicate any symptoms associated with coronavirus-19. Ebola Screen: No symptoms or risks identified at this time. Initial Sepsis Screen: Does the patient meet any 2 criteria? No. Patient's initial sepsis screen is negative. Does the patient have a suspected source of infection? No. Patient's initial sepsis screen is negative. Risk Assessment: Do you want to hurt yourself or someone else? Patient reports no desire to harm self or others. Onset of symptoms was November 28, 2020. 11:15 Method Of Arrival: EMS: [facility] hb 11:15 Acuity: LIANG 3 hb Triage Assessment: 11:17 General: Appears in no apparent distress. uncomfortable, Behavior is calm, cooperative. hb Pain: Pain currently is 7 out of 10 on a pain scale. EENT: No signs and/or symptoms were reported regarding the EENT system. Neuro: Level of Consciousness is awake, alert, obeys commands, Oriented to person, place, time, situation. Cardiovascular: Reports chest pain, shortness of breath, Patient's skin is warm and dry. Rhythm is sinus tachycardia. Respiratory: Reports shortness of breath on exertion Respiratory effort is even, unlabored, Respiratory pattern is regular, symmetrical. GI: No signs and/or symptoms were reported involving the gastrointestinal system. : No signs and/or symptoms were reported regarding the genitourinary system. Derm: Skin is pink, warm \T\ dry. Musculoskeletal: No signs and/or symptoms reported regarding the musculoskeletal system. Historical: - Allergies: 11:17 Iodine; hb 11:17 Iodinated Contrast Media - IV Dye; hb - Home Meds: 11:17 atenolol 25 mg Oral tab 1 tab once daily [Active]; Eliquis Oral [Active]; hb - PMHx: 11:17 Atrial Fib; Back pain; Hypertension; Kidney stones; muscle spasms numerous times hb requiring Er visits with fluid resusitation; TIA; - Immunization history:: Adult Immunizations up to date. - Social history:: Smoking status: Patient denies any tobacco usage or history of. Screenin:18 Abuse screen: Denies threats or abuse. Denies injuries from another. Nutritional hb screening: No deficits noted. Tuberculosis screening: No symptoms or risk factors identified. Fall Risk None identified. Assessment: 11:18 General: see traige. hb 12:29 Reassessment: Patient appears in no apparent distress at this time. Patient and/or hb family updated on plan of care and expected duration. Pain level reassessed. Patient is alert, oriented x 3, equal unlabored respirations, skin warm/dry/pink. 12:49 Reassessment: Requesting discharge, Dr. Iqbal notified. Patient states feeling hb better. Patient states symptoms have improved. 12:58 Reassessment: Repeat trop sent. hb 13:20 Reassessment: Pt will be discharged once repeat trop is resulted. jl7 Vital Signs: 11:15 BP 98 / 64; Pulse 94; Resp 16; Temp 97.8; Pulse Ox 100% on R/A; Pain 7/10; hb 12:09 BP 116 / 86; Pulse 69; Resp 15; Pulse Ox 99% ; jl7 12:50 BP 132 / 85; Pulse 71; Resp 15; Pulse Ox 99% on R/A; hb ED Course: 11:15 Patient arrived in ED. hb 11:17 Triage completed. hb 11:17 Arm band placed on. hb 11:18 Patient has correct armband on for positive identification. Placed in gown. Bed in low hb position. Call light in reach. ekg monitor tech on. Pulse ox on. NIBP on. 11:19 Inserted saline lock: 20 gauge in right forearm, using aseptic technique. Blood dh3 collected. 11:22 Kirby Gottlieb, RN is Primary Nurse. jl7 11:22 EKG completed in triage. Results shown to . di 11:23 Initial lab(s) drawn, by ED staff, sent to lab. EKG done, by ED staff, reviewed by [email or web address] Scar Iqbal MD. 11:25 Scar Iqbal MD is Attending Physician. kdr 11:56 XRAY Chest (1 view) In Process Unspecified. EDMS 13:16 Troponin (emerg Dept Use Only) Sent. jl7 13:56 No provider procedures requiring assistance completed. IV discontinued, intact, hb bleeding controlled, No redness/swelling at site. Administered Medications: No medications were administered Outcome: 12:50 Discharge ordered by MD. kdr 13:56 Discharged to home ambulatory. hb 13:56 Condition: stable 13:56 Discharge instructions given to patient, Instructed on discharge instructions, follow up and referral plans. medication usage, Demonstrated understanding of instructions, follow-up care, medications. 13:56 Patient left the ED. hb Signatures: Dispatcher [employer] EDOK Scar Iqbal MD MD kdr Rosmery Carlton RN RN Kirby Gottlieb RN RN jl7 Maryann Landry 3 Corrections: (The following items were deleted from the chart) 11:17 11:17 Allergies: contrast; hb hb
--- NOTE | 2020-11-30 12:51 | EDPHYS ---
Physician Documentation [facility] Name: Mikhail Reilly Age: 45 yrs Sex: Male : 1975 Arrival Date: 11/30/2020 Time: 11:15 Bed 2 Private MD: ED Physician Scar Iqbal HPI: 11/30 12:57 This 45 yrs old Male presents to ER via EMS with complaints of Chest Pain. kdr 12:57 The patient or guardian reports chest pain that is located primarily in the anterior kdr chest wall, left. Onset: Patient states that the pain started abruptly about 1 hour prior to arrival.. The pain does not radiate. Associated signs and symptoms: Pertinent positives: shortness of breath, Pertinent negatives: abdominal pain, cough, diaphoresis, dizziness, headache, lower extremity pain. The chest pain is described as aching, sharp. Duration: The patient or guardian reports a single episode, that is now resolved. Severity of pain: At its worst the pain was severe incapacitating just prior to arrival, in the emergency department the pain has resolved. The patient has not experienced similar symptoms in the past. The patient has not recently seen a physician. Patient indicates that EMS gave him 2 nitroglycerin prior to arrival. He states that his pain is currently relieved.. Historical: - Allergies: 11:17 Iodine; hb 11:17 Iodinated Contrast Media - IV Dye; hb - Home Meds: 11:17 atenolol 25 mg Oral tab 1 tab once daily [Active]; Eliquis Oral [Active]; hb - PMHx: 11:17 Atrial Fib; Back pain; Hypertension; Kidney stones; muscle spasms numerous times hb requiring Er visits with fluid resusitation; TIA; - Immunization history:: Adult Immunizations up to date. - Social history:: Smoking status: Patient denies any tobacco usage or history of. ROS: 12:57 Constitutional: Negative for fever, chills, and weight loss, Eyes: Negative for injury, kdr pain, redness, and discharge, ENT: Negative for injury, pain, and discharge, Neck: Negative for injury, pain, and swelling, Respiratory: Negative for shortness of breath, cough, wheezing, and pleuritic chest pain, Abdomen/GI: Negative for abdominal pain, nausea, vomiting, diarrhea, and constipation, Back: Negative for injury and pain, : Negative for injury, bleeding, discharge, and swelling, MS/Extremity: Negative for injury and deformity, Skin: Negative for injury, rash, and discoloration, Neuro: Negative for headache, weakness, numbness, tingling, and seizure activity. Psych: Negative for depression, anxiety, suicide ideation, homicidal ideation, and hallucinations, Allergy/Immunology: Negative for hives, rash, and allergies, Endocrine: Negative for neck swelling, polydipsia, polyuria, polyphagia, and marked weight changes, Hematologic/Lymphatic: Negative for swollen nodes, abnormal bleeding, and unusual bruising. 12:57 Cardiovascular: Positive for chest pain, of the anterior aspect of left upper chest. Exam: 12:51 ECG was reviewed by the Attending Physician. kdr 12:57 Constitutional: This is a well developed, well nourished patient who is awake, alert, kdr and in no acute distress. Head/Face: Normocephalic, atraumatic. Eyes: Pupils equal round and reactive to light, extra-ocular motions intact. Lids and lashes normal. Conjunctiva and sclera are non-icteric and not injected. Cornea within normal limits. Periorbital areas with no swelling, redness, or edema. Neck: Trachea midline, no thyromegaly or masses palpated, and no cervical lymphadenopathy. Supple, full range of motion without nuchal rigidity, or vertebral point tenderness. No Meningismus. Chest/axilla: Normal chest wall appearance and motion. Nontender with no deformity. No lesions are appreciated. Cardiovascular: Regular rate and rhythm with a normal S1 and S2. No gallops, murmurs, or rubs. Normal PMI, no JVD. No pulse deficits. Respiratory: Lungs have equal breath sounds bilaterally, clear to auscultation and percussion. No rales, rhonchi or wheezes noted. No increased work of breathing, no retractions or nasal flaring. Abdomen/GI: Soft, non-tender, with normal bowel sounds. No distension or tympany. No guarding or rebound. No evidence of tenderness throughout. Back: No spinal tenderness. No costovertebral tenderness. Full range of motion. Skin: Warm, dry with normal turgor. Normal color with no rashes, no lesions, and no evidence of cellulitis. MS/ Extremity: Pulses equal, no cyanosis. Neurovascular intact. Full, normal range of motion. Neuro: Awake and alert, GCS 15, oriented to person, place, time, and situation. Cranial nerves II-XII grossly intact. Motor strength 5/5 in all extremities. Sensory grossly intact. Cerebellar exam normal. Normal gait. Psych: Awake, alert, with orientation to person, place and time. Behavior, mood, and affect are within normal limits. Vital Signs: 11:15 BP 98 / 64; Pulse 94; Resp 16; Temp 97.8; Pulse Ox 100% on R/A; Pain 7/10; hb 12:09 BP 116 / 86; Pulse 69; Resp 15; Pulse Ox 99% ; jl7 12:50 BP 132 / 85; Pulse 71; Resp 15; Pulse Ox 99% on R/A; hb MDM: 12:50 Patient medically screened. kdr 12:57 Data reviewed: vital signs, lab test result(s), EKG, radiologic studies. Counseling: I kdr had a detailed discussion with the patient and/or guardian regarding: the historical points, exam findings, and any diagnostic results supporting the discharge/admit diagnosis, lab results, radiology results, the need for outpatient follow up. Response to treatment: the patient's condition has returned to base line, the patient is now symptom free, patient is well hydrated. Special discussion: Based on the patient's history, exam, and Dx evaluation, there is no indication for emergent intervention or inpatient Tx. It is understood by the patient/guardian that if the Sx's persist or worsen they need to return immediately for re-evaluation. ED course: The patient was without pain in the emergency department. He had no other complaints. He was happy with the care provided and the plan for discharge and follow-up.. 11/30 11:23 Order name: Basic Metabolic Panel [facility] 11/30 11:23 Order name: CBC with Diff; Complete Time: 12:49 [facility] 11/30 11:23 Order name: LFT's [facility] 11/30 11:23 Order name: Magnesium [facility] 11/30 11:23 Order name: NT PRO-BNP [facility] 11/30 11:23 Order name: PT-INR; Complete Time: 12:49 [facility] 11/30 11:23 Order name: Troponin (emerg Dept Use Only); Complete Time: 12:49 [facility] 11/30 11:23 Order name: XRAY Chest (1 view); Complete Time: 12:49 [facility] 11/30 11:23 Order name: Basic Metabolic Panel; Complete Time: 12:49 [facility] 11/30 11:23 Order name: Liver (Hepatic) Function; Complete Time: 12:49 [facility] 11/30 11:23 Order name: Magnesium; Complete Time: 12:49 [facility] 11/30 11:23 Order name: NT PRO-BNP; Complete Time: 12:49 [facility] 11/30 12:51 Order name: Troponin (emerg Dept Use Only) kdr 11/30 12:51 Order name: Troponin (Emerg Dept Use Only); Complete Time: 13:46 [facility] 11/30 11:23 Order name: EKG; Complete Time: 11:23 [facility] 11/30 11:23 Order name: Cardiac monitoring; Complete Time: 11:23 [facility] 11/30 11:23 Order name: EKG - Nurse/Tech; Complete Time: 11:23 [facility] 11/30 11:23 Order name: IV Saline Lock; Complete Time: 11:23 [facility] 11/30 11:23 Order name: Labs collected and sent; Complete Time: 11:23 [facility] 11/30 11:23 Order name: O2 Per Protocol; Complete Time: 11:23 [facility] 11/30 11:23 Order name: O2 Sat Monitoring; Complete Time: :23 EC:51 Rate is 90 beats/min. Rhythm is regular, Normal Sinus Rhythm with No ectopy. QRS [place] kdr is Normal. [place] interval is normal. QRS interval is normal. QT interval is normal. Clinical impression: Normal ECG. Administered Medications: No medications were administered Disposition Summary: 11/30/20 12:50 Discharge Ordered Location: Home kdr Problem: new kdr Symptoms: are resolved kdr Condition: Stable kdr Diagnosis - Chest pain, unspecified kdr Followup: kdr - With: Private Physician - When: 2 - 3 days - Reason: If symptoms return, Further diagnostic work-up, Recheck today's complaints, Continuance of care, Re-evaluation by your physician Discharge Instructions: - Discharge Summary Sheet kdr - Nonspecific Chest Pain, Adult, [id number] kdr Forms: - Medication Reconciliation Form kdr - Thank You Letter kdr Signatures: Dispatcher [employer] Scar Bustamante MD MD kdr Rosmery Carlton, RN RN hb Kirby Gottlieb RN RN jl7 Corrections: (The following items were deleted from the chart) 11:17 11:17 Allergies: contrast; hb hb
[2020-11-30 14:10] VITALS: TEMP 97.8
[2020-11-30 14:11] VITALS: O2SAT 99
[2020-11-30 14:14] VITALS: BP 132/85
--- NOTE | 2020-12-01 10:43 | EKG ---
Test Date: 2020-11-30 Test Time: 11:18:45 [employer] Salesperson: NEERU MEASUREMENT RESULTS: Intervals: Rate: 90 W[place]: 164 QRSD: 100 QT: 370 QTc: 452 [place]: P: 59 WY: 164 QRS: 87 T: 29 INTERPRETIVE STATEMENTS: Normal sinus rhythm Normal ECG Compared to ECG 07/29/2020 21:43:47 Right-axis deviation no longer present Electronically Signed On 12-01-20 10:41:54 CDT by Yash Berrios
== END 2020-11-30 13:56 | disposition home or self-care (01) ==
LOC: ER 11:14
DX: R07.89 Other chest pain (principal); I10 Essential (primary) hypertension; I48.91 Unspecified atrial fibrillation; Z79.01 Long term (current) use of anticoagulants; Z91.041 Radiographic dye allergy status; Z91.048 Other nonmedicinal substance allergy status
CPT/HCPCS: 36415; 71045; 80048; 80076; 83735; 83880; 84484; 85025; 85610; 93005; 99284

== ENCOUNTER 2021-05-04 17:56 | Emergency (ER) | payer OTHER ==
[2021-05-04 20:27] LABS: Protime INR 1.06
[2021-05-04 20:28] LABS: Absolute Lymphocytes (CBC) 1.8 K/uL (0.7-4.9); Basophils % 0.2 % (0-1.3); Hematocrit 40.9 % (39.6-49.0); Lymphocytes % 29.7 % (15.3-44.8); MPV 8.3 fL (7.6-11.3); RBC Red Blood Cell Count 4.61 M/uL (4.33-5.43)
--- NOTE | 2021-05-04 20:34 | RAD REPORT ---
EXAM DESCRIPTION: RAD - Chest Single View - 05/04/2021 8:20 pm CLINICAL HISTORY: CHEST PAIN COMPARISON: Chest Single View dated 11/30/2020; Chest Single View dated 07/29/2020; Chest Single View dated 03/26/2020; Chest Single View dated 01/03/2020 FINDINGS: Lines: None. Lungs: No evidence of edema or pneumonia. Pleural: No significant pleural effusions or pneumothorax. Cardiac: The heart size is within normal limits. Bones: No acute fractures. Other: IMPRESSION: No acute cardiopulmonary disease.
[2021-05-04 20:52] LABS: SARS-COV-2 RT PCR NEGATIVE (NEGATIVE)
[2021-05-04 21:33] LABS: ALT/SGPT 20 U/L (12-78); AST/SGOT 24 U/L (15-37); Albumin 3.6 g/dL (3.4-5.0); Alkaline Phosphatase 131 U/L (45-117); BUN Blood Urea Nitrogen 21 mg/dL (7-18); Bicarbonate 26 mmol/L (21-32); Bilirubin Direct < 0.1 mg/dL (0-0.2); Bilirubin Total 0.3 mg/dL (0.2-1.0); Glucose Level 94 mg/dL (74-106); Magnesium 2.7 mg/dL (1.8-2.4); NT PRO-BNP 99 pg/mL (<125); Potassium 4.1 mmol/L (3.5-5.1); Sodium Level 140 mmol/L (136-145); Troponin (Emerg Dept Use Only) < 0.02 ng/mL (0.0-0.045)
--- NOTE | 2021-05-04 22:05 | ER ---
Nurse's Notes [facility] Name: Mikhail Reilly Age: 45 yrs Sex: Male : 1975 Arrival Date: 05/04/2021 Time: 17:58 Bed 5 Private MD: Rhoda Segura Diagnosis: Chest pain, unspecified Presentation: 05/04 18:04 Chief complaint: Patient states: i just got better. i was sick 4 days ago coughing tw2 congestion and headache. then it went away. my grandkids came over and yesterday i started feeling pressure. i vomited and i broke out in a sweat. i knew it was in my heart. and i spitting up phlegm. 18:04 Method Of Arrival: Ambulatory tw2 18:04 Acuity: LIANG 3 tw2 18:20 Coronavirus screen: At this time, the client does not indicate any symptoms associated tw2 with coronavirus-19. Ebola Screen: Patient denies travel to an Ebola-affected area in the 21 days before illness onset. Initial Sepsis Screen: Does the patient meet any 2 criteria? No. Patient's initial sepsis screen is negative. Does the patient have a suspected source of infection? No. Patient's initial sepsis screen is negative. Risk Assessment: Do you want to hurt yourself or someone else? Patient reports no desire to harm self or others. Onset of symptoms was May 04, 2021. Triage Assessment: 18:16 General: Appears in no apparent distress. well groomed, Behavior is calm, cooperative, tw2 appropriate for age. Pain: Complains of pain in chest. Cardiovascular: Reports chest pain, since "a pressure". Historical: - Allergies: 18:13 Iodinated Contrast Media - IV Dye; tw2 18:13 Iodine; tw2 - Home Meds: 18:13 atenolol 25 mg Oral tab 1 tab once daily [Active]; Eliquis 2.5 mg oral tab 1 tab once a tw2 day [Active]; doxazosin 2 mg oral tab [Active]; - PMHx: 18:13 TIA; Atrial Fib; Back pain; Hypertension; Kidney stones; muscle spasms numerous times tw2 requiring Er visits with fluid resusitation; - Immunization history:: Client reports having NOT received the Covid vaccine. - Social history:: Smoking status: Patient denies any tobacco usage or history of. - Family history:: not pertinent. - Hospitalizations: : No recent hospitalization is reported. Screenin:20 Abuse screen: Denies threats or abuse. Nutritional screening: No deficits noted. tw2 Tuberculosis screening: No symptoms or risk factors identified. Fall Risk None identified. Assessment: 19:55 General: Appears in no apparent distress. Behavior is calm, cooperative. Pain: tw5 Complains of pain in anterior aspect of left upper chest Pain does not radiate. Quality of pain is described as pressure. Neuro: Level of Consciousness is awake, alert, obeys commands, Oriented to person, place, time, situation, Reports headache. Cardiovascular: Reports chest pain, shortness of breath, Heart tones S1 S2 present Capillary refill < 3 seconds Patient's skin is warm and dry. Respiratory: Airway is patent Trachea midline Respiratory effort is even, unlabored, Respiratory pattern is regular, symmetrical, Breath sounds are clear bilaterally. GI: Reports nausea, vomiting. Derm: Skin is intact, is healthy with good turgor. 20:05 Pain: Pain began gradually. as6 21:03 Reassessment: Patient appears in no apparent distress at this time. as6 Vital Signs: 18:16 BP 143 / 95; Pulse 77; Resp 17; Temp 97.6(TE); Pulse Ox 100% on R/A; Weight 88.45 kg tw2 (R); Height 5 ft. 10 in. (177.80 cm); 19:57 BP 125 / 97; Pulse 68; Resp 12 S; Pulse Ox 95% on R/A; tw5 21:03 BP 107 / 82; Pulse 63; Resp 13 S; Pulse Ox 98% on R/A; as6 22:16 BP 155 / 104; Pulse 71; Resp 18 S; Pulse Ox 97% on R/A; as6 18:16 Body Mass Index 27.98 (88.45 kg, 177.80 cm) tw2 ED Course: 17:58 Patient arrived in ED. mr 17:59 Rhoda Segura is Private Physician. mr 18:13 Triage completed. tw2 18:13 Arm band placed on. EKG completed in triage. Results shown to MD. tw2 18:20 Patient maintains SpO2 saturation greater than 95% on room air. tw2 19:25 Eliud Arce PA is PHCP. sara 19:25 Robert Garcia MD is Attending Physician. [facility] 19:28 Roney Landrum, RN is Primary Nurse. as6 19:55 CBC with Diff Sent. tw5 19:55 LFT's Sent. tw5 19:55 Magnesium Sent. tw5 19:55 NT PRO-BNP Sent. tw5 19:55 PT-INR Sent. tw5 19:55 Troponin (emerg Dept Use Only) Sent. tw5 19:55 Basic Metabolic Panel Sent. tw5 19:55 COVID-19/FLU A+B (Document "Date of Onset" if Symptomatic) Sent. tw5 19:57 Placed in gown. Bed in low position. Call light in reach. Side rails up X2. Cardiac tw5 monitor on. Pulse ox on. NIBP on. Warm blanket given. 19:57 Inserted saline lock: 18 gauge in right antecubital area, using aseptic technique. tw5 Blood collected. 20:20 XRAY Chest (1 view) In Process Unspecified. EDMS 20:22 Basic Metabolic Panel Sent. tw5 20:22 COVID-19/FLU A+B (Document "Date of Onset" if Symptomatic) Sent. tw5 20:22 CBC with Diff Sent. tw5 22:17 No provider procedures requiring assistance completed. IV discontinued, intact, as6 bleeding controlled, No redness/swelling at site. Pressure dressing applied. Administered Medications: No medications were administered Outcome: 22:05 Discharge ordered by . rn 22:17 Discharged to home ambulatory. as6 22:17 Condition: stable 22:17 Discharge instructions given to patient, Instructed on discharge instructions, follow up and referral plans. Demonstrated understanding of instructions, follow-up care. 22:18 Patient left the ED. as6 Signatures: Dispatcher [employer] EDMS Eliud Arce PA PA karoline Silviano Christina mr Robert Garcia MD MD rn Wise, Tara, RN RN tw2 Vani Pearson tw5 Roney Landrum, DANINELLE RN as6
--- NOTE | 2021-05-04 22:05 | EDPHYS ---
Physician Documentation [facility] Name: Mikhail Reilly Age: 45 yrs Sex: Male : 1975 Arrival Date: 05/04/2021 Time: 17:58 Bed 5 Private MD: Rhoda Segura ED Physician Robert Garcia HPI: 05/04 20:43 This 45 yrs old Male presents to ER via Ambulatory with complaints of Chest rn Pressure. 20:43 The patient or guardian reports chest pain that is located primarily in the substernal rn area. Onset: 2 day(s) ago. The pain does not radiate. Associated signs and symptoms: Pertinent positives: cough, shortness of breath, Pertinent negatives: abdominal pain, lower extremity pain, recent travel, syncope. The chest pain is described as a pressure. Duration: The patient or guardian reports multiple episodes, that wax and wane. Modifying factors: The symptoms are alleviated by nothing. the symptoms are aggravated by nothing. Severity of pain: At its worst the pain was mild in the emergency department the pain is unchanged. The patient has not experienced similar symptoms in the past. The patient has not recently seen a physician. Patient reports chest pressure for 2 days, waxes and wanes but does not stop, nothing makes it better or worse. Does report for the last week has been having cough and congestion. Took care of a few family members that were sick, not sure if they had Covid or not. Patient states overall is feeling better. No fever. No hemoptysis. Does report productive cough.. Historical: - Allergies: 18:13 Iodinated Contrast Media - IV Dye; tw2 18:13 Iodine; tw2 - Home Meds: 18:13 atenolol 25 mg Oral tab 1 tab once daily [Active]; Eliquis 2.5 mg oral tab 1 tab once a tw2 day [Active]; doxazosin 2 mg oral tab [Active]; - PMHx: 18:13 TIA; Atrial Fib; Back pain; Hypertension; Kidney stones; muscle spasms numerous times tw2 requiring Er visits with fluid resusitation; - Immunization history:: Client reports having NOT received the Covid vaccine. - Social history:: Smoking status: Patient denies any tobacco usage or history of. - Family history:: not pertinent. - Hospitalizations: : No recent hospitalization is reported. ROS: 20:43 Constitutional: Negative for fever, chills, and weight loss, Eyes: Negative for injury, rn pain, redness, and discharge, Neck: Negative for injury, pain, and swelling, Cardiovascular: Positive for chest pressure Respiratory: Positive for cough and shortness of breath Abdomen/GI: Negative for abdominal pain, diarrhea, and constipation, Back: Negative for injury and pain, MS/Extremity: Negative for injury and deformity, Skin: Negative for injury, rash, and discoloration, Neuro: Negative for headache, weakness, numbness, tingling, and seizure. Exam: 20:43 Constitutional: This is a well developed, well nourished patient who is awake, alert, rn and in no acute distress. Head/Face: Normocephalic, atraumatic. Eyes: Periorbital areas with no swelling, redness, or edema. ENT: No stridor Cardiovascular: Regular rate and rhythm. No pulse deficits. Respiratory: Speaking full sentences, unlabored. No increased work of breathing, no retractions or nasal flaring. Abdomen/GI: Soft, non-tender Skin: Warm, dry with normal turgor. Normal color with no rashes, no lesions, and no evidence of cellulitis. MS/ Extremity: Pulses equal, no cyanosis. Neurovascular intact. Full, normal range of motion. Equal circumference. Neuro: Awake and alert, GCS 15, oriented to person, place, time, and situation. Cranial nerves II-XII grossly intact. Motor strength 5/5 in all extremities. Sensory grossly intact. Cerebellar exam normal. Normal gait. 21:05 ECG was reviewed by the Attending Physician. rn Vital Signs: 18:16 BP 143 / 95; Pulse 77; Resp 17; Temp 97.6(TE); Pulse Ox 100% on R/A; Weight 88.45 kg tw2 (R); Height 5 ft. 10 in. (177.80 cm); 19:57 BP 125 / 97; Pulse 68; Resp 12 S; Pulse Ox 95% on R/A; tw5 21:03 BP 107 / 82; Pulse 63; Resp 13 S; Pulse Ox 98% on R/A; as6 22:16 BP 155 / 104; Pulse 71; Resp 18 S; Pulse Ox 97% on R/A; as6 18:16 Body Mass Index 27.98 (88.45 kg, 177.80 cm) tw2 MDM: 19:26 Patient medically screened. rn 22:03 Differential diagnosis: acute myocardial infarction, acute pericarditis, anxiety, rn costochondritis, esophagitis, gastroesophageal reflux disease (GERD), pleurisy, pneumonia, pneumothorax, Covid, flu. Data reviewed: vital signs, nurses notes, lab test result(s), EKG, radiologic studies, plain films, and as a result, I will discharge patient. Data interpreted: Pulse oximetry: on room air is 98 %. Interpretation: normal. Counseling: I had a detailed discussion with the patient and/or guardian regarding: the historical points, exam findings, and any diagnostic results supporting the discharge/admit diagnosis, lab results, radiology results, the need for outpatient follow up, to return to the emergency department if symptoms worsen or persist or if there are any questions or concerns that arise at home. Response to treatment: the patient's symptoms have markedly improved after treatment, the patient's condition has returned to base line, the patient is now symptom free, and as a result, I will discharge patient. Special discussion: Based on the patient's history, exam, and Dx evaluation, there is no indication for emergent intervention or inpatient Tx. It is understood by the patient/guardian that if the Sx's persist or worsen they need to return immediately for re-evaluation. I discussed with the patient/guardian in detail that at this point there is no indication for admission to the hospital. It is understood, however, that if the symptoms persist or worsen the patient needs to return immediately for re-evaluation. ED course: 2 EKGs normal without ischemia. Troponin negative. Stable vital signs. Chest x-ray clear. Covid and flu negative. Will DC home with return precautions.. 22:05 ED course: Patient comfortable, sitting with legs crossed and on phone.. rn 05/04 19: Order name: Basic Metabolic Panel rn 05/04 19: Order name: CBC with Diff; Complete Time: 20:58 rn 05/04 Order name: LFT's; Complete Time: 22:01 rn 05/04 19: Order name: Magnesium; Complete Time: 22:01 rn 05/04 19: Order name: NT PRO-BNP; Complete Time: 22: rn 12/22 19:33 Order name: PT-INR; Complete Time: 20:36 rn 05/04 19:33 Order name: Troponin (emerg Dept Use Only); Complete Time: 22:01 rn 05/04 19:33 Order name: XRAY Chest (1 view); Complete Time: 20:36 rn 05/04 19:33 Order name: EKG; Complete Time: 19:34 rn 05/04 19:33 Order name: Cardiac monitoring; Complete Time: 19:55 rn 05/04 19:33 Order name: EKG - Nurse/Tech; Complete Time: 19:55 rn 05/04 19:33 Order name: IV Saline Lock; Complete Time: 19:55 rn 05/04 19:33 Order name: COVID-19/FLU A+B (Document "Date of Onset" if Symptomatic); Complete Time: rn 20:58 05/04 19:34 Order name: Basic Metabolic Panel; Complete Time: 22:01 EDUT 05/04 19:33 Order name: Labs collected and sent; Complete Time: 19:55 rn 05/04 19:33 Order name: O2 Per Protocol; Complete Time: 19:55 rn 05/04 19:33 Order name: O2 Sat Monitoring; Complete Time: 19:55 rn EC:05 Rate is 60 beats/min. Rhythm is regular. QRS [place] is Normal. [place] interval is normal. QRS rn interval is normal. QT interval is normal. No Q waves. T waves are Normal. No ST changes noted. Clinical impression: Normal ECG. Interpreted by me. Reviewed by me. 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
[2021-05-04 22:23] VITALS: TEMP 97.6
[2021-05-04 22:27] VITALS: BP 155/104; O2SAT 97
== END 2021-05-04 22:18 | disposition home or self-care (01) ==
LOC: ER 17:56
DX: R07.9 Chest pain, unspecified (principal); I10 Essential (primary) hypertension; I48.91 Unspecified atrial fibrillation; Z79.01 Long term (current) use of anticoagulants; Z20.822 Contact with and (suspected) exposure to COVID-19; Z91.041 Radiographic dye allergy status; Z91.048 Other nonmedicinal substance allergy status
CPT/HCPCS: 93005 ×2; 85025; 80048; 36415; 83735; 85610; 80076; 84484; 83880; 0240U; 71045; 99285

== ENCOUNTER 2021-10-12 14:14 | Emergency (ER) | payer OTHER, SELFPAY ==
--- NOTE | 2021-10-12 17:11 | ER ---
Nurse's Notes [facility] Name: Mikhail Reilly Age: 46 yrs Sex: Male : 1975 Arrival Date: 10/12/2021 Time: 14:20 Bed DIS1 Private MD: Diagnosis: SARS-associated coronavirus as the cause of diseases classified elsewhere Presentation: 10/12 14:33 Chief complaint: Patient states: COVID exposure. Coronavirus screen: Client presents ld1 with at least one sign or symptom that may indicate coronavirus-19. Standard/surgical mask placed on the client. Ebola Screen: No symptoms or risks identified at this time. Initial Sepsis Screen: Does the patient meet any 2 criteria? No. Patient's initial sepsis screen is negative. Does the patient have a suspected source of infection? No. Patient's initial sepsis screen is negative. Risk Assessment: Do you want to hurt yourself or someone else? Patient reports no desire to harm self or others. Onset of symptoms was October 12, 2021. 14:33 Method Of Arrival: Ambulatory ld1 14:33 Acuity: LIANG 4 ld1 Triage Assessment: 14:35 General: Appears in no apparent distress. comfortable, Behavior is calm, cooperative, ld1 appropriate for age. Pain: Denies pain. EENT: No signs and/or symptoms were reported regarding the EENT system. Neuro: Level of Consciousness is awake, alert, obeys commands, Oriented to person, place, time, situation. Cardiovascular: Capillary refill < 3 seconds Patient's skin is warm and dry. Respiratory: Airway is patent Respiratory effort is even, unlabored. GI: Abdomen is flat, non-distended. Historical: - Allergies: 14:35 Iodinated Contrast Media - IV Dye; ld1 14:35 Iodine; ld1 - PMHx: 14:35 Atrial Fib; Back pain; Hypertension; Kidney stones; muscle spasms numerous times ld1 requiring Er visits with fluid resusitation; TIA; - PSHx: 14:35 None; ld1 - Immunization history:: Adult Immunizations up to date, Client reports having NOT received the Covid vaccine. - Social history:: Smoking status: Patient denies any tobacco usage or history of. Patient/guardian denies using alcohol. Screenin:40 Abuse screen: Denies threats or abuse. Denies injuries from another. ss Assessment: 17:40 General: Appears in no apparent distress. comfortable, Behavior is calm, cooperative, ss Denies fever, feeling ill, fatigue, chills. Neuro: Brown Agitation-Sedation Scale (RASS): 0 - Alert and Calm. Respiratory: Respiratory effort is even, unlabored, Respiratory pattern is regular, symmetrical. Derm: Skin is intact, is healthy with good turgor, Skin is pink, warm \\T\\ dry. normal. Vital Signs: 14:33 BP 136 / 79; Pulse 74; Resp 18; Temp 98.6; Pulse Ox 98% on R/A; Weight 86.18 kg; Height ld1 5 ft. 10 in. (177.80 cm); Pain 0/10; 14:33 Body Mass Index 27.26 (86.18 kg, 177.80 cm) ld1 ED Course: 14:20 Patient arrived in ED. am2 14:27 Luke Marsh PA is PHCP. cp 14:27 Scar Iqbal MD is Attending Physician. cp 14:35 Triage completed. ld1 14:35 Arm band placed on right wrist. ld1 14:41 COVID-19 SARS RT PCR (Document "Date of Onset" if Symptomatic) Sent. ld1 15:37 COVID-19 SARS RT PCR (Document "Date of Onset" if Symptomatic) Sent. ld1 17:02 Nikki Win, DANNIELLE is Primary Nurse. ss 17:40 Patient has correct armband on for positive identification. ss 17:40 No provider procedures requiring assistance completed. Patient did not have IV access ss during this emergency room visit. Administered Medications: No medications were administered Outcome: 17:11 Discharge ordered by . cp 17:40 Discharged to home ambulatory, with significant other. ss 17:40 Condition: good 17:40 Discharge instructions given to patient, Instructed on discharge instructions, follow up and referral plans. Demonstrated understanding of instructions, follow-up care. 17:42 Patient left the ED. ss Signatures: Nikki Win RN RN Luke Marsh PA PA Stacie Jimenez am2 Marissa Jasso RN RN ld1
--- NOTE | 2021-10-12 17:11 | EDPHYS ---
Physician Documentation [facility] Name: Mikhail Reilly Age: 46 yrs Sex: Male : 1975 Arrival Date: 10/12/2021 Time: 14:20 Bed DIS1 Private MD: ED Physician Scar Iqbal HPI: 10/12 16:00 This 46 yrs old Male presents to ER via Ambulatory with complaints of R/O cp COVID. 16:00 The patient or guardian reports known exposure to COVID positive person. cp 16:00 Associated signs and symptoms: Pertinent negatives: chest pain, diarrhea, fever, cp vomiting. Historical: - Allergies: 14:35 Iodinated Contrast Media - IV Dye; ld1 14:35 Iodine; ld1 - PMHx: 14:35 Atrial Fib; Back pain; Hypertension; Kidney stones; muscle spasms numerous times ld1 requiring Er visits with fluid resusitation; TIA; - PSHx: 14:35 None; ld1 - Immunization history:: Adult Immunizations up to date, Client reports having NOT received the Covid vaccine. - Social history:: Smoking status: Patient denies any tobacco usage or history of. Patient/guardian denies using alcohol. ROS: 16:05 Constitutional: Negative for body aches, chills, fever, poor PO intake. cp 16:05 Cardiovascular: Negative for chest pain, palpitations. cp 16:05 Respiratory: Negative for shortness of breath, wheezing. 16:05 Abdomen/GI: Negative for abdominal pain, nausea, vomiting, and diarrhea. 16:05 Neuro: Negative for altered mental status, dizziness, headache, weakness. 16:05 All other systems are negative. Exam: 16:10 Constitutional: The patient appears in no acute distress, alert, awake, comfortable, cp non-diaphoretic, non-toxic, well developed, well nourished. 16:10 Head/Face: Normocephalic, atraumatic. cp 16:10 Eyes: Periorbital structures: appear normal, Sclera: no appreciated abnormality, Lids and lashes: appear normal, bilaterally. 16:10 ENT: External ear(s): are unremarkable, Nose: is normal, Mouth: Lips: moist, Oral mucosa: moist, Posterior pharynx: Airway: no evidence of obstruction, patent. 16:10 Chest/axilla: Inspection: normal. 16:10 Cardiovascular: Rate: normal. 16:10 Respiratory: the patient does not display signs of respiratory distress, Respirations: normal, no use of accessory muscles, no retractions, labored breathing, is not present, Breath sounds: are clear throughout, no decreased breath sounds. 16:10 Abdomen/GI: Exam negative for discomfort, distension, guarding, Inspection: abdomen appears normal. Vital Signs: 14:33 BP 136 / 79; Pulse 74; Resp 18; Temp 98.6; Pulse Ox 98% on R/A; Weight 86.18 kg; Height ld1 5 ft. 10 in. (177.80 cm); Pain 0/10; 14:33 Body Mass Index 27.26 (86.18 kg, 177.80 cm) ld1 MDM: 16:57 Patient medically screened. cp 17:10 Data reviewed: vital signs, nurses notes, lab test result(s). cp 17:10 Differential diagnosis: bronchitis, flu, URI, COVID-19. Counseling: I had a detailed cp discussion with the patient and/or guardian regarding: the historical points, exam findings, and any diagnostic results supporting the discharge/admit diagnosis, lab results, to return to the emergency department if symptoms worsen or persist or if there are any questions or concerns that arise at home. ED course: Patient declines treatment with IV antibodies at this time. Will discharge to home to quarantine and recommend symptomatic treatment. 10/12 14:37 Order name: COVID-19 SARS RT PCR (Document "Date of Onset" if Symptomatic); Complete ld1 Time: 16:59 Administered Medications: No medications were administered Disposition: 18:47 Co-signature as Attending Physician, Scar Iqbal MD I agree with the assessment and kdr plan of care. Disposition Summary: 10/12/21 17:11 Discharge Ordered Location: Home cp Problem: new cp Symptoms: are unchanged cp Condition: Stable cp Diagnosis - SARS-associated coronavirus as the cause of diseases classified elsewhere cp Followup: cp - With: Private Physician - When: 2 - 3 days - Reason: Worsening of condition Discharge Instructions: - Discharge Summary Sheet cp - Aspirin and Your Heart cp - COVID-19 cp - Things to Know about the COVID-19 Pandemic - [facility] cp - 10 Things You Can Do to Manage Your COVID-19 Symptoms at Home - [facility] cp - COVID-19: Quarantine vs. Isolation - [facility] cp - Prevent the Spread of COVID-19 if You Are Sick - [facility] cp Forms: - Medication Reconciliation Form cp - Thank You Letter cp - Antibiotic Education cp - Prescription Opioid Use cp Signatures: Dispatcher [employer] EDScar Page MD MD [facility] Luke Marsh PA PA cp Marissa Jasso RN RN ld1
[2021-10-12 18:03] VITALS: BP 136/79; TEMP 98.6; O2SAT 98
== END 2021-10-12 17:42 | disposition home or self-care (01) ==
LOC: ER 14:14
DX: U07.1 COVID-19 (principal); I10 Essential (primary) hypertension; Z91.041 Radiographic dye allergy status; Z91.048 Other nonmedicinal substance allergy status
CPT/HCPCS: 99283; U0003

== ENCOUNTER 2021-12-10 12:30 | Emergency (ER) | payer SELFPAY ==
[2021-12-10] MEDS ORDERED: ASPIRIN 81 MG CHEWABLE TABLET ONE ×2 (13:46→13:47)
[2021-12-10] MEDS ORDERED: ONDANSETRON 4 MG/2 ML VIAL ONE (13:47)
[2021-12-10] MEDS ORDERED: MORPHINE 4 MG/ML SYR ONE (13:47)
--- NOTE | 2021-12-10 14:24 | RAD REPORT ---
EXAM DESCRIPTION: Rafa Single View12/10/2021 2:03 pm CLINICAL HISTORY: Chest pain COMPARISON: 2020 FINDINGS: Small nodular opacity left lung base Right lung appears clear. Heart is normal size IMPRESSION: Small nodular opacity left lung base probably a nipple shadow. A pulmonary nodule is ano ther consideration but probably less likely. It is recommended that the patient have a followup chest film including obliques in 6 months with a left nipple marker for re-evaluation
--- NOTE | 2021-12-10 15:16 | EDPHYS ---
Physician Documentation [facility] Name: Mikhail Reilly Age: 46 yrs Sex: Male : 1975 Arrival Date: 12/10/2021 Time: 12:35 Bed 20 Private MD: ED Physician Doreen Roberts HPI: 12/10 14:36 This 46 yrs old Male presents to ER via Ambulatory with complaints of Chest sd2 Pain, Breathing Difficulty. 14:36 46 yo M presents with CC of L sided chest pain and SOB that started while he was sd2 walking outside today. Reports no change in pain with rest or exertion. Reports he had some palpitations last night that resolved. Denies any nausea or vomiting. Endorses diaphoresis. No prior history of ACS/HI but does have hx of A-fib on Eliquis. . Historical: - Allergies: 12:41 Iodinated Contrast Media - IV Dye; hb 12:41 Iodine; hb - PMHx: 12:41 Atrial Fib; Back pain; Hypertension; Kidney stones; muscle spasms numerous times hb requiring Er visits with fluid resusitation; TIA; - Immunization history:: Adult Immunizations up to date. - Social history:: Smoking status: Patient reports the use of cigarette tobacco products, denies chronic smoking, but will smoke occasionally. ROS: 14:36 Constitutional: Negative for fever, chills, and weight loss, Eyes: Negative for injury, sd2 pain, redness, and discharge, Cardiovascular: Positive for chest pain and palpitations. Negative for edema. Respiratory: Positive for shortness of breath. Negative for cough, wheezing. Abdomen/GI: Negative for abdominal pain, nausea, vomiting, diarrhea. MS/Extremity: Negative for injury and deformity, Skin: Negative for injury, rash, and discoloration, Neuro: Negative for headache, numbness and tingling. Exam: 14:36 Constitutional: This is a well developed, well nourished patient who is awake, alert, sd2 and in no acute distress. Head/Face: Normocephalic, atraumatic. Chest/axilla: Normal chest wall appearance and motion. Nontender with no deformity. Cardiovascular: Regular rate and rhythm with a normal S1 and S2. No gallops, murmurs, or rubs. 2+ distal pulses. Respiratory: Lungs have equal breath sounds bilaterally, clear to auscultation and percussion. No rales, rhonchi or wheezes noted. No increased work of breathing, no retractions or nasal flaring. Abdomen/GI: Soft, non-tender, with normal bowel sounds. No guarding or rebound. No evidence of tenderness throughout. Skin: Warm, dry with normal turgor. Normal color with no rashes, no lesions, and no evidence of cellulitis. MS/ Extremity: Pulses equal, no cyanosis. Neurovascular intact. Full, normal range of motion. Ambulatory without difficulty. Psych: Awake, alert, with orientation to person, place and time. Behavior, mood, and affect are within normal limits. 15:34 ECG was reviewed by the Attending Physician. NSR, rate 62, no STEMI criteria sd2 Vital Signs: 12:39 BP 104 / 76; Pulse 71; Resp 18; Temp 98; Pulse Ox 100% on R/A; Weight 88.45 kg; Height hb 5 ft. 10 in. (177.80 cm); Pain 7/10; 12:39 Body Mass Index 27.98 (88.45 kg, 177.80 cm) hb MDM: 12:54 Patient medically screened. sd2 14:36 Differential diagnosis: acute myocardial infarction, anxiety, coronary artery disease sd2 congestive heart failure gastritis, pericarditis, pleurisy, pneumonia, pneumothorax, pulmonary embolus, among others. 14:36 Data reviewed: vital signs, nurses notes. sd2 15:34 HEART Score: History: Highly Suspicious (2), ECG: Normal (0), Age: > 45 and < 65 years sd2 (1), Risk Factors: 1 or 2 risk factors (1), Troponin:. ED course: I was informed by the nurse that the patient had eloped from the [facility] and left prior to treatment being completed. We attempted to search for the patient and he was unable to be located.. 12/10 12:55 Order name: XRAY Chest (1 view); Complete Time: 14:26 sd2 12/10 12:49 Order name: EKG; Complete Time: 12:50 ss 12/10 12:49 Order name: EKG - Nurse/Tech; Complete Time: 12:49 ss Administered Medications: No medications were administered Disposition: 17:23 Chart complete. sd2 Disposition Summary: 12/10/21 15:16 Eloped Disposition: after being seen by provider ll1 Reason: unknown ll1 Signatures: Dispatcher [employer] Nikki Maya RN Rosmery Garcia RN RN hb Lewis, Lynsay, RN RN ll1 Doreen Roberts MD MD sd2
--- NOTE | 2021-12-10 15:16 | ER ---
Nurse's Notes [facility] Name: Mikhail Reilly Age: 46 yrs Sex: Male : 1975 Arrival Date: 12/10/2021 Time: 12:35 Bed 20 Private MD: Diagnosis: Presentation: 12/10 12:39 Chief complaint: Sudden onset sharp left sided chest pain and SOB after walking approx hb 1 mile outdoors. Coronavirus screen: At this time, the client does not indicate any symptoms associated with coronavirus-19. Ebola Screen: No symptoms or risks identified at this time. Initial Sepsis Screen: Does the patient meet any 2 criteria? No. Patient's initial sepsis screen is negative. Does the patient have a suspected source of infection? No. Patient's initial sepsis screen is negative. Risk Assessment: Do you want to hurt yourself or someone else? Patient reports no desire to harm self or others. Onset of symptoms was December 10, 2021. 12:39 Method Of Arrival: Ambulatory hb 12:39 Acuity: LIANG 3 hb Historical: - Allergies: 12:41 Iodinated Contrast Media - IV Dye; hb 12:41 Iodine; hb - PMHx: 12:41 Atrial Fib; Back pain; Hypertension; Kidney stones; muscle spasms numerous times hb requiring Er visits with fluid resusitation; TIA; - Immunization history:: Adult Immunizations up to date. - Social history:: Smoking status: Patient reports the use of cigarette tobacco products, denies chronic smoking, but will smoke occasionally. Screenin:19 Abuse screen: Denies threats or abuse. Nutritional screening: No deficits noted. ll1 Tuberculosis screening: No symptoms or risk factors identified. Fall Risk Total Carbone Fall Scale indicates No Risk (0-24 pts). Assessment: 13:00 General: Appears in no apparent distress. Behavior is calm, cooperative, appropriate ll1 for age. Pain: Denies pain. Pain: Pain does not radiate. Pain began 3 hours ago. Neuro: No deficits noted. Cardiovascular: Reports chest pain, since CP Has resolved now. Respiratory: Reports shortness of breath resolved now Airway is patent Respiratory effort is even, unlabored. 13:15 Reassessment: No changes from previously documented assessment. given warm blanket. ll1 13:45 Reassessment: No changes from previously documented assessment. not in room for IV and ll1 blood draw. 14:21 Reassessment: not in patient room or restroom. Trying to locate patient. ll1 15:15 Reassessment: Patient must have left after seeing physician. Not in room or restroom, ll1 eloped. Vital Signs: 12:39 BP 104 / 76; Pulse 71; Resp 18; Temp 98; Pulse Ox 100% on R/A; Weight 88.45 kg; Height hb 5 ft. 10 in. (177.80 cm); Pain 7/10; 12:39 Body Mass Index 27.98 (88.45 kg, 177.80 cm) hb ED Course: 12:35 Patient arrived in ED. mr 12:36 Doreen Roberts MD is Attending Physician. sd2 12:41 Triage completed. hb 12:41 Arm band placed on. hb 13:40 Rylan Jason RN is Primary Nurse. ll1 14:04 XRAY Chest (1 view) In Process Unspecified. EDMS 14:20 Patient has correct armband on for positive identification. Client placed on continuous ll1 cardiac and pulse oximetry monitoring. NIBP monitoring applied. location director on. 14:20 No provider procedures requiring assistance completed. Patient maintains SpO2 ll1 saturation greater than 95% on room air. Administered Medications: No medications were administered Medication: 14:19 VIS not applicable for this client. ll1 Outcome: 15:16 Patient left the ED. ll1 Signatures: Dispatcher [employer] EDNM Silviano Christina parks CarltonRosmery RN RN Rylan Jason RN RN ll1 Doreen Roberts MD MD sd2
[2021-12-10 16:57] VITALS: BP 104/76; TEMP 98; O2SAT 100
--- NOTE | 2021-12-12 12:25 | EKG ---
Test Date: 2021-12-10 Test Time: 12:41:20 Laminate Floor Installer: HB MEASUREMENT RESULTS: Intervals: Rate: 62 IL: 126 QRSD: 98 QT: 408 QTc: 414 [place]: P: 8 IL: 126 QRS: -29 T: 0 INTERPRETIVE STATEMENTS: Normal sinus rhythm Moderate voltage criteria for LVH, may be normal variant Borderline ECG Compared to ECG 05/04/2021 19:50:36 Left ventricular hypertrophy now present Electronically Signed On 12-12-21 12:23:24 CDT by Freddy Bahena
== END 2021-12-10 15:16 | disposition left against medical advice (07) ==
LOC: ER 12:30
DX: R07.9 Chest pain, unspecified (principal); R06.02 Shortness of breath; I10 Essential (primary) hypertension; I48.91 Unspecified atrial fibrillation; F17.210 Nicotine dependence, cigarettes, uncomplicated; Z91.041 Radiographic dye allergy status; Z91.048 Other nonmedicinal substance allergy status
CPT/HCPCS: 71045; 93005; 99284; J2405

== ENCOUNTER 2022-03-12 14:20 | Emergency (ER) | payer SELFPAY ==
[2022-03-12] MEDS ORDERED: HYDROCODONE/APAP 10/325 TAB ONE (16:58)
[2022-03-12] MEDS ORDERED: IBUPROFEN 400 MG TAB ONE (16:58)
[2022-03-12] MEDS ORDERED: CYCLOBENZAPRINE 10 MG TAB ONE (16:58)
--- NOTE | 2022-03-12 17:50 | RAD REPORT ---
EXAM DESCRIPTION: RAD - Clavicle Right - 03/12/2022 5:42 pm CLINICAL HISTORY: Right shoulder pain FINDINGS: No fracture or dislocation is seen.
--- NOTE | 2022-03-12 17:50 | RAD REPORT ---
EXAM DESCRIPTION: RAD - Shoulder Right 2 View - 03/12/2022 5:42 pm CLINICAL HISTORY: Right shoulder pain FINDINGS: No fracture or dislocation is seen.
--- NOTE | 2022-03-12 17:57 | RAD REPORT ---
EXAM DESCRIPTION: CT - Head Brain Wo Cont - 03/12/2022 5:44 pm CLINICAL HISTORY: Head injury. Numbness COMPARISON: 2020 TECHNIQUE: Computed axial tomography of the head was obtained. IV contrast was not requested. All CT scans are performed using dose optimization technique as appropriate and may include automated exposure control or mA/KV adjustment according to patient size. FINDINGS: An intracranial bleed is not seen . The ventricles are normal in caliber. No extra-axial fluid collection is noted. No significant hypodensity within the brain seen. Fluid within the sinuses/ mastoids is not seen. IMPRESSION: No acute intracranial abnormality is seen. If patient's symptoms persist MRI of the bra in would be recommended.
--- NOTE | 2022-03-12 18:16 | EDPHYS ---
Physician Documentation [facility] Name: Mikhail Reilly Age: 46 yrs Sex: Male : 1975 Arrival Date: 03/12/2022 Time: 14:21 Bed 9 Private MD: Lacey Segura ED Physician Scar Iqbal HPI: 03/13 11:26 This 46 yrs old Male presents to ER via Ambulatory with complaints of Arm kdr Pain, facial pain, Fall Injury. 11:24 Patient states he was playing with his kids yesterday on a trampoline when he fell on kdr the edge hitting his face right shoulder and neck. Since then he has had pain in his right upper extremity extending from his face down across his shoulder and into his right arm. He states there is not any pain below his mid humerus. Intermittently, the patient appears to be in significant pain but does move his upper torso without apparent discomfort from time to time. Onset: The symptoms/episode began/occurred suddenly, gradually. Severity of symptoms: At their worst the symptoms were mild moderate in the emergency department the symptoms are unchanged. The patient has not experienced similar symptoms in the past. The patient has not recently seen a physician. Historical: - Allergies: 03/12 14:59 Iodine; ll1 14:59 Iodinated Contrast Media - IV Dye; ll1 - PMHx: 14:59 Atrial Fib; Back pain; Hypertension; Kidney stones; muscle spasms numerous times ll1 requiring Er visits with fluid resusitation; TIA; - PSHx: 14:59 None; ll1 - Immunization history:: Client reports having NOT received the Covid vaccine. - Social history:: Smoking status: Patient denies any tobacco usage or history of. ROS: 03/13 11:24 Constitutional: Negative for fever, chills, and weight loss, Eyes: Negative for injury, kdr pain, redness, and discharge, ENT: Negative for injury, pain, and discharge, Neck: Negative for injury, pain, and swelling, Cardiovascular: Negative for chest pain, palpitations, and edema, Respiratory: Negative for shortness of breath, cough, wheezing, and pleuritic chest pain, Abdomen/GI: Negative for abdominal pain, nausea, vomiting, diarrhea, and constipation, Back: Negative for injury and pain, : Negative for injury, bleeding, discharge, and swelling, Skin: Negative for injury, rash, and discoloration. MS/extremity: Positive for decreased range of motion, pain, tenderness. Exam: 11:24 Constitutional: This is a well developed, well nourished patient who is awake, alert, kdr and in no acute distress. Head/Face: Normocephalic, atraumatic. Eyes: Pupils equal round and reactive to light, extra-ocular motions intact. Lids and lashes normal. Conjunctiva and sclera are non-icteric and not injected. Cornea within normal limits. Periorbital areas with no swelling, redness, or edema. Neck: Trachea midline, no thyromegaly or masses palpated, and no cervical lymphadenopathy. Supple, full range of motion without nuchal rigidity, or vertebral point tenderness. No Meningismus. Chest/axilla: Normal chest wall appearance and motion. Nontender with no deformity. No lesions are appreciated. Cardiovascular: Regular rate and rhythm with a normal S1 and S2. No gallops, murmurs, or rubs. Normal PMI, no JVD. No pulse deficits. Respiratory: Lungs have equal breath sounds bilaterally, clear to auscultation and percussion. No rales, rhonchi or wheezes noted. No increased work of breathing, no retractions or nasal flaring. Abdomen/GI: Soft, non-tender, with normal bowel sounds. No distension or tympany. No guarding or rebound. No evidence of tenderness throughout. Back: No spinal tenderness. No costovertebral tenderness. Full range of motion. Skin: Warm, dry with normal turgor. Normal color with no rashes, no lesions, and no evidence of cellulitis. MS/ Extremity: Pulses equal, no cyanosis. Neurovascular intact. Full, normal range of motion. Neuro: Awake and alert, GCS 15, oriented to person, place, time, and situation. Cranial nerves II-XII grossly intact. Motor strength 5/5 in all extremities. Sensory grossly intact. Cerebellar exam normal. Normal gait. Psych: Awake, alert, with orientation to person, place and time. Behavior, mood, and affect are within normal limits. Vital Signs: 03/12 14:57 BP 135 / 95; Pulse 80; Resp 16; Temp 98.0; Pulse Ox 99% ; Weight 90.72 kg; Height 5 ft. ll1 11 in. (180.34 cm); Pain 10; 14:57 Body Mass Index 27.89 (90.72 kg, 180.34 cm) ll1 MDM: 18:15 Patient medically screened. kdr 03/13 11:26 Data reviewed: vital signs, nurses notes, lab test result(s), radiologic studies. kdr Counseling: I had a detailed discussion with the patient and/or guardian regarding: the historical points, exam findings, and any diagnostic results supporting the discharge/admit diagnosis, lab results, radiology results, the need for outpatient follow up. 03/12 16:43 Order name: Shoulder Right (2 View) XRAY; Complete Time: 18:03 kdr 03/12 16:43 Order name: Clavicle Right XRAY; Complete Time: 18:03 kdr 03/12 17:16 Order name: CT Head Brain wo Cont; Complete Time: 18:03 kdr 03/12 16:43 Order name: Sling; Complete Time: 17:02 kdr Administered Medications: 03/12 17:02 Drug: [place] (HYDROcodone-acetaminophen) 10 mg-325 mg 1 tabs Route: PO; hb 17:02 Drug: Flexeril (cyclobenzaprine) 10 mg Route: PO; hb 17:02 Drug: Ibuprofen 800 mg Route: PO; hb Disposition Summary: 03/12/22 18:15 Discharge Ordered Location: Home kdr Problem: new kdr Symptoms: have improved kdr Condition: Stable kdr Diagnosis - Pain in right shoulder kdr - Unspecified superficial injury of other part of head, initial encounter kdr - Other sprain of right shoulder joint, sequela kdr Followup: kdr - With: Private Physician - When: 2 - 3 days - Reason: If symptoms return, Further diagnostic work-up, Recheck today's complaints, Continuance of care, Re-evaluation by your physician Discharge Instructions: - Joint Pain kdr - Musculoskeletal Pain kdr - Shoulder Pain, [id number] kdr - Shoulder Sprain kdr - How to Use Cold Therapy kdr - Heat Therapy, [id number] kdr - Discharge Summary Sheet hb Forms: - Medication Reconciliation Form kdr - Thank You Letter kdr - Work release form hb - Prescription Opioid Use kdr Prescriptions: - Ibuprofen 600 mg Oral Tablet - take 1 tablet by ORAL route every 6 hours As needed take with food; 30 tablet; kdr Refills: 0, Product Selection Permitted - Cyclobenzaprine 10 mg Oral Tablet - take 1 tablet by ORAL route every 8 hours As needed; 30 tablet; Refills: 0, kdr Product Selection Permitted - Tramadol 50 mg Oral Tablet - take 1 tablet by ORAL route every 8 hours as needed; 12 tablet; Refills: 0, kdr Product Selection Permitted - Medrol (Dany) 4 mg Oral Tablets, Dose Pack - take 1 tablet by ORAL route as directed - follow package instructions; 1 kdr packet; Refills: 0, Product Selection Permitted Signatures: Dispatcher [employer] Scar Bustamante MD MD kdr Rosmery Carlton, RN RN Rylan Jason RN RN ll1
--- NOTE | 2022-03-12 18:16 | ER ---
Nurse's Notes [facility] Name: Mikhail Reilly Age: 46 yrs Sex: Male : 1975 Arrival Date: 03/12/2022 Time: 14:21 Bed 9 Private MD: Lacey Segura Diagnosis: Pain in right shoulder;Unspecified superficial injury of other part of head, initial encounter;Other sprain of right shoulder joint, sequela Presentation: 03/12 14:57 Chief complaint: Patient states: 1. Playing with grand kids yesterday. Fell onto R side ll1 of face and R arm. Pain since. 2. L arm feels numb for 3 days also. Coronavirus screen: Vaccine status: Patient reports being unvaccinated. Client denies travel out of the [place] in the last 14 days. At this time, the client does not indicate any symptoms associated with coronavirus-19. Ebola Screen: Patient denies travel to an Ebola-affected area in the 21 days before illness onset. Initial Sepsis Screen: Does the patient meet any 2 criteria? No. Patient's initial sepsis screen is negative. Does the patient have a suspected source of infection? No. Patient's initial sepsis screen is negative. Risk Assessment: Do you want to hurt yourself or someone else? Patient reports no desire to harm self or others. Onset of symptoms was March 11, 2022. 14:57 Method Of Arrival: Ambulatory ll1 14:57 Acuity: LIANG 3 ll1 Triage Assessment: 15:00 General: Appears uncomfortable, Behavior is cooperative, appropriate for age. Pain: ll1 Complains of pain in right arm Pain currently is 10 out of 10 on a pain scale. Musculoskeletal: Reports pain in face and right arm. Injury Description: Bruise. Historical: - Allergies: 14:59 Iodine; ll1 14:59 Iodinated Contrast Media - IV Dye; ll1 - PMHx: 14:59 Atrial Fib; Back pain; Hypertension; Kidney stones; muscle spasms numerous times ll1 requiring Er visits with fluid resusitation; TIA; - PSHx: 14:59 None; ll1 - Immunization history:: Client reports having NOT received the Covid vaccine. - Social history:: Smoking status: Patient denies any tobacco usage or history of. Screenin:19 Abuse screen: Denies threats or abuse. Denies injuries from another. Nutritional hb screening: No deficits noted. Tuberculosis screening: No symptoms or risk factors identified. Fall Risk None identified. Assessment: 16:19 General: Appears in no apparent distress. Behavior is calm, cooperative. Neuro: Level hb of Consciousness is awake, alert, obeys commands, Oriented to person, place, time, situation. Cardiovascular: Patient's skin is warm and dry. Respiratory: Respiratory effort is even, unlabored, Respiratory pattern is regular, symmetrical. GI: No signs and/or symptoms were reported involving the gastrointestinal system. : No signs and/or symptoms were reported regarding the genitourinary system. EENT: No signs and/or symptoms were reported regarding the EENT system. Derm: Skin is pink, warm \T\ dry. Musculoskeletal: Reports Left sided facial and arm pain. 17:03 Reassessment: Patient appears in no apparent distress at this time. No changes from hb previously documented assessment. Patient and/or family updated on plan of care and expected duration. Pain level reassessed. 18:05 Reassessment: Patient appears in no apparent distress at this time. Patient and/or hb family updated on plan of care and expected duration. Pain level reassessed. Patient is alert, oriented x 3, equal unlabored respirations, skin warm/dry/pink. Vital Signs: 14:57 BP 135 / 95; Pulse 80; Resp 16; Temp 98.0; Pulse Ox 99% ; Weight 90.72 kg; Height 5 ft. ll1 11 in. (180.34 cm); Pain 10/10; 14:57 Body Mass Index 27.89 (90.72 kg, 180.34 cm) ll1 ED Course: 14:21 Patient arrived in ED. am2 14:30 Lacey Segura is Private Physician. am2 14:33 Scar Iqbal MD is Attending Physician. kdr 14:59 Triage completed. ll1 15:01 Arm band placed on. ll1 16:19 Rosmery Carlton, DANNIELLE is Primary Nurse. hb 16:19 Patient has correct armband on for positive identification. hb 17:43 Shoulder Right (2 View) XRAY In Process Unspecified. EDMS 17:43 Clavicle Right XRAY In Process Unspecified. EDMS 17:45 CT Head Brain wo Cont In Process Unspecified. EDMS 18:34 No provider procedures requiring assistance completed. Patient did not have IV access hb during this emergency room visit. Administered Medications: 17:02 Drug: [place] (HYDROcodone-acetaminophen) 10 mg-325 mg 1 tabs Route: PO; hb 17:02 Drug: Flexeril (cyclobenzaprine) 10 mg Route: PO; hb 17:02 Drug: Ibuprofen 800 mg Route: PO; hb Medication: 16:19 VIS not applicable for this client. hb Outcome: 18:15 Discharge ordered by . kdr 18:34 Discharged to home ambulatory, with significant other. hb 18:34 Condition: stable 18:34 Discharge instructions given to patient, significant other, Instructed on discharge instructions, follow up and referral plans. medication usage, Demonstrated understanding of instructions, follow-up care, medications, Prescriptions given X 4. 18:35 Patient left the ED. hb Signatures: Dispatcher [employer] EDTN Scar Iqbal MD MD [facility] Rosmery Carlton RN RN Stacie Hernandez am2 Rylan Jason RN RN ll1
[2022-03-12 18:47] VITALS: BP 135/95; TEMP 98; O2SAT 99
== END 2022-03-12 18:35 | disposition home or self-care (01) ==
LOC: ER 14:20
DX: S43.491S Other sprain of right shoulder joint, sequela (principal); S00.80XA Unspecified superficial injury of other part of head, initial encounter; M25.511 Pain in right shoulder
CPT/HCPCS: 70450; 99283

== ENCOUNTER 2023-08-13 22:26 | Emergency (ER) | payer OTHER ==
[2023-08-13 23:37] LABS: Absolute Lymphocytes (CBC) 0.8 K/uL (0.7-4.9); Absolute Monocytes 0.7 K/uL (0.1-1.3); Absolute Neutrophil 8.8 K/uL (1.8-8.0); Basophils % 0.2 % (0-1.3); Eosinophils % 0.2 % (0-4.4); Hematocrit 38.1 % (39.6-49.0); Hemoglobin 12.8 g/dL (13.6-17.9); MCH 29.9 pg (27.0-35.0); MCHC 33.6 g/dL (32.0-36.0); MPV 7.8 fL (7.6-11.3); Monocytes % 7.1 % (3.3-12.3); Neutrophils % 84.5 % (41.7-73.7); Nucleated Red Blood Cells % 0.1 % (0-0); Platelets 320 thou/uL (152-406); RBC Red Blood Cell Count 4.28 M/uL (4.33-5.43); Red Cell Distribution Width 15.5 % (12.1-15.2)
[2023-08-13 23:41] LABS: PT Prothrombin Time 12.8 SECONDS (9.5-12.5); PTT, Activated Partial Thromb 32.4 SECONDS (24.3-36.9); Protime INR 1.17
[2023-08-14 00:03] LABS: ALT/SGPT 31 U/L (16-61); AST/SGOT 62 U/L (15-37); Albumin 3.7 g/dL (3.4-5.0); Alkaline Phosphatase 141 U/L (45-117); Anion Gap 9.4 mEq/L (5.0-15.0); BUN Blood Urea Nitrogen 21 mg/dL (7-18); Bicarbonate 26 mEq/L (21-32); Bilirubin Direct 0.2 mg/dL (0-0.2); Bilirubin Indirect, Calculated 0.5 mg/dL (0.2-0.8); Bilirubin Total 0.7 mg/dL (0.2-1.0); Globulin 3.8 g/dL (2.3-3.5); Glomerular Filtration Rate 75 ml/min (=/>90); Glucose Level 98 mg/dL (74-106); Potassium 3.4 mEq/L (3.5-5.1); Protein, Total 7.5 g/dL (6.4-8.2); Sodium Level 140 mEq/L (136-145); Troponin High Sensitivity 29.5 pg/mL (<58.9)
[2023-08-14] MEDS ORDERED: NA CHLORIDE 0.9% 1,000 ML ONE (00:23)
--- NOTE | 2023-08-14 02:20 | EDPHYS ---
Physician Documentation [facility] Name: Mikhail Reilly Age: 47 yrs Sex: Male : 1975 Arrival Date: 08/13/2023 Time: 22:26 Bed 16 Private MD: ED Physician Ernesto Moore HPI: 08/12 22:42 This 47 yrs old Male presents to ER via EMS with complaints of chest pain. kb 22:42 Pt is a 47 year old male who reports he went for a run, tripped and fell. States he hit kb his head, but isn't sure if he passed out. Reports chest pain began after that. Denies n/v/d. . 08/13 02:16 Patient states he is dealing with social situation where he is experiencing significant sp4 stress. . Historical: - Allergies: 08/12 22:35 Iodinated Contrast Media - IV Dye; vc1 22:35 Iodine; vc1 - PMHx: 22:35 Atrial Fib; Back pain; Hypertension; Kidney stones; muscle spasms numerous times vc1 requiring Er visits with fluid resusitation; TIA; - Immunization history:: Flu vaccine status is unknown. - Infectious Disease History:: Denies. - Social history:: Smoking status: Patient reports the use of cigarette tobacco products, denies chronic smoking, but will smoke occasionally. ROS: 22:41 Constitutional: As per HPI kb Exam: 22:41 Constitutional: This is a well developed, well nourished patient who is awake, alert, kb and in no acute distress. Head/Face: Normocephalic, atraumatic. ENT: Moist Mucous membranes Cardiovascular: Regular rate Respiratory: Respirations even and unlabored. No increased work of breathing. Talking in full sentences Abdomen/GI: Soft, non-tender. No distention Skin: Warm, dry with normal turgor. Normal color. MS/ Extremity: Pulses equal, no cyanosis. Neurovascular intact. Full, normal range of motion. Neuro: Awake and alert, GCS 15, oriented to person, place, time, and situation. Moves all extremities. 08/13 02:16 ECG was reviewed by the Attending Physician. EKG reveals sinus tachycardia at a rate of sp4 104, EKG at 2236 Vital Signs: 08/12 22:33 BP 128 / 98; Pulse 111; Resp 14; Temp 98; Pulse Ox 98% ; Pain 0/10; vc1 23:30 BP 128 / 81; Pulse 82; Resp 16; Pulse Ox 98% on R/A; Pain 6/10; pf1 08/13 00:30 BP 116 / 91; Pulse 79; Resp 17; Pulse Ox 98% on R/A; Pain 6/10; pf1 01:30 BP 126 / 92; Pulse 77; Resp 16; Pulse Ox 98% on R/A; pf1 02:30 BP 119 / 83; Pulse 75; Resp 16; Temp 98; Pulse Ox 97% on R/A; Pain 3/10; pf1 08/12 22:33 Pain Scale: Adult vc1 23:30 Pain Scale: Adult pf1 08/13 00:30 Pain Scale: Adult pf1 02:30 Pain Scale: Adult pf1 MDM: 08/12 22:28 Patient medically screened. kb 22:41 Differential diagnosis: abnormal EKG, acute myocardial infarction, coronary artery kb disease chest wall pain. Data reviewed: vital signs, nurses notes. Historians other than the Patient: EMS: [facility]. 08/13 02:11 ED course: EXAMINATION: CT HEAD WITHOUT IV CONTRAST INDICATION: Male, 47 years old, sp4 Syncope;Trauma COMPARISON(S): 03/12/2022 TECHNIQUE: CT acquisition of the head without contrast. Coronal and sagittal reformatted images provided. This exam was performed according to departmental dose-optimization program which includes automated exposure control, adjustment of the mA and/or kV according to patient size, and/or use of iterative reconstruction technique. FINDINGS: Exam is limited by nonstandard planes of reformation. No evidence of intracranial hemorrhage or extraaxial fluid collection. No mass effect or midline shift. Ventricles, cisterns, and sulci are normal in size and configuration. Brain parenchymal attenuation and miller-white matter differentiation are within normal limits. The calvarium and imaged facial bones are intact. Overlying soft tissues are normal. Mucosal thickening of the ethmoid and left maxillary sinuses. Orbits are unremarkable. IMPRESSION: No acute intracranial findings within the exam limitation. . ED course: EXAM: Chest Single View CLINICAL INDICATION: 47-year-old male with chest pain. TECHNIQUE: Single view, AP portable chest was obtained. COMPARISON: None. FINDINGS: Unremarkable cardiac and mediastinal silhouette. Heart size is normal. Low lung volumes without focal opacity, pneumothorax or pleural effusions. The visualized bones are within normal limits. IMPRESSION: No acute cardiopulmonary abnormalities. Electronically signed by: Kristen Melendrez MD 08/13/2023 10:55 PM CDT. 02:17 HEART Score: History: Slightly Suspicious (0), ECG: Normal (0), Age: > 45 and < 65 sp4 years (1), Risk Factors: 1 or 2 risk factors (1), Troponin: < or = 1 x Normal Limit (0), Total Score = 2. ED course: Patient is stable for discharge home.. . 08/12 22:29 Order name: Acetaminophen; Complete Time: 00:20 kb 08/12 22:29 Order name: Basic Metabolic Panel; Complete Time: 00:20 kb 08/12 22:29 Order name: CBC with Diff; Complete Time: 23:45 kb 08/12 22:29 Order name: ETOH Level; Complete Time: 23:56 kb 08/12 22:29 Order name: Hepatic Function; Complete Time: 00:20 kb 08/12 22:29 Order name: PT-INR; Complete Time: 23:45 kb 08/12 22:29 Order name: Ptt, Activated; Complete Time: 23:45 kb 08/12 22:29 Order name: Salicylate; Complete Time: 23:53 kb 08/12 22:29 Order name: Troponin HS; Complete Time: 00:20 kb 08/13 00:51 Order name: Troponin High Sensitivity; Complete Time: 02:11 kb 08/12 22:29 Order name: XRAY Chest (1 view) kb 08/12 22:29 Order name: CT Head Brain wo Cont kb 08/12 22:29 Order name: EKG; Complete Time: 22:29 kb 08/12 22:29 Order name: EKG - Nurse/Tech; Complete Time: 22:47 kb 08/12 22:29 Order name: IV Saline Lock; Complete Time: 00:18 kb 08/12 22:29 Order name: Labs collected and sent; Complete Time: 00:18 kb 08/12 22:29 Order name: Suicide Screening ([place]); Complete Time: 00:35 kb 08/12 22:29 Order name: Cardiac monitoring; Complete Time: 00:18 kb 08/12 22:29 Order name: O2 Per Protocol; Complete Time: 00:18 kb 08/12 22:29 Order name: O2 Sat Monitoring; Complete Time: 00:18 kb EC:16 Rate is 104 beats/min. Rhythm is regular, Sinus tachycardia. QRS [place] is Normal. [place] sp4 interval is normal. QRS interval is normal. QT interval is normal. No Q waves. T waves are Normal. No ST changes noted. Clinical impression: No evidence of ischemia. Interpreted by me. Reviewed by me. Administered Medications: 00:20 Drug: NS 0.9% IV 1000 ml IV at 1000 ml once Route: IV; Rate: 1000 ml; Site: left pf1 antecubital; 01:11 Follow up: Response: No adverse reaction; Marked relief of symptoms pf1 02:00 Follow up: Response: No adverse reaction; Marked relief of symptoms; IV Status: pf1 Completed infusion; IV Intake: 1000ml 02:30 Drug: Ketorolac IVP 30 mg IVP once Route: IVP; Site: left antecubital; pf1 02:39 Follow up: Response: No adverse reaction; Marked relief of symptoms; Pain is decreased pf1 Disposition: 02:18 Co-signature as Attending Physician, Ernesto Moore MD I agree with the assessment sp4 and plan of care. I reviewed the patient's care provided by Advanced Practice Provider \T\ agree w/ the diagnosis \T\ care plan. I personally saw the pt \T\ performed a substantive portion of the visit, incldng all aspects of the (History/Exam/Medical Decision Making). Disposition Summary: 08/14/23 02:19 Discharge Ordered Notes: Location: Home sp4 Condition: Stable sp4 Diagnosis - Chest pain, unspecified sp4 - Emotional upset, Non cardiac Chest pain sp4 Followup: kb - With: Emergency Department - When: As needed - Reason: Worsening of condition Followup: kb - With: Private Physician - When: 2 - 3 days - Reason: Recheck today's complaints, Continuance of care, Re-evaluation by your physician Discharge Instructions: - Discharge Summary Sheet sp4 - Nonspecific Chest Pain, Adult, [id number] sp4 Forms: - Work release form pf1 - Patient Portal Instructions sp4 Prescriptions: - Valium 5 mg Oral tablet - take 1 tablet ORAL route once daily As needed PRN anxiety; 12 tablet; Refills: sp4 0, Product Selection Permitted Signatures: Dispatcher [employer] EDMS Jo Talamantes, DIVISION ENGINEER-C DIVISION ENGINEER-Ckb Nini Mckinney, RN RN vc1 Asha Jauregui RN RN pf1 Ernesto Moore MD MD sp4 Corrections: (The following items were deleted from the chart) 08/12 22:29 22:29 ACETAMINOPHEN+C.LAB.BRZ ordered. EDMS EDMS 22: 22:29 BASIC METABOLIC PANEL+C.LAB.BRZ ordered. EDMS EDMS 22: 22:29 CBC+H.LAB.BRZ ordered. EDMS EDMS 22:29 22:29 ETHANOL+C.LAB.BRZ ordered. EDMS EDMS 22:29 22:29 HEPATIC FUNCTION+C.LAB.BRZ ordered. EDMS EDMS 22:29 22:29 PROTIME (+INR)+COAG.LAB.BRZ ordered. EDMS EDMS 22: 22:29 PTT, ACTIVATED+COAG.LAB.BRZ ordered. EDMS EDMS 22:29 22:29 SALICYLATE+C.LAB.BRZ ordered. EDMS EDMS 22:29 22:29 Urinalysis+U.LAB.BRZ ordered. EDMS EDMS 22:29 22:29 URINE DRUG SCREEN+UC.LAB.BRZ ordered. EDMS EDMS 22:29 22:29 Troponin High Sensitivity+C.LAB.BRZ ordered. EDMS EDMS
--- NOTE | 2023-08-14 02:20 | ER ---
Nurse's Notes [facility] Name: Mikhail Reilly Age: 47 yrs Sex: Male : 1975 Arrival Date: 08/13/2023 Time: 22:26 Bed 16 Private MD: Diagnosis: Chest pain, unspecified;Emotional upset, Non cardiac Chest pain Presentation: 08/12 22:33 Chief complaint: EMS states: called from bystander stating pt was laying on the ground vc1 moaning. When we arrived he was complaining of chest pain after running. Coronavirus screen: At this time, the client does not indicate any symptoms associated with coronavirus-19. Ebola Screen: Patient negative for fever greater than or equal to 101.5 degrees Fahrenheit, and additional compatible Ebola Virus Disease symptoms Patient denies exposure to infectious person. Patient denies travel to an Ebola-affected area in the 21 days before illness onset. No symptoms or risks identified at this time. Initial Sepsis Screen: Does the patient meet any 2 criteria? No. Patient's initial sepsis screen is negative. Does the patient have a suspected source of infection? No. Patient's initial sepsis screen is negative. Risk Assessment: Do you want to hurt yourself or someone else? Patient reports no desire to harm self or others. Onset of symptoms was August 13, 2023. 22:33 Method Of Arrival: EMS: [facility] vc1 22:33 Acuity: LIANG 3 vc1 Triage Assessment: 22:35 General: Appears uncomfortable, slender, unkempt, Behavior is cooperative, flat, quiet. vc1 Pain: Denies pain. EENT: No deficits noted. No signs and/or symptoms were reported regarding the EENT system. Neuro: Level of Consciousness is awake, alert, obeys commands, Oriented to person, place, time, situation, Appropriate for age. Cardiovascular: Reports chest pain that has resumed, no c/o chest pressure and SOB. Cardiovascular: Reports shortness of breath, Capillary refill < 3 seconds Patient's skin is warm and dry. Respiratory: Airway is patent Respiratory effort is even, unlabored, Respiratory pattern is regular, symmetrical. GI: No deficits noted. No signs and/or symptoms were reported involving the gastrointestinal system. : No deficits noted. No signs and/or symptoms were reported regarding the genitourinary system. Derm: No deficits noted. No signs and/or symptoms reported regarding the dermatologic system. Musculoskeletal: No deficits noted. No signs and/or symptoms reported regarding the musculoskeletal system. Historical: - Allergies: 22:35 Iodinated Contrast Media - IV Dye; vc1 22:35 Iodine; vc1 - PMHx: 22:35 Atrial Fib; Back pain; Hypertension; Kidney stones; muscle spasms numerous times vc1 requiring Er visits with fluid resusitation; TIA; - Immunization history:: Flu vaccine status is unknown. - Infectious Disease History:: Denies. - Social history:: Smoking status: Patient reports the use of cigarette tobacco products, denies chronic smoking, but will smoke occasionally. Screenin:35 [facility] ED Fall Risk Assessment (Adult) History of falling in the last 3 months, pf1 including since admission Yes- single mechanical fall (1 pt) Confusion or Disorientation No (0 pts) Intoxicated or Sedated No (0 pts) Impaired Gait No (0 pts) Mobility Assist Device Used No (0 pt) Altered Elimination No (0 pt) Score/Fall Risk Level 0 - 2 = Low Risk Oriented to surroundings, Maintained a safe environment, Educated pt \T\ family on fall prevention, incl call for assistance when getting out of bed, Assessed \T\ reinforced patient's understanding of fall precautions, Provided non-skid footwear, Hourly rounding (assess needs \T\ fall precautionary measures) done, Used ambulatory aids as needed (educated on \T\ assisted with), Used gait belt as appropriate. Abuse screen: Denies threats or abuse. Nutritional screening: No deficits noted. Tuberculosis screening: No symptoms or risk factors identified. Assessment: 22:35 General: Appears in no apparent distress. comfortable, well developed, Behavior is pf1 cooperative, quiet. 22:35 Pain: Complains of pain in chest Pain currently is 3 out of 10 on a pain scale. Pain pf1 began 1 hour ago. Neuro: No deficits noted. Level of Consciousness is awake, alert, obeys commands, Oriented to person, place, time, situation. Cardiovascular: Reports chest pain, shortness of breath, Capillary refill < 3 seconds Patient's skin is warm and dry. Respiratory: Reports shortness of breath Airway is patent Respiratory effort is even, unlabored, Breath sounds are clear bilaterally. GI: No deficits noted. No signs and/or symptoms were reported involving the gastrointestinal system. : No deficits noted. No signs and/or symptoms were reported regarding the genitourinary system. EENT: No deficits noted. No signs and/or symptoms were reported regarding the EENT system. Derm: No deficits noted. No signs and/or symptoms reported regarding the dermatologic system. Musculoskeletal: Circulation, motion, and sensation intact. Capillary refill < 3 seconds, Range of motion: intact in all extremities. 23:30 Reassessment: Patient appears in no apparent distress at this time. Patient and/or pf1 family updated on plan of care and expected duration. Pain level reassessed. Patient is alert, oriented x 3, equal unlabored respirations, skin warm/dry/pink. 08/13 00:30 Reassessment: Patient appears in no apparent distress at this time. Patient and/or pf1 family updated on plan of care and expected duration. Pain level reassessed. Patient is alert, oriented x 3, equal unlabored respirations, skin warm/dry/pink. 00:58 Reassessment: patient attempted to urinated at with urinal. No urine collected at [facility] this time. 01:59 Reassessment: Patient appears in no apparent distress at this time. Patient and/or pf1 family updated on plan of care and expected duration. Pain level reassessed. Patient is alert, oriented x 3, equal unlabored respirations, skin warm/dry/pink. Patient states symptoms have improved. 02:45 Reassessment: Patient appears in no apparent distress at this time. Patient and/or pf1 family updated on plan of care and expected duration. Pain level reassessed. Patient is alert, oriented x 3, equal unlabored respirations, skin warm/dry/pink. Patient states feeling better. Patient states symptoms have improved. Vital Signs: 08/12 22:33 BP 128 / 98; Pulse 111; Resp 14; Temp 98; Pulse Ox 98% ; Pain 0/10; vc1 23:30 BP 128 / 81; Pulse 82; Resp 16; Pulse Ox 98% on R/A; Pain 6/10; pf1 08/13 00:30 BP 116 / 91; Pulse 79; Resp 17; Pulse Ox 98% on R/A; Pain 6/10; pf1 01:30 BP 126 / 92; Pulse 77; Resp 16; Pulse Ox 98% on R/A; pf1 02:30 BP 119 / 83; Pulse 75; Resp 16; Temp 98; Pulse Ox 97% on R/A; Pain 3/10; pf1 08/12 22:33 Pain Scale: Adult vc1 23:30 Pain Scale: Adult pf1 08/13 00:30 Pain Scale: Adult pf1 02:30 Pain Scale: Adult pf1 ED Course: 08/12 22:27 Patient arrived in ED. vk 22:28 Jo Talamantes FNP-C is PHCP. kb 22:28 Ernesto Moore MD is Attending Physician. kb 22:34 Triage completed. vc1 22:35 Arm band placed on right wrist. pf1 22:35 Patient has correct armband on for positive identification. Placed in gown. Bed in low pf1 position. Call light in reach. Side rails up X 1. 22:49 XRAY Chest (1 view) In Process Unspecified. EDMS 23:27 CT Head Brain wo Cont In Process Unspecified. EDMS 23:30 Inserted saline lock: 22 gauge in left antecubital area, using aseptic technique. Blood pf1 collected. 23:30 Initial lab(s) drawn, by ED staff, sent to lab. EKG done, by technology applications teacher. pf1 08/13 01:03 No provider procedures requiring assistance completed. pf1 01:12 Troponin High Sensitivity Sent. pf1 02:39 IV discontinued, intact, bleeding controlled, No redness/swelling at site. Pressure pf1 dressing applied. 02:45 Provided Education on: prescription. pf1 Administered Medications: 00:20 Drug: NS 0.9% IV 1000 ml IV at 1000 ml once Route: IV; Rate: 1000 ml; Site: left pf1 antecubital; 01:11 Follow up: Response: No adverse reaction; Marked relief of symptoms pf1 02:00 Follow up: Response: No adverse reaction; Marked relief of symptoms; IV Status: pf1 Completed infusion; IV Intake: 1000ml 02:30 Drug: Ketorolac IVP 30 mg IVP once Route: IVP; Site: left antecubital; pf1 02:39 Follow up: Response: No adverse reaction; Marked relief of symptoms; Pain is decreased pf1 Medication: 02:45 VIS not applicable for this client. pf1 Intake: 02:00 IV: 1000ml; Total: 1000ml. pf1 Outcome: 02:19 Discharge ordered by . sp4 02:45 Discharged to home ambulatory, pf1 02:45 Condition: improved 02:45 Discharge instructions given to patient, Instructed on discharge instructions, follow up and referral plans. Demonstrated understanding of instructions, follow-up care, medications, Prescriptions given X 1, 02:45 Patient left the ED. pf1 Signatures: Dispatcher [employer] EDHI Jo Talamantes, MANJEET-C ELECTROTYPER-CkNini Marie RN RN vc1 Asha Jauregui RN RN pf1 Ernesto Moore MD MD sp4 Kacey Salamanca Corrections: (The following items were deleted from the chart) 03:04 03:03 Patient left the ED. pf1 pf1
[2023-08-14] MEDS ORDERED: KETOROLAC 30 MG/ML INJ ONE (02:28)
[2023-08-14 12:42] VITALS: BP 119/83; TEMP 98; O2SAT 97
--- NOTE | 2023-08-14 13:27 | EKG ---
Test Date: 2023-08-13 Test Time: 22:36:06 Marketing Intern: ARMEN MEASUREMENT RESULTS: Intervals: Rate: 104 FL: 152 QRSD: 104 QT: 354 QTc: 465 [place]: P: 79 FL: 152 QRS: 97 T: 48 INTERPRETIVE STATEMENTS: Sinus tachycardia Rightward axis Borderline ECG Compared to ECG 02/23/2023 09:01:05 Sinus bradycardia no longer present Electronically Signed On 08-14-23 13:27:00 CDT by Freddy Bahena
--- NOTE | 2023-08-14 17:35 | RAD REPORT ---
EXAM DESCRIPTION: RAD - Chest Single View - 08/13/2023 10:47 pm CLINICAL HISTORY: 47-year-old male with chest pain. TECHNIQUE: Single view, AP portable chest was obtained. COMPARISON: None. FINDINGS: Unremarkable cardiac and mediastinal silhouette. Heart size is normal. Low lung volumes without focal opacity, pneumothorax or pleural effusions. The visualized bones are within normal limits. IMPRESSION: No acute cardiopulmonary abnormalities. Electronically signed by: Kristen Melendrez MD 08/13/2023 10:55 PM CDT Due to temporary technical issues with the PACS/Fluency reporting system, reports are being signed by the in house radiologists without review as a courtesy to insure prompt reporting. The interpreting radiologist is fully responsible for the content of the report
--- NOTE | 2023-08-14 17:37 | RAD REPORT ---
EXAM DESCRIPTION: CT - Head Brain Wo Cont - 08/14/2023 6:28 am CLINICAL HISTORY: Male, 47 years old, Syncope;Trauma COMPARISON: 03/12/2022 TECHNIQUE: CT acquisition of the head without contrast. Coronal and sagittal reformatted images provi ded. This exam was performed according to departmental dose-optimization program which includes autom ated exposure control, adjustment of the mA and/or kV according to patient size, and/or use of iterat jose ramon reconstruction technique. FINDINGS: Exam is limited by nonstandard planes of reformation. No evidence of intracranial hemorrhage or extraaxial fluid collection. No mass effect or midline shift. Ventricles, cisterns, and sulci are normal in size and configuration. Brain parenchymal attenuation and miller-white matter differentiation are within normal limits. The calvarium and imaged facial bones are intact. Overlying soft tissues are normal. Mucosal thickening of the ethmoid and left maxillary sinuses. Orbits are unremarkable. IMPRESSION: No acute intracranial findings within the exam limitation. Electronically signed by: Erasto Mishra MD 08/13/2023 11:50 PM CDT Due to temporary technical issues with the PACS/Fluency reporting system, reports are being signed by the in house radiologists without review as a courtesy to insure prompt reporting. The interpreting radiologist is fully responsible for the content of the report
== END 2023-08-14 03:03 | disposition home or self-care (01) ==
LOC: ER 22:26
DX: R07.89 Other chest pain (principal); R45.7 State of emotional shock and stress, unspecified; F17.210 Nicotine dependence, cigarettes, uncomplicated; Z91.041 Radiographic dye allergy status; Z91.048 Other nonmedicinal substance allergy status
CPT/HCPCS: 96361; 93005; 85025; 80048; 36415; 85610; 80076; 85730; 84484 ×2; 70450; 71045; 96374; 99284; 80143; 80179; 82077; J7030

== ENCOUNTER 2023-08-20 17:58 | Emergency (ER) | payer OTHER ==
[2023-08-20 18:50] LABS: Absolute Lymphocytes (CBC) 1.1 K/uL (0.7-4.9); Absolute Monocytes 0.5 K/uL (0.1-1.3); Absolute Neutrophil 4.1 K/uL (1.8-8.0); Basophils % 0.3 % (0-1.3); Eosinophils % 0.3 % (0-4.4); Hematocrit 38.3 % (39.6-49.0); Hemoglobin 12.5 g/dL (13.6-17.9); Lymphocytes % 19.1 % (15.3-44.8); MCH 29.5 pg (27.0-35.0); MCHC 32.6 g/dL (32.0-36.0); MCV 90.4 fL (80-100); MPV 8.3 fL (7.6-11.3); Monocytes % 8.8 % (3.3-12.3); Neutrophils % 71.5 % (41.7-73.7); Platelets 365 thou/uL (152-406); RBC Red Blood Cell Count 4.24 M/uL (4.33-5.43); Red Cell Distribution Width 15.3 % (12.1-15.2)
[2023-08-20 18:54] LABS: PT Prothrombin Time 15.2 SECONDS (9.5-12.5); Protime INR 1.4
[2023-08-20] MEDS ORDERED: ASPIRIN 81 MG CHEWABLE TABLET ONE (18:56)
[2023-08-20] MEDS ORDERED: NA CHLORIDE 0.9% 1,000 ML ONE (18:56)
[2023-08-20 19:13] LABS: Albumin 3.6 g/dL (3.4-5.0); Anion Gap 8.6 mEq/L (5.0-15.0); Bilirubin Direct 0.2 mg/dL (0-0.2); Bilirubin Indirect, Calculated 0.4 mg/dL (0.2-0.8); Bilirubin Total 0.6 mg/dL (0.2-1.0); Globulin 3.5 g/dL (2.3-3.5); Protein, Total 7.1 g/dL (6.4-8.2); Troponin High Sensitivity 6.7 pg/mL (<58.9)
--- NOTE | 2023-08-20 19:16 | RAD REPORT ---
EXAM DESCRIPTION: RAD - Chest Single View - 08/20/2023 7:09 pm CLINICAL HISTORY: CHEST PAIN Chest pain. COMPARISON: <Comparisons> FINDINGS: Portable technique limits examination quality. The lungs are grossly clear. The heart is normal in size. No displaced fractures. IMPRESSION: No acute intrathoracic process suspected.
[2023-08-20 19:19] LABS: Potassium 3.6 mEq/L (3.5-5.1)
[2023-08-20] MEDS ORDERED: KETOROLAC 30 MG/ML INJ ONE (20:31)
[2023-08-20 20:57] LABS: Specific Gravity 1.029 (1.005-1.030); Sqamous Epithelial None Seen /HPF (None Seen); Urine Bacteria <20 /HPF (<20); Urine Bilirubin NEGATIVE (Negative); Urine Blood Negative (Negative); Urine Clarity Turbid (Clear); Urine Color Yellow (Yellow); Urine Culture Reflex Order NOT NEEDED; Urine Glucose NEGATIVE (Negative); Urine Ketones 1+ (Negative); Urine Micro Reflex YN NO BILL MICROSCOPIC; Urine Mucus 3+ /HPF (None Seen); Urine Nitrite NEGATIVE (Negative); Urine Protein 1+ (Negative); Urine RBC 21-50 /HPF (None Seen); Urine Urobilinogen Normal (Normal); Urine WBC <5 /HPF (<5); Urine Yeast (Budding) Trace /HPF (None Seen)
[2023-08-20 21:04] LABS: Urine Sperm Present (None Seen)
[2023-08-20 21:05] LABS: Barbiturates NEGATIVE (NEGATIVE); Benzodiazepines POSITIVE (NEGATIVE); Cocaine NEGATIVE (NEGATIVE); METHAMPHETAM POSITIVE (NEGATIVE); Methadone NEGATIVE (NEGATIVE); Opiates NEGATIVE (NEGATIVE); Phencyclidine NEGATIVE (NEGATIVE); THC Cannibis POSITIVE (NEGATIVE)
--- NOTE | 2023-08-20 21:23 | RAD REPORT ---
EXAM DESCRIPTION: CT - Chest Abd Pelvis Wo Con - 08/20/2023 9:11 pm CLINICAL HISTORY: Chest and abdomen pain. left side chest pain, fall COMPARISON: <Comparisons> TECHNIQUE: Approximately 100 mL nonionic IV contrast was administered to the patient. All CT scans are performed using dose optimization technique as appropriate and may include automated exposure control or mA/KV adjustment according to patient size. FINDINGS: The lungs are clear.No pleural or pericardial effusion.No intrathoracic adenopathy. The liver, spleen, pancreas, adrenal glands and kidneys are within normal limits. No bowel obstruction, free air, free fluid or abscess. Normal appendix. No pathologic lymphadenopath y in the abdomen or pelvis. No fracture seen. Moderate lumbar degenerative changes. IMPRESSION: No acute abnormality seen.
--- NOTE | 2023-08-20 21:26 | ER ---
Nurse's Notes [facility] Name: Mikhail Reilly Age: 47 yrs Sex: Male : 1975 Arrival Date: 08/20/2023 Time: 17:58 Bed 7 Private MD: Diagnosis: Presentation: 08/19 18:19 Chief complaint: EMS states: chest pain since falling on Easter, he fell in a ditch and iw hit left ribs. Coronavirus screen: At this time, the client does not indicate any symptoms associated with coronavirus-19. Ebola Screen: Patient negative for fever greater than or equal to 101.5 degrees Fahrenheit, and additional compatible Ebola Virus Disease symptoms Patient denies exposure to infectious person. Patient denies travel to an Ebola-affected area in the 21 days before illness onset. No symptoms or risks identified at this time. Initial Sepsis Screen: Does the patient meet any 2 criteria? No. Patient's initial sepsis screen is negative. Does the patient have a suspected source of infection? No. Patient's initial sepsis screen is negative. Risk Assessment: Do you want to hurt yourself or someone else? Patient reports no desire to harm self or others. Onset of symptoms was August 12, 2023. 18:19 Method Of Arrival: EMS: [facility] iw 18:19 Acuity: LIANG 3 iw Historical: - Allergies: 18:20 Iodine; iw - PMHx: 18:20 Back pain; Atrial Fib; Kidney stones; Hypertension; muscle spasms numerous times iw requiring Er visits with fluid resusitation; TIA; - Immunization history:: Adult Immunizations unknown. - Infectious Disease History:: Denies. - Social history:: Smoking status: unknown. Screenin:15 [facility] ED Fall Risk Assessment (Adult) History of falling in the last 3 months, km8 including since admission Yes- single mechanical fall (1 pt) Confusion or Disorientation No (0 pts) Intoxicated or Sedated No (0 pts) Impaired Gait No (0 pts) Mobility Assist Device Used No (0 pt) Altered Elimination No (0 pt) Score/Fall Risk Level 0 - 2 = Low Risk Oriented to surroundings, Maintained a safe environment, Educated pt \T\ family on fall prevention, incl call for assistance when getting out of bed, Assessed \T\ reinforced patient's understanding of fall precautions. Abuse screen: Denies threats or abuse. Denies injuries from another. Nutritional screening: No deficits noted. Tuberculosis screening: No symptoms or risk factors identified. Assessment: 19:15 Reassessment: Patient appears in no apparent distress at this time. Patient and/or km8 family updated on plan of care and expected duration. Pain level reassessed. Patient is alert, oriented x 3, equal unlabored respirations, skin warm/dry/pink. General: Appears in no apparent distress. comfortable, Behavior is calm, cooperative, appropriate for age. Pain: Complains of pain in left ribs Pain does not radiate. Pain currently is 8 out of 10 on a pain scale. Quality of pain is described as aching, Pain began 2 weeks ago Is continuous. Neuro: Level of Consciousness is awake, alert, obeys commands, Oriented to person, place, time, situation. Cardiovascular: Reports chest pain, Patient's skin is warm and dry. Chest pain is described as diffuse, quality is aching is located in left anterior chest wall episodes are continuous. Respiratory: Reports shortness of breath pain with movement pain with respiration Airway is patent Respiratory effort is even, unlabored, Respiratory pattern is regular, symmetrical. Derm: No signs and/or symptoms reported regarding the dermatologic system. Skin is intact, is healthy with good turgor, Skin is dry, Skin is pink, warm \T\ dry. normal, Skin temperature is warm. Musculoskeletal: No signs and/or symptoms reported regarding the musculoskeletal system. Range of motion: intact in all extremities. 21:17 Reassessment: pt was on phone with son and stated that he was outside he had to go bm8 because his son was unable to wait for him. Pt asked to leave right now.. 21:21 Reassessment: AMA paper work was explained to pt and then signed, iv dc'ed and pt left. bm8 Vital Signs: 18:15 BP 116 / 77; Pulse 76; Resp 14; Pulse Ox 98% ; iw 18:19 BP 107 / 82; Pulse 78; Resp 16; Temp 98.6; Pulse Ox 95% on R/A; Pain 8/10; iw 18:30 BP 110 / 69; Pulse 74; Resp 16; Pulse Ox 97% ; iw 19:00 BP 115 / 76; Pulse 68; Resp 16; Pulse Ox 100% on R/A; km8 19:30 BP 119 / 71; Pulse 63; Resp 16; Pulse Ox 100% on R/A; km8 20:00 BP 114 / 91; Pulse 83; Resp 16; Pulse Ox 99% on R/A; km8 20:30 BP 122 / 89; Pulse 83; Resp 16; Pulse Ox 100% on R/A; km8 18:19 Pain Scale: Adult iw Anahi Coma Score: 19:15 Eye Response: spontaneous(4). Motor Response: obeys commands(6). Verbal Response: km8 oriented(5). Total: 15. ED Course: 18:00 Patient arrived in ED. iw 18:02 Luke Marsh PA is PHCP. cp 18:02 Robert Garcia MD is Attending Physician. cp 18:17 Kassidy Garcia, RN is Primary Nurse. iw 18:20 Triage completed. iw 18:20 Arm band placed on. iw 19:11 XRAY Chest (1 view) In Process Unspecified. EDMS 19:15 Patient has correct armband on for positive identification. Bed in low position. Call km8 light in reach. Side rails up X 1. Client placed on continuous cardiac and pulse oximetry monitoring. NIBP monitoring applied. monitor car operator on. Pulse ox on. NIBP on. 19:15 O2 via room air. km8 20:39 UDS Sent. cm10 20:39 Urinalysis W/Microscopic Sent. cm10 20:50 No provider procedures requiring assistance completed. km8 20:55 Primary Nurse role handed off by Kassidy Garcia, RN as6 21:12 CT Chest Abdomen Pelvis W/O Contrast In Process Unspecified. EDMS 21:21 Provided Education on: ama process, ama pt responsibilities and that the hospital is 8 always here if he needed to come back later.. 21:21 IV discontinued, intact, bleeding controlled, No redness/swelling at site. Pressure bm8 dressing applied. Administered Medications: 18:57 Drug: NS 0.9% IV 1000 ml IV at 999 ml/hr Per protocol; 1000 mL bolus Route: IV; Rate: iw 999 ml/hr; Site: right forearm; 08/20 04:00 Follow up: Response: No adverse reaction; IV Status: Completed infusion; IV Intake: bm8 1000ml 08/19 18:59 Drug: Aspirin PO Chewable Tablet 324 mg PO once; 81 mg tablets x 4 Route: PO; iw 04/09 04:01 Follow up: Response: No adverse reaction bm8 08/19 20:34 Drug: Ketorolac IVP 15 mg IVP once Route: IVP; Site: left antecubital; km8 21:21 Follow up: Response: No adverse reaction bm8 Medication: 19:15 VIS not applicable for this client. km8 Intake: 08/20 04:00 IV: 1000ml; Total: 1000ml. bm8 Outcome: 08/19 21:21 AMA AMA form signed bm8 Condition: stable Instructed on follow up and referral plans. safety practices, Demonstrated understanding of instructions, follow-up care, medications, 21:25 Patient left the ED. bm8 Signatures: Dispatcher [employer] EDMS Kassidy Garcia, RN RN iw Luke Marsh PA PA cp Slawson, Ashby RN RN as6 Lisa Duggan RN RN cm10 Heidi Echols RN RN km8 Armen Suarez RN RN bm8 Corrections: (The following items were deleted from the chart) 20:48 19:15 Pain: Complains of pain in left ribs Pain does not radiate. Pain currently is 8 km8 out of 10 on a pain scale. Quality of pain is described as aching, Is continuous, km8 08/20 03:58 03:52 Reassessment: pt was on phone with son and stated that he was outside he had to bm8 go because his son was unable to wait for him. Pt asked to leave right now.. bm8 58 03:55 Reassessment: AMA paper work was explained to pt and then signed, iv dc'ed and pt bm8 left. bm8
--- NOTE | 2023-08-20 21:26 | EDPHYS ---
Physician Documentation [facility] Name: Mikhail Reilly Age: 47 yrs Sex: Male : 1975 Arrival Date: 08/20/2023 Time: 17:58 Bed 7 Private MD: ED Physician Robert Garcia HPI: 08/19 18:08 This 47 yrs old Male presents to ER via EMS with complaints of Chest Pain. cp 18:08 The patient or guardian reports chest pain that is located primarily in the anterior cp chest wall, left. Onset: since this past Easter. 18:08 The chest pain is described as aching. cp 18:08 Associated signs and symptoms: Pertinent negatives: abdominal pain, cough, diaphoresis, cp lower extremity pain, lower extremity swelling, fever. Duration: The patient or guardian reports multiple episodes, that wax and wane. Severity of pain: in the emergency department the pain is unchanged despite EMS interventions. Patient reports recent fall in which he struck left side of chest. Historical: - Allergies: 18:20 Iodine; iw - PMHx: 18:20 Back pain; Atrial Fib; Kidney stones; Hypertension; muscle spasms numerous times iw requiring Er visits with fluid resusitation; TIA; - Immunization history:: Adult Immunizations unknown. - Infectious Disease History:: Denies. - Social history:: Smoking status: unknown. ROS: 18:10 Constitutional: Negative for body aches, chills, fever, poor PO intake, cp 18:10 Eyes: Negative for injury, pain, redness, and discharge, cp 18:10 ENT: Negative for drainage from ear(s), ear pain, sore throat, difficulty swallowing, difficulty handling secretions, 18:10 Neck: Negative for pain with movement, pain at rest, stiffness, bony tenderness, 18:10 Cardiovascular: Positive for chest pain, of the left side anterior and lateral chest wall, Negative for edema, palpitations, 18:10 Respiratory: Negative for cough, shortness of breath, wheezing, 18:10 Abdomen/GI: Negative for abdominal pain, vomiting, diarrhea, constipation, anorexia, 18:10 Back: Negative for pain at rest, pain with movement, 18:10 Neuro: Negative for altered mental status, dizziness, headache, loss of consciousness, syncope, weakness, 18:10 All other systems are negative, Exam: 18:15 ECG was reviewed by the Attending Physician. cp 18:17 Constitutional: The patient appears in no acute distress, alert, awake, cp non-diaphoretic, non-toxic, well developed, well nourished, uncomfortable, 18:17 Head/Face: Normocephalic, atraumatic. cp 18:17 Eyes: Periorbital structures: appear normal, Conjunctiva: normal, no exudate, no injection, Sclera: no appreciated abnormality, Lids and lashes: appear normal, bilaterally, 18:17 ENT: External ear(s): are unremarkable, Nose: is normal, Mouth: Lips: moist, Oral mucosa: pink and intact, moist, Posterior pharynx: is normal, airway is patent, no erythema, no exudate, 18:17 Neck: ROM/movement: is normal, is supple, without pain, no range of motions limitations, 18:17 Chest/axilla: Inspection: normal, Palpation: crepitus, is not appreciated, tenderness, that is moderate, of the left lateral anterior chest and left breast, 18:17 Cardiovascular: Rate: normal, Rhythm: regular, Edema: is not appreciated, JVD: is not appreciated, 18:17 Respiratory: the patient does not display signs of respiratory distress, Respirations: normal, no use of accessory muscles, no retractions, labored breathing, is not present, Breath sounds: are clear throughout, no decreased breath sounds, no stridor, no wheezing, 18:17 Abdomen/GI: Inspection: abdomen appears normal, Bowel sounds: active, all quadrants, Palpation: abdomen is soft and non-tender, in all quadrants, 18:17 Back: pain, is absent, ROM is normal, 18:17 Skin: cellulitis, is not appreciated, no rash present. 18:17 Neuro: Orientation: to person, place \T\ time. Mentation: is normal, Motor: moves all fours, strength is normal, Sensation: is normal, Vital Signs: 18:15 BP 116 / 77; Pulse 76; Resp 14; Pulse Ox 98% ; iw 18:19 BP 107 / 82; Pulse 78; Resp 16; Temp 98.6; Pulse Ox 95% on R/A; Pain 8/10; iw 18:30 BP 110 / 69; Pulse 74; Resp 16; Pulse Ox 97% ; iw 19:00 BP 115 / 76; Pulse 68; Resp 16; Pulse Ox 100% on R/A; km8 19:30 BP 119 / 71; Pulse 63; Resp 16; Pulse Ox 100% on R/A; km8 20:00 BP 114 / 91; Pulse 83; Resp 16; Pulse Ox 99% on R/A; km8 20:30 BP 122 / 89; Pulse 83; Resp 16; Pulse Ox 100% on R/A; km8 18:19 Pain Scale: Adult iw Anahi Coma Score: 19:15 Eye Response: spontaneous(4). Motor Response: obeys commands(6). Verbal Response: km8 oriented(5). Total: 15. MDM: 18:02 Patient medically screened. 21:25 The patient was given aspirin in the Emergency Department. Data reviewed: vital signs, nurses notes, lab test result(s), EKG, radiologic studies, plain films. 21:25 I considered the following discharge prescriptions or medication management in the emergency department Medications were administered in the Emergency Department. See MAR. Care significantly affected by the following chronic conditions: Hypertension. 08/19 18:05 Order name: Basic Metabolic Panel; Complete Time: 20:07 ms3 08/19 20:07 Interpretation: Normal except: BUN 23; GFR 81. 08/19 18:05 Order name: CBC with Diff; Complete Time: 19:01 ms3 08/19 19:01 Interpretation: Normal except: RBC 4.24; HGB 12.5; HCT 38.3; RDW 15.3. 08/19 18:05 Order name: Troponin HS; Complete Time: 20:07 ms3 08/19 18:08 Order name: LFT's; Complete Time: 20:07 08/19 20:07 Interpretation: Normal except: AST 52; ALK 136; A/G 1.0. 08/19 18:08 Order name: Lipase; Complete Time: 20:07 08/19 20:08 Interpretation: Reviewed. 08/19 18:08 Order name: Urinalysis W/Microscopic; Complete Time: 14:34 cp 08/19 18:08 Order name: UDS; Complete Time: 14:34 08/19 18:09 Order name: PT-INR; Complete Time: 19:01 08/19 18:05 Order name: XRAY Chest (1 view); Complete Time: 20:07 ms3 08/19 20:28 Order name: CT Chest Abdomen Pelvis W/O Contrast; Complete Time: 14:34 cp 08/19 18:05 Order name: EKG; Complete Time: 18:06 ms3 08/19 18:05 Order name: Cardiac monitoring; Complete Time: 18:48 ms3 08/19 18:05 Order name: EKG - Nurse/Tech; Complete Time: 18:17 ms3 08/19 18:05 Order name: IV Saline Lock; Complete Time: 18:17 ms3 08/19 18:05 Order name: Labs collected and sent; Complete Time: 18:17 ms3 08/19 18:05 Order name: O2 Per Protocol; Complete Time: 18:48 ms3 08/19 18:05 Order name: O2 Sat Monitoring; Complete Time: 18:49 ms3 EC:15 Rate is 78 beats/min. Rhythm is regular. CO interval is normal. QRS interval is cp prolonged at 112 msec. QT interval is normal. T waves are Inverted in lead aVR. Interpreted by me. Reviewed by me. Administered Medications: 18:57 Drug: NS 0.9% IV 1000 ml IV at 999 ml/hr Per protocol; 1000 mL bolus Route: IV; Rate: iw 999 ml/hr; Site: right forearm; 08/20 04:00 Follow up: Response: No adverse reaction; IV Status: Completed infusion; IV Intake: bm8 1000ml 08/19 18:59 Drug: Aspirin PO Chewable Tablet 324 mg PO once; 81 mg tablets x 4 Route: PO; iw 08/20 04:01 Follow up: Response: No adverse reaction bm8 08/19 20:34 Drug: Ketorolac IVP 15 mg IVP once Route: IVP; Site: left antecubital; [facility] 21:21 Follow up: Response: No adverse reaction bm8 Disposition Summary: 08/20/23 21:25 Left Against Medical Advice Notes: Location: Home 8 Condition: Stable 8 Signatures: Dispatcher [employer] Kassidy Perales, RN RN iw Luke Marsh PA PA cp Sims, Marcus, DO ms3 Heidi Echols RN RN km8 Armen Suarez RN RN bm8 Corrections: (The following items were deleted from the chart) 20:27 20:27 Chest Abdomen Pelvis W Con+CT.RAD.BRZ ordered. EDMS EDMS 20:28 20:28 Chest Abdomen Pelvis Wo Con+CT.RAD.BRZ ordered. EDMS EDMS 21:06 21:06 Troponin High Sensitivity+C.LAB.BRZ ordered. EDOK EDMS 08/20 14:35 04 21:30 The patient was given aspirin in the Emergency Department. cp cp 08/20 14:35 04 21:30 Data reviewed: vital signs, nurses notes, lab test result(s), EKG, cp radiologic studies, plain films, cp
[2023-08-21 03:45] VITALS: BP 122/89; TEMP 98.6; O2SAT 100
--- NOTE | 2023-08-21 16:16 | EKG ---
Test Date: 2023-08-20 Test Time: 18:09:32 Ict Business Development Manager: SHIRIN MEASUREMENT RESULTS: Intervals: Rate: 78 AL: 156 QRSD: 112 QT: 386 QTc: 440 [place]: P: 74 AL: 156 QRS: 89 T: 51 INTERPRETIVE STATEMENTS: Normal sinus rhythm Normal ECG Compared to ECG 08/13/2023 22:36:06 Sinus tachycardia no longer present Right-axis deviation no longer present Electronically Signed On 08-21-23 16:14:37 CDT by Freddy Bahena
== END 2023-08-20 21:25 | disposition left against medical advice (07) ==
LOC: ER 17:58
DX: R07.89 Other chest pain (principal); Z91.048 Other nonmedicinal substance allergy status
CPT/HCPCS: 96361; 93005; 85025; 81001; 80048; 36415; 85610; 80076; 84484; 83690; 80307; 71250; 74176; 71045; 96374; 99285; J7030

== ENCOUNTER 2023-10-19 12:11 | Emergency (ER) | payer OTHER, SELFPAY ==
[2023-10-19] MEDS ORDERED: HYDROCODONE/APAP 10/325 TAB ONE (12:29)
[2023-10-19 12:53] LABS: Absolute Lymphocytes (CBC) 1.3 K/uL (0.7-4.9); Absolute Monocytes 0.9 K/uL (0.1-1.3); Absolute Neutrophil 9.5 K/uL (1.8-8.0); Basophils % 0.3 % (0-1.3); Eosinophils % 0.3 % (0-4.4); Hemoglobin 12.8 g/dL (13.6-17.9); Lymphocytes % 11.2 % (15.3-44.8); MCH 29.2 pg (27.0-35.0); MCHC 32.1 g/dL (32.0-36.0); MCV 91.1 fL (80-100); MPV 8.1 fL (7.6-11.3); Monocytes % 7.7 % (3.3-12.3); Neutrophils % 80.5 % (41.7-73.7); Platelets 347 thou/uL (152-406); Red Cell Distribution Width 15.6 % (12.1-15.2)
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
--- NOTE | 2023-10-19 13:28 | RAD REPORT ---
EXAM DESCRIPTION: RAD - Femur Right - 10/19/2023 1:11 pm CLINICAL HISTORY: PAIN COMPARISON: No comparisons FINDINGS/IMPRESSION: No acute fracture. No malalignment. No significant focal degenerative changes.
--- NOTE | 2023-10-19 13:30 | RAD REPORT ---
EXAM DESCRIPTION: RAD - Hand Right 3 View - 10/19/2023 1:12 pm CLINICAL HISTORY: PAIN COMPARISON: No comparisons FINDINGS/IMPRESSION: No acute fracture. No malalignment. No significant focal degenerative changes. Small radiopaque densities in the soft tissues at the second digit proximal phalanx.
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
[2023-10-19 15:08] VITALS: BP 114/86; TEMP 98.4; O2SAT 100
== END 2023-10-19 14:02 | disposition home or self-care (01) ==
LOC: ER 12:11
DX: S09.90XA Unspecified injury of head, initial encounter (principal); S60.512A Abrasion of left hand, initial encounter; S60.511A Abrasion of right hand, initial encounter; S20.211A Contusion of right front wall of thorax, initial encounter; S20.229A Contusion of unspecified back wall of thorax, initial encounter; Y09 Assault by unspecified means; Z91.041 Radiographic dye allergy status
CPT/HCPCS: 36415; 70450; 71250; 72125; 80048; 85025; 99284

== ENCOUNTER 2024-05-06 18:48 | Emergency (ER) | payer OTHER ==
[2024-05-06] MEDS ORDERED: ASPIRIN 81 MG CHEWABLE TABLET ONE (19:48)
[2024-05-06 20:08] LABS: Absolute Eosinophils 0.1 K/uL (0-0.5); Absolute Lymphocytes (CBC) 1.3 K/uL (0.7-4.9); Absolute Monocytes 0.5 K/uL (0.1-1.3); Absolute Neutrophil 4.8 K/uL (1.8-8.0); Basophils % 0.3 % (0-1.3); Eosinophils % 1.1 % (0-4.4); Hematocrit 37.4 % (39.6-49.0); Hemoglobin 12.3 g/dL (13.6-17.9); Lymphocytes % 19.7 % (15.3-44.8); MCV 91.2 fL (80-100); MPV 8.3 fL (7.6-11.3); Monocytes % 7.8 % (3.3-12.3); Neutrophils % 71.1 % (41.7-73.7); Platelets 267 thou/uL (152-406); Red Cell Distribution Width 15.5 % (12.1-15.2)
[2024-05-06 20:22] LABS: PT Prothrombin Time 10.8 SECONDS (9.4-12.5); Protime INR 0.96
[2024-05-06 20:34] LABS: ALT/SGPT 15 U/L (16-61); AST/SGOT 28 U/L (15-37); Albumin 3.6 g/dL (3.4-5.0); Alkaline Phosphatase 120 U/L (45-117); Anion Gap 6.5 mEq/L (5.0-15.0); BUN Blood Urea Nitrogen 27 mg/dL (7-18); Bicarbonate 30 mEq/L (21-32); Bilirubin Direct < 0.2 mg/dL (0-0.2); Bilirubin Total 0.2 mg/dL (0.2-1.0); Globulin 3.6 g/dL (2.3-3.5); Glomerular Filtration Rate 85 ml/min (=/>90); Glucose Level 109 mg/dL (74-106); Magnesium 2.3 mg/dL (1.6-2.4); NT PRO-BNP 242 pg/mL (<125); Potassium 4.5 mEq/L (3.5-5.1); Protein, Total 7.2 g/dL (6.4-8.2); Sodium Level 140 mEq/L (136-145)
--- NOTE | 2024-05-06 20:39 | ER ---
Nurse's Notes [facility] Name: Mikhail Reilly Age: 48 yrs Sex: Male : 1975 Arrival Date: 05/06/2024 Time: 18:48 Bed 15 Private MD: Diagnosis: Palpitations;Essential (primary) hypertension Presentation: 05/06 18:58 Chief complaint: Chest pain x 2 months. Coronavirus screen: At this time, the client hb does not indicate any symptoms associated with coronavirus-19. Ebola Screen: No symptoms or risks identified at this time. Initial Sepsis Screen: Does the patient meet any 2 criteria? No. Patient's initial sepsis screen is negative. Does the patient have a suspected source of infection? No. Patient's initial sepsis screen is negative. Risk Assessment: Do you want to hurt yourself or someone else? Patient reports no desire to harm self or others. Onset of symptoms was March 2024. 18:58 Method Of Arrival: Ambulatory hb 18:58 Acuity: LIANG 3 hb Historical: - Allergies: 18:59 Iodinated Contrast Media - IV Dye; hb 18:59 Iodine; hb - PMHx: 18:59 Atrial Fib; Back pain; Hypertension; Kidney stones; muscle spasms numerous times hb requiring Er visits with fluid resusitation; TIA; - Immunization history:: Adult Immunizations up to date. - Infectious Disease History:: Denies. - Social history:: Smoking status: . Screenin:40 [facility] ED Fall Risk Assessment (Adult) History of falling in the last 3 months, kj2 including since admission No falls in past 3 months (0 pts) Confusion or Disorientation No (0 pts) Intoxicated or Sedated No (0 pts) Impaired Gait No (0 pts) Mobility Assist Device Used No (0 pt) Altered Elimination No (0 pt) Score/Fall Risk Level 0 - 2 = Low Risk Maintained a safe environment, Hourly rounding (assess needs \T\ fall precautionary measures) done. Abuse screen: Denies threats or abuse. Denies injuries from another. Nutritional screening: No deficits noted. Tuberculosis screening: No symptoms or risk factors identified. Assessment: 19:40 General: Appears in no apparent distress. Behavior is calm, cooperative. Pain: kj2 Complains of pain in chest Pain does not radiate. Pain currently is 4 out of 10 on a pain scale. Pain began 2-3 days ago. Neuro: Level of Consciousness is awake, alert, obeys commands, Oriented to person, place, time, situation. Cardiovascular: Patient's skin is warm and dry. Respiratory: Airway is patent Respiratory effort is unlabored. GI: : 20:00 Reassessment: Patient appears in no apparent distress at this time. Patient and/or kj2 family updated on plan of care and expected duration. Pain level reassessed. Patient is alert, oriented x 3, equal unlabored respirations, skin warm/dry/pink. Vital Signs: 18:58 BP 141 / 74; Pulse 96; Resp 16; Temp 97.8; Pulse Ox 97% on R/A; Weight 78.93 kg; Height hb 5 ft. 9 in. ; Pain 1/10; 20:08 BP 140 / 87; Pulse 82; Resp 20; Pulse Ox 99% on R/A; kj2 21:06 BP 150 / 86; Pulse 80; Resp 20; Temp 98; Pulse Ox 100% on R/A; kj2 18:58 Body Mass Index 25.70 (78.93 kg, 175.26 cm) hb 18:58 Pain Scale: Adult hb NIH Stroke Scale Scores: 20:44 NIHSS Score: 0 jamie ED Course: 18:49 Patient arrived in ED. im 18:59 Triage completed. hb 18:59 Arm band placed on. hb 18:59 EKG done, by ED staff, reviewed by Luke Saleh MD. hb 19:00 Liset Santos PA-C is PHCP. sb4 19:00 Luke Saleh MD is Attending Physician. sb4 19:12 Luke Saleh MD is Attending Physician. jamie 19:36 Samantha Soto, DANNIELLE is Primary Nurse. kj2 20:10 Patient has correct armband on for positive identification. Bed in low position. Side kj2 rails up X 1. Provided Education on: CALL LIGHT. 20:27 XRAY Chest (1 view) In Process Unspecified. EDMS 20:38 Harris Chawla MD is Referral Physician. jamie 21:04 Client placed on continuous cardiac and pulse oximetry monitoring. NIBP monitoring kj2 applied. court usher on. 21:04 Patient maintains SpO2 saturation greater than 95% on room air. kj2 21:04 No provider procedures requiring assistance completed. kj2 21:05 Inserted saline lock: 20 gauge in right antecubital area, using aseptic technique. kj2 Blood collected. Flushed with 10 mL NS. 21:06 IV discontinued, intact, bleeding controlled, No redness/swelling at site. Pressure kj2 dressing applied. Administered Medications: 19:50 Drug: Aspirin PO Chewable Tablet 81 mg PO once Route: PO; kj2 Medication: 21:04 VIS not applicable for this client. kj2 Outcome: 20:38 Discharge ordered by . [facility] 21:05 Discharged to home ambulatory, kj2 21:05 Condition: stable 21:05 Discharge instructions given to patient, family, Instructed on discharge instructions, follow up and referral plans. Demonstrated understanding of instructions, follow-up care, 21:07 Patient left the ED. kj2 NIH Stroke Scale - NIH Stroke Score Date: 05/06/2024 Time: 20:44 Total Score = 0 10. Dysarthria (speech clarity - read or repeat words) - 0(Normal) 11. Extinction and Inattention (visual/tactile/auditory/spatial/personal) - 0(No abnormality) 1a. Level of Consciousness (LOC) - 0(Alert) 1b. Level of Consciousness (LOC) (Month \T\ Age) - 0(Both) 1c. LOC Commands (Open \T\ Closes Eyes/Telecom Assistant) - 0(Both) 2. Best Gaze (Lateral Gaze Paresis) - 0(Normal) 3. Visual Field Loss - 0(No visual loss) 4. Facial Palsy - 0(Normal) 5a. Left Arm: Motor (10-second hold) - 0(No drift) 5b. Right Arm: Motor (10-second hold) - 0(No drift) 6a. Left Leg: Motor (5-second hold - always test supine) - 0(No drift) 6b. Right Leg: Motor (5-second hold - always test supine) - 0(No drift) 7. Limb Ataxia (finger/nose \T\ heel/moser - test with eyes open) - 0(Absent) 8. Sensory Loss (pinprick arms/legs/face) - 0(Normal) 9. Best Language: Aphasia (description/naming/reading) - 0(No aphasia) Initials: [facility] Signatures: Dispatcher [employer] Luke Steinberg MD MD cha Baxter, Heather, RN RN hb Brown, Sophia, ITZ PA-C sb4 Jana Chahal Krystal, RN RN kj2
--- NOTE | 2024-05-06 20:39 | EDPHYS ---
Physician Documentation [facility] Name: Mikhail Reilly Age: 48 yrs Sex: Male : 1975 Arrival Date: 05/06/2024 Time: 18:48 Bed 15 Private MD: ED Physician Luke Saleh HPI: 05/06 20:08 This 48 yrs old Male presents to ER via Ambulatory with complaints of Chest jamie Pain, Shortness Of Breath. 20:08 The patient or guardian reports chest pain that is located primarily in the anterior jamie chest wall, bilaterally. Onset: 5 week(s) ago. The pain does not radiate. Associated signs and symptoms: The patient has no apparent associated signs or symptoms. The chest pain is described as PALPITATIONS. Duration: The patient or guardian reports multiple episodes, that wax and wane. Severity of pain: At its worst the pain was NONE. Historical: - Allergies: 18:59 Iodinated Contrast Media - IV Dye; hb 18:59 Iodine; hb - PMHx: 18:59 Atrial Fib; Back pain; Hypertension; Kidney stones; muscle spasms numerous times hb requiring Er visits with fluid resusitation; TIA; - Immunization history:: Adult Immunizations up to date. - Infectious Disease History:: Denies. - Social history:: Smoking status: . ROS: 20:09 Constitutional: Negative for fever, chills, and weight loss, Eyes: Negative for injury, jamie pain, redness, and discharge, ENT: Negative for injury, pain, and discharge, Neck: Negative for injury, pain, and swelling, Abdomen/GI: Negative for abdominal pain, nausea, vomiting, diarrhea, and constipation, Back: Negative for injury and pain, : Negative for injury, bleeding, discharge, and swelling, MS/Extremity: Negative for injury and deformity, Skin: Negative for injury, rash, and discoloration, Neuro: Negative for headache, weakness, numbness, tingling, and seizure, Psych: Negative for depression, anxiety, suicide ideation, homicidal ideation, and hallucinations, 20:09 Cardiovascular: Positive for chest pain, palpitations, 20:09 Respiratory: Positive for shortness of breath, Exam: 20:09 Constitutional: This is a well developed, well nourished patient who is awake, alert, jamie and in no acute distress. Head/Face: Normocephalic, atraumatic. Eyes: Pupils equal round and reactive to light, extra-ocular motions intact. Lids and lashes normal. Conjunctiva and sclera are non-icteric and not injected. Cornea within normal limits. Periorbital areas with no swelling, redness, or edema. ENT: Nares patent. No nasal discharge, no septal abnormalities noted. Tympanic membranes are normal and external auditory canals are clear. Oropharynx with no redness, swelling, or masses, exudates, or evidence of obstruction, uvula midline. Mucous membranes moist. Neck: Trachea midline, no thyromegaly or masses palpated, and no cervical lymphadenopathy. Supple, full range of motion without nuchal rigidity, or vertebral point tenderness. No Meningismus. Chest/axilla: Normal chest wall appearance and motion. Nontender with no deformity. No lesions are appreciated. Cardiovascular: Regular rate and rhythm with a normal S1 and S2. No gallops, murmurs, or rubs. Normal PMI, no JVD. No pulse deficits. Respiratory: Lungs have equal breath sounds bilaterally, clear to auscultation and percussion. No rales, rhonchi or wheezes noted. No increased work of breathing, no retractions or nasal flaring. Abdomen/GI: Soft, non-tender, with normal bowel sounds. No distension or tympany. No guarding or rebound. No evidence of tenderness throughout. Back: No spinal tenderness. No costovertebral tenderness. Full range of motion. Skin: Warm, dry with normal turgor. Normal color with no rashes, no lesions, and no evidence of cellulitis. MS/ Extremity: Pulses equal, no cyanosis. Neurovascular intact. Full, normal range of motion., bilateral aka Neuro: Awake and alert, GCS 15, oriented to person, place, time, and situation. Cranial nerves II-XII grossly intact. Motor strength 5/5 in all extremities. Sensory grossly intact. Cerebellar exam normal. Normal gait. Psych: Awake, alert, with orientation to person, place and time. Behavior, mood, and affect are within normal limits. 20:09 ECG was reviewed by the Attending Physician. 20:28 Musculoskeletal/extremity: DVT Exam: No signs of deep vein thrombosis. no pain, no jamie swelling, no tenderness, negative Homans' sign noted on exam, no appreciated bluish discoloration, no erythema, no increased warmth, 20:44 Neuro: Orientation: is normal, appropriate for stated age, no acute changes, Mentation: jamie is normal, appropriate for stated age, no acute changes, Memory: is normal, appropriate for stated age, no acute changes, Cranial nerves: grossly normal, is grossly normal based on the patient's age, no acute changes, visual larson are intact. extraocular movements are intact, Facial palsy and sensory deficits are absent. no gross hearing deficit,. Nystagmus is absent. Cerebellar function: is grossly normal, is grossly normal based on the patient's age, no acute changes, Motor: is normal, is grossly normal based on the patient's age, no acute changes, moves all fours, strength is normal, strength is 5/5 in all extremities, Sensation: is normal, no obvious gross deficits, appropriate no acute changes, Gait: is steady, is unsteady, Deep tendon reflexes are 2+ (normal) in the bilateral brachioradialis, bicep, tricep and patellar and Achilles tendons, seizure activity, is not displayed by the patient, Abnormal movements: there are no abnormal movements, Vital Signs: 18:58 BP 141 / 74; Pulse 96; Resp 16; Temp 97.8; Pulse Ox 97% on R/A; Weight 78.93 kg; Height hb 5 ft. 9 in. ; Pain 1/10; 20:08 BP 140 / 87; Pulse 82; Resp 20; Pulse Ox 99% on R/A; kj2 21:06 BP 150 / 86; Pulse 80; Resp 20; Temp 98; Pulse Ox 100% on R/A; kj2 18:58 Body Mass Index 25.70 (78.93 kg, 175.26 cm) hb 18:58 Pain Scale: Adult hb NIH Stroke Scale Scores: 20:44 NIHSS Score: 0 jamie MDM: 19:00 Medical Screening Exam initiated sb4 20:10 Antibiotic administration: Not indicated. Differential diagnosis: Anemia Anxiety jamie Reaction asthma, Bronchitis abnormal EKG, acute myocardial infarction, acute pericarditis, anxiety, coronary artery disease chest wall pain, congestive heart failure costochondritis, hiatal hernia, pancreatitis, peptic ulcer disease, pericarditis, pulmonary embolus, stable angina, thoracic aortic disection, unstable angina. HEART Score: History: Slightly Suspicious (0), ECG: Normal (0), Age: > 45 and < 65 years (1), Risk Factors: 1 or 2 risk factors (1), [Hypertension] [+ Family HX] Troponin: < or = 1 x Normal Limit (0). The patient was given aspirin in the Emergency Department. MAGALY Risk Score: 1 - ASA use in past 7 days, TOTAL SCORE = 1. Immunization status: Influenza vaccine: within last 5 years. Data reviewed: vital signs, nurses notes, lab test result(s), EKG, radiologic studies, plain films. Consideration of Admission/Observation Escalation of care including admission/observation considered. I considered the following discharge prescriptions or medication management in the emergency department Medications were administered in the Emergency Department. See JUL. 20:39 ED course: pt is to continue all meds. [facility] 05/06 19:12 Order name: Basic Metabolic Panel; Complete Time: 20:[address] [facility] 05/06 19:12 Order name: CBC with Diff; Complete Time: 20:[address] [facility] 05/06 19:12 Order name: LFT's; Complete Time: 20:[address] [facility] 05/06 19:12 Order name: Magnesium; Complete Time: 20:[address] [facility] 05/06 19:12 Order name: NT PRO-BNP; Complete Time: 20:[address] [facility] 05/06 19:12 Order name: PT-INR; Complete Time: 20:[address] [facility] 05/06 19:12 Order name: Troponin HS; Complete Time: 20:[address] [facility] 05/06 19:12 Order name: XRAY Chest (1 view) [facility] 05/06 19:00 Order name: EKG - Nurse/Tech; Complete Time: 19:00 05/06 19:12 Order name: Cardiac monitoring; Complete Time: 20:[address] [facility] 05/06 19:12 Order name: IV Saline Lock; Complete Time: 20:[address] [facility] 05/06 19:12 Order name: Labs collected and sent; Complete Time: 20:[address] [facility] 05/06 19:12 Order name: O2 Per Protocol; Complete Time: 20:[address] [facility] 05/06 19:12 Order name: O2 Sat Monitoring; Complete Time: 20:[address] [facility] EC:09 Rate is 95 beats/min. Rhythm is regular. QRS [place] is Normal. [place] interval is normal. QRS jamie interval is normal. QT interval is normal. No Q waves. T waves are Normal. No ST changes noted. Clinical impression: Normal ECG and No evidence of ischemia. Interpreted by me. Reviewed by me. Administered Medications: 19:50 Drug: Aspirin PO Chewable Tablet 81 mg PO once Route: PO; kj2 Disposition Summary: 05/06/24 20:38 Discharge Ordered Notes: Location: Home jamie Problem: new jamie Symptoms: have improved jamie Condition: Stable jamie Diagnosis - Palpitations jamie - Essential (primary) hypertension jamie Followup: jamie - With: Private Physician - When: 2 - 3 days - Reason: Recheck today's complaints, Continuance of care, Re-evaluation by your physician Followup: jamie - With: Harris Chawla MD - When: 2 - 3 days - Reason: Recheck today's complaints, Re-evaluation by your physician Discharge Instructions: - Discharge Summary Sheet jamie - Hypertension, Adult jamie - Palpitations jamie - Hypertension, Adult, [id number] jamie - Aspirin and Your Heart jamie - Palpitations, [id number] jamie - Managing Your Hypertension jamie Forms: - Medication Reconciliation Form jamie - Antibiotic Education jamie - Prescription Opioid Use jamie - Patient Portal Instructions jamie - Leadership Thank You Letter [facility] NIH Stroke Scale - NIH Stroke Score Date: 05/06/2024 Time: 20:44 Total Score = 0 10. Dysarthria (speech clarity - read or repeat words) - 0(Normal) 11. Extinction and Inattention (visual/tactile/auditory/spatial/personal) - 0(No abnormality) 1a. Level of Consciousness (LOC) - 0(Alert) 1b. Level of Consciousness (LOC) (Month \T\ Age) - 0(Both) 1c. LOC Commands (Open \T\ Closes Eyes/Telecommunications Linesworker) - 0(Both) 2. Best Gaze (Lateral Gaze Paresis) - 0(Normal) 3. Visual Field Loss - 0(No visual loss) 4. Facial Palsy - 0(Normal) 5a. Left Arm: Motor (10-second hold) - 0(No drift) 5b. Right Arm: Motor (10-second hold) - 0(No drift) 6a. Left Leg: Motor (5-second hold - always test supine) - 0(No drift) 6b. Right Leg: Motor (5-second hold - always test supine) - 0(No drift) 7. Limb Ataxia (finger/nose \T\ heel/moser - test with eyes open) - 0(Absent) 8. Sensory Loss (pinprick arms/legs/face) - 0(Normal) 9. Best Language: Aphasia (description/naming/reading) - 0(No aphasia) Initials: jamie Signatures: Dispatcher [employer] EDLuke Diego MD MD cha Baxter, Heather, RN RN Liset See, PA-C PA-C sb4 Samantha Soto RN RN kj2 Corrections: (The following items were deleted from the chart) 19:13 19:13 BASIC METABOLIC PANEL+C.LAB.BRZ ordered. EDMS EDMS 19:13 19:13 CBC+H.LAB.BRZ ordered. EDMS EDMS 19:13 19:13 HEPATIC FUNCTION+C.LAB.BRZ ordered. EDMS EDMS 19:13 19:13 MAGNESIUM+C.LAB.BRZ ordered. EDMS EDMS 19:13 19:13 PROBNP+C.LAB.BRZ ordered. EDMS EDMS 19:13 19:13 PROTIME (+INR)+COAG.LAB.BRZ ordered. EDMS EDMS 19:13 19:13 Troponin High Sensitivity+C.LAB.BRZ ordered. EDMS EDMS 19:13 19:13 Chest Single View+RAD.RAD.BRZ ordered. EDMS EDMS
--- NOTE | 2024-05-06 21:08 | RAD REPORT ---
Procedure: Chest Single View HISTORY: Chest pain COMPARISON: August 2023 FINDINGS: The lungs appear clear of acute infiltrate. No significant pleural effusion noted. The heart is normal size. IMPRESSION: No acute abnormality is displayed.
[2024-05-06 21:52] VITALS: BP 150/86; TEMP 98; O2SAT 100
--- NOTE | 2024-05-12 11:24 | EKG ---
Test Date: 2024-05-06 Test Time: 18:55:23 Incident Coordinator: HB MEASUREMENT RESULTS: Intervals: Rate: 95 WY: 132 QRSD: 106 QT: 376 QTc: 472 [place]: P: 65 WY: 132 QRS: 88 T: 37 INTERPRETIVE STATEMENTS: Normal sinus rhythm Normal ECG Compared to ECG 08/20/2023 18:09:32 No significant changes Electronically Signed On 05-12-24 11:17:48 APPLICATION ANALYST by Charly Jimenez
== END 2024-05-06 21:07 | disposition home or self-care (01) ==
LOC: ER 18:48
DX: R00.2 Palpitations (principal); I10 Essential (primary) hypertension; Z91.041 Radiographic dye allergy status
CPT/HCPCS: 36415; 71045; 80048; 80076; 83735; 83880; 84484; 85025; 85610; 93005; 99284

== ENCOUNTER 2024-06-21 22:02 | Emergency (ER) | payer OTHER, SELFPAY ==
[2024-06-21] MEDS ORDERED: ASPIRIN 81 MG CHEWABLE TABLET ONE (22:33)
--- NOTE | 2024-06-21 22:43 | RAD REPORT ---
EXAM: Chest Single View HISTORY: CHEST PAIN COMPARISON: 05/06/2024 FINDINGS: LUNGS/PLEURA: The lungs are clear. No pleural effusions or pneumothorax. No pulmonary edema. MEDIASTINUM: The mediastinal silhouette is within normal limits. CARDIAC: The cardiac silhouette is within normal limits. UPPER ABDOMEN: No significant abnormality. BONES: No acute abnormality. LINES/TUBES/OTHER: N/A IMPRESSION: No evidence of acute cardiopulmonary disease.
--- NOTE | 2024-06-21 22:52 | RAD REPORT ---
EXAMINATION: CT HEAD WITHOUT CONTRAST CLINICAL INDICATION: Male, 48 years old.MENTAL STATUS CHANGE TECHNIQUE: Axial CT images from the skull base to the vertex without intravenous contrast. Coronal an d sagittal reformatted images were created from the data set. One or more of the following dose reduction techniques were used: Automated exposure control, adjustment of the mA and/or kV according to patient size, and/or iterative reconstruction. Unless otherwise specified, incidental findings do not require dedicated imaging follow-up. [id number]. COMPARISON: 08/13/2023 FINDINGS: INTRACRANIAL: No acute intracranial hemorrhage. No hydrocephalus. No mass effect or midline shift. No significant white matter disease. VASCULATURE: No visualized abnormalities in the arteries or dural venous sinuses. SCALP/SKULL: No significant soft tissue or osseous abnormalities. SINUSES: The visualized paranasal sinuses and mastoid air cells are predominantly clear. IMPRESSION: No acute intracranial abnormality.
[2024-06-21 23:13] LABS: Absolute Eosinophils 0.1 K/uL (0-0.5); Absolute Lymphocytes (CBC) 1.3 K/uL (0.7-4.9); Absolute Monocytes 0.5 K/uL (0.1-1.3); Absolute Neutrophil 3.6 K/uL (1.8-8.0); Basophils % 0.4 % (0-1.3); Eosinophils % 1.6 % (0-4.4); Hematocrit 37.5 % (39.6-49.0); Hemoglobin 12.6 g/dL (13.6-17.9); Lymphocytes % 23.4 % (15.3-44.8); MCHC 33.6 g/dL (32.0-36.0); MCV 92.5 fL (80-100); MPV 8.6 fL (7.6-11.3); Monocytes % 8.9 % (3.3-12.3); Neutrophils % 65.7 % (41.7-73.7); Nucleated Red Blood Cells % 0.1 % (0-0); Platelets 312 thou/uL (152-406); RBC Red Blood Cell Count 4.06 M/uL (4.33-5.43); Red Cell Distribution Width 15.1 % (12.1-15.2)
[2024-06-21 23:17] LABS: PT Prothrombin Time 12.3 SECONDS (9.4-12.5); PTT, Activated Partial Thromb 29.7 SECONDS (24.3-36.9); Protime INR 1.17
[2024-06-21 23:24] LABS: Specific Gravity 1.028 (1.005-1.030); Sqamous Epithelial None Seen /HPF (None Seen); Urine Bacteria None Seen /HPF (<20); Urine Bilirubin NEGATIVE (Negative); Urine Blood Negative (Negative); Urine Clarity Clear (Clear); Urine Color Yellow (Yellow); Urine Culture Reflex Order NOT NEEDED; Urine Glucose NEGATIVE (Negative); Urine Ketones NEGATIVE (Negative); Urine Microscopic Reflex YN ORDER UMIC; Urine Mucus Slight /HPF (None Seen); Urine Nitrite NEGATIVE (Negative); Urine Protein TRACE (Negative); Urine Urobilinogen Normal (Normal); Urine WBC <5 /HPF (<5); Urine WBC Clump Rare /HPF (None Seen); Urine pH 6.5 (5.0-7.0)
[2024-06-21 23:34] LABS: ALT/SGPT 18 U/L (16-61); Albumin 3.1 g/dL (3.4-5.0); Albumin/Globulin Ratio 0.8 (1.1-1.8); Alkaline Phosphatase 118 U/L (45-117); BUN Blood Urea Nitrogen 23 mg/dL (7-18); Bicarbonate 28 mEq/L (21-32); Bilirubin Total 0.3 mg/dL (0.2-1.0); Globulin 3.8 g/dL (2.3-3.5); Glomerular Filtration Rate 72 ml/min (=/>90); Glucose Level 109 mg/dL (74-106); Protein, Total 6.9 g/dL (6.4-8.2); Sodium Level 141 mEq/L (136-145); Troponin High Sensitivity 3.7 pg/mL (<58.9)
[2024-06-21 23:34] LABS: Barbiturates NEGATIVE (NEGATIVE); Benzodiazepines POSITIVE (NEGATIVE); Cocaine NEGATIVE (NEGATIVE); METHAMPHETAM POSITIVE (NEGATIVE); Methadone NEGATIVE (NEGATIVE); Opiates NEGATIVE (NEGATIVE); Phencyclidine NEGATIVE (NEGATIVE); THC Cannibis POSITIVE (NEGATIVE)
[2024-06-21 23:41] LABS: AST/SGOT 36 U/L (15-37); Bilirubin Direct < 0.2 mg/dL (0-0.2); Bilirubin Indirect, Calculated 0.1 mg/dL (0.2-0.8)
--- NOTE | 2024-06-22 00:53 | ER ---
Nurse's Notes [facility] Name: Mikhail Reilly Age: 48 yrs Sex: Male : 1975 Arrival Date: 06/21/2024 Time: 22:02 Bed 4 Private MD: Diagnosis: Chest pain, unspecified;Abuse of other non-psychoactive substances;Adverse effect of amphetamines Presentation: 06/21 22:02 Chief complaint: EMS states: chest pain and possible ingestion of meth. cp4 22:02 Coronavirus screen: Client denies travel out of the [place] in the last 14 days. At this cp4 time, the client does not indicate any symptoms associated with coronavirus-19. Ebola Screen: Patient negative for fever greater than or equal to 101.5 degrees Fahrenheit, and additional compatible Ebola Virus Disease symptoms Patient denies exposure to infectious person. Patient denies travel to an Ebola-affected area in the 21 days before illness onset. No symptoms or risks identified at this time. Initial Sepsis Screen: Does the patient meet any 2 criteria? No. Patient's initial sepsis screen is negative. Does the patient have a suspected source of infection? No. Patient's initial sepsis screen is negative. Risk Assessment: Do you want to hurt yourself or someone else? Patient reports no desire to harm self or others. Onset of symptoms was June 21, 2024. 22:02 Method Of Arrival: EMS: [facility] cp4 22:02 Acuity: LIANG 3 cp4 Triage Assessment: 22:02 General: Appears in no apparent distress. comfortable, Behavior is appropriate for age, cp4 flat. Pain: Denies pain. EENT: No signs and/or symptoms were reported regarding the EENT system. Neuro: Level of Consciousness is awake, alert, obeys commands, Oriented to person, place, time, situation. Cardiovascular: Reports chest pain, lightheadedness, Patient's skin is warm and dry. Rhythm is sinus rhythm. Respiratory: Airway is patent Respiratory effort is even, unlabored. GI: No signs and/or symptoms were reported involving the gastrointestinal system. : No signs and/or symptoms were reported regarding the genitourinary system. Derm: No signs and/or symptoms reported regarding the dermatologic system. Musculoskeletal: No signs and/or symptoms reported regarding the musculoskeletal system. Historical: - Allergies: :02 Iodinated Contrast Media - IV Dye; cp4 22:02 Iodine; cp4 - PMHx: 22:02 Back pain; Atrial Fib; Hypertension; Kidney stones; muscle spasms numerous times cp4 requiring Er visits with fluid resusitation; TIA; - Immunization history:: Adult Immunizations up to date. - Infectious Disease History:: Denies. - Family history:: not pertinent. - Social history:: Smoking status: unknown. Screenin:[address] [facility] ED Fall Risk Assessment (Adult) History of falling in the last 3 months, cp4 including since admission No falls in past 3 months (0 pts) Confusion or Disorientation No (0 pts) Intoxicated or Sedated No (0 pts) Impaired Gait No (0 pts) Mobility Assist Device Used No (0 pt) Altered Elimination No (0 pt) Score/Fall Risk Level 0 - 2 = Low Risk Oriented to surroundings, Maintained a safe environment, Assessed \\T\\ reinforced patient's understanding of fall precautions, Hourly rounding (assess needs \\T\\ fall precautionary measures) done. Abuse screen: Denies threats or abuse. Denies injuries from another. Nutritional screening: No deficits noted. Tuberculosis screening: No symptoms or risk factors identified. Assessment: 22:27 Reassessment: No changes from previously documented assessment. cp4 Psych: 06/22 04:14 [place] Suicide Severity Screening: In the past month, have you wished you were cp4 or wished you could go to sleep and not wake up? Patient responds "No." "In the past month, have you actually had any thoughts of killing yourself?" Patient responds "no." "In your lifetime, have you ever done anything, started to do anything, or prepared to do anything to end your life?" Patient responds "no.". Subjective: Patient's mood is Delusions are denied, Hallucinations are denied Having thoughts of None. Objective: Patient is cooperative, Speech is normal, Affect is appropriate. Interventions: In police custody. Safety Checks:. Patient uses methamphetamines. Vital Signs: 06/21 22:02 BP 117 / 83; Pulse 70; Resp 17; Temp 98.1; Pulse Ox 96% ; Weight 86.18 kg; Height 5 ft. cp4 10 in. ; Pain 0/10; 06/22 00:35 BP 113 / 77; Pulse 67; Resp 18; Pulse Ox 98% ; cp4 01:25 BP 113 / 73; Pulse 68; Resp 18; Pulse Ox 99% ; cp4 06/21 22:02 Body Mass Index 27.26 (86.18 kg, 177.8 cm) cp4 06/21 22:02 Pain Scale: Adult cp4 ED Course: 06/21 22:02 Arm band placed on left wrist. Patient placed in an exam room, on a stretcher. cp4 22:09 Patient arrived in ED. jamie 22:09 Luke Saleh MD is Attending Physician. jamie 22:19 Zahra Del Castillo is Primary Nurse. cp4 22:25 Triage completed. cp4 22:27 Bed in low position. Call light in reach. Side rails up X2. Security at bedside. cp4 22:27 No provider procedures requiring assistance completed. Maintain EMS IV. Dressing cp4 intact. Good blood return noted. Site clean \\T\\ dry. Gauge \\T\\ site: 20 RFA. Flushed with 10 mL NS. 22:41 Chest Single View XRAY In Process Unspecified. EDMS 22:44 CT Head Brain wo Cont In Process Unspecified. EDMS 22:55 Urine Drug Screen Sent. bf2 22:56 Urinalysis w/ reflexes Sent. bf2 22:56 Salicylate Sent. bf2 22:56 Ptt, Activated Sent. bf2 22:56 PT-INR Sent. bf2 22:56 Hepatic Function Sent. bf2 22:56 Basic Metabolic Panel Sent. bf2 22:56 ETOH Level Sent. bf2 22:56 CBC with Diff Sent. bf2 06/22 01:26 Provided Education on: Substance abuse. cp4 01:26 intact, bleeding controlled, No redness/swelling at site. Pressure dressing applied. cp4 Administered Medications: 06/21 22:20 Drug: NS 0.9% IV 1000 ml IV at 1000 ml once; to be given as a bolus over 60 minutes cp4 Route: IV; Rate: 1000 ml; Site: right forearm; 06/22 01:28 Follow up: IV Status: Infusion continued cp4 06/21 22:34 Drug: Aspirin PO Chewable Tablet 81 mg PO once Route: PO; cp4 06/22 01:27 Follow up: Response: No adverse reaction cp4 Medication: 06/21 22:27 VIS not applicable for this client. cp4 Outcome: 06/22 00:52 Discharge ordered by . jamie 01:26 Discharged to Law Enforcement cp4 01:26 Condition: stable 01:26 Discharge instructions given to patient, police, Instructed on discharge instructions, follow up and referral plans. Demonstrated understanding of instructions, follow-up care, 01:29 Patient left the ED. cp4 Signatures: Dispatcher [employer] Luke Steinberg MD MD cha Potter, Christina cp4 Yonis Styles 2
--- NOTE | 2024-06-22 00:53 | EDPHYS ---
Physician Documentation [facility] Name: Mikhail Reilly Age: 48 yrs Sex: Male : 1975 Arrival Date: 06/21/2024 Time: 22:02 Bed 4 Private MD: ED Physician Luke Saleh HPI: 06/21 22:11 This 48 yrs old Male presents to ER via Unassigned with complaints of CHEST jamie PAIN. 22:11 The patient or guardian reports chest pain that is located primarily in the anterior jamie chest wall, bilaterally. Onset: today. IN CUSTODIAL WITH CP. The patient presents with trouble concentrating. Onset: The symptoms/episode began/occurred today. Possible causes: drug use, amphetamines. The pain does not radiate. Current symptoms: In the emergency department the patient's symptoms are unchanged from the initial presentation. Historical: - Allergies: 22:02 Iodinated Contrast Media - IV Dye; cp4 22:02 Iodine; cp4 - PMHx: 22:02 Back pain; Atrial Fib; Hypertension; Kidney stones; muscle spasms numerous times cp4 requiring Er visits with fluid resusitation; TIA; - Immunization history:: Adult Immunizations up to date. - Infectious Disease History:: Denies. - Family history:: not pertinent. - Social history:: Smoking status: unknown. ROS: 22:11 Constitutional: Negative for fever, chills, and weight loss, Eyes: Negative for injury, jamie pain, redness, and discharge, ENT: Negative for injury, pain, and discharge, Neck: Negative for injury, pain, and swelling, Respiratory: Negative for shortness of breath, cough, wheezing, and pleuritic chest pain, Abdomen/GI: Negative for abdominal pain, nausea, vomiting, diarrhea, and constipation, Back: Negative for injury and pain, : Negative for injury, bleeding, discharge, and swelling, MS/Extremity: Negative for injury and deformity, Skin: Negative for injury, rash, and discoloration, Psych: Negative for depression, anxiety, suicide ideation, homicidal ideation, and hallucinations, Allergy/Immunology: Negative for hives, rash, and allergies, Endocrine: Negative for neck swelling, polydipsia, polyuria, polyphagia, and marked weight changes, Hematologic/Lymphatic: Negative for swollen nodes, abnormal bleeding, and unusual bruising, 22:11 Cardiovascular: Positive for chest pain, 22:11 Neuro: Positive for altered mental status, Exam: 22:11 Constitutional: This is a well developed, well nourished patient who is awake, alert, jamie and in no acute distress. Head/Face: Normocephalic, atraumatic. Eyes: Pupils equal round and reactive to light, extra-ocular motions intact. Lids and lashes normal. Conjunctiva and sclera are non-icteric and not injected. Cornea within normal limits. Periorbital areas with no swelling, redness, or edema. ENT: Nares patent. No nasal discharge, no septal abnormalities noted. Tympanic membranes are normal and external auditory canals are clear. Oropharynx with no redness, swelling, or masses, exudates, or evidence of obstruction, uvula midline. Mucous membranes moist. Neck: Trachea midline, no thyromegaly or masses palpated, and no cervical lymphadenopathy. Supple, full range of motion without nuchal rigidity, or vertebral point tenderness. No Meningismus. Chest/axilla: Normal chest wall appearance and motion. Nontender with no deformity. No lesions are appreciated. Cardiovascular: Regular rate and rhythm with a normal S1 and S2. No gallops, murmurs, or rubs. Normal PMI, no JVD. No pulse deficits. Respiratory: Lungs have equal breath sounds bilaterally, clear to auscultation and percussion. No rales, rhonchi or wheezes noted. No increased work of breathing, no retractions or nasal flaring. Abdomen/GI: Soft, non-tender, with normal bowel sounds. No distension or tympany. No guarding or rebound. No evidence of tenderness throughout. Back: No spinal tenderness. No costovertebral tenderness. Full range of motion. Male : Normal genitalia with no discharge or lesions. Skin: Warm, dry with normal turgor. Normal color with no rashes, no lesions, and no evidence of cellulitis. MS/ Extremity: Pulses equal, no cyanosis. Neurovascular intact. Full, normal range of motion., bilateral aka Neuro: Awake and alert, GCS 15, oriented to person, place, time, and situation. Cranial nerves II-XII grossly intact. Motor strength 5/5 in all extremities. Sensory grossly intact. Cerebellar exam normal. Normal gait. Psych: Awake, alert, with orientation to person, place and time. Behavior, mood, and affect are within normal limits. 22:11 ECG was reviewed by the Attending Physician. 22:11 Musculoskeletal/extremity: DVT Exam: No signs of deep vein thrombosis. no pain, no swelling, no tenderness, negative Homans' sign noted on exam, no appreciated bluish discoloration, no erythema, no increased warmth, Vital Signs: 22:02 BP 117 / 83; Pulse 70; Resp 17; Temp 98.1; Pulse Ox 96% ; Weight 86.18 kg; Height 5 ft. cp4 10 in. ; Pain 0/10; 06/22 00:35 BP 113 / 77; Pulse 67; Resp 18; Pulse Ox 98% ; cp4 01:25 BP 113 / 73; Pulse 68; Resp 18; Pulse Ox 99% ; cp4 06/21 22:02 Body Mass Index 27.26 (86.18 kg, 177.8 cm) cp4 06/21 22:02 Pain Scale: Adult cp4 MDM: 06/21 22:09 Medical Screening Exam initiated [facility] 22:09 Medical Screening Exam initiated [facility] 22:16 Differential diagnosis: abnormal EKG, acute myocardial infarction, acute pericarditis, jamie anxiety, coronary artery disease chest wall pain, congestive heart failure costochondritis, esophagitis, gastritis, hiatal hernia, myocarditis, pancreatitis, peptic ulcer disease, pericarditis, pleurisy, pneumonia, pneumothorax, pulmonary embolus, stable angina, thoracic aortic disection, unstable angina. Differential Diagnosis altered mental status, sepsis. HEART Score: History: Slightly Suspicious (0), ECG: Non specific repolarization disturbance / LBTB / PM (1), Age: > 45 and < 65 years (1), Risk Factors: > or = 3 Risk factors for atherosclerotic disease (2), [Hypertension] [Active Smoker] [+ Family HX] Troponin: < or = 1 x Normal Limit (0). Differential Diagnosis: electrolyte abnormality, alcohol intoxication, intracranial bleed, overdose, seizure, sepsis, TIA, UTI, volume depletion. The patient was given aspirin in the Emergency Department. Data reviewed: vital signs, nurses notes, EMS record, lab test result(s), EKG, radiologic studies, plain films. Consideration of Admission/Observation Escalation of care including admission/observation considered. I considered the following discharge prescriptions or medication management in the emergency department Medications were administered in the Emergency Department. See 22:11 Order name: Acetaminophen; Complete Time: 00:51 [facility] 06/21 22:11 Order name: Basic Metabolic Panel; Complete Time: 00:51 [facility] 06/21 22:11 Order name: CBC with Diff; Complete Time: 00:51 [facility] 06/21 22:11 Order name: ETOH Level; Complete Time: 00:51 [facility] 06/21 22:11 Order name: Hepatic Function; Complete Time: 00:51 [facility] 06/21 22:11 Order name: PT-INR; Complete Time: 00:51 [facility] 06/21 22:11 Order name: Ptt, Activated; Complete Time: 00:51 [facility] 06/21 22:11 Order name: Salicylate; Complete Time: 00:51 [facility] 06/21 22:11 Order name: Urinalysis w/ reflexes; Complete Time: 00:51 [facility] 06/21 22:11 Order name: Urine Drug Screen; Complete Time: 00:51 [facility] 06/21 22:11 Order name: Troponin High Sensitivity; Complete Time: 00:51 [facility] 06/21 22:11 Order name: Chest Single View XRAY; Complete Time: 00:51 [facility] 06/21 22:23 Order name: CT Head Brain wo Cont; Complete Time: 00:51 [facility] 06/21 22:11 Order name: EKG; Complete Time: 22:11 [facility] 06/21 22:11 Order name: EKG - Nurse/Tech; Complete Time: 22:20 [facility] 06/21 22:11 Order name: IV Saline Lock; Complete Time: 22:20 [facility] 06/21 22:11 Order name: Labs collected and sent; Complete Time: 22:20 [facility] 06/21 22:11 Order name: Suicide Screening (Stone); Complete Time: 22:20 [facility] EC:11 Rate is 65 beats/min. Rhythm is regular. QRS [place] is Normal. [place] interval is normal. QRS jamie interval is normal. QT interval is normal. No Q waves. T waves are Normal. No ST changes noted. Clinical impression: NSR w/ Non-specific ST/T Changes and No evidence of ischemia. Interpreted by me. Reviewed by me. Administered Medications: 22:20 Drug: NS 0.9% IV 1000 ml IV at 1000 ml once; to be given as a bolus over 60 minutes cp4 Route: IV; Rate: 1000 ml; Site: right forearm; 06/22 01:28 Follow up: IV Status: Infusion continued cp4 06/21 22:34 Drug: Aspirin PO Chewable Tablet 81 mg PO once Route: PO; cp4 06/22 01:27 Follow up: Response: No adverse reaction cp4 Disposition Summary: 06/22/24 00:52 Discharge Ordered Notes: Location: Home jamie Problem: new jamie Symptoms: have improved jamie Condition: Stable jamie Diagnosis - Chest pain, unspecified jamie - Abuse of other non-psychoactive substances jamie - Adverse effect of amphetamines jamie Followup: jamie - With: Private Physician - When: 2 - 3 days - Reason: Recheck today's complaints, Continuance of care, Re-evaluation by your physician Discharge Instructions: - Discharge Summary Sheet jamie - Nonspecific Chest Pain, Adult jamie - Substance Use Disorder jamie - Nonspecific Chest Pain, Adult, [id number] jamie - Methamphetamines Use Disorder jamie - Aspirin and Your Heart jamie - Substance Use Disorder and Mental Illness jamie Forms: - Medication Reconciliation Form jamie - Antibiotic Education jamie - Prescription Opioid Use jamie - Patient Portal Instructions jamie - Leadership Thank You Letter [facility] Signatures: Dispatcher [employer] EDMS Luke Saleh MD MD cha Potter, Christina cp4 Corrections: (The following items were deleted from the chart) 06/21 22:11 22:11 ACETAMINOPHEN+C.LAB.BRZ ordered. EDMS EDMS 22:11 22:11 BASIC METABOLIC PANEL+C.LAB.BRZ ordered. EDMS EDMS 22:11 22:11 CBC+H.LAB.BRZ ordered. EDMS EDMS 22:11 22:11 ETHANOL+C.LAB.BRZ ordered. EDMS EDMS 22:11 22:11 HEPATIC FUNCTION+C.LAB.BRZ ordered. EDMS EDMS 22:11 22:11 PROTIME (+INR)+COAG.LAB.BRZ ordered. EDMS EDMS 22:11 22:11 PTT, ACTIVATED+COAG.LAB.BRZ ordered. EDMS EDMS 22:11 22:11 SALICYLATE+C.LAB.BRZ ordered. EDMS EDMS 22:11 22:11 Urinalysis+U.LAB.BRZ ordered. EDMS EDMS 22:11 22:11 URINE DRUG SCREEN+UC.LAB.BRZ ordered. EDMS EDMS 22:11 22:11 Troponin High Sensitivity+C.LAB.BRZ ordered. EDMS EDMS
[2024-06-22 01:33] VITALS: TEMP 98.1
[2024-06-22 01:35] VITALS: BP 113/73; O2SAT 99
--- NOTE | 2024-06-24 12:49 | EKG ---
Test Date: 2024-06-21 Test Time: 22:09:56 Emblem Maker: JOHNY MEASUREMENT RESULTS: Intervals: Rate: 65 NH: 172 QRSD: 102 QT: 420 QTc: 436 [place]: P: 73 NH: 172 QRS: 93 T: 51 INTERPRETIVE STATEMENTS: Normal sinus rhythm Rightward axis Borderline ECG Compared to ECG 05/06/2024 18:55:23 Right-axis deviation now present Electronically Signed On 06-24-24 12:44:04 PROJECT CONTROL MANAGER by Charly Jimenez
== END 2024-06-22 01:29 | disposition home or self-care (01) ==
LOC: ER 22:02
DX: R07.89 Other chest pain (principal); F55.8 Abuse of other non-psychoactive substances; T43.625A Adverse effect of amphetamines, initial encounter
CPT/HCPCS: 36415; 70450; 71045; 80048; 80076; 80143; 80179; 80307; 81001; 82077; 84484; 85025; 85610; 85730; 93005; 96360; 96361; 99285

== ENCOUNTER 2024-08-31 04:40 | Emergency (ER) | payer OTHER, SELFPAY ==
[2024-08-31] MEDS ORDERED: LORAZEPAM 1 MG TABLET ONE (05:12)
[2024-08-31 05:18] LABS: Absolute Eosinophils 0.1 K/uL (0-0.5); Absolute Lymphocytes (CBC) 1.3 K/uL (0.7-4.9); Absolute Monocytes 0.6 K/uL (0.1-1.3); Absolute Neutrophil 4.4 K/uL (1.8-8.0); Basophils % 0.5 % (0-1.3); Eosinophils % 1.2 % (0-4.4); Hematocrit 35.1 % (39.6-49.0); Lymphocytes % 20.6 % (15.3-44.8); MCH 30.5 pg (27.0-35.0); MCHC 34.1 g/dL (32.0-36.0); MCV 89.3 fL (80-100); MPV 7.7 fL (7.6-11.3); Monocytes % 9.3 % (3.3-12.3); Neutrophils % 68.4 % (41.7-73.7); Nucleated Red Blood Cells % 0.1 % (0-0); Platelets 252 thou/uL (152-406); RBC Red Blood Cell Count 3.93 M/uL (4.33-5.43); Red Cell Distribution Width 13.8 % (12.1-15.2)
[2024-08-31 05:24] LABS: PT Prothrombin Time 11.3 SECONDS (10-13.0); Protime INR 0.99
[2024-08-31 05:39] LABS: ALT/SGPT 15 U/L (16-61); AST/SGOT 20 U/L (15-37); Albumin 3.5 g/dL (3.4-5.0); Albumin/Globulin Ratio 1.1 (1.1-1.8); Alkaline Phosphatase 119 U/L (45-117); Anion Gap 7.3 mEq/L (5.0-15.0); BUN Blood Urea Nitrogen 20 mg/dL (7-18); Bicarbonate 28 mEq/L (21-32); Bilirubin Total 0.2 mg/dL (0.2-1.0); Globulin 3.1 g/dL (2.3-3.5); Glomerular Filtration Rate 90 ml/min (=/>90); Glucose Level 117 mg/dL (74-106); Magnesium 2.4 mg/dL (1.6-2.4); NT PRO-BNP 156 pg/mL (<125); Potassium 3.3 mEq/L (3.5-5.1); Protein, Total 6.6 g/dL (6.4-8.2); Sodium Level 139 mEq/L (136-145); Troponin High Sensitivity 6.3 pg/mL (<58.9)
[2024-08-31 05:41] LABS: Bilirubin Direct < 0.2 mg/dL (0-0.2)
--- NOTE | 2024-08-31 06:46 | RAD REPORT ---
EXAM: Chest Single View HISTORY: 48 years Male CHEST PAIN COMPARISON: 06/21/2024 FINDINGS: LUNGS/PLEURA: The lungs are clear. No pleural effusions or pneumothorax. No pulmonary edema. CARDIAC/MEDIASTINUM: The cardiac silhouette is within normal limits. UPPER ABDOMEN: No significant abnormality. BONES: No acute abnormality. LINES/TUBES/OTHER: N/A IMPRESSION: No evidence of acute cardiopulmonary disease.
--- NOTE | 2024-08-31 08:07 | ER ---
Nurse's Notes [facility] Name: Mikhail Reilly Age: 48 yrs Sex: Male : 1975 Arrival Date: 08/31/2024 Time: 04:40 Bed 7 Private MD: Diagnosis: Acute stress reaction, noncardiac chest pain;History of Atrial Fibrillation Presentation: 08/31 04:45 Chief complaint: Patient states: PT C/O SUDDEN ONSET OF LEFT CHEST WALL SHARP br2 PAIN...WOKE HIM UP OUT OF HIS SLEEP. DENIES SOB OR NAUSEA... Coronavirus screen: Client denies travel out of the [place] in the last 14 days. Ebola Screen: Patient denies exposure to infectious person. Initial Sepsis Screen: Does the patient meet any 2 criteria? No. Patient's initial sepsis screen is negative. Does the patient have a suspected source of infection? No. Patient's initial sepsis screen is negative. Risk Assessment: Do you want to hurt yourself or someone else? Patient reports no desire to harm self or others. Onset of symptoms was August 31, 2024 at 04:00. 04:45 Method Of Arrival: EMS: [facility] br2 04:45 Acuity: LIANG 3 br2 Triage Assessment: 04:48 General: Appears uncomfortable, Behavior is calm, cooperative. Pain: Complains of pain br2 in left clavicle and anterior aspect of left upper chest. EENT: No signs and/or symptoms were reported regarding the EENT system. Neuro: Level of Consciousness is awake, alert, Oriented to person, place, time, situation. Cardiovascular: Capillary refill < 3 seconds Rhythm is sinus rhythm. Historical: - Allergies: 04:48 Iodinated Contrast Media - IV Dye; br2 04:48 Iodine; br2 - PMHx: 04:48 Atrial Fib; Hypertension; Back pain; Kidney stones; TIA; br2 - Immunization history:: Adult Immunizations not up to date. - Infectious Disease History:: Denies. - Social history:: Smoking status: Patient reports the use of cigarette tobacco products, smokes one pack cigarettes per day. Patient uses alcohol, occasionally. street drugs, marijuana. - Family history:: not pertinent. Screenin:[address] [facility] ED Fall Risk Assessment (Adult) History of falling in the last 3 months, br2 including since admission No falls in past 3 months (0 pts) Confusion or Disorientation No (0 pts) Intoxicated or Sedated No (0 pts) Impaired Gait No (0 pts) Mobility Assist Device Used No (0 pt) Altered Elimination No (0 pt) Score/Fall Risk Level 0 - 2 = Low Risk Oriented to surroundings. Abuse screen: Denies threats or abuse. Denies injuries from another. Nutritional screening: No deficits noted. Tuberculosis screening: No symptoms or risk factors identified. Assessment: 04:45 Reassessment: SEE TRIAGE ASSESSMENT. br2 06:12 Reassessment: Patient and/or family updated on plan of care and expected duration. Pain br2 level reassessed. Patient is alert, oriented x 3, equal unlabored respirations, skin warm/dry/pink. Patient states symptoms have improved. 07:20 Reassessment: Patient appears in no apparent distress at this time. No changes from kc6 previously documented assessment. Patient and/or family updated on plan of care and expected duration. Pain level reassessed. Patient is alert, oriented x 3, equal unlabored respirations, skin warm/dry/pink. 08:44 Reassessment: Patient appears in no apparent distress at this time. No changes from kc6 previously documented assessment. Patient and/or family updated on plan of care and expected duration. Pain level reassessed. Patient is alert, oriented x 3, equal unlabored respirations, skin warm/dry/pink. Patient states feeling better. Patient states symptoms have improved. Vital Signs: 04:45 BP 108 / 73; Pulse 71; Resp 16 S; Temp 97.2(TE); Pulse Ox 100% on R/A; Weight 83.91 kg; br2 Height 5 ft. 10 in. ; Pain 9/10; 05:27 BP 105 / 74; Pulse 62; Resp 16; Pulse Ox 95% ; br2 06:11 BP 107 / 73; Pulse 52; Resp 16; Pulse Ox 99% ; br2 06:45 BP 105 / 73; Pulse 50; Resp 16; Pulse Ox 96% on R/A; br2 06:58 BP 105 / 73; Pulse 48; Resp 16; Pulse Ox 98% on R/A; br2 08:44 BP 110 / 72; Pulse 56; Resp 16; Pulse Ox 99% on R/A; kc6 04:45 Body Mass Index 26.54 (83.91 kg, 177.8 cm) br2 04:45 Pain Scale: Adult br2 [place] Coma Score: 08:00 Eye Response: spontaneous(4). Motor Response: obeys commands(6). Verbal Response: sp4 oriented(5). Total: 15. ED Course: 04:42 Patient arrived in ED. jj6 04:45 Cristiana Correa RN is Primary Nurse. br2 04:45 Patient has correct armband on for positive identification. Bed in low position. Call br2 light in reach. Provided Education on: PLAN OF CARE. Client placed on continuous cardiac and pulse oximetry monitoring. NIBP monitoring applied. monitoring analyst on. Pulse ox on. 04:45 Maintain EMS IV. Dressing intact. Good blood return noted. Site clean \T\ dry. Gauge \T\ br 2 site: 20G LEFT AC. Patient maintains SpO2 saturation greater than 95% on room air. 04:48 Triage completed. br2 04:48 Ernesto Moore MD is Attending Physician. sp4 04:48 Arm band placed on. br2 05:14 Basic Metabolic Panel Sent. mm11 05:14 CBC with Diff Sent. mm11 05:14 LFT's Sent. mm11 05:14 Magnesium Sent. mm11 05:14 NT PRO-BNP Sent. mm11 05:14 PT-INR Sent. mm11 05:14 Troponin HS Sent. mm11 05:19 Basic Metabolic Panel Sent. br2 05:19 CBC with Diff Sent. br2 05:19 LFT's Sent. br2 05:19 Magnesium Sent. br2 05:19 NT PRO-BNP Sent. br2 05:19 PT-INR Sent. br2 05:19 Troponin HS Sent. br2 05:23 XRAY Chest (1 view) In Process Unspecified. EDMS 07:00 Door closed. Noise minimized. Lights dimmed. Warm blanket given. Pillow given. Verbal kc6 reassurance given. 07:44 Primary Nurse role handed off by Cristiana Correa, RN ll1 08:45 No provider procedures requiring assistance completed. IV discontinued, intact, kc6 bleeding controlled, No redness/swelling at site. Pressure dressing applied. Administered Medications: 05:18 Drug: LORazepam PO 2 mg PO once Route: PO; br2 07:20 Follow up: Response: No adverse reaction kc6 Medication: 08:45 VIS not applicable for this client. kc6 Outcome: 08:07 Discharge ordered by . spMarguerite 08:45 Discharged to home ambulatory, with family, kc6 08:45 Condition: improved 08:45 Discharge instructions given to patient, Instructed on discharge instructions, follow up and referral plans. no drinking with medication, no driving heavy equipment, medication usage, Demonstrated understanding of instructions, follow-up care, medications, Prescriptions given X 1, 08:45 Patient left the ED. kc6 Signatures: Dispatcher [employer] EDMS Rylan Jason RN RN ll1 Maile [id number] Ebony Hollis RN RN kc6 Ernesto Moore MD MD sp4 Cristiana Correa RN RN br2 amber saavedra mm11 Corrections: (The following items were deleted from the chart) 06:12 06:12 Reassessment: SEE TRIAGE ASSESSMENT br2 br2
--- NOTE | 2024-08-31 08:07 | EDPHYS ---
Physician Documentation [facility] Name: Mikhail Reilly Age: 48 yrs Sex: Male : 1975 Arrival Date: 08/31/2024 Time: 04:40 Bed 7 Private MD: ED Physician Ernesto Moore HPI: 08/31 04:48 This 48 yrs old Male presents to ER via EMS with complaints of Chest Pain. sp4 09/01 04:53 48-year-old male with history of atrial fibrillation, hypertension, back pain, kidney sp4 stone, TIA. Presents with acute onset midsternal chest pain after argument with his significant other. Historical: - Allergies: 08/31 04:48 Iodinated Contrast Media - IV Dye; br2 04:48 Iodine; br2 - PMHx: 04:48 Atrial Fib; Hypertension; Back pain; Kidney stones; TIA; br2 - Immunization history:: Adult Immunizations not up to date. - Infectious Disease History:: Denies. - Social history:: Smoking status: Patient reports the use of cigarette tobacco products, smokes one pack cigarettes per day. Patient uses alcohol, occasionally. street drugs, marijuana. - Family history:: not pertinent. ROS: 09/01 04:53 Constitutional: Negative for fever, chills, and weight loss, positive chest pain sp4 All other systems are negative, Exam: 08/31 08:00 Constitutional: This is a well developed, well nourished patient who is awake, alert, sp4 and in no acute distress. Head/Face: Normocephalic, atraumatic. Eyes: Pupils equal round and reactive to light, extra-ocular motions intact. Lids and lashes normal. Conjunctiva and sclera are not injected. Cornea within normal limits. Periorbital areas with no swelling, redness, or edema. ENT: Nares patent. No nasal discharge, no septal abnormalities noted. Tympanic membranes are normal and external auditory canals are clear. Oropharynx with no redness, swelling, or masses, exudates, or evidence of obstruction, uvula midline. Mucous membranes moist. Neck: Trachea midline, no thyromegaly or masses palpated, and no cervical lymphadenopathy. Supple, full range of motion without nuchal rigidity, or vertebral point tenderness. Chest/axilla: Normal chest wall appearance and motion. Nontender with no deformity. No lesions are appreciated. Cardiovascular: Regular rate and rhythm with a normal S1 and S2. No gallops, murmurs, or rubs. Normal PMI, no JVD. No pulse deficits. Respiratory: Lungs have equal breath sounds bilaterally, clear to auscultation and percussion. No rales, rhonchi or wheezes noted. No increased work of breathing, no retractions or nasal flaring. Abdomen/GI: Soft, with normal bowel sounds. No distension or tympany. No guarding or rebound. No evidence of tenderness throughout. Back: No spinal tenderness. No costovertebral tenderness. Skin: Warm, dry with normal turgor. Normal color with no rashes, no lesions, and no evidence of cellulitis. MS/ Extremity: Pulses equal, no cyanosis. Neurovascular intact. Full, normal range of motion. Neuro: Awake and alert, GCS 15, oriented to person, place, time, and situation. Cranial nerves II-XII grossly intact. Motor strength 5/5 in all extremities. Sensory grossly intact. Psych: Awake, alert, with orientation to person, place and time. Behavior, mood, and affect are within normal limits ECG was reviewed by the Attending Physician. EKG at 0502 Vital Signs: 04:45 BP 108 / 73; Pulse 71; Resp 16 S; Temp 97.2(TE); Pulse Ox 100% on R/A; Weight 83.91 kg; br2 Height 5 ft. 10 in. ; Pain 9/10; 05:27 BP 105 / 74; Pulse 62; Resp 16; Pulse Ox 95% ; br2 06:11 BP 107 / 73; Pulse 52; Resp 16; Pulse Ox 99% ; br2 06:45 BP 105 / 73; Pulse 50; Resp 16; Pulse Ox 96% on R/A; br2 06:58 BP 105 / 73; Pulse 48; Resp 16; Pulse Ox 98% on R/A; br2 08:44 BP 110 / 72; Pulse 56; Resp 16; Pulse Ox 99% on R/A; kc6 04:45 Body Mass Index 26.54 (83.91 kg, 177.8 cm) br2 04:45 Pain Scale: Adult br2 [place] Coma Score: 08:00 Eye Response: spontaneous(4). Motor Response: obeys commands(6). Verbal Response: sp4 oriented(5). Total: 15. MDM: 04:49 Medical Screening Exam initiated sp4 09/01 04:53 Differential diagnosis: acute pericarditis, anxiety, chest wall pain, esophagitis, sp4 gastritis. HEART Score: History: Slightly Suspicious (0), ECG: Normal (0), Age: > 45 and < 65 years (1), Risk Factors: > or = 3 Risk factors for atherosclerotic disease (2), Troponin: < or = 1 x Normal Limit (0), Total Score = 2. Data reviewed: vital signs, nurses notes, EMS record, old medical records, lab test result(s), EKG, radiologic studies, plain films. Consideration of Admission/Observation Escalation of care including admission/observation considered. ED course: EXAM: Chest Single View HISTORY: 48 years Male CHEST PAIN COMPARISON: 06/21/2024 FINDINGS: LUNGS/PLEURA: The lungs are clear. No pleural effusions or pneumothorax. No pulmonary edema. CARDIAC/MEDIASTINUM: The cardiac silhouette is within normal limits. UPPER ABDOMEN: No significant abnormality. BONES: No acute abnormality. LINES/TUBES/OTHER: N/A IMPRESSION: No evidence of acute cardiopulmonary disease. . ED course: Workup today unremarkable. Patient stable for discharge home.. 08/31 04:49 Order name: Basic Metabolic Panel; Complete Time: 07:59 sp4 08/31 04:49 Order name: CBC with Diff; Complete Time: 07:59 4 08/31 04:49 Order name: LFT's; Complete Time: 07:59 sp4 08/31 04:49 Order name: Magnesium; Complete Time: 07:59 sp4 08/31 04:49 Order name: NT PRO-BNP; Complete Time: 07:59 4 08/31 04:49 Order name: PT-INR; Complete Time: 07:59 sp4 08/31 04:49 Order name: Troponin HS; Complete Time: 07:59 sp4 08/31 04:49 Order name: XRAY Chest (1 view); Complete Time: 07:59 4 08/31 04:49 Order name: Cardiac monitoring; Complete Time: 05:19 sp4 08/31 04:49 Order name: EKG - Nurse/Tech; Complete Time: 05:19 sp4 08/31 04:49 Order name: IV Saline Lock; Complete Time: 05:14 sp4 08/31 04:49 Order name: Labs collected and sent; Complete Time: 05:14 sp4 08/31 04:49 Order name: O2 Per Protocol; Complete Time: 07:04 sp4 08/31 04:49 Order name: O2 Sat Monitoring; Complete Time: 07:05 sp4 EC/20 05:02 Rate is 66 beats/min. Rhythm is regular, Normal Sinus Rhythm. Right axis deviation sp4 noted. AL interval is normal. QRS interval is normal. QT interval is normal. No Q waves. T waves are Normal. No ST changes noted. Clinical impression: No evidence of ischemia. Interpreted by me. Reviewed by me. Administered Medications: 05:18 Drug: LORazepam PO 2 mg PO once Route: PO; br2 07:20 Follow up: Response: No adverse reaction kc6 Disposition: 09/01 04:56 Chart complete. sp4 Disposition Summary: 08/31/24 08:07 Discharge Ordered Notes: Location: Home sp4 Problem: new sp4 Symptoms: have improved sp4 Condition: Stable sp4 Diagnosis - Acute stress reaction, noncardiac chest pain sp4 - History of Atrial Fibrillation sp4 Followup: sp4 - With: Private Physician - When: 7 - 10 days - Reason: Recheck today's complaints Discharge Instructions: - Discharge Summary Sheet sp4 - Mindfulness-Based Stress Reduction sp4 Forms: - Patient Portal Instructions sp4 Prescriptions: - apixaban 2.5 mg Oral tablet - take 2 tablet ORAL route every 12 hours; 60 tablet; Refills: 0, Product sp4 Selection Permitted Signatures: Dispatcher [employer] Ernesto Cortez MD MD sp4 Cristiana Correa RN RN br2 Ebony Hollis RN kc6 Corrections: (The following items were deleted from the chart) 08/31 04:50 04:50 Chest Single View+[email or web address] ordered. EDMS EDMS
[2024-08-31 08:50] VITALS: TEMP 97.2
[2024-08-31 08:58] VITALS: BP 110/72; O2SAT 99
--- NOTE | 2024-09-03 12:49 | EKG ---
Test Date: 2024-08-31 Test Time: 05:02:43 Family Services Specialist: JUAN MANUEL MEASUREMENT RESULTS: Intervals: Rate: 66 MI: 156 QRSD: 108 QT: 420 QTc: 440 [place]: P: 70 MI: 156 QRS: 93 T: 47 INTERPRETIVE STATEMENTS: Normal sinus rhythm Rightward axis Borderline ECG Compared to ECG 06/21/2024 22:09:56 No significant changes Electronically Signed On 09-03-24 12:41:12 CDT by Charly Jimenez
== END 2024-08-31 08:45 | disposition home or self-care (01) ==
LOC: ER 04:40
DX: F43.0 Acute stress reaction (principal); I48.91 Unspecified atrial fibrillation; F17.210 Nicotine dependence, cigarettes, uncomplicated
CPT/HCPCS: 36415; 71045; 80048; 80076; 83735; 83880; 84484; 85025; 85610; 93005; 99284